=== PATIENT | male | born 1970 | race Caucasian/White ===

== ENCOUNTER 2017-08-05 11:01 | Observation (INO) ==
--- NOTE | 2017-08-05 11:07 | Emergency Department Note ---
Disposition Clinical Impression: Atrial fibrillation with RVR Disposition: Admitted As Inpatient Condition: Fair General Adult HPI - General Chief complaint: ED Arrhythmia/Palpitations Stated complaint: A fib, SOB Time Seen by Provider: 08/05/17 11:05 - Related Data Home Medications Medication Instructions Recorded Confirmed ALPRAZolam [Xanax 0.5 MG Tablet] 0.5 mg PO TID PRN 05/02/15 08/05/17 Calcium Acetate [Phos-LO] 1,334 mg PO TIDWM 05/02/15 08/05/17 Cinacalcet HCl [Sensipar] 90 mg PO QPM 05/02/15 08/05/17 Lisinopril [Zestril] 40 mg PO BID 05/02/15 08/05/17 Omeprazole 20 mg PO DAILY 05/02/15 08/05/17 Oxycodone HCl 15 mg PO Q6H PRN 05/02/15 08/05/17 Sevelamer [Renvela] 800 mg PO TIDWM 05/02/15 08/05/17 Folic Acid/Vit Bcomp,C [Dialyvite 0.8 mg PO DAILY 12/28/15 08/05/17 Tablet] Pramipexole Di-HCl [Pramipexole 0.5 mg PO HS 12/28/15 08/05/17 Dihydrochloride] traZODone [TraZODone] 50 mg PO HS 12/28/15 08/05/17 Ondansetron [Zofran] 8 mg PO DAILY PRN 04/26/16 08/05/17 dilTIAZem HCl [Diltiazem 24Hr ER] 240 mg PO DAILY 04/26/16 08/05/17 Ipratropium/Albuterol Sulfate 4 gm IH PRN PRN 04/22/17 08/05/17 [Combivent Respimat Inhal [place]] Lactobacillus Acidophilus 1 each PO BID 04/22/17 08/05/17 [Acidophilus Lactobacilli] Simethicone [Bicarsim] 80 mg PO Q8H PRN 04/22/17 08/05/17 Allergies Allergy/AdvReac Type Severity Reaction Status Date / Time No Known Allergies Allergy Verified 05/02/15 13:25 Course Vital Signs Temperature 98.2 F 08/05/17 11:04 Pulse Rate 142 08/05/17 11:04 Respiratory Rate 20 08/05/17 11:04 Blood Pressure 173/127 08/05/17 11:04 O2 Sat by Pulse Oximetry 93 08/05/17 11:04 Temperature 98.0 F 08/05/17 20:14 Pulse Rate 69 08/05/17 20:14 Respiratory Rate 18 08/05/17 20:14 Blood Pressure 129/81 08/05/17 20:14 O2 Sat by Pulse Oximetry 94 08/05/17 20:14 Oxygen Delivery Oxygen Delivery Nasal Cannula Medical Decision Making - Lab Data Result diagrams: 08/05/17 11:31 08/05/17 11:31 Lab Results 08/05/17 08/05/17 08/05/17 Range/Units 11:31 11:31 11:31 WBC 6.0 (4.3-11.1) K/mcL RBC 3.13 L (4.19-5.50) M/mcL Hgb 9.7 L (12.9-16.9) g/dL Hct 29.9 L (37.5-50.1) % MCV 95.5 (83.0-100.0) fL MCH 31.0 (28.0-33.3) pg MCHC 32.4 (31.6-35.5) g/dL RDW 14.7 H (11.5-14.5) % Plt Count 120 L (140-400) K/mcL MPV 10.4 (9.4-12.4) fL Immature Gran % 0.3 (0-4) % Seg Neutrophils % 76.2 % Lymphocytes % 12.6 % Monocytes % 7.3 % Eosinophils % 3.3 % Basophils % 0.3 % Neutrophils # 4.6 (1.6-8.9) K/mcL Lymphocytes # 0.8 (0.6-4.6) K/mcL Monocytes # 0.4 (0.0-1.3) K/mcL Eosinophils # 0.2 (0.0-0.6) K/mcL Basophils # 0.0 (0.0-0.2) K/mcL Immature Plt Fraction 3.7 (1.1-6.1) % PT 12.2 H (9.4-12.1) Seconds INR 1.1 APTT 30.7 (26.0-36.0) Seconds Sodium 141 (136-145) mEq/L Potassium 4.0 (3.5-4.5) mEq/L Chloride 98 (98-109) mEq/L Carbon Dioxide 29 (19-29) mEq/L BUN 29 H (8-26) mg/dL Creatinine 6.03 H (0.72-1.25) mg/dL Est GFR ( Amer) 12 L (> 60) Est GFR (Non-Af Amer) 10 L (> 60) BUN/Creatinine Ratio 5 L (6-26) Glucose 87 (70-99) mg/dL Calculated Osmolality 297 (280-300) Calcium 9.6 (8.6-10.8) mg/dL Troponin I (0-0.03) ng/mL TSH 0.719 (0.350-4.840) mcIU/mL 08/05/17 Range/Units 11:31 WBC (4.3-11.1) K/mcL RBC (4.19-5.50) M/mcL Hgb (12.9-16.9) g/dL Hct (37.5-50.1) % MCV (83.0-100.0) fL MCH (28.0-33.3) pg MCHC (31.6-35.5) g/dL RDW (11.5-14.5) % Plt Count (140-400) K/mcL MPV (9.4-12.4) fL Immature Gran % (0-4) % Seg Neutrophils % % Lymphocytes % % Monocytes % % Eosinophils % % Basophils % % Neutrophils # (1.6-8.9) K/mcL Lymphocytes # (0.6-4.6) K/mcL Monocytes # (0.0-1.3) K/mcL Eosinophils # (0.0-0.6) K/mcL Basophils # (0.0-0.2) K/mcL Immature Plt Fraction (1.1-6.1) % PT (9.4-12.1) Seconds INR APTT (26.0-36.0) Seconds Sodium (136-145) mEq/L Potassium (3.5-4.5) mEq/L Chloride (98-109) mEq/L Carbon Dioxide (19-29) mEq/L BUN (8-26) mg/dL Creatinine (0.72-1.25) mg/dL Est GFR ( Amer) (> 60) Est GFR (Non-Af Amer) (> 60) BUN/Creatinine Ratio (6-26) Glucose (70-99) mg/dL Calculated Osmolality (280-300) Calcium (8.6-10.8) mg/dL Troponin I 0.05 H* (0-0.03) ng/mL TSH (0.350-4.840) mcIU/mL Critical Care Time Critical Care Time: Yes Total Critical Care Time: 30 Attestation: Patient presented in atrial fibrillation with RVR requiring an IV Cardizem drip for rate control and admission Attestation Statement - Attestation Attestation: I examined this patient and my medical decision-making was reviewed with the Resident Physician. I agree with the documented findings, disposition and treatment plan as described except to the extent set forth below. [id number] time provided Arrives by EMS after completing his dialysis session. He complains of palpitations. He has a known history of atrial fibrillation. He appears in no acute distress on exam. His home medication list was reviewed by me
--- NOTE | 2017-08-05 11:12 | Emergency Department Note ---
Disposition Clinical Impression: Atrial fibrillation with RVR Disposition: Admitted As Inpatient Condition: Fair Referrals: Roldan Rose Jr [Primary Care Provider] - Forms: ED Satisfaction Letter Time of Disposition: 12:44 Arrhythmia/Palpitations HPI - General Chief Complaint: ED Arrhythmia/Palpitations Stated Complaint: A fib, SOB Time Seen by Provider: 08/05/17 11:05 Nursing Notes Reviewed: Yes Vital Signs Reviewed: Yes - History of Present Illness HPI Narrative: Mr. Anderson, 38-year-old male, presents from dialysis to this department for evaluation of tachycardia. Patient has a history of atrial fibrillation on metoprolol and diltiazem. He did take his metoprolol but did not take his diltiazem. No anticoagulant and no antiplatelet. He is here for rapid heart rate. He is a history of A. fib with RVR and this feels exactly the same to him. He denies any dizziness or no weakness. He does feel palpitations. No headache. No chest pain, no back pain0. 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 History of atrial fibrillation. Spontaneous pericardial effusion with cardiac window. No history of ACS. - Related Data Home Medications Medication Instructions Recorded Confirmed ALPRAZolam [Xanax 0.5 MG Tablet] 0.5 mg PO TID PRN 05/02/15 04/22/17 Calcium Acetate [Phos-LO] 1,334 mg PO TIDWM 05/02/15 04/22/17 Cinacalcet HCl [Sensipar] 90 mg PO QPM 05/02/15 04/22/17 Furosemide [Lasix] 20 mg PO DAILY PRN 05/02/15 04/22/17 Gabapentin [Neurontin] 800 mg PO BID 05/02/15 04/22/17 Lisinopril [Zestril] 40 mg PO BID 05/02/15 04/22/17 Omeprazole 20 mg PO DAILY 05/02/15 04/22/17 Oxycodone HCl 15 mg PO Q6H PRN 05/02/15 04/22/17 Sevelamer [Renvela] 800 mg PO TIDWM 05/02/15 04/22/17 Folic Acid/Vit Bcomp,C [Dialyvite 0.8 mg PO DAILY 12/28/15 04/22/17 Tablet] Pramipexole Di-HCl [Pramipexole 0.5 mg PO HS 12/28/15 04/22/17 Dihydrochloride] traZODone [TraZODone] 50 mg PO HS 12/28/15 04/22/17 Ondansetron [Zofran] 8 mg PO DAILY PRN 04/26/16 04/22/17 dilTIAZem HCl [Diltiazem 24Hr ER] 240 mg PO DAILY 04/26/16 04/22/17 Ipratropium/Albuterol Sulfate 4 gm IH PRN PRN 04/22/17 04/22/17 [Combivent Respimat Inhal [place]] Lactobacillus Acidophilus 1 each PO BID 04/22/17 04/22/17 [Acidophilus Lactobacilli] Simethicone [Bicarsim] 80 mg PO Q8H PRN 04/22/17 04/22/17 Varenicline Tartrate [Chantix] 1 mg PO BID 04/22/17 04/22/17 Previous Rx's Medication Instructions Recorded Metoprolol XL (24 HR) Succ [Toprol 25 mg PO DAILY #30 tab.er.24h 04/23/17 XL] Allergies Allergy/AdvReac Type Severity Reaction Status Date / Time No Known Allergies Allergy Verified 05/02/15 13:25 All systems ED: reviewed and negative except as stated. Review of Systems: As Per HPI Physical Exam Vital Signs Reviewed General: Patient is alert, oriented, and in no acute distress. HEENT: No facial asymmetry. Head is normocephalic and atraumatic. Mucosa moist. Trachea midline. Cardiovascular: Heart tachycardic rate with irregular rhythm without clicks, rubs, gallops, or murmurs. No JVD. PMI nondisplaced. Bilateral radial pulses irregular, 2/4 and equal. Respiratory: Symmetric chest rise with good respiratory effort. Bilateral breath sounds are clear without wheezing, crackles, or rhonchi. Abdomen: Bowel sounds present normoactive x-4 quadrants. Abdomen is soft, nondistended, and nontender. Neuro: GCS 15. Psych: Patient's affect is appropriate for situation. Course Course Narrative: Patient presents from dialysis for symptomatic atrial fibrillation with rapid ventricular response. He did complete dialysis today. Blood pressure in the 170s on intake. Heart rate in the 130s. EKG shows A. fib RVR. We will provide Cardizem bolus with Cardizem drip. Remainder of lab work and chest x- ray pending. Patient has elevated troponin of 0.05. His expected given his history of CK D stage V on dialysis. Patient is anemic with hemoglobin of 9. No previous for comparison. This is also expected given his dialysis dependence. Patient's HR in the 110's after 20mg bolus of cardizem and drip now at 10mg/hr. BP 150's systolic. Discussed the patient with the admitting hospitalist, Dr. Ayala, who agrees to accept the patient. Vital Signs Temperature 98.2 F 08/05/17 11:04 Pulse Rate 142 08/05/17 11:04 Respiratory Rate 20 08/05/17 11:04 Blood Pressure 173/127 08/05/17 11:04 O2 Sat by Pulse Oximetry 93 08/05/17 11:04 Temperature 98.2 F 08/05/17 11:04 Pulse Rate 118 08/05/17 12:41 Respiratory Rate 18 08/05/17 12:41 Blood Pressure 153/116 08/05/17 12:41 O2 Sat by Pulse Oximetry 98 08/05/17 12:41 Oxygen Delivery Oxygen Delivery Nasal Cannula Arrhythmia/Palpitations - Lab Data Result diagrams: 08/05/17 11:31 08/05/17 11:31 Lab Results 08/05/17 08/05/17 08/05/17 Range/Units 11:31 11:31 11:31 WBC 6.0 (4.3-11.1) K/mcL RBC 3.13 L (4.19-5.50) M/mcL Hgb 9.7 L (12.9-16.9) g/dL Hct 29.9 L (37.5-50.1) % MCV 95.5 (83.0-100.0) fL MCH 31.0 (28.0-33.3) pg MCHC 32.4 (31.6-35.5) g/dL RDW 14.7 H (11.5-14.5) % Plt Count 120 L (140-400) K/mcL MPV 10.4 (9.4-12.4) fL Immature Gran % 0.3 (0-4) % Seg Neutrophils % 76.2 % Lymphocytes % 12.6 % Monocytes % 7.3 % Eosinophils % 3.3 % Basophils % 0.3 % Neutrophils # 4.6 (1.6-8.9) K/mcL Lymphocytes # 0.8 (0.6-4.6) K/mcL Monocytes # 0.4 (0.0-1.3) K/mcL Eosinophils # 0.2 (0.0-0.6) K/mcL Basophils # 0.0 (0.0-0.2) K/mcL Immature Plt Fraction 3.7 (1.1-6.1) % PT 12.2 H (9.4-12.1) Seconds INR 1.1 APTT 30.7 (26.0-36.0) Seconds Sodium 141 (136-145) mEq/L Potassium 4.0 (3.5-4.5) mEq/L Chloride 98 (98-109) mEq/L Carbon Dioxide 29 (19-29) mEq/L BUN 29 H (8-26) mg/dL Creatinine 6.03 H (0.72-1.25) mg/dL Est GFR ( Amer) 12 L (> 60) Est GFR (Non-Af Amer) 10 L (> 60) BUN/Creatinine Ratio 5 L (6-26) Glucose 87 (70-99) mg/dL Calculated Osmolality 297 (280-300) Calcium 9.6 (8.6-10.8) mg/dL Troponin I (0-0.03) ng/mL 08/05/17 Range/Units 11:31 WBC (4.3-11.1) K/mcL RBC (4.19-5.50) M/mcL Hgb (12.9-16.9) g/dL Hct (37.5-50.1) % MCV (83.0-100.0) fL MCH (28.0-33.3) pg MCHC (31.6-35.5) g/dL RDW (11.5-14.5) % Plt Count (140-400) K/mcL MPV (9.4-12.4) fL Immature Gran % (0-4) % Seg Neutrophils % % Lymphocytes % % Monocytes % % Eosinophils % % Basophils % % Neutrophils # (1.6-8.9) K/mcL Lymphocytes # (0.6-4.6) K/mcL Monocytes # (0.0-1.3) K/mcL Eosinophils # (0.0-0.6) K/mcL Basophils # (0.0-0.2) K/mcL Immature Plt Fraction (1.1-6.1) % PT (9.4-12.1) Seconds INR APTT (26.0-36.0) Seconds Sodium (136-145) mEq/L Potassium (3.5-4.5) mEq/L Chloride (98-109) mEq/L Carbon Dioxide (19-29) mEq/L BUN (8-26) mg/dL Creatinine (0.72-1.25) mg/dL Est GFR ( Amer) (> 60) Est GFR (Non-Af Amer) (> 60) BUN/Creatinine Ratio (6-26) Glucose (70-99) mg/dL Calculated Osmolality (280-300) Calcium (8.6-10.8) mg/dL Troponin I 0.05 H* (0-0.03) ng/mL - EKG Data EKG attestation: Yes I reviewed and interpreted this EKG. EKG results narrative: EKG dated 08/05/17 at 11:15 interpreted as atrial fibrillation with a rate of 133. Normal axis. Nonspecific ST T changes. No previous EKG for comparison.
[2017-08-05] MEDS ORDERED: dilTIAZem HCl 100 MG in D5% in Water 50 ML IVC SCH ×2 (11:30→16:05)
[2017-08-05 11:37] LABS: Basophils % 0.3 %; Eosinophils # 0.2 K/mcL (0.0-0.6); Eosinophils % 3.3 %; Hematocrit 29.9 % (37.5-50.1); Hemoglobin 9.7 g/dL (12.9-16.9); Immature Granulocytes % 0.3 % (0-4); Immature Platelets 3.7 % (1.1-6.1); Lymphocytes # 0.8 K/mcL (0.6-4.6); Lymphocytes % 12.6 %; Mean Corpuscular HGB Conc 32.4 g/dL (31.6-35.5); Mean Corpuscular Volume 95.5 fL (83.0-100.0); Mean Platelet Volume 10.4 fL (9.4-12.4); Monocytes # 0.4 K/mcL (0.0-1.3); Monocytes % 7.3 %; Neutrophils # 4.6 K/mcL (1.6-8.9); Platelet Count 120 K/mcL (140-400); Red Blood Count 3.13 M/mcL (4.19-5.50); Red Cell Distribution Width 14.7 % (11.5-14.5); Segmented Neutrophils % 76.2 %
[2017-08-05 11:43] LABS: INR 1.1; Prothrombin Time 12.2 Seconds (9.4-12.1)
[2017-08-05 11:46] LABS: Activated Partial Thrombo Time 30.7 Seconds (26.0-36.0)
[2017-08-05 11:48] LABS: Calcium 9.6 mg/dL (8.6-10.8)
[2017-08-05] MEDS ORDERED: *HR* Morphine 2 MG/ML SYRINGE IVP ONE (12:27)
[2017-08-05] MEDS ORDERED: Simethicone 80 MG TAB.CHEW PO PRN (13:51)
[2017-08-05] MEDS ORDERED: Naloxone 0.4 MG/ML INJ IVP PRN (13:56)
--- NOTE | 2017-08-05 14:09 | Internal Med History&Physical ---
Date of Encounter: 08/05/17 Time of Encounter: 14:00 Assessment and Plan (1) Atrial fibrillation with rapid ventricular response Current visit: Yes Status: Acute Exacerbation of atrial fibrillation with rapid ventricular response. The patient is not on any anticoagulation or antiplatelets due to history of bleeding with unknown source. He reports he has been noncompliant with his calcium channel alka for the last couple of days due to feeling weak and fatigued. Admits to orthopnea and shortness of breath. Some history of pericardial effusion requiring pericardial window. He is in no distress and resting on 2 L nasal cannula Continuous telemetry, continuous SPO2 monitoring Resume home antihypertensives Echocardiogram to rule out pericardial effusion Resume diltiazem oral dose first dose now, Goal is to slowly titrate Cardizem drip off (2) Anemia Current visit: Yes Status: Chronic Anemia with H&H of 9.7/29.9. No prior labs for comparison. 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 Reports having past history of anemia requiring for blood transfusions. No active bleeding at this time. CBC in the morning Qualifiers: Anemia type: unspecified type Qualified Code(s): D64.9 - Anemia, unspecified (3) HTN (hypertension) Current visit: Yes Status: Acute History of hypertension, is only blood pressures in the 150s as of this admission. Continue BB, CCB, MAICOL, continuous telemetry Qualifiers: Hypertension type: essential hypertension Qualified Code(s): I10 - Essential (primary) hypertension (4) ESRD (end stage renal disease) on dialysis Current visit: No Status: Chronic Internal Medicine - H&P: HPI Chief complaint: A. fib RVR Admitted From: Home Plans for Post Hospital Care: Home History of present illness: Mr. Anderson is a 46 year old male with a PMH of CKD V, born with one kidney, HTN, A. fib RVR, pericardial effusion who presents to [facility] today with palpitations and shortness of breath. Patient has a known history of atrial fibrillation. He reports he is not on anticoagulation or antiplatelet. Patient reports that he was at hemodialysis this morning and with about 10 minutes of his treatment left he began experiencing palpitations or shortness of breath. Upon arrival to Emergency department he was found to be in A. fib with RVR. He reports that he has been noncompliant with medications for the last couple of days because he has not felt well. Reporting he felt fatigued and weak and has missed a few doses of his CCB. Denies any fever, chills, dizziness, palpitations, chest pain or headache. Recent history of pericardial effusion requiring pericardial window. Workup today reveals unremarkable chest x-ray and chronically elevated troponin 0.05. Additionally, he is anemic with H&H of 9.7/29.9 no prior H&H for comparison. Past Med Surg Social Fam HX - Past Medical History Medical history: atrial fibrillation, hypertension Psychiatric history: anxiety - Past Surgical History Surgical History: other - Social History Smoking Status: Current every day smoker Smokeless Tobacco Status: No Alcohol use: none Drug use: none - Family History Father Hx Family Endocrine Disorder: Yes Internal Medicine - H&P: Meds ALPRAZolam [Xanax 0.5 MG Tablet] 0.5 mg PO TID PRN 05/02/15 [History] Calcium Acetate [Phos-LO] 1,334 mg PO TIDWM 05/02/15 [History] Cinacalcet HCl [Sensipar] 90 mg PO QPM 05/02/15 [History] Lisinopril [Zestril] 40 mg PO BID 05/02/15 [History] Omeprazole 20 mg PO DAILY 05/02/15 [History] Oxycodone HCl 15 mg PO Q6H PRN 05/02/15 [History] Sevelamer [Renvela] 800 mg PO TIDWM 05/02/15 [History] Folic Acid/Vit Bcomp,C [Dialyvite Tablet] 0.8 mg PO DAILY 12/28/15 [History] Pramipexole Di-HCl [Pramipexole Dihydrochloride] 0.5 mg PO HS 12/28/15 [History] traZODone [TraZODone] 50 mg PO HS 12/28/15 [History] Ondansetron [Zofran] 8 mg PO DAILY PRN 04/26/16 [History] dilTIAZem HCl [Diltiazem 24Hr ER] 240 mg PO DAILY 04/26/16 [History] Ipratropium/Albuterol Sulfate [Combivent Respimat Inhal [place]] 4 gm IH PRN PRN 04/22/17 [History] Lactobacillus Acidophilus [Acidophilus Lactobacilli] 1 each PO BID 04/22/17 [ History] Simethicone [Bicarsim] 80 mg PO Q8H PRN 04/22/17 [History] 3 Allergy/AdvReac Type Severity Reaction Status Date / Time No Known Allergies Allergy Verified 05/02/15 13:25 All Systems PM: A 10-system review of systems was performed and is negative for pertinent findings except as documented above in the HPI. - Constitutional Constitutional: fatigue, weakness, no chills, no fever(s), no lethargy, no malaise, no night sweats, no weight gain, no weight loss - EENT Eyes: no change in vision, no discharge, no pain, no photophobia Ears: no ear discharge, no ear pain, no tinnitus Nose, mouth and throat: no dysphagia, no nasal discharge, no neck pain, no sore throat - Cardiovascular Cardiovascular ROS IM: as per HPI, dyspnea, irregular heart rhythm, orthopnea, no chest pain, no diaphoresis, no dyspnea on exertion, no edema, no lightheadedness, no palpitations, no syncope - Respiratory Respiratory: dyspnea, no cough, no wheezing, no pain on inspiration, no chest congestion, no excessive phlegm production, no pain with cough - Gastrointestinal Gastrointestinal: no abdominal pain, no diarrhea, no hematemesis, no hematochezia, no melena, no nausea, no vomiting - Musculoskeletal Musculoskeletal ROS IM: no numbness, no tingling - Integumentary Integumentary IM: no rash, no unusual bruising - Neurological Neurological ROS: no confusion, no convulsions, no focal weakness, no numbness, no tingling, no tremor(s) - Hematologic/Lymphatic Hematologic/Lymphatic: no easy bruising - Constitutional Vitals: Temp Pulse Resp BP Pulse Ox 98.2 F 100 18 155/106 98 08/05/17 11:04 08/05/17 13:12 08/05/17 13:12 08/05/17 13:12 08/05/17 13:12 General appearance: Present: cooperative, mild distress, A&O X 3, answers questions appropriately - Head Head exam: Present: atraumatic, normocephalic - Respiratory Respiratory exam: Present: CTAB. Absent: accessory muscle use, chest wall tenderness, decreased breath sounds, prolonged expiratory phase, rales, respiratory distress, rhonchi, wheezes, tachypnea - Cardiovascular Cardiovascular exam: Present: irregular rhythm, tachycardia - GI/Abdominal GI/Abdominal exam: Present: normal bowel sounds, soft, no peritoneal signs. Absent: distended, tenderness - Extremities Exam Extremities exam: Present: normal capillary refill, warm, radial pulses palpable and symmetrical. Absent: calf tenderness, cyanotic, mottling, pedal edema, tenderness Internal Med - H&P Results - Labs CBC & Chem 7: 08/05/17 11:31 08/05/17 11:31 - EKG Data -: EKG Interpreted by Myself - EKG Data Prior EKG available for review: no EKG comments: 08/05/17 14:24 A. fib RVR - Diagnostic Studies Chest x-ray Status: image reviewed by me Additional comments: Ill definition within the left lower lobe/retrocardiac region with suggestion of underlying hiatal hernia and/or airspace disease with possible small effusion. - VTE Reasons for not Prescribing Prophylaxis: Medical contraindication
[2017-08-05] MEDS ORDERED: 0.9 % Sodium Chloride 1,000 ML ONE (14:45)
[2017-08-05 14:56] LABS: Thyroid Stimulating Hormone 0.719 mcIU/mL (0.350-4.840)
--- NOTE | 2017-08-05 15:05 | Event Note ---
Date of Encounter: 08/05/17 Time of Encounter: 15:01 Patient seen and examined. AFib with RVR, now on cardizem drip. He has been SOB and orthopnic. Has history of it but usually in NSR. Not on anticoagulant due to prior GI bleed. Will continue cardizem drip, trend troponin. Check echocardiogram: he had a prior pericardial window probably related to his ESRD. He is lower than his dry weight (now 95.5 kg and dry weight 97). Took 3.5 L today. Will consult nephrology in case dialysis is needed o Saturday.
[2017-08-05] MEDS: Diltiazem CD (24hr) 240 MG CAPSULE PO SCH (15:26)
[2017-08-05] MEDS ORDERED: Ipratropium/Albuterol Neb 3 ML IH PRN (16:00)
[2017-08-05] MEDS: Calcium Acetate 667 MG CAPSULE PO SCH (16:37)
--- NOTE | 2017-08-05 16:39 | Electrocardiograph Report ---
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
[2017-08-05] MEDS: *HR* OxyCODONE Immed Rel 15 MG TABLET PO PRN ×2 (16:40→23:52)
[2017-08-05] MEDS: Ondansetron ODT 4 MG TAB.RAPDIS PO PRN (17:07)
[2017-08-05] MEDS: *HR* Morphine 2 MG/ML SYRINGE IVP PRN (20:55)
[2017-08-05] MEDS: traZODone 50 MG TABLET PO SCH (20:55)
[2017-08-05] MEDS: Lactobacillus 1 EACH CAP.SPRINK PO SCH (20:55)
[2017-08-05] MEDS ORDERED: Lisinopril 20 MG TABLET PO SCH (21:00)
[2017-08-06] MEDS: Nicotine 21 MG PATCH.TD24 TD SCH ×2 (00:07→08:30)
[2017-08-06] MEDS: ALPRAZolam 0.5 MG TABLET PO PRN ×2 (00:08→20:59)
[2017-08-06] MEDS: *HR* Morphine 2 MG/ML SYRINGE IVP PRN ×3 (02:55→18:18)
[2017-08-06] MEDS: *HR* OxyCODONE Immed Rel 15 MG TABLET PO PRN ×3 (06:24→20:59)
[2017-08-06 06:56] LABS: Basophils % 0.4 %; Eosinophils # 0.2 K/mcL (0.0-0.6); Eosinophils % 2.8 %; Hematocrit 26.5 % (37.5-50.1); Hemoglobin 8.3 g/dL (12.9-16.9); Immature Granulocytes % 0.4 % (0-4); Lymphocytes # 1.3 K/mcL (0.6-4.6); Lymphocytes % 19.4 %; Mean Corpuscular HGB Conc 31.3 g/dL (31.6-35.5); Mean Corpuscular Volume 98.9 fL (83.0-100.0); Monocytes # 0.5 K/mcL (0.0-1.3); Monocytes % 6.6 %; Neutrophils # 4.8 K/mcL (1.6-8.9); Platelet Count 104 K/mcL (140-400); Red Blood Count 2.68 M/mcL (4.19-5.50); Red Cell Distribution Width 14.5 % (11.5-14.5); Segmented Neutrophils % 70.4 %
[2017-08-06 07:02] LABS: Albumin 2.9 g/dL (3.5-5.0); Albumin/Globulin Ratio 0.9 (1.1-2.2); Calcium 8.8 mg/dL (8.6-10.8); Globulin 3.4 g/dL (2.4-3.5); Magnesium 2.2 mg/dL (1.6-2.6); Potassium 4.7 mEq/L (3.5-4.5); Total Protein 6.3 g/dL (6.0-8.3)
[2017-08-06] MEDS: Lactobacillus 1 EACH CAP.SPRINK PO SCH ×2 (08:30→20:59)
[2017-08-06] MEDS: Diltiazem CD (24hr) 240 MG CAPSULE PO SCH (08:30)
[2017-08-06] MEDS: Calcium Acetate 667 MG CAPSULE PO SCH ×3 (08:30→16:44)
[2017-08-06] MEDS: Lisinopril 20 MG TABLET PO SCH (08:30)
[2017-08-06] MEDS ORDERED: Multivit/Ca/Min/Fe/FA 1 TAB TABLET PO SCH (09:00)
[2017-08-06] MEDS: Renal Vitamin 1 MG CAPSULE PO SCH (10:05)
--- NOTE | 2017-08-06 11:54 | Nephrology Consult Note ---
Date of Encounter: 08/06/17 Time of Encounter: 11:45 History of Present Illness - Reason for Consult Consult date: 08/06/17 end stage renal disease Past Med Surg Social Fam HX - Past Medical History Medical history: atrial fibrillation, hypertension Psychiatric history: anxiety - Past Surgical History Surgical History: other - Social History Smoking Status: Current every day smoker Smokeless Tobacco Status: No Alcohol use: none Drug use: none - Family History Father Hx Family Endocrine Disorder: Yes Medications and Allergies ALPRAZolam [Xanax 0.5 MG Tablet] 0.5 mg PO TID PRN 05/02/15 [History] Calcium Acetate [Phos-LO] 1,334 mg PO TIDWM 05/02/15 [History] Cinacalcet HCl [Sensipar] 90 mg PO QPM 05/02/15 [History] Lisinopril [Zestril] 40 mg PO BID 05/02/15 [History] Omeprazole 20 mg PO DAILY 05/02/15 [History] Oxycodone HCl 15 mg PO Q6H PRN 05/02/15 [History] Sevelamer [Renvela] 800 mg PO TIDWM 05/02/15 [History] Folic Acid/Vit Bcomp,C [Dialyvite Tablet] 0.8 mg PO DAILY 12/28/15 [History] Pramipexole Di-HCl [Pramipexole Dihydrochloride] 0.5 mg PO HS 12/28/15 [History] traZODone [TraZODone] 50 mg PO HS 12/28/15 [History] Ondansetron [Zofran] 8 mg PO DAILY PRN 04/26/16 [History] dilTIAZem HCl [Diltiazem 24Hr ER] 240 mg PO DAILY 04/26/16 [History] Ipratropium/Albuterol Sulfate [Combivent Respimat Inhal [place]] 4 gm IH PRN PRN 04/22/17 [History] Lactobacillus Acidophilus [Acidophilus Lactobacilli] 1 each PO BID 04/22/17 [ History] Simethicone [Bicarsim] 80 mg PO Q8H PRN 04/22/17 [History] 3 Allergy/AdvReac Type Severity Reaction Status Date / Time No Known Allergies Allergy Verified 05/02/15 13:25 Exam - Vital Signs Vital signs: Initial Vital Signs Temp Pulse Resp BP Pulse Ox 98.2 F 142 20 173/127 93 08/05/17 11:04 08/05/17 11:04 08/05/17 11:04 08/05/17 11:04 08/05/17 11:04 Vital Signs - Last 8 Hours Temp Pulse Resp BP Pulse Ox 08/06/17 08:25 98.2 F 72 18 119/79 95 08/06/17 03:56 98.0 F 71 18 110/67 94 Intake and Output 08/05/17 08/06/17 08/06/17 23:59 07:59 15:59 Intake Total 0 / 0 240 / 240 Output Total 0 / 0 Balance 0 / 0 240 / 240 Intake: Oral 0 / 0 240 / 240 Output: Urine 0 / 0 Other: Meal Breakfast Percent of Meal Consumed 100% # Bowel Movement Diapers 0 Weight 100.3 kg Patient Weight 08/06/17 23:59 Weight 100.3 kg Results - Lab Results 08/06/17 06:15 08/06/17 06:15 Most recent lab results Calcium 8.8 mg/dL (8.6-10.8) 08/06/17 06:15 Magnesium 2.2 mg/dL (1.6-2.6) 08/06/17 06:15 Consult Discharge Plan - Plan Referrals: Roldan Rose Jr [Primary Care Provider] -
--- NOTE | 2017-08-06 16:17 | Internal Med Progress Note ---
Date of Encounter: 08/06/17 Time of Encounter: 15:30 - Assessment and plan (1) Atrial fibrillation with RVR Current Visit: Yes Status: Acute Assessment and plan: Chronic Atrial fibrillation with RVR - now with controlled IV Cardizem has been stopped, continue PO Cardizem No anticoagulation due to history of GI bleed Chest x-ray - patchy airspace disease, possibly edema Troponin - 0.06, occluded demand ischemia, no further workup EKG - atrial fibrillation with ST-T changes Echocardiogram - LVEF 60%, mild LV diastolic dysfunction, severely dilated LA Cardiac telemetry, pulse ox, labs in a.m., monitor closely, anticipate discharge tomorrow (2) HTN (hypertension) Current Visit: Yes Status: Chronic Assessment and plan: Essential hypertension, controlled, monitor Continue home dose of Cardizem, Zestril Qualifiers: Hypertension type: essential hypertension Qualified Code(s): I10 - Essential (primary) hypertension (3) ESRD (end stage renal disease) on dialysis Current Visit: No Status: Chronic Assessment and plan: End-stage renal disease on hemodialysis - Saturday Nephrology consult (4) COPD (chronic obstructive pulmonary disease) Current Visit: Yes Status: Chronic Assessment and plan: Probable COPD, stable - not in exacerbation Continue Duoneb breathing treatment as needed, O2 via nasal cannula Qualifiers: COPD type: unspecified COPD Qualified Code(s): J44.9 - Chronic obstructive pulmonary disease, unspecified (5) Tobacco abuse Current Visit: Yes Status: Chronic Assessment and plan: Counseled about cessation, nicotine patch (6) DVT prophylaxis Current Visit: Yes Status: Acute Assessment and plan: Continue SCDs, ambulate - Time Spent With Patient 25 - 35 minutes - Subjective Interval history: Examined this afternoon. Patient is awake and alert. Not in any distress. Denies chest pain or shortness of breath. States he feels better. Tolerating oral diet. Hemodynamically stable. No fever. Admitted for A. fib with RVR. Rate is now controlled. He is currently on Cardizem by mouth. He is not on anticoagulation due to history of GI bleed. No other acute events or complaints. Anticipate discharge tomorrow. - Constitutional Vitals: Temp Pulse Resp BP Pulse Ox 98.5 F 73 18 126/78 98 08/06/17 15:33 08/06/17 15:33 08/06/17 15:33 08/06/17 15:33 08/06/17 15:33 General appearance: Present: cooperative, A&O X 3, pleasant, no acute distress, answers questions appropriately - Head Head exam: Present: atraumatic - Eye Eye exam: Present: EOMI - ENT ENT exam: Present: mucous membranes moist - Respiratory Respiratory exam: Present: wheezes (Mild bilateral, otherwise clear to auscultation). Absent: accessory muscle use, chest wall tenderness, rales, rhonchi, tachypnea - Cardiovascular Cardiovascular exam: Present: RRR, +S1, +S2 - GI/Abdominal GI/Abdominal exam: Present: soft. Absent: distended, firm, guarding, no peritoneal signs - Extremities Exam Extremities exam: Present: radial pulses palpable and symmetrical. Absent: calf tenderness, cyanotic, pedal edema - Neurological Exam Neurological exam: Present: alert, oriented X3, no focal deficits. Absent: facial droop, speech deficit Internal Medicine: Result - Labs CBC & Chem 7: 08/06/17 06:15 08/06/17 06:15 Labs: Short CBC 08/06/17 Range/Units 06:15 WBC 6.8 (4.3-11.1) K/mcL Hgb 8.3 L (12.9-16.9) g/dL Hct 26.5 L (37.5-50.1) % Plt Count 104 L (140-400) K/mcL Neutrophils # 4.8 (1.6-8.9) K/mcL BMP 08/06/17 06:15 Sodium 141 Potassium 4.7 H Chloride 96 L Carbon Dioxide 33 H BUN 45 H D Creatinine 8.62 H Glucose 79 Calcium 8.8 Cardiac Enzymes 08/05/17 08/05/17 Range/Units 16:25 23:26 Troponin I 0.05 H* 0.06 H* (0-0.03) ng/mL Liver Function 08/06/17 Range/Units 06:15 Total Bilirubin 1.0 (0.2-1.2) mg/dL AST 10 (5-34) Units/L ALT 10 (0-55) Units/L Alkaline Phosphatase 53 (38-126) Units/L Albumin 2.9 L (3.5-5.0) g/dL - ABG Interpretation ABG results: PT/INR, D-dimer PT 12.2 Seconds (9.4-12.1) H 08/05/17 11:31 - Impressions Impressions Echocardiogram 08/05/17 13:53 Impressions: LVEF 60%. Mildly dilated left ventricle. Mild concentric left ventricular hypertrophy. Mild left ventricular diastolic dysfunction. Normal right ventricular structure and function. Severely dilated left atrium. Mildly calcified aortic valve leaflets. Mild aortic stenosis. Mean gradient 18 mmHg. Moderate posterior mitral annular calcification. Mildly thickened mitral valve leaflets. Mild mitral regurgitation. Moderate-severe mitral stenosis. Mean gradient 9 mmHg (HR 78 bpm). Mild tricuspid regurgitation. Moderate pulmonary hypertension. Estimated RVSP is 51 mmHg. No pericardial effusion. Left Ventricular Wall Motion: Rest Echo Findings All wall segments showed normal motion. Findings: Study Quality * Technically adequate exam. ECG Findings * Normal sinus rhythm. Left Ventricle * LVEF 60%. * Mildly dilated left ventricle. * Mild concentric left ventricular hypertrophy. * Mild left ventricular diastolic dysfunction. Right Ventricle * Normal right ventricular structure and function. Left Atrium * Severely dilated left atrium. Right Atrium * Mildly dilated right atrium. Interatrial Septum * Interatrial septum not well evaluated. Aortic Valve * Trileaflet aortic valve. * Mildly calcified aortic valve leaflets. * Trace aortic regurgitation. * Mild aortic stenosis. Mean gradient 18 mmHg. Mitral Valve * Moderate posterior mitral annular calcification. * Mildly thickened mitral valve leaflets. * Mild mitral regurgitation. * Moderate-severe mitral stenosis. Mean gradient 9 mmHg (HR 78 bpm). Tricuspid Valve * Normal tricuspid valve structure. * Mild tricuspid regurgitation. * Moderate pulmonary hypertension. * Estimated RVSP is 51 mmHg. * Estimated RA pressure is 5 mmHg. Pulmonic Valve * Normal pulmonic valve structure. * Mild pulmonic regurgitation. Aorta * Normally sized aortic root. Pericardium * The pericardium appears normal. IVC * Normal IVC dimensions and inspiratory collapse. Pulmonary Artery * Normal visualized portions of the main pulmonary artery. Chest X-Ray 08/06/17 04:00 IMPRESSION: Slight haziness suggesting edema with patchy airspace disease in the lower lobes which may represent atelectasis versus pneumonia. D/ / Reddy Hartley MD / Reddy Hartley MD Interpreting Provider: Reddy Hartley MD - VTE Reasons for not Prescribing Prophylaxis: Medical contraindication Consult Discharge Plan - Plan Referrals: Roldan Rose Jr [Primary Care Provider] -
[2017-08-06] MEDS: traZODone 50 MG TABLET PO SCH (20:59)
[2017-08-07] MEDS: *HR* Morphine 2 MG/ML SYRINGE IVP PRN ×4 (00:59→16:43)
[2017-08-07] MEDS: *HR* OxyCODONE Immed Rel 15 MG TABLET PO PRN ×2 (03:51→10:56)
[2017-08-07] MEDS: Ondansetron ODT 4 MG TAB.RAPDIS PO PRN ×2 (03:53→16:16)
[2017-08-07 03:54] LABS: Basophils % 0.4 %; Eosinophils # 0.2 K/mcL (0.0-0.6); Eosinophils % 3.1 %; Hematocrit 26.4 % (37.5-50.1); Hemoglobin 8.1 g/dL (12.9-16.9); Immature Granulocytes % 0.2 % (0-4); Lymphocytes # 1.1 K/mcL (0.6-4.6); Mean Corpuscular HGB Conc 30.7 g/dL (31.6-35.5); Mean Corpuscular Hemoglobin 30.5 pg (28.0-33.3); Mean Corpuscular Volume 99.2 fL (83.0-100.0); Mean Platelet Volume 10.5 fL (9.4-12.4); Monocytes # 0.4 K/mcL (0.0-1.3); Monocytes % 7.5 %; Neutrophils # 3.2 K/mcL (1.6-8.9); Platelet Count 102 K/mcL (140-400); Red Blood Count 2.66 M/mcL (4.19-5.50); Red Cell Distribution Width 14.3 % (11.5-14.5); Segmented Neutrophils % 66.8 %
[2017-08-07 04:08] LABS: Calcium 8.8 mg/dL (8.6-10.8); Potassium 5.2 mEq/L (3.5-4.5)
[2017-08-07] MEDS: Lactobacillus 1 EACH CAP.SPRINK PO SCH (08:05)
[2017-08-07] MEDS: Diltiazem CD (24hr) 240 MG CAPSULE PO SCH (08:05)
[2017-08-07] MEDS: Renal Vitamin 1 MG CAPSULE PO SCH (08:05)
[2017-08-07] MEDS: Calcium Acetate 667 MG CAPSULE PO SCH ×3 (08:05→18:03)
[2017-08-07] MEDS: Nicotine 21 MG PATCH.TD24 TD SCH (08:05)
[2017-08-07] MEDS: ALPRAZolam 0.5 MG TABLET PO PRN ×2 (08:36→16:43)
--- NOTE | 2017-08-07 10:31 | Discharge Summary ---
Date of Encounter: 08/07/17 Time of Encounter: 10:20 - Discharge Diagnosis (1) Atrial fibrillation with RVR Priority: Primary Status: Acute Comments: Chronic Atrial fibrillation with RVR - now with controlled IV Cardizem has been stopped, continue home dose of PO Cardizem No anticoagulation due to history of GI bleed Chest x-ray - patchy airspace disease, possibly edema Troponin - 0.06, occluded demand ischemia, no further workup EKG - atrial fibrillation with ST-T changes Echocardiogram - LVEF 60%, mild LV diastolic dysfunction, severely dilated LA Return if symptoms worsen, follow-up with primary care physician Continue regular hemodialysis sessions (2) HTN (hypertension) Priority: Secondary Status: Chronic Comments: Essential hypertension, controlled, monitor Continue home dose of Cardizem, Zestril Qualifiers: Hypertension type: essential hypertension Qualified Code(s): I10 - Essential (primary) hypertension (3) ESRD (end stage renal disease) on dialysis Priority: Primary Status: Chronic Comments: End-stage renal disease on hemodialysis - Saturday Nephrology consult - continue regular hemodialysis sessions (4) COPD (chronic obstructive pulmonary disease) Priority: Secondary Status: Chronic Comments: Probable COPD, stable - not in exacerbation Continue Duoneb breathing treatment as needed, O2 via nasal cannula at home Qualifiers: COPD type: unspecified COPD Qualified Code(s): J44.9 - Chronic obstructive pulmonary disease, unspecified (5) Tobacco abuse Priority: Secondary Status: Chronic Comments: Counseled about cessation, nicotine patch - Discharge Medications Prescriptions: Nicotine Patch [Nicoderm] 21 mg TD DAILY #30 patch.[email or web address] Home Medications: ALPRAZolam [Xanax 0.5 MG Tablet] 0.5 mg PO TID PRN 05/02/15 [History] Calcium Acetate [Phos-LO] 1,334 mg PO TIDWM 05/02/15 [History] Cinacalcet HCl [Sensipar] 90 mg PO QPM 05/02/15 [History] Lisinopril [Zestril] 40 mg PO BID 05/02/15 [History] Omeprazole 20 mg PO DAILY 05/02/15 [History] Oxycodone HCl 15 mg PO Q6H PRN 05/02/15 [History] Sevelamer [Renvela] 800 mg PO TIDWM 05/02/15 [History] Folic Acid/Vit Bcomp,C [Dialyvite Tablet] 0.8 mg PO DAILY 12/28/15 [History] Pramipexole Di-HCl [Pramipexole Dihydrochloride] 0.5 mg PO HS 12/28/15 [History] traZODone [TraZODone] 50 mg PO HS 12/28/15 [History] Ondansetron [Zofran] 8 mg PO DAILY PRN 04/26/16 [History] dilTIAZem HCl [Diltiazem 24Hr ER] 240 mg PO DAILY 04/26/16 [History] Ipratropium/Albuterol Sulfate [Combivent Respimat Inhal [place]] 4 gm IH PRN PRN 04/22/17 [History] Lactobacillus Acidophilus [Acidophilus Lactobacilli] 1 each PO BID 04/22/17 [ History] Simethicone [Bicarsim] 80 mg PO Q8H PRN 04/22/17 [History] Nicotine Patch [Nicoderm] 21 mg TD DAILY #30 patch.[email or web address] 08/07/17 [Rx] Allergies/Adverse Reactions: 3 Allergy/AdvReac Type Severity Reaction Status Date / Time No Known Allergies Allergy Verified 05/02/15 13:25 Procedures/tests Complete & Pending: Procedures Performed prior 72 hours Category Date Time Status EKG [ECG 12 lead ECG] [ECG] AM 0600 Y 08/07/17 06:00 Ordered EV echocardiogram Stat Y 08/05/17 13:53 Completed Date of admission: 08/05/17 13:31 Primary care physician: Roldan Rose Jr Consults: 08/05/17 15:01 Consult to Nephrology [CONS] Routine Consulting Provider: Kidney Lizzy/ARLETTE/DUNCAN/KAYLIN Reason for Consult: MAY NEED HEMODIALYSIS IF HE REMAINS INPATIENT; HE IS A M/ W/F PATIENT. Call Completed: No Anticipated date of discharge: 08/07/17 - Patient Status Disposition: Home, Self-Care Condition: Good Functional capacity at discharge: independent ambulation Overall status at discharge: patient is back to baseline - Discharge Instructions Instructions: Atrial Fibrillation (DC), Hypokalemia (DC), Chronic Hypertension (DC) Follow Up With: Roldan Rose Jr [Primary Care Provider] - 08/12/17 10:50 am - Diet and Activity Activity: increase activity as tolerated, resume usual activities as tolerated, wear oxygen at all times Diet: advance to your usual diet (Renal diet) Hospital course: Mr. Anderson is a 46 year old male with past medical history of atrial fibrillation , hypertension, end-stage renal disease on hemodialysis, anxiety and chronic smoker. He presented to the ED with complaints of atrial fibrillation with RVR. Patient is not on anticoagulation or antiplatelet due to history of GI bleed. Patient developed A. fib with RVR while he was on dialysis at the time of admission. Patient apparently had been noncompliant with his medication because he was not feeling well. He complained of fatigue and generalized weakness. He may have missed a few doses of his calcium channel alka. Chest x-ray shows slight haziness suggesting edema. Troponin was slightly elevated, likely due to demand ischemia and end-stage renal disease. Patient denied chest pain or shortness of breath. Patient was initially started on IV Cardizem, and this was discontinued after heart rate was controlled. Patient is currently on his regular home dose of Cardizem. Echo was done shows LVEF 60 % with severely dilated left atrium and mild LV diastolic dysfunction. Patient was continued on all his home medications. Nephrology has evaluated the patient. He tolerated hemodialysis well. His heart rate is currently well controlled. Patient has been explained about his condition and plan of care in detail. He understood and agreed. No unanswered questions. He is tolerating oral diet well and ambulating. No other acute events or complications during his stay. Patient has been counseled about smoking cessation. Patient is being discharged in stable condition. Time spent discussing smoking cessation with patient: 3 to 10 minutes - Time Spent with Patient Total time spent providing and/or coordinating discharge services: Less than 30 minutes - Constitutional Vitals: Temp Pulse Resp BP Pulse Ox 98.3 F 66 18 121/74 90 08/07/17 07:44 08/07/17 07:44 08/07/17 07:44 08/07/17 07:44 08/07/17 07:44 General appearance: Present: cooperative, A&O X 3, pleasant, no acute distress, answers questions appropriately - Head Head exam: Present: atraumatic - Eye Eye exam: Present: EOMI - ENT ENT exam: Present: mucous membranes moist - Respiratory Respiratory exam: Present: CTAB. Absent: accessory muscle use, chest wall tenderness, rales, rhonchi, wheezes, tachypnea - Cardiovascular Cardiovascular exam: Present: RRR, +S1, +S2 - GI/Abdominal GI/Abdominal exam: Present: soft. Absent: distended, firm, guarding, tenderness - Extremities Exam Extremities exam: Present: radial pulses palpable and symmetrical. Absent: calf tenderness, cyanotic, pedal edema - Neurological Exam Neurological exam: Present: alert, oriented X3, no focal deficits. Absent: facial droop, speech deficit - VTE Reasons for not Prescribing Prophylaxis: Medical contraindication Documentation of Mechanical Device: Intermittent pneumatic compression device
[2017-08-07] MEDS ORDERED: 0.9 % Sodium Chloride 250 ML IVC PRN (10:33)
[2017-08-07] MEDS: Lisinopril 20 MG TABLET PO SCH (10:56)
--- NOTE | 2017-08-07 11:36 | Nephrology Progress Note ---
Date of Encounter: 08/07/17 Time of Encounter: 11:33 - Assessment and Plan (1) ESRD (end stage renal disease) on dialysis Current Visit: No Status: Chronic HD today To be discharged after dialysis today Avoid nephrotoxins if possible (2) Atrial fibrillation with RVR Current Visit: Yes Status: Acute Controlled now per primary team (3) HTN (hypertension) Current Visit: Yes Status: Chronic per primary team Recommend follow up with cardiology-Echo changes with moderate-severe mitral stenosis; not reported on echo done March 2015 Qualifiers: Hypertension type: essential hypertension Qualified Code(s): I10 - Essential (primary) hypertension Subjective Principal diagnosis: A-fib, ESRD on dialysis Interval history: Patient seen and examined. States he is tired but has been sleeping well. Objective - Vital Signs Vital signs: Vital Signs Temp Pulse Resp BP Pulse Ox 08/07/17 11:28 98.2 F 75 20 120/78 91 08/07/17 07:44 98.3 F 66 18 121/74 90 08/07/17 03:42 98.1 F 73 20 130/84 95 08/06/17 22:30 98.3 F 66 20 114/67 94 08/06/17 20:26 98.2 F 70 20 126/75 97 08/06/17 17:17 16 97 08/06/17 15:33 98.5 F 73 18 126/78 98 08/06/17 11:49 98.2 F 74 17 128/75 91 Intake and Output 08/06/17 08/07/17 08/07/17 23:59 07:59 15:59 Intake Total 440 / 440 240 / 240 Output Total 0 / 0 Balance 440 / 440 240 / 240 Intake: Oral 440 / 440 240 / 240 Output: Urine 0 / 0 Other: Meal Dinner Breakfast Percent of Meal Consumed 100% 100% Weight 97.2 kg Patient Weight 08/07/17 23:59 Weight 97.2 kg - General Appearance General appearance: Present: well-developed, well-nourished EENT: Present: ATNC, mucous membranes moist, hearing intact, vision intact Neck: Present: supple Respiratory: Present: clear Cardiology: Present: no edema, normal S1, normal S2 Dialysis Vascular Access: Arteriovenous Fistula Gastrointestinal: Present: no tenderness, no guarding Integumentary: Present: warm and dry Neurologic: Present: alert and oriented x3 Psychiatric: Present: mood/affect appropriate, cooperative - Lab 08/07/17 03:30 08/07/17 03:30 Most recent lab results Calcium 8.8 mg/dL (8.6-10.8) 08/07/17 03:30 Magnesium 2.2 mg/dL (1.6-2.6) 08/06/17 06:15 - VTE Reasons for not Prescribing Prophylaxis: Medical contraindication Documentation of Mechanical Device: Intermittent pneumatic compression device Consult Discharge Plan - Plan Instructions: Atrial Fibrillation (DC), Hypokalemia (DC), Chronic Hypertension (DC) Referrals: Roldan Rose Jr [Primary Care Provider] - 08/12/17 10:50 am Prescriptions: Nicotine Patch [Nicoderm] 21 mg TD DAILY #30 patch.[email or web address]
[2017-08-07 17:38] VITALS: BP 121/78
[2017-08-07 18:26] LABS: Hepatitis B Surface Antigen Nonreactive (Nonreactive)
[2017-08-07 18:30] LABS: Hepatitis B Surface Antibody 77.46 mIU/mL
== END 2017-08-07 19:40 | disposition home or self-care (01) ==
LOC: 2NENU 11:01 → MERGE 11:01 → EMEROO 11:01 → 2ANU 14:09
PROVIDERS: ADMIT Internal Medicine; ATTEND Internal Medicine

== ENCOUNTER 2017-12-23 08:53 | Inpatient (IN) ==
[2017-12-23] MEDS ORDERED: Diltiazem CD (24hr) 240 MG CAPSULE PO SCH (11:15)
[2017-12-23] MEDS ORDERED: Naloxone 0.4 MG/ML INJ IVP PRN (11:24)
--- NOTE | 2017-12-23 11:28 | Internal Med History&Physical ---
Date of Encounter: 12/23/17 Time of Encounter: 11:15 Assessment and Plan (1) Atrial fibrillation with RVR Current visit: Yes Status: Acute Patient presenting with A. fib with RVR. Was started on IV Cardizem drip in the ER at [place]. Heart rate now between 90 and 110. We will resume oral Cardizem and titrate down intravenous Cardizem. Monitor vital signs. High risk for complications. (2) Gastroenteritis Current visit: Yes Status: Acute Patient had been having symptoms of nausea and vomiting. Improving now. Will place patient on antiemetics as needed. If it returns and persists, will get KUB x-ray and CT scan of the abdomen and pelvis. He did have fever earlier but has been afebrile since then. No signs of sepsis. No acute source of infection. Will monitor for now. No indication for antibiotics at this time. (3) Anemia Current visit: Yes Status: Chronic Hemoglobin 9.6. At baseline. Monitor blood counts. Epogen per nephrology recommendations. Qualifiers: Anemia type: due to chronic kidney disease Chronic kidney disease stage: on chronic dialysis Qualified Code(s): N18.6 - End stage renal disease; D63.1 - Anemia in chronic kidney disease; D63.1 - Anemia in chronic kidney disease; Z99.2 - Dependence on renal dialysis; Z99.2 - Dependence on renal dialysis; Z99.2 - Dependence on renal dialysis; Z99.2 - Dependence on renal dialysis (4) COPD (chronic obstructive pulmonary disease) Current visit: Yes Status: Chronic Not in acute exacerbation. Will place patient on bronchodilators as needed. Qualifiers: COPD type: unspecified COPD Qualified Code(s): J44.9 - Chronic obstructive pulmonary disease, unspecified (5) ESRD (end stage renal disease) on dialysis Current visit: Yes Status: Chronic Consult nephrology for dialysis management. (6) HTN (hypertension) Current visit: Yes Status: Chronic Resume home medications. Monitor vital signs closely. Qualifiers: Hypertension type: essential hypertension Qualified Code(s): I10 - Essential (primary) hypertension (7) DVT prophylaxis Current visit: Yes Status: Acute With subcutaneous heparin and SCDs Internal Medicine - H&P: HPI Chief complaint: Palpitations, fever Admitted From: Emergency Dept Plans for Post Hospital Care: Home History of present illness: Mr. Anderson is a 47 year old male patient with a history of end-stage renal disease on hemodialysis, hypertension, atrial fibrillation who was at dialysis this morning when he was found to have a fast heart rate. He was immediately sent to the ER. He reports that his been having nausea and vomiting with a past couple of days and has not been able to keep his pills down. He has been on Cardizem but he reports having an episode of emesis after he took Cardizem yesterday. He denies any abdominal pain. In the ER he was noted to have a fever of 101. He denies any shortness of breath. No cough. No hematemesis or melena. No diarrhea. No recent antibiotic use. Past Med Surg Social Fam HX - Past Medical History Attestation: Yes The following information was validated with the patient. Source: patient Medical history: GERD, atrial fibrillation, hyperlipidemia, hypertension, SVT, other, thyroid disease, dialysis Psychiatric history: anxiety - Past Surgical History Surgical History: other - Social History Smoking Status: Former smoker Smokeless Tobacco Status: No Alcohol use: none Drug use: none - Family History Father Hx Family Endocrine Disorder: Yes Internal Medicine - H&P: Meds ALPRAZolam [Xanax 0.5 MG Tablet] 0.5 mg PO TID PRN 05/02/15 [History] Calcium Acetate [Phos-LO] 1,334 mg PO TIDWM 05/02/15 [History] Lisinopril [Zestril] 40 mg PO BID 05/02/15 [History] Omeprazole 20 mg PO DAILY 05/02/15 [History] Oxycodone HCl 15 mg PO Q6H PRN 05/02/15 [History] Sevelamer [Renvela] 800 mg PO TIDWM 05/02/15 [History] Folic Acid/Vit Bcomp,C [Dialyvite Tablet] 0.8 mg PO DAILY 12/28/15 [History] Pramipexole Di-HCl [Pramipexole Dihydrochloride] 0.5 mg PO HS 12/28/15 [History] traZODone [TraZODone] 50 mg PO HS 12/28/15 [History] dilTIAZem HCl [Diltiazem 24Hr ER] 240 mg PO DAILY 04/26/16 [History] Ipratropium/Albuterol Sulfate [Combivent Respimat Inhal [place]] 4 gm IH PRN PRN 04/22/17 [History] Lactobacillus Acidophilus [Acidophilus Lactobacilli] 1 each PO BID 04/22/17 [ History] Simethicone [Bicarsim] 80 mg PO Q8H PRN 04/22/17 [History] 3 Allergy/AdvReac Type Severity Reaction Status Date / Time No Known Allergies Allergy Verified 05/02/15 13:25 All Systems PM: A 10-system review of systems was performed and is negative for pertinent findings except as documented above in the HPI. - Constitutional Constitutional: no chills, no fever(s), no night sweats - EENT Eyes: no change in vision, no discharge, no pain, no photophobia Ears: no ear discharge, no ear pain, no tinnitus Nose, mouth and throat: no dysphagia, no nasal discharge, no neck pain, no sore throat - Cardiovascular Cardiovascular ROS IM: no chest pain, no diaphoresis, no dyspnea, no lightheadedness, no palpitations, no syncope - Respiratory Respiratory: no cough, no dyspnea, no wheezing, no excessive phlegm production - Gastrointestinal Gastrointestinal: nausea, vomiting, no abdominal pain, no diarrhea, no hematemesis, no hematochezia, no melena - Musculoskeletal Musculoskeletal ROS IM: no numbness, no tingling - Integumentary Integumentary IM: no rash, no unusual bruising - Neurological Neurological ROS: no confusion, no convulsions, no focal weakness, no numbness, no tingling, no tremor(s) - Hematologic/Lymphatic Hematologic/Lymphatic: no easy bruising - Constitutional Vitals: Temp Pulse Resp BP Pulse Ox 98.8 F 117 17 137/88 92 12/23/17 10:39 12/23/17 10:39 12/23/17 10:39 12/23/17 10:39 12/23/17 10:39 General appearance: Present: cooperative, mild distress, A&O X 3, answers questions appropriately - Neck Neck exam general surgery: Present: supple, trachea midline. Absent: lymphadenopathy - Respiratory Respiratory exam: Present: CTAB. Absent: accessory muscle use, rales, rhonchi, wheezes - Cardiovascular Cardiovascular exam: Present: irregular rhythm, +S1, +S2, tachycardia. Absent: diastolic murmur, gallop, rubs, systolic murmur - GI/Abdominal GI/Abdominal exam: Present: normal bowel sounds, soft, no peritoneal signs. Absent: distended, tenderness - Extremities Exam Extremities exam: Present: warm, radial pulses palpable and symmetrical. Absent : calf tenderness, cyanotic, pedal edema - Neurological Exam Neurological exam: Present: CN II-XII intact, oriented X3, no focal deficits. Absent: facial droop, speech deficit - Skin Skin exam: Present: dry, intact Internal Med - H&P Results - Labs Labs: WBC 8.4, hemoglobin 9.6, platelets 103, potassium 5.6, chloride 95, BUN 83, creatinine 10.7 - EKG Data -: EKG Interpreted by Myself - EKG Data EKG comments: 12/23/17 11:29 Atrial fibrillation with RVR - Impressions Chest x-ray shows cardiomegaly with pulmonary edema
[2017-12-23] MEDS: *HR* OxyCODONE Immed Rel 15 MG TABLET PO PRN ×2 (12:16→17:46)
[2017-12-23] MEDS ORDERED: 0.9 % Sodium Chloride 250 ML IVC PRN (12:29)
[2017-12-23] MEDS ORDERED: 0.9 % Sodium Chloride 1,000 ML PRIME SCH (12:30)
--- NOTE | 2017-12-23 12:59 | Nephrology Consult Note ---
Date of Encounter: 12/23/17 Time of Encounter: 12:57 Assessment and Plan (1) ESRD (end stage renal disease) on dialysis Current Visit: Yes Status: Chronic HD MWF. Renal vitamins. Renal dose medications. Renal diet. Additional dialysis and ultrafiltration as needed. Patient will get dialysis today. Patient was seen on dialysis. (2) Atrial fibrillation with RVR Current Visit: Yes Status: Acute Patient with atrial fibrillation with RVR. Primary team is adjusting his rate control medicines. (3) Anemia Current Visit: Yes Status: Chronic Patient with anemia related to his renal disease. Monitor for bleeding. Qualifiers: Anemia type: due to chronic kidney disease Chronic kidney disease stage: on chronic dialysis Qualified Code(s): N18.6 - End stage renal disease; D63.1 - Anemia in chronic kidney disease; D63.1 - Anemia in chronic kidney disease; Z99.2 - Dependence on renal dialysis; Z99.2 - Dependence on renal dialysis; Z99.2 - Dependence on renal dialysis; Z99.2 - Dependence on renal dialysis (4) HTN (hypertension) Current Visit: Yes Status: Chronic Titrate antihypertensive medication as needed. Qualifiers: Hypertension type: essential hypertension Qualified Code(s): I10 - Essential (primary) hypertension History of Present Illness - Reason for Consult Consult date: 12/23/17 end stage renal disease - Chief Complaint ESRD - History of Present Illness Mr. Anderson is a 47-year-old gentleman with a history of end-stage renal disease who receives dialysis Saturday via a right upper arm fistula. He presents after he was found to have tachycardia this morning. He presented to the emergency room and was found to have atrial fibrillation with rapid ventricular rate. He was transferred to [facility] and a consult was placed to nephrology for ongoing dialysis needs. At the time my evaluation he was feeling better he denies chest pain, shortness of breath, nausea or other problems. He does admit to having lower extremity edema. Past Med Surg Social Fam HX - Past Medical History Medical history: GERD, atrial fibrillation, hyperlipidemia, hypertension, SVT, other, thyroid disease, dialysis Psychiatric history: anxiety - Past Surgical History Surgical History: other - Social History Smoking Status: Former smoker Smokeless Tobacco Status: No Alcohol use: none Drug use: none - Family History Father Hx Family Endocrine Disorder: Yes Medications and Allergies ALPRAZolam [Xanax 0.5 MG Tablet] 0.5 mg PO TID PRN 05/02/15 [History] Calcium Acetate [Phos-LO] 1,334 mg PO TIDWM 05/02/15 [History] Lisinopril [Zestril] 40 mg PO BID 05/02/15 [History] Omeprazole 20 mg PO DAILY 05/02/15 [History] Oxycodone HCl 15 mg PO Q6H PRN 05/02/15 [History] Sevelamer [Renvela] 1,600 mg PO TIDWM 05/02/15 [History] Folic Acid/Vit Bcomp,C [Dialyvite Tablet] 0.8 mg PO DAILY 12/28/15 [History] Pramipexole Di-HCl [Pramipexole Dihydrochloride] 0.5 mg PO HS 12/28/15 [History] dilTIAZem HCl [Diltiazem 24Hr ER] 240 mg PO DAILY 04/26/16 [History] Ipratropium/Albuterol Sulfate [Combivent Respimat Inhal [place]] 4 gm IH PRN PRN 04/22/17 [History] Lactobacillus Acidophilus [Acidophilus Lactobacilli] 1 each PO BID 04/22/17 [ History] Simethicone [Bicarsim] 80 mg PO Q8H PRN 04/22/17 [History] 3 Allergy/AdvReac Type Severity Reaction Status Date / Time No Known Allergies Allergy Verified 05/02/15 13:25 Review of Systems All Systems: reviewed and no additional remarkable complaints except as stated ( As per history of present illness) Exam - Vital Signs Vital signs: Initial Vital Signs Temp Pulse Resp BP Pulse Ox 98.8 F 117 17 137/88 92 12/23/17 10:39 12/23/17 10:39 12/23/17 10:39 12/23/17 10:39 12/23/17 10:39 Vital Signs - Last 8 Hours Temp Pulse Resp BP Pulse Ox 12/23/17 10:39 98.8 F 117 17 137/88 92 Intake and Output 12/22/17 12/23/17 12/23/17 23:59 07:59 15:59 Intake Total 0 / 0 Output Total 0 / 0 Balance 0 / 0 Intake: Oral 0 / 0 Output: Urine 0 / 0 Other: Weight 98.146 kg Patient Weight 12/23/17 23:59 Weight 98.146 kg - General Appearance General appearance: well-developed, well-nourished EENT: ATNC Neck: supple Respiratory: clear Cardiology: edema (1-2+ edema bilateral lower extremities.), irregular rhythm Additional Comments: Tachycardic - Dialysis Access Dialysis Vascular Access: Arteriovenous Fistula thrill: Yes bruit: Yes Gastrointestinal: normoactive bowel sounds, no tenderness Integumentary: warm and dry Neurologic: alert and oriented x3 Musculoskeletal: no cyanosis Psychiatric: mood/affect appropriate Consult Discharge Plan - Plan Referrals: Roldan Rose Jr [Primary Care Provider] -
[2017-12-23 18:42] LABS: Hepatitis B Surface Antigen Nonreactive (Nonreactive)
[2017-12-23] MEDS: Acetaminophen 325 MG TABLET PO PRN (18:44)
[2017-12-23] MEDS: *HR* Metoprolol 5 MG/5 ML VIAL IVP PRN (18:52)
[2017-12-23 22:33] LABS: Calcium 9.1 mg/dL (8.6-10.3); Potassium 4.8 mEq/L (3.5-5.1)
[2017-12-23] MEDS: ALPRAZolam 0.5 MG TABLET PO PRN (22:39)
[2017-12-24] MEDS: Acetaminophen 325 MG TABLET PO PRN (05:21)
[2017-12-24 05:45] LABS: Basophils % 0.4 %; Eosinophils # 0.3 K/mcL (0.0-0.6); Eosinophils % 3.5 %; Hemoglobin 9.3 g/dL (12.9-16.9); Immature Granulocytes % 0.3 % (0-4); Lymphocytes % 13.1 %; Mean Corpuscular Hemoglobin 30.9 pg (28.0-33.3); Mean Corpuscular Volume 99.7 fL (83.0-100.0); Mean Platelet Volume 9.8 fL (9.4-12.4); Monocytes # 0.7 K/mcL (0.0-1.3); Monocytes % 9.9 %; Neutrophils # 5.3 K/mcL (1.6-8.9); Platelet Count 105 K/mcL (140-400); Red Blood Count 3.01 M/mcL (4.19-5.50); Red Cell Distribution Width 15.1 % (11.5-14.5); Segmented Neutrophils % 72.8 %
[2017-12-24 06:09] LABS: Calcium 8.9 mg/dL (8.6-10.3); Potassium 5.3 mEq/L (3.5-5.1)
[2017-12-24] MEDS ORDERED: 0.9 % Sodium Chloride 2,000 ML ONE (07:09)
[2017-12-24] MEDS ORDERED: 0.9 % Sodium Chloride 250 ML IVC PRN (07:35)
[2017-12-24] MEDS ORDERED: Diltiazem CD (24hr) 240 MG CAPSULE PO SCH (09:00)
[2017-12-24] MEDS: *HR* OxyCODONE Immed Rel 15 MG TABLET PO PRN ×2 (09:06→16:17)
--- NOTE | 2017-12-24 10:01 | Nephrology Progress Note ---
Date of Encounter: 12/24/17 Time of Encounter: 09:57 - Assessment and Plan (1) ESRD (end stage renal disease) on dialysis Current Visit: Yes Status: Chronic HD today for cleaning only, no fluid removal since patient cramped all night last night Continue renal diet Avoid nephrotoxins if possible (2) Atrial fibrillation with rapid ventricular response Current Visit: No Status: Acute per primary team Subjective Principal diagnosis: ESRD on dialysis, atrial fibrillation with RVR Interval history: Patient seen and examined while on dialysis. States he is feeling a little rough, cramped all night Objective - Vital Signs Vital signs: Vital Signs Temp Pulse Resp BP Pulse Ox 12/24/17 07:47 99.1 F 98 18 112/73 93 12/24/17 05:03 98.8 F 114 18 138/86 90 12/24/17 00:44 98 F 101 16 130/65 92 12/23/17 22:04 98.2 F 110 17 125/71 90 12/23/17 17:15 97.5 F L 20 137/78 12/23/17 17:00 128/61 12/23/17 16:45 125/75 12/23/17 16:30 121/72 12/23/17 16:15 124/73 12/23/17 16:00 120/68 12/23/17 15:45 117/64 12/23/17 15:30 118/66 12/23/17 15:15 119/66 12/23/17 15:00 121/68 12/23/17 14:45 119/64 12/23/17 14:30 123/71 12/23/17 14:15 125/75 12/23/17 14:00 127/78 12/23/17 13:45 134/70 12/23/17 13:30 97.9 F 18 133/75 12/23/17 10:39 98.8 F 117 17 137/88 92 Intake and Output 12/23/17 12/24/17 12/24/17 23:59 07:59 15:59 Intake Total 0 / 0 0 / 0 150 / 150 Output Total 2600 / 2600 0 / 0 Balance -2600 / -2600 0 / 0 150 / 150 Intake: Oral 0 / 0 0 / 0 150 / 150 Output: Urine 0 / 0 Total Dialysis (HD) Output 2600 / 2600 Other: Meal Breakfast Percent of Meal Consumed 100% Weight 95.424 kg Hemodialysis Net Fluid Removed 2000 (mL) Patient Weight 12/24/17 23:59 Weight 95.424 kg - General Appearance General appearance: Present: well-developed, well-nourished EENT: Present: ATNC, mucous membranes moist, hearing intact, vision intact Neck: Present: supple Respiratory: Present: clear Cardiology: Present: regular rate, regular rhythm, normal S1, normal S2 Dialysis Vascular Access: Arteriovenous Fistula Gastrointestinal: Present: no tenderness, no guarding Integumentary: Present: warm and dry Neurologic: Present: alert and oriented x3 Psychiatric: Present: mood/affect appropriate, cooperative - Lab 12/24/17 05:29 12/24/17 05:29 Most recent lab results Calcium 8.9 mg/dL (8.6-10.3) 12/24/17 05:29 Consult Discharge Plan - Plan Referrals: Roldan Rose Jr [Primary Care Provider] -
[2017-12-24] MEDS: Diltiazem CD (24hr) 240 MG CAPSULE PO SCH (11:38)
[2017-12-24] MEDS: *HR* Metoprolol 5 MG/5 ML VIAL IVP PRN (12:01)
[2017-12-24] MEDS ORDERED: Ipratropium/Albuterol Neb 3 ML IH PRN (13:16)
[2017-12-24] MEDS: ALPRAZolam 0.5 MG TABLET PO PRN ×2 (14:26→20:10)
[2017-12-24] MEDS: Calcium Acetate 667 MG CAPSULE PO SCH (16:15)
[2017-12-24] MEDS ORDERED: traZODone 50 MG TABLET PO ONE (21:00)
--- NOTE | 2017-12-24 21:02 | Internal Med Progress Note ---
Date of Encounter: 12/24/17 Time of Encounter: 21:00 - Assessment and plan (1) Atrial fibrillation with RVR Current Visit: Yes Status: Chronic Assessment and plan: Improving. Still with some episodes of tachycardia. Asymptomatic. Continue home PO cardizem. Continue metoprolol PRN tachycardia. Continue telemetry. Will monitor closely. (2) Gastroenteritis Current Visit: Yes Status: Resolved Assessment and plan: Resolved. (3) Hypertension Current Visit: Yes Status: Chronic Assessment and plan: Continue home medications. Qualifiers: Hypertension type: essential hypertension Qualified Code(s): I10 - Essential (primary) hypertension (4) Anemia Current Visit: Yes Status: Chronic Assessment and plan: Hemoglobin at baseline and stable. Epogen per nephrology recommendations. Recheck CBC in AM. Qualifiers: Anemia type: due to chronic kidney disease Chronic kidney disease stage: on chronic dialysis Qualified Code(s): N18.6 - End stage renal disease; D63.1 - Anemia in chronic kidney disease; D63.1 - Anemia in chronic kidney disease; Z99.2 - Dependence on renal dialysis; Z99.2 - Dependence on renal dialysis; Z99.2 - Dependence on renal dialysis; Z99.2 - Dependence on renal dialysis (5) COPD (chronic obstructive pulmonary disease) Current Visit: Yes Status: Chronic Assessment and plan: No acute exacerbation. Continue bronchodilators PRN. Qualifiers: COPD type: unspecified COPD Qualified Code(s): J44.9 - Chronic obstructive pulmonary disease, unspecified (6) ESRD (end stage renal disease) on dialysis Current Visit: Yes Status: Chronic Assessment and plan: Nephrology consulted; appreciate input. Continue dialysis per their recommendations. (7) Hyperkalemia Current Visit: Yes Status: Acute Assessment and plan: Mild hypokalemia. Dialysed today. Recheck BMP in AM. (8) DVT prophylaxis Current Visit: Yes Status: Acute - Time Spent With Patient less than 15 minutes - Subjective Interval history: Patient had no acute events overnight. He states that he is feeling much better today. He denies any nausea and vomiting. He denies chest pain, palpitations, or SOB. Per nursing staff, HR starting to improve, still tachycardic at times during day. He has no new complaints. - Constitutional Vitals: Temp Pulse Resp BP Pulse Ox 98.4 F 90 17 128/83 95 12/24/17 20:58 12/24/17 20:58 12/24/17 20:58 12/24/17 20:58 12/24/17 20:58 General appearance: Present: cooperative, A&O X 3, pleasant, no acute distress, answers questions appropriately - Respiratory Respiratory exam: Present: CTAB. Absent: accessory muscle use, rales, rhonchi, wheezes Additional comments: Normal WOB - Cardiovascular Cardiovascular exam: Present: RRR, +S1, +S2. Absent: diastolic murmur, gallop, rubs, systolic murmur Additional comments: No BLE edema - GI/Abdominal GI/Abdominal exam: Present: normal bowel sounds, soft. Absent: distended, hepatomegaly, mass, splenomegaly, tenderness - Psychiatric Psychiatric exam: Present: normal affect, normal mood. Absent: anxious, depressed - Skin Skin exam: Present: dry, intact, warm. Absent: cyanosis, rash Internal Medicine: Result - Labs CBC & Chem 7: 12/24/17 05:29 12/24/17 05:29 Labs: Short CBC 12/24/17 Range/Units 05:29 WBC 7.2 (4.3-11.1) K/mcL Hgb 9.3 L (12.9-16.9) g/dL Hct 30.0 L (37.5-50.1) % Plt Count 105 L (140-400) K/mcL Neutrophils # 5.3 (1.6-8.9) K/mcL BMP 12/23/17 12/24/17 21:58 05:29 Sodium 137 137 Potassium 4.8 5.3 H Chloride 96 L 97 L Carbon Dioxide 30 H 28 BUN 48 H 56 H Creatinine 6.78 H 7.50 H Glucose 124 H 90 Calcium 9.1 8.9 Consult Discharge Plan - Plan Referrals: Roldan Rose Jr [Primary Care Provider] -
[2017-12-25] MEDS: Acetaminophen 325 MG TABLET PO PRN (03:31)
[2017-12-25] MEDS: ALPRAZolam 0.5 MG TABLET PO PRN (03:31)
[2017-12-25 06:40] LABS: Hemoglobin 8.1 g/dL (12.9-16.9); Mean Corpuscular HGB Conc 31.2 g/dL (31.6-35.5); Mean Corpuscular Volume 99.6 fL (83.0-100.0); Mean Platelet Volume 10.5 fL (9.4-12.4); Platelet Count 101 K/mcL (140-400); Red Blood Count 2.61 M/mcL (4.19-5.50); Red Cell Distribution Width 15.1 % (11.5-14.5)
[2017-12-25 06:51] LABS: Calcium 8.8 mg/dL (8.6-10.3); Potassium 4.5 mEq/L (3.5-5.1)
[2017-12-25] MEDS ORDERED: 0.9 % Sodium Chloride 2,000 ML ONE (07:13)
[2017-12-25] MEDS ORDERED: 0.9 % Sodium Chloride 250 ML IVC PRN (07:33)
[2017-12-25] MEDS ORDERED: 0.9 % Sodium Chloride 1,000 ML PRIME SCH (07:45)
[2017-12-25] MEDS: Diltiazem CD (24hr) 240 MG CAPSULE PO SCH (07:57)
[2017-12-25] MEDS: Calcium Acetate 667 MG CAPSULE PO SCH ×2 (07:57→12:57)
--- NOTE | 2017-12-25 10:44 | Nephrology Progress Note ---
Date of Encounter: 12/25/17 Time of Encounter: 10:43 - Assessment and Plan (1) ESRD (end stage renal disease) on dialysis Current Visit: Yes Status: Chronic HD MWF. Renal vitamins. Renal dose medications. Renal diet. Additional dialysis and ultrafiltration as needed. Patient was seen on dialysis. (2) Atrial fibrillation with RVR Current Visit: Yes Status: Chronic Rate is controlled. (3) Anemia Current Visit: Yes Status: Chronic Qualifiers: Anemia type: due to chronic kidney disease Chronic kidney disease stage: on chronic dialysis Qualified Code(s): N18.6 - End stage renal disease; D63.1 - Anemia in chronic kidney disease; D63.1 - Anemia in chronic kidney disease; Z99.2 - Dependence on renal dialysis; Z99.2 - Dependence on renal dialysis; Z99.2 - Dependence on renal dialysis; Z99.2 - Dependence on renal dialysis Subjective Principal diagnosis: ESRD on dialysis, atrial fibrillation with RVR Interval history: Patient seen while on dialysis. He has no new complaint. Objective - Vital Signs Vital signs: Vital Signs Temp Pulse Resp BP Pulse Ox 12/25/17 09:15 144/98 12/25/17 09:00 156/86 12/25/17 08:45 160/99 12/25/17 08:30 98.1 F 18 136/96 12/25/17 07:02 97.9 F 102 17 135/88 90 12/25/17 04:35 98.1 F 94 17 111/69 90 12/25/17 00:27 98 F 112 17 151/94 91 12/24/17 20:58 98.4 F 90 17 128/83 95 12/24/17 15:23 98.3 F 99 18 123/81 94 12/24/17 11:50 97.6 F 15 138/83 12/24/17 11:35 132/82 12/24/17 11:20 125/69 12/24/17 11:05 128/78 12/24/17 10:50 131/76 Intake and Output 12/24/17 12/25/17 12/25/17 23:59 07:59 15:59 Intake Total 240 / 240 120 / 120 600 / 600 Balance 240 / 240 120 / 120 600 / 600 Intake: Oral 240 / 240 120 / 120 0 / 0 Intake, Rinseback and Flushes 600 / 600 Other: Meal Dinner Percent of Meal Consumed 50% # Voids 1 Weight 95.481 kg Hemodialysis Net Fluid Removed 901 (mL) Patient Weight 12/25/17 23:59 Weight 95.481 kg - General Appearance General appearance: Present: well-developed, well-nourished EENT: Present: ATNC Cardiology: Present: regular rate Integumentary: Present: warm and dry Neurologic: Present: alert and oriented x3 Psychiatric: Present: mood/affect appropriate - Lab 12/25/17 06:14 12/25/17 06:14 Most recent lab results Calcium 8.8 mg/dL (8.6-10.3) 12/25/17 06:14 Consult Discharge Plan - Plan Instructions: Atrial Fibrillation (DC) Additional Instructions: Follow up with PCP in 2-3 days after discharge. Follow up with nephrology as directed. Referrals: Roldan Rose Jr [Primary Care Provider] - 01/02/18 11:10 am
[2017-12-25 12:09] VITALS: BP 105/67
[2017-12-25] MEDS: *HR* OxyCODONE Immed Rel 15 MG TABLET PO PRN (12:57)
--- NOTE | 2017-12-25 14:30 | Discharge Summary ---
- NOTES TO OUTPATIENT PROVIDER Notes to Outpatient Provider: Follow up with PCP in 2-3 days after discharge. Follow up with nephrology as directed. Orders not resulted at time of discharge: Pending orders 12/26/17 04:00 Basic Metabolic Panel AM 0400 Complete Blood Count w/o Diff [HEME] AM 0400 12/27/17 04:00 Basic Metabolic Panel AM 0400 Complete Blood Count w/o Diff [HEME] AM 0400 12/28/17 04:00 Basic Metabolic Panel AM 0400 Complete Blood Count w/o Diff [HEME] AM 0400 12/29/17 04:00 Basic Metabolic Panel AM 0400 Complete Blood Count w/o Diff [HEME] AM 0400 12/30/17 04:00 Basic Metabolic Panel AM 0400 Complete Blood Count w/o Diff [HEME] AM 0400 12/31/17 04:00 Basic Metabolic Panel AM 0400 Complete Blood Count w/o Diff [HEME] AM 0400 01/01/18 04:00 Basic Metabolic Panel AM 0400 Date of Encounter: 12/25/17 Time of Encounter: 14:27 - Discharge Diagnosis (1) Atrial fibrillation with RVR Priority: Primary Status: Chronic (2) Gastroenteritis Priority: Secondary Status: Resolved (3) Hypertension Priority: Secondary Status: Chronic Qualifiers: Hypertension type: essential hypertension Qualified Code(s): I10 - Essential (primary) hypertension (4) Anemia Priority: Secondary Status: Chronic Qualifiers: Anemia type: due to chronic kidney disease Chronic kidney disease stage: on chronic dialysis Qualified Code(s): N18.6 - End stage renal disease; D63.1 - Anemia in chronic kidney disease; D63.1 - Anemia in chronic kidney disease; Z99.2 - Dependence on renal dialysis; Z99.2 - Dependence on renal dialysis; Z99.2 - Dependence on renal dialysis; Z99.2 - Dependence on renal dialysis (5) COPD (chronic obstructive pulmonary disease) Priority: Secondary Status: Chronic Qualifiers: COPD type: unspecified COPD Qualified Code(s): J44.9 - Chronic obstructive pulmonary disease, unspecified (6) ESRD (end stage renal disease) on dialysis Priority: Secondary Status: Chronic (7) Hyperkalemia Priority: Secondary Status: Resolved (8) DVT prophylaxis Priority: Secondary Status: Acute Hospital course: Mr. Anderson is a 47 year old male admitted for Afib with RVR and gastroenteritis. Patient was admitted to general medical floor with telemetry. Nephrology was consulted, and he was continued on his regular dialysis schedule for ESRD. He was admitted on IV cardizem drip. HR rate was controlled with this, so he was transitioned back to his home PO cardizem. Nausea and vomiting resolved they day after admission. He had some hyperkalemia that resolved the following day after dialysis. He states that he is doing well today. He was qualified for supplemental O2 via [place] for his COPD on day of discharge. He will follow up with PCP in 2-3 days after discharge. He will follow up with nephrology as directed. He will continue outpatient dialysis schedule. Patient has met maximum benefit of this hospitalization and will be discharged home in stable condition. Discharge discussed with: patient, nurse, other (Pharmacist) - Time Spent with Patient Total time spent providing and/or coordinating discharge services: Greater than 30 minutes - Discharge Medications Home Medications: ALPRAZolam [Xanax 0.5 MG Tablet] 0.5 mg PO TID PRN 05/02/15 [History] Calcium Acetate [Phos-LO] 1,334 mg PO TIDWM 05/02/15 [History] Lisinopril [Zestril] 40 mg PO BID 05/02/15 [History] Omeprazole 20 mg PO DAILY 05/02/15 [History] Oxycodone HCl 15 mg PO Q6H PRN 05/02/15 [History] Sevelamer [Renvela] 1,600 mg PO TIDWM 05/02/15 [History] Folic Acid/Vit Bcomp,C [Dialyvite Tablet] 0.8 mg PO DAILY 12/28/15 [History] Pramipexole Di-HCl [Pramipexole Dihydrochloride] 0.5 mg PO HS 12/28/15 [History] dilTIAZem HCl [Diltiazem 24Hr ER] 240 mg PO DAILY 04/26/16 [History] Ipratropium/Albuterol Sulfate [Combivent Respimat Inhal [place]] 4 gm IH PRN PRN 04/22/17 [History] Lactobacillus Acidophilus [Acidophilus Lactobacilli] 1 each PO BID 04/22/17 [ History] Simethicone [Bicarsim] 80 mg PO Q8H PRN 04/22/17 [History] Allergies/Adverse Reactions: 3 Allergy/AdvReac Type Severity Reaction Status Date / Time No Known Allergies Allergy Verified 05/02/15 13:25 Date of admission: 12/24/17 21:05 Primary care physician: Roldan Rose Jr Consults: 12/23/17 11:25 Consult to Nephrology [CONS] Routine Consulting Provider: Kidney Lizzy/ARLETTE/DUNCAN/KAYLIN Reason for Consult: ESRD Time Notified: 11:25 Call Completed: Yes 12/23/17 11:33 Consult to Nephrology [CONS] Routine Consulting Provider: Kidney Lizzy/ARLETTE/DUNCAN/KAYLIN Reason for Consult: current dialysis patient Call Completed: Yes 12/23/17 12:30 Consult to Dialysis [CONS] ONCE 12/24/17 07:45 Consult to Dialysis [CONS] ONCE 12/24/17 17:34 Consult to Top Precipitator Operator [CONS] Routine Reason for SW Consult: Patient wants Rx for BP machine 12/25/17 07:45 Consult to Dialysis [CONS] ONCE Discharging clinician: Donald Caballero Anticipated date of discharge: 12/25/17 - Constitutional Vitals: Temp Pulse Resp BP Pulse Ox 97.8 F 102 18 105/67 80 12/25/17 11:45 12/25/17 07:02 12/25/17 11:45 12/25/17 11:45 12/25/17 14:07 General appearance: Present: cooperative, A&O X 3, pleasant, no acute distress, answers questions appropriately - Respiratory Respiratory exam: Present: CTAB. Absent: accessory muscle use, rales, rhonchi, wheezes Additional comments: Normal WOB - Cardiovascular Cardiovascular exam: Present: RRR, +S1, +S2. Absent: diastolic murmur, gallop, rubs, systolic murmur Additional comments: No BLE edema - GI/Abdominal GI/Abdominal exam: Present: normal bowel sounds, soft. Absent: distended, hepatomegaly, mass, splenomegaly, tenderness - Psychiatric Psychiatric exam: Present: normal affect, normal mood. Absent: anxious, depressed - Skin Skin exam: Present: dry, intact, warm. Absent: cyanosis, rash - Patient Status Disposition: Home, Self-Care Condition: Good Functional capacity at discharge: independent ambulation Overall status at discharge: patient is progressing back to baseline - Discharge Instructions Follow Up With: Roldan Rose Jr [Primary Care Provider] - Additional Instructions: Follow up with PCP in 2-3 days after discharge. Follow up with nephrology as directed. - Diet and Activity Activity: resume usual activities as tolerated Diet: other (Renal) - VTE Documentation of Mechanical Device: Intermittent pneumatic compression device
== END 2017-12-25 16:12 | disposition home or self-care (01) | DRG 308 ==
LOC: 2ANU
PROVIDERS: ADMIT Internal Medicine; ATTEND Internal Medicine

== ENCOUNTER 2018-08-13 02:56 | Inpatient (IN) ==
[2018-08-13] MEDS ORDERED: Ipratropium/Albuterol Neb 3 ML IH ONE (03:00)
[2018-08-13] MEDS ORDERED: dilTIAZem HCl 60 MG TABLET PO ONE (03:02)
[2018-08-13 03:23] LABS: VBG HCO3 34 mEq/L (21-27); VBG PCO2 53 mmHg (41-51); VBG PH 7.41 pH Units (7.32-7.42); VBG PO2 45 mmHg (25-50)
[2018-08-13 03:33] LABS: Basophils % 0.5 %; Eosinophils # 0.2 K/mcL (0.0-0.6); Hematocrit 32.3 % (37.5-50.1); Hemoglobin 10.4 g/dL (12.9-16.9); Immature Granulocytes % 0.4 % (0-4); Immature Platelets 2.4 % (1.1-6.1); Lymphocytes # 1.1 K/mcL (0.6-4.6); Lymphocytes % 15.3 %; Mean Corpuscular HGB Conc 32.2 g/dL (31.6-35.5); Mean Corpuscular Hemoglobin 31.2 pg (28.0-33.3); Mean Platelet Volume 10.7 fL (9.4-12.4); Monocytes # 0.4 K/mcL (0.0-1.3); Monocytes % 5.2 %; Red Blood Count 3.33 M/mcL (4.19-5.50); Red Cell Distribution Width 15.1 % (11.5-14.5); Segmented Neutrophils % 76.6 %
[2018-08-13 03:48] LABS: Neutrophils # 5.7 K/mcL (1.6-8.9); Platelet Count 91 K/mcL (140-400)
[2018-08-13 03:49] LABS: Platelet Estimate Slight Decrease (Normal); Troponin I 0.03 ng/mL (< 0.04)
[2018-08-13 03:52] LABS: Albumin 4.3 g/dL (3.5-5.7); Albumin/Globulin Ratio 1.4 (1.1-2.2); Bilirubin,Direct 0.3 mg/dL (0.0-0.2); Bilirubin,Indirect 0.8 mg/dL (0.0-1.2); Bilirubin,Total 1.1 mg/dL (0.3-1.0); Calcium 10.3 mg/dL (8.6-10.3); Globulin 3.1 g/dL (2.4-3.5); Potassium 5.3 mEq/L (3.5-5.1); Total Protein 7.4 g/dL (6.4-8.9)
--- NOTE | 2018-08-13 04:38 | Emergency Department Note ---
Disposition Clinical Impression: Atrial fibrillation with rapid ventricular response, Congestive heart failure Disposition: Admitted As Inpatient Condition: Fair SOB HPI - General Chief Complaint: ED Shortness of Breath/Dyspnea Stated Complaint: SOB Time Seen by Provider: 08/13/18 02:59 Source: patient Limitations: no limitations - History of Present Illness 47 YO M with a PMH significant for CHF on home O2, CKD on M/W/F HD, paroxysmal atrial fibrillation, HTN, DL and thyroid disease presents with a chief complaint of shortness of breath. History comes from patient and significant other. Riley has not been feeling well for the last several days, with increased fatigability and shortness of breath with activity. He is scheduled for a heart catheterization in [place] next week, and was hoping to discuss these symptoms at that appointment. However this evening his dyspnea became so severe that he felt as though he was choking. He presented to [place] ED for further evaluation and treatment, where he was found to be in atrial fibrillation and hypoxic in the 60's. Pt Subjective Complaint: shortness of breath Onset (ago): day(s) Severity: severe Consistency/Duration: constant, gradually worsening Improves with: nothing Worsens with: lying flat Known history of: congestive heart failure (sd) Associated symptoms: Reports: cough, orthopnea. Denies: fever Treatment prior to arrival: oxygen - Related Data Home oxygen amount: 4 liters Home Medications Medication Instructions Recorded Confirmed ALPRAZolam [Xanax 0.5 MG Tablet] 0.5 mg PO TID PRN 05/02/15 12/23/17 Calcium Acetate [Phos-LO] 1,334 mg PO TIDWM 05/02/15 12/23/17 Lisinopril [Zestril] 40 mg PO BID 05/02/15 12/23/17 Omeprazole 20 mg PO DAILY 05/02/15 12/23/17 Oxycodone HCl 15 mg PO Q6H PRN 05/02/15 12/23/17 Sevelamer [Renvela] 1,600 mg PO TIDWM 05/02/15 12/23/17 Folic Acid/Vit B Complex and C 0.8 mg PO DAILY 12/28/15 12/23/17 [Dialyvite Tablet] Pramipexole Di-HCl [Pramipexole 0.5 mg PO HS 12/28/15 12/23/17 Dihydrochloride] dilTIAZem HCl [Diltiazem 24Hr ER] 240 mg PO DAILY 04/26/16 12/23/17 Ipratropium/Albuterol Sulfate 4 gm IH PRN PRN 04/22/17 12/23/17 [Combivent Respimat Inhal [place]] Lactobacillus Acidophilus 1 each PO BID 04/22/17 12/23/17 [Acidophilus Lactobacilli] Simethicone [Bicarsim] 80 mg PO Q8H PRN 04/22/17 12/23/17 Previous Rx's Medication Instructions Recorded predniSONE [PredniSONE] 20 mg PO DAILY #13 tablet 12/28/17 Allergies Allergy/AdvReac Type Severity Reaction Status Date / Time No Known Allergies Allergy Verified 05/02/15 13:25 Constitutional: Reports: as per HPI, weakness. Denies: fever, chills Cardiovascular: Reports: dyspnea on exertion, orthopnea. Denies: chest pain, palpitations Respiratory: Reports: as per HPI, cough Gastrointestinal: Reports: as per HPI. Denies: nausea, vomiting Past Medical History - Past Medical History Medical history: Reports: atrial fibrillation, CHF, dialysis, GERD, hyperlipidemia, renal disease, other Surgical history: Reports: other Psychiatric history: Reports: anxiety - Social History Smoking Status: Former smoker Smokeless Tobacco Status: No Alcohol use: Reports: none Drug use: Reports: none Physical Exam - General Limitations: no limitations General appearance: alert, anxious - Head Head exam: atraumatic, normocephalic - Chest Chest inspection: Present: symmetric chest wall rise - Respiratory Respiratory exam: Present: normal lung sounds bilaterally, respiratory distress, accessory muscle use, prolonged expiratory phase - Cardiovascular Cardiovascular exam: Present: tachycardia, irregular rhythm, normal heart sounds. Absent: systolic murmur - Abdominal Exam Abdominal exam: Present: soft, distention, normal bowel sounds - Extremities Exam Extremities exam: Absent: pedal edema - Expanded Lower Extremity Exam Lower leg exam: Absent: swelling Ankle exam: Absent: swelling - Neurological Exam Neurological exam: Present: alert, oriented X3, CN II-XII intact - Psychiatric Psychiatric exam: Present: normal affect - Skin Skin exam: Present: warm, dry, intact Course Course Narrative: Patient appears to be in CHF 2/2 A-fib with RVR. Will treat with cardizem and BiPAP and re-eval. Vital Signs Temperature 97.8 F 08/13/18 02:59 Pulse Rate 138 08/13/18 02:59 Respiratory Rate 24 08/13/18 02:59 Blood Pressure 144/106 08/13/18 02:59 O2 Sat by Pulse Oximetry 99 08/13/18 02:59 Temperature 97.8 F 08/13/18 02:59 Pulse Rate 103 08/13/18 04:15 Respiratory Rate 31 08/13/18 04:15 Blood Pressure 131/95 08/13/18 04:15 O2 Sat by Pulse Oximetry 100 08/13/18 04:15 Oxygen Delivery Oxygen Delivery Nasal Cannula Shortness of Breath/Dyspnea - Lab Data Result diagrams: 08/13/18 03:00 08/13/18 03:00 Lab Results 08/13/18 08/13/18 08/13/18 Range/Units 03:00 03:00 03:00 WBC 7.4 (4.3-11.1) K/mcL RBC 3.33 L (4.19-5.50) M/mcL Hgb 10.4 L (12.9-16.9) g/dL Hct 32.3 L (37.5-50.1) % MCV 97.0 (83.0-100.0) fL MCH 31.2 (28.0-33.3) pg MCHC 32.2 (31.6-35.5) g/dL RDW 15.1 H (11.5-14.5) % Plt Count 91 L (140-400) K/mcL MPV 10.7 (9.4-12.4) fL Immature Gran % 0.4 (0-4) % Seg Neutrophils % 76.6 % Lymphocytes % 15.3 % Monocytes % 5.2 % Eosinophils % 2.0 % Basophils % 0.5 % Neutrophils # 5.7 (1.6-8.9) K/mcL Lymphocytes # 1.1 (0.6-4.6) K/mcL Monocytes # 0.4 (0.0-1.3) K/mcL Eosinophils # 0.2 (0.0-0.6) K/mcL Basophils # 0.0 (0.0-0.2) K/mcL Platelet Estimate Slight Decrease L (Normal) Immature Plt Fraction 2.4 (1.1-6.1) % VBG pH (7.32-7.42) pH Units VBG pCO2 (41-51) mmHg VBG pO2 (25-50) mmHg VBG HCO3 (21-27) mEq/L Sodium 142 (136-145) mEq/L Potassium 5.3 H (3.5-5.1) mEq/L Chloride 93 L (98-107) mEq/L Carbon Dioxide 32 H (23-29) mEq/L BUN 66 H (6-20) mg/dL Creatinine 8.62 H (0.70-1.30) mg/dL Est GFR ( Amer) 8 L (> 60) Est GFR (Non-Af Amer) 7 L (> 60) BUN/Creatinine Ratio 8 (6-26) Glucose 107 H (70-105) mg/dL Calculated Osmolality 314 H (280-300) Lactic Acid (0.5-2.2) mmol/L Calcium 10.3 (8.6-10.3) mg/dL Total Bilirubin 1.1 H (0.3-1.0) mg/dL Direct Bilirubin 0.3 H (0.0-0.2) mg/dL Indirect Bilirubin 0.8 (0.0-1.2) mg/dL AST 11 L (13-39) Units/L ALT 13 (7-52) Units/L Alkaline Phosphatase 65 (34-104) Units/L Troponin I 0.03 (< 0.04) ng/mL B-Natriuretic Peptide 1915 H (Less than 100) pg/mL Serum Total Protein 7.4 (6.4-8.9) g/dL Albumin 4.3 (3.5-5.7) g/dL Globulin 3.1 (2.4-3.5) g/dL Albumin/Globulin Ratio 1.4 (1.1-2.2) 08/13/18 08/13/18 Range/Units 03:05 03:20 WBC (4.3-11.1) K/mcL RBC (4.19-5.50) M/mcL Hgb (12.9-16.9) g/dL Hct (37.5-50.1) % MCV (83.0-100.0) fL MCH (28.0-33.3) pg MCHC (31.6-35.5) g/dL RDW (11.5-14.5) % Plt Count (140-400) K/mcL MPV (9.4-12.4) fL Immature Gran % (0-4) % Seg Neutrophils % % Lymphocytes % % Monocytes % % Eosinophils % % Basophils % % Neutrophils # (1.6-8.9) K/mcL Lymphocytes # (0.6-4.6) K/mcL Monocytes # (0.0-1.3) K/mcL Eosinophils # (0.0-0.6) K/mcL Basophils # (0.0-0.2) K/mcL Platelet Estimate (Normal) Immature Plt Fraction (1.1-6.1) % VBG pH 7.41 (7.32-7.42) pH Units VBG pCO2 53 H (41-51) mmHg VBG pO2 45 (25-50) mmHg VBG HCO3 34 H (21-27) mEq/L Sodium (136-145) mEq/L Potassium (3.5-5.1) mEq/L Chloride (98-107) mEq/L Carbon Dioxide (23-29) mEq/L BUN (6-20) mg/dL Creatinine (0.70-1.30) mg/dL Est GFR ( Amer) (> 60) Est GFR (Non-Af Amer) (> 60) BUN/Creatinine Ratio (6-26) Glucose (70-105) mg/dL Calculated Osmolality (280-300) Lactic Acid 0.9 (0.5-2.2) mmol/L Calcium (8.6-10.3) mg/dL Total Bilirubin (0.3-1.0) mg/dL Direct Bilirubin (0.0-0.2) mg/dL Indirect Bilirubin (0.0-1.2) mg/dL AST (13-39) Units/L ALT (7-52) Units/L Alkaline Phosphatase (34-104) Units/L Troponin I (< 0.04) ng/mL B-Natriuretic Peptide (Less than 100) pg/mL Serum Total Protein (6.4-8.9) g/dL Albumin (3.5-5.7) g/dL Globulin (2.4-3.5) g/dL Albumin/Globulin Ratio (1.1-2.2) Attestation Statement - Attestation Attestation: I examined this patient and my medical decision-making was reviewed with the Resident Physician. I agree with the documented findings, disposition and treatment plan as described except to the extent set forth below. Findings consistent with A. fib with rapid ventricular response which was responsive to Cardizem bolus and subsequent by mouth Cardizem administration. He does have potential underlying ascites with compressive diaphragmatic force causing in creasing dyspnea. He was substantially dyspneic on arrival requiring intervention with supplemental oxygen and ultimately BiPAP for underlying heart failure which is likely related to elevated heart rate. Plan to admit for dialysis, possible paracentesis. 35 minutes of critical care time for hypoxic respiratory failure
[2018-08-13] MEDS ORDERED: traMADol 50 MG TABLET PO ONE (05:09)
--- NOTE | 2018-08-13 05:26 | Internal Med History&Physical ---
Date of Encounter: 08/13/18 Time of Encounter: 05:22 Internal Medicine - H&P: HPI Chief complaint: dyspnea Admitted From: Emergency Dept Plans for Post Hospital Care: Home History of present illness: Mr. Anderson is a 47 year old male with a history of end-stage renal disease on hemodialysis, hypertension, atrial fibrillation , anxiety, GERD presented with shortness of breath that has been going on for a few days. He has been having dyspnea on exertion mainly. He has been feeling palpitations on and off and feels as if his abdomen is more swelled up. The patient upon presentation to the ED was noted to be in atrial fibrillation with rapid ventricular response with good supports in the 130s and 40s. He was given IV Cardizem push 20 mg as well as oral Cardizem 60 mg and weight was significantly better controlled into the 90s that was evaluating the patient. He was apparently also hypoxic in the 60s. He uses about 2 L of O2 at night only at baseline. Did require BiPAP at some point while in the ED. Laboratory workup showed kidney numbers consistent with end-stage renal disease. Showed mild hyperkalemia of 5.3. BNP was significantly elevated at 1915. No leukocytosis. CXR showed findings of CHF. The patient tells me that he was planned to have a right heart catheterization today at [facility] in orthopedic clinic for renal transplant. The patient denies any headache, fever, chills, nausea, vomiting, chest pain, abdominal pain, diarrhea, constipation, urinary symptoms, or neurological symptoms. He makes no urine. Past Med Surg Social Fam HX - Past Medical History Medical history: atrial fibrillation, CHF, dialysis, GERD, hyperlipidemia, renal disease, other Additional medical history: Chronic pain Psychiatric history: anxiety - Past Surgical History Surgical History: other Additional surgical history: Pericardial window. dialysis shunt to right upper arm. Kidney surgery - Social History Smoking Status: Former smoker Smokeless Tobacco Status: No Alcohol use: none Drug use: none - Family History Father Hx Family Endocrine Disorder: Yes Internal Medicine - H&P: Meds ALPRAZolam [Xanax 0.5 MG Tablet] 0.5 mg PO TID PRN 05/02/15 [History] Lisinopril [Zestril] 40 mg PO BID 05/02/15 [History] Omeprazole 20 mg PO DAILY 05/02/15 [History] Oxycodone HCl 15 mg PO Q6H PRN 05/02/15 [History] Folic Acid/Vit B Complex and C [Dialyvite Tablet] 0.8 mg PO DAILY 12/28/15 [History] Pramipexole Di-HCl [Pramipexole Dihydrochloride] 0.5 mg PO HS 12/28/15 [History] dilTIAZem HCl [Diltiazem 24Hr ER] 240 mg PO DAILY 04/26/16 [History] Ipratropium/Albuterol Sulfate [Combivent Respimat Inhal [place]] 4 gm IH PRN PRN 04/22/17 [History] Allergy/AdvReac Type Severity Reaction Status Date / Time No Known Allergies Allergy Verified 05/02/15 13:25 All Systems PM: A 10-system review of systems was performed and is negative for pertinent findings except as documented above in the HPI. Review of systems: All systems reviewed are negative except for as mentioned above - Constitutional Vitals: Temp Pulse Resp BP Pulse Ox 97.8 F 98 22 155/91 99 08/13/18 02:59 08/13/18 04:45 08/13/18 04:45 08/13/18 04:45 08/13/18 04:45 Exam: GEN: NAD HEENT: AT, NC, No cyanosis, oral mucosa is moist, No JVD Lymphatics: No lymphadenoapthy Eyes: Extrocular muscles intact, anicteric CVS: Tachycardic. Irregular.. S1, S2, No m/r/g RESP: Bibasilar crackles. ABD: Soft, NT, ND, +BS EXT: 1+ edema, No rashes, 2+ DP NEURO: Nonfocal, CN II-XII intact, No focal motor or sensory deficits Psych: Cooperative, Not anxious or depressed Internal Med - H&P Results - Labs CBC & Chem 7: 08/13/18 03:00 08/13/18 03:00 Labs: Short CBC 08/13/18 Range/Units 03:00 WBC 7.4 (4.3-11.1) K/mcL Hgb 10.4 L (12.9-16.9) g/dL Hct 32.3 L (37.5-50.1) % Plt Count 91 L (140-400) K/mcL Neutrophils # 5.7 (1.6-8.9) K/mcL BMP 08/13/18 03:00 Sodium 142 Potassium 5.3 H Chloride 93 L Carbon Dioxide 32 H BUN 66 H Creatinine 8.62 H Glucose 107 H Calcium 10.3 Cardiac Enzymes 08/13/18 Range/Units 03:00 Troponin I 0.03 (< 0.04) ng/mL Liver Function 08/13/18 Range/Units 03:00 Total Bilirubin 1.1 H (0.3-1.0) mg/dL Direct Bilirubin 0.3 H (0.0-0.2) mg/dL AST 11 L (13-39) Units/L ALT 13 (7-52) Units/L Alkaline Phosphatase 65 (34-104) Units/L Albumin 4.3 (3.5-5.7) g/dL - ABG Interpretation ABG results: 08/13/18 03:20 VBG pH 7.41 VBG pCO2 53 H VBG pO2 45 VBG HCO3 34 H - Impressions ITS Impressions Chest X-Ray 08/13/18 03:00 IMPRESSION: Findings probably represent congestive heart failure. There is also atelectasis or pneumonia in the right base. D/ / Conor Thakkar MD / Conor Thakkar MD Interpreting Provider: Conor Thakkar MD - Assessment and plan (1) Acute on chronic respiratory failure with hypoxemia Current Visit: Yes Status: Acute Assessment and plan: Likely volume overload from accommodation of end-stage renal disease and heart failure possibly from elevated heart rate. We will treat as below. Continue O2 support. (2) Atrial fibrillation with RVR Current Visit: Yes Status: Chronic Assessment and plan: Patient is better controlled now. We will continue home medications. He says that he used to be on Coumadin about 3 years ago and was stopped as they suspected that he has GI bleed. We will defer to his automotive painter helper at [place] (3) Congestive heart failure Current Visit: Yes Status: Acute Assessment and plan: Patient has signs of CHF on chest x-ray. He has elevated BNP. The patient had an echocardiogram done last week which showed an EF of 60% with mild LVH and mild aortic stenosis and mild mitral stenosis as well as moderate mitral regurgitation. There was severe pulmonary hypertension and mild to moderate tricuspid regurgitation.he was planned to have right heart catheterization done today at [facility]. The patient follows with a automotive painter helper in [place] and he can follow-up with them. We cannot give any Lasix as he does not urinate. Hopefully with some dialysis today he can have some improvement in his symptoms. He can follow up with his automotive painter helper after that and reschedule his right heart catheterization. Qualifiers: Heart failure type: right-sided Heart failure chronicity: acute on chronic Qualified Code(s): I50.813 - Acute on chronic right heart failure (4) Pulmonary hypertension Current Visit: Yes Status: Acute Assessment and plan: Plan is as above (5) ESRD (end stage renal disease) on dialysis Current Visit: No Status: Chronic Assessment and plan: Consult nephrology for dialysis per schedule. (6) Hyperkalemia Current Visit: No Status: Resolved Assessment and plan: This is mild at 5.3. This can be corrected with dialysis today. Labs in the morning. (7) Hypertension Current Visit: No Status: Chronic Assessment and plan: Resume home meds Qualifiers: Hypertension type: essential hypertension Qualified Code(s): I10 - Essential (primary) hypertension (8) DVT prophylaxis Current Visit: No Status: Acute Assessment and plan: Heparin subcutaneous - Time Spent With Patient Total time spent is greater than 50% in coordination of care (as documented) at patient's floor/unit and/or counseling patient:
[2018-08-13] MEDS ORDERED: Ipratropium/Albuterol Neb 3 ML IH PRN ×2 (05:30→07:27)
[2018-08-13] MEDS ORDERED: Naloxone 0.4 MG/ML INJ IVP PRN (05:31)
[2018-08-13] MEDS ORDERED: Acetaminophen 325 MG TABLET PO PRN (05:31)
[2018-08-13 06:03] LABS: INR 1.2; Prothrombin Time 13.7 Seconds (9.4-12.1)
[2018-08-13] MEDS ORDERED: 0.9 % Sodium Chloride 250 ML IVC PRN (06:55)
[2018-08-13] MEDS ORDERED: NON-FORMULARY MEDICATION 1 EACH EACH (Ipratropium/Albuterol Sulfate [Combivent Respimat In IH PRN (07:18)
[2018-08-13] MEDS ORDERED: ALPRAZolam 0.5 MG TABLET PO ONE (07:18)
[2018-08-13] MEDS: *HR* Heparin 5,000 UNIT/ML VIAL SQ SCH ×3 (07:48→22:54)
[2018-08-13] MEDS: Lisinopril 20 MG TABLET PO SCH ×2 (07:48→19:31)
[2018-08-13] MEDS: Diltiazem CD (24hr) 240 MG CAPSULE PO SCH (07:59)
[2018-08-13] MEDS: *HR* OxyCODONE Immed Rel 15 MG TABLET PO PRN ×3 (08:00→23:03)
[2018-08-13] MEDS: Renal Vitamin 1 CAP CAPSULE PO SCH (08:01)
--- NOTE | 2018-08-13 11:14 | Nephrology Consult Note ---
Addendum entered and electronically signed by Julio Zhang DO 08/13/18 16:49: I have personally performed a face to face evaluation on this patient. I have reviewed and agree with the care plan. History and Exam by me shows: 47 y/o WM with a pmh of ESRD on HD MWF at [facility] in [place], [place] and typically follows with Dr. Tomas. I reviewed outside med records from [facility] and assessed his DW with concern for worsening abd edema. I also called his outside dialysis unit and they have been concerned about both ascites and pulmonary hypertension. He even has a right heart cath arranged soon as part of his renal transplant evaluation. Dialysis note: he did not tolerate much UF today, and will reassess for an extra treatment tomorrow to challenge his dry weight. Consider screening for ascites and paracentesis if indicated. Will follow with you. Thank you for consulting the [facility] group. Original Note: Date of Encounter: 08/13/18 Time of Encounter: 11:03 Assessment and Plan (1) ESRD (end stage renal disease) on dialysis Current Visit: No Status: Chronic Current regimen is Saturday at [facility]. Last treatment was Saturday without complication. We will plan for HD today, will plan for UF tomorrow if patient tolerates. Strict I&O Renal diet Avoid nephrotoxins and renal dose all medications. (2) Acute on chronic respiratory failure with hypoxemia Current Visit: Yes Status: Acute Is currently on 4 L with off the mask. Per primary (3) Congestive heart failure Current Visit: Yes Status: Acute 1.5 L fluid resection. Per primary. Qualifiers: Heart failure type: right-sided Heart failure chronicity: acute on chronic Qualified Code(s): I50.813 - Acute on chronic right heart failure (4) Atrial fibrillation with RVR Current Visit: Yes Status: Chronic Heart rate is in the 90s, stable Per primary. (5) Anemia Current Visit: No Status: Chronic Goal hemoglobin is 10-11. Hemoglobin is 10.4 today, stable. Qualifiers: Anemia type: due to chronic kidney disease Chronic kidney disease stage: on chronic dialysis Qualified Code(s): N18.6 - End stage renal disease; D63.1 - Anemia in chronic kidney disease; Z99.2 - Dependence on renal dialysis History of Present Illness - Reason for Consult Consult date: 08/13/18 end stage renal disease Requesting physician: Devin Jewell - Chief Complaint shortness of breath - History of Present Illness Mr. Anderson is a 47 year old male who presented to ED with shortness of breath. PMH: hypertension, atrial fibrillation , anxiety, GERD. Pt is also ESRD, current regimen is MWF at [facility]. Last tx was Saturday without complication. Shortness of breath started on Saturday afternoon/evening sometime and has progressively gotten worse. Is coughing up clear phlegm occasionally. Denies fever or chills. Denies nausea, vomiting, or diarrhea. Denies any sick contacts. Is currently on 3 L of oxygen per nasal cannula at night and during dialysis. Chest x-ray in the ER was reflective for right pleural effusion and CHF. HD is planned for today. Will also plan for UF tomorrow. He is a former smoker, denies EtOH or illicit drug use. Past Med Surg Social Fam HX - Past Medical History Medical history: atrial fibrillation, CHF, dialysis, GERD, hyperlipidemia, renal disease, other Additional medical history: Chronic pain Psychiatric history: anxiety - Past Surgical History Surgical History: other Additional surgical history: Pericardial window. dialysis shunt to right upper arm. Kidney surgery - Social History Smoking Status: Former smoker Smokeless Tobacco Status: No Alcohol use: none Drug use: none - Family History Father Hx Family Endocrine Disorder: Yes Medications and Allergies ALPRAZolam [Xanax 0.5 MG Tablet] 0.5 mg PO TID PRN 05/02/15 [History] Oxycodone HCl 15 mg PO Q6H PRN 05/02/15 [History] Folic Acid/Vit B Complex and C [Dialyvite Tablet] 0.8 mg PO DAILY 12/28/15 [History] Pramipexole Di-HCl [Pramipexole Dihydrochloride] 0.5 mg PO HS 12/28/15 [History] Ipratropium/Albuterol Sulfate [Combivent Respimat Inhal [place]] 1 puff IH QID 04/22/17 [History] Lisinopril [Zestril] 40 mg PO BID 08/13/18 [History] Omeprazole [PriLOSEC] 20 mg PO BID 08/13/18 [History] Renal Vitamin [Renal Caps Softgel] 1 cap PO DAILY 08/13/18 [History] Sucroferric Oxyhydroxide [Velphoro] 500 mg PO TIDWM 08/13/18 [History] dilTIAZem HCl [Diltiazem ER] 240 mg PO DAILY 08/13/18 [History] traZODone [TraZODone] 75 mg PO HS 08/13/18 [History] Allergy/AdvReac Type Severity Reaction Status Date / Time No Known Allergies Allergy Verified 05/02/15 13:25 Review of Systems All Systems review (narrative): The remainder of the systems are negative. Constitutional: no chills, no fatigue, no fever(s) Cardiovascular: dyspnea, no chest pain, no edema, no orthopnea, no palpitations Respiratory: cough, dyspnea, no hemoptysis, no wheezing Gastrointestinal: no abdominal pain, no change in bowel habits Exam - Vital Signs Vital signs: Initial Vital Signs Temp Pulse Resp BP Pulse Ox 97.8 F 138 24 144/106 99 08/13/18 02:59 08/13/18 02:59 08/13/18 02:59 08/13/18 02:59 08/13/18 02:59 Vital Signs - Last 8 Hours Temp Pulse Resp BP Pulse Ox 08/13/18 06:48 97.4 F L 98 16 119/83 93 08/13/18 05:40 23 135/94 08/13/18 04:45 98 22 155/91 99 08/13/18 04:25 17 147/88 98 08/13/18 04:15 103 31 131/95 100 08/13/18 04:00 130/87 08/13/18 03:45 112 30 142/103 99 08/13/18 03:30 116/89 08/13/18 03:17 18 95 08/13/18 03:15 95 Intake and Output 08/12/18 08/13/18 08/13/18 23:59 07:59 15:59 Other: Weight 101.775 kg Patient Weight 08/13/18 23:59 Weight 101.775 kg - General Appearance General appearance: well-developed, well-nourished EENT: ATNC, hearing intact, vision intact Neck: supple Respiratory: clear Cardiology: no edema, normal S1, normal S2 Gastrointestinal: normoactive bowel sounds, no tenderness, no guarding, distended Integumentary: no rash, warm and dry Neurologic: alert and oriented x3 Psychiatric: mood/affect appropriate, cooperative Results - Lab Results 08/13/18 03:00 08/13/18 03:00 Most recent lab results Calcium 10.3 mg/dL (8.6-10.3) 08/13/18 03:00 Consult Discharge Plan - Plan Referrals: Roldan Rose Jr [Primary Care Provider] -
--- NOTE | 2018-08-13 17:14 | Event Note ---
Date of Encounter: 08/13/18 Time of Encounter: 17:12 Pt seen after midnight. He is s/p HD today Gets HD MWF. Nephrology on board and following. He reports increased abdominal girth which has improved since admission. He also reports LE edema has improved. He denies chest pain but still requiring 4L NC. vitals stable BP 112/83, temp 98.8 Will check abdominal US in am to assess for ascites.
[2018-08-13] MEDS: *HR* HYDROcodone/Acet 5/325 mg TABLET PO PRN (19:30)
[2018-08-14 05:07] LABS: Immature Granulocytes % 0.4 % (0-4)
[2018-08-14 05:08] LABS: Basophils % 0.6 %; Eosinophils # 0.2 K/mcL (0.0-0.6); Eosinophils % 3.6 %; Hematocrit 30.2 % (37.5-50.1); Hemoglobin 9.5 g/dL (12.9-16.9); Immature Platelets 3.2 % (1.1-6.1); Lymphocytes # 0.9 K/mcL (0.6-4.6); Lymphocytes % 18.3 %; Mean Corpuscular HGB Conc 31.5 g/dL (31.6-35.5); Mean Corpuscular Hemoglobin 30.8 pg (28.0-33.3); Mean Corpuscular Volume 98.1 fL (83.0-100.0); Mean Platelet Volume 10.7 fL (9.4-12.4); Monocytes # 0.3 K/mcL (0.0-1.3); Monocytes % 5.7 %; Neutrophils # 3.6 K/mcL (1.6-8.9); Red Blood Count 3.08 M/mcL (4.19-5.50); Red Cell Distribution Width 15.1 % (11.5-14.5); Segmented Neutrophils % 71.4 %
[2018-08-14 05:09] LABS: Platelet Count 88 K/mcL (140-400)
[2018-08-14] MEDS: *HR* Heparin 5,000 UNIT/ML VIAL SQ SCH ×3 (05:09→20:44)
[2018-08-14] MEDS: *HR* OxyCODONE Immed Rel 15 MG TABLET PO PRN ×2 (05:20→16:53)
[2018-08-14 05:30] LABS: Albumin 4.2 g/dL (3.5-5.7); Albumin/Globulin Ratio 1.6 (1.1-2.2); Bilirubin,Total 1.1 mg/dL (0.3-1.0); Calcium 9.8 mg/dL (8.6-10.3); Globulin 2.7 g/dL (2.4-3.5); Potassium 5.5 mEq/L (3.5-5.1); Total Protein 6.9 g/dL (6.4-8.9)
[2018-08-14] MEDS ORDERED: 0.9 % Sodium Chloride 250 ML IVC PRN (07:01)
[2018-08-14] MEDS: Diltiazem CD (24hr) 240 MG CAPSULE PO SCH (08:26)
[2018-08-14] MEDS: Renal Vitamin 1 CAP CAPSULE PO SCH (08:26)
[2018-08-14] MEDS: Lisinopril 20 MG TABLET PO SCH ×2 (08:26→20:43)
[2018-08-14] MEDS: *HR* HYDROcodone/Acet 5/325 mg TABLET PO PRN ×3 (08:31→20:43)
--- NOTE | 2018-08-14 09:05 | Nephrology Progress Note ---
Addendum entered and electronically signed by Julio Zhang DO 08/14/18 17:03: I have personally performed a face to face evaluation on this patient. I have reviewed and agree with the care plan. History and Exam by me shows: Challenging his dry weight with back to back dialysis. No significant ascites noted, but he does have a unilateral pleural effusion noted. Would recommend consideration to explore with a thora. Next HD planned for tomorrow (Saturday) to maintain his schedule. Original Note: Date of Encounter: 08/14/18 Time of Encounter: 09:03 - Assessment and Plan (1) ESRD (end stage renal disease) on dialysis Current Visit: No Status: Chronic Current regimen is Saturday at [facility]. HD completed yesterday, HD ordered again today to correct K. Strict I&O Renal diet Avoid nephrotoxins and renal dose all medications. (2) Acute on chronic respiratory failure with hypoxemia Current Visit: Yes Status: Acute Is currently on 4 L with off the mask. Per primary (3) Congestive heart failure Current Visit: Yes Status: Acute 1.5 L fluid resection. Per primary. Qualifiers: Heart failure type: right-sided Heart failure chronicity: acute on chronic Qualified Code(s): I50.813 - Acute on chronic right heart failure (4) Atrial fibrillation with RVR Current Visit: Yes Status: Chronic Heart rate fluctuates approximately 90-111. Per primary. (5) Anemia Current Visit: No Status: Chronic Goal hemoglobin is 10-11. Hemoglobin is 9.5 today, stable. Qualifiers: Anemia type: due to chronic kidney disease Chronic kidney disease stage: on chronic dialysis Qualified Code(s): N18.6 - End stage renal disease; D63.1 - Anemia in chronic kidney disease; Z99.2 - Dependence on renal dialysis (6) Hyperkalemia Current Visit: Yes Status: Acute K is 5.5 today, will correct with HD. Continue renal diet. (7) Pleural effusion, right Current Visit: Yes Status: Acute Right pleural effusion noted on previous chest x-ray and abdominal ultrasound. Would recommend thoracentesis to drain and possibly culture. Subjective Principal diagnosis: shortness of breath Interval history: Pt seen and examined in HD, tolerating well. Denies admits to nausea, denies emesis or diarrhea. Reports abdominal girth is still "big" for him. Denies chest pain admits to shortness of breath. Objective - Vital Signs Vital signs: Vital Signs Temp Pulse Resp BP Pulse Ox 08/14/18 07:30 97.6 F 111 16 116/77 90 08/14/18 03:59 98.1 F 89 18 118/83 90 08/14/18 00:09 98.1 F 89 18 121/85 90 08/13/18 20:24 98.1 F 116 18 131/92 92 08/13/18 19:41 91 08/13/18 16:31 98.1 F 100 18 126/83 91 08/13/18 15:00 98.8 F 22 112/83 08/13/18 14:45 118/75 08/13/18 14:30 105/74 08/13/18 14:15 113/82 08/13/18 14:00 118/77 08/13/18 13:45 116/81 08/13/18 13:30 115/87 08/13/18 13:15 116/87 08/13/18 13:00 102/77 08/13/18 12:45 103/75 08/13/18 12:30 111/80 08/13/18 12:15 110/84 08/13/18 12:00 116/77 08/13/18 11:45 109/84 08/13/18 11:30 118/80 08/13/18 11:15 96.9 F L 22 122/93 Intake and Output 08/13/18 08/14/18 08/14/18 23:59 07:59 15:59 Intake Total 200 / 200 60 / 60 Balance 200 / 200 60 / 60 Intake: Oral 200 / 200 60 / 60 Other: Meal Breakfast Percent of Meal Consumed 95% Weight 102.1 kg Patient Weight 08/14/18 23:59 Weight 102.1 kg - General Appearance General appearance: Present: well-developed, well-nourished EENT: Present: hearing intact, vision intact Neck: Present: supple Respiratory: Present: clear Cardiology: Present: no edema, normal S1, normal S2 Dialysis Vascular Access: Arteriovenous Fistula thrill: Yes bruit: Yes Gastrointestinal: Present: normoactive bowel sounds, no tenderness, no guarding, obese Integumentary: Present: no rash, warm and dry Neurologic: Present: alert and oriented x3 Musculoskeletal: Present: no deformities Psychiatric: Present: mood/affect appropriate, cooperative - Lab 08/14/18 04:23 08/14/18 04:23 Most recent lab results Calcium 9.8 mg/dL (8.6-10.3) 08/14/18 04:23 Consult Discharge Plan - Plan Referrals: Roldan Rose Jr [Primary Care Provider] -
[2018-08-14] MEDS ORDERED: 0.9 % Sodium Chloride 2,000 ML ONE (09:14)
[2018-08-14] MEDS: Ondansetron 4 MG/2 ML VIAL IVP PRN (11:56)
--- NOTE | 2018-08-14 11:57 | Internal Med Progress Note ---
Hospitalist Progress Note - Encounter Date of Encounter: 08/14/18 Time of Encounter: 11:57 - Subjective Interval History: Pt's oxygen saturation at rest dropped to 59% on room air therefore unable to proceed with 6 minute with walk test thus qualifies for oxygen 24/7. Pt had been prescribed 2L NC of oxygen prior to this admission but he insists it was only prescribed to him QHS and prn during the day. He appears unhappy about having to use oxygen 24/7. He denies CP. He denies fever, chills, N/V or diarrhea. - Exam Vitals: Temp Pulse Resp BP Pulse Ox 97.0 F L 111 16 117/79 90 08/14/18 09:00 08/14/18 07:30 08/14/18 09:00 08/14/18 11:30 08/14/18 07:30 Exam: EXAM: GEN: NAD HEENT: AT, NC, No cyanosis, oral mucosa is moist, No JVD Lymphatics: No lymphadenoapthy Eyes: Extrocular muscles intact, anicteric CVS: Tachycardic. Irregular.. S1, S2, No m/r/g RESP: Bibasilar crackles. ABD: Soft, NT, ND, +BS, abdominal distention much improved EXT: 1+ edema improving, No rashes, 2+ DP NEURO: Nonfocal, CN II-XII intact, No focal motor or sensory deficits Psych: Cooperative, Not anxious or depressed - Assessment and Plan (1) Acute on chronic respiratory failure with hypoxemia Current Visit: Yes Status: Acute Assessment and Plan: Likely volume overload from accommodation of end-stage renal disease and heart failure possibly from elevated heart rate. Improved following HD. Continue O2 support 24/7 at 2L NC. (2) ESRD (end stage renal disease) on dialysis Current Visit: No Status: Chronic Assessment and Plan: Nephrology on board and following. S/p HD as scheduled MWF. Awaiting final recommendation from nephrology for possible DC (3) Atrial fibrillation with RVR Current Visit: Yes Status: Chronic Assessment and Plan: Patient is better controlled and currently in SR. We will continue home medications. He says that he used to be on Coumadin about 3 years ago and was stopped as they suspected that he has GI bleed. We will defer to his oxyacetylene torch operator at [place] (4) Hypertension Current Visit: No Status: Chronic Assessment and Plan: Lisinopril, Diltiazem (5) Congestive heart failure Current Visit: Yes Status: Acute Assessment and Plan: Patient has signs of CHF on chest x-ray. He has elevated BNP. Echocardiogram done last week which showed an EF of 60% with mild LVH and mild aortic stenosis and mild mitral stenosis as well as moderate mitral regurgitation. There was also severe pulmonary hypertension and mild to moderate tricuspid regurgitation. He was planned to have right heart catheterization done 08/14/2018 at [facility] which he had called to reschedule. The patient follows with a oxyacetylene torch operator in [place] and he can follow-up with them. Pt not given Lasix as he does not urinate. Pt has shown significant improvement in his symptoms following HD. He can follow up with his oxyacetylene torch operator after that and reschedule his right heart catheterization. (6) Pulmonary hypertension Current Visit: Yes Status: Acute Assessment and Plan: Pt is planned to have RHC in [place] after discharge. It was originally scheduled for 08/14/2018 however, Pt had to call to have it rescheduled due to pt being admitted for volume overload and requiring dialysis. 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 Anderson is a 47 year old male with a history of end-stage renal disease on hemodialysis, hypertension, atrial fibrillation , anxiety, GERD presented with shortness of breath that has been going on for a few days. He has been having dyspnea on exertion mainly. He has been feeling palpitations on and off and feels as if his abdomen is more swelled up. The patient upon presentation to the ED was noted to be in atrial fibrillation with rapid ventricular response with good supports in the 130s and 40s. He was given IV Cardizem push 20 mg as well as oral Cardizem 60 mg and weight was significantly better controlled into the 90s that was evaluating the patient. He was apparently also hypoxic in the 60s. He uses about 2 L of O2 at night only at baseline. Did require BiPAP at some point while in the ED. Laboratory workup showed kidney numbers consistent with end-stage renal disease. Showed mild hyperkalemia of 5.3. BNP was significantly elevated at 1915. No leukocytosis. CXR showed findings of CHF. The patient tells me that he was planned to have a right heart catheterization today at [facility] in orthopedic clinic for renal transplant. The patient denies any headache, fever, chills, nausea, vomiting, chest pain, abdominal pain, diarrhea, constipation, urinary symptoms, or neurological symptoms. He makes no urine. - Time Spent with Patient Total time spent is greater than 50% in coordination of care (as documented) at patient's floor/unit and/or counseling patient: less than 15 minutes Plan of Care Discussed with: patient Internal Medicine: Result - Labs CBC & Chem 7: 08/14/18 04:23 08/14/18 04:23 Labs: Short CBC 08/14/18 Range/Units 04:23 WBC 5.1 (4.3-11.1) K/mcL Hgb 9.5 L (12.9-16.9) g/dL Hct 30.2 L (37.5-50.1) % Plt Count 88 L (140-400) K/mcL Neutrophils # 3.6 (1.6-8.9) K/mcL BMP 08/14/18 04:23 Sodium 138 Potassium 5.5 H Chloride 98 Carbon Dioxide 29 BUN 42 H Creatinine 6.30 H Glucose 96 Calcium 9.8 Liver Function 08/14/18 Range/Units 04:23 Total Bilirubin 1.1 H (0.3-1.0) mg/dL AST 12 L (13-39) Units/L ALT 12 (7-52) Units/L Alkaline Phosphatase 61 (34-104) Units/L Albumin 4.2 (3.5-5.7) g/dL - ABG Interpretation ABG results: PT/INR, D-dimer PT 13.7 Seconds (9.4-12.1) H 08/13/18 03:05 - Impressions Impressions Abdomen Ultrasound 08/13/18 17:10 IMPRESSION: No abdominal ascites. Right pleural effusion. D/ / Juan Antonio Joya / Juan Antonio Joya Interpreting Provider: Juan Antonio Joya Consult Discharge Plan - Plan Referrals: Diltz,Roldan F Jr [Primary Care Provider] - (4) Hypertension Qualifiers: Hypertension type: essential hypertension Qualified Code(s): I10 - Essential (primary) hypertension (5) Congestive heart failure Qualifiers: Heart failure type: right-sided Heart failure chronicity: acute on chronic Qualified Code(s): I50.813 - Acute on chronic right heart failure
[2018-08-14] MEDS: ALPRAZolam 0.5 MG TABLET PO PRN (13:37)
[2018-08-14] MEDS: Ipratropium/Albuterol Neb 3 ML IH SCH ×2 (20:07→23:32)
[2018-08-15] MEDS: Ipratropium/Albuterol Neb 3 ML IH SCH ×4 (04:09→15:57)
[2018-08-15] MEDS: *HR* HYDROcodone/Acet 5/325 mg TABLET PO PRN ×3 (04:32→15:04)
[2018-08-15] MEDS ORDERED: MethylPREDNISolone 40 MG/ML VIAL IVP SCH (06:00)
[2018-08-15 06:37] LABS: Calcium 9.5 mg/dL (8.6-10.3); Potassium 4.9 mEq/L (3.5-5.1)
[2018-08-15] MEDS: *HR* Heparin 5,000 UNIT/ML VIAL SQ SCH ×3 (06:54→21:09)
--- NOTE | 2018-08-15 07:26 | Nephrology Progress Note ---
Date of Encounter: 08/15/18 Time of Encounter: 09:00 - Assessment and Plan (1) ESRD (end stage renal disease) on dialysis Current Visit: No Status: Chronic HD today for resumption of his routine schedule but also to continue the process of correcting his hypervolemic volume status by challenging his dry weight for a third necessary treatment back to back. Current regimen is Saturday at [facility]. Strict I&O Renal diet Avoid nephrotoxins and renal dose all medications. (2) Hyperkalemia Current Visit: Yes Status: Acute (3) Pleural effusion, right Current Visit: Yes Status: Acute (4) Anemia Current Visit: No Status: Chronic Qualifiers: Anemia type: due to chronic kidney disease Chronic kidney disease stage: on chronic dialysis Qualified Code(s): N18.6 - End stage renal disease; D63.1 - Anemia in chronic kidney disease; Z99.2 - Dependence on renal dialysis (5) Congestive heart failure Current Visit: Yes Status: Acute Qualifiers: Heart failure type: right-sided Heart failure chronicity: acute on chronic Qualified Code(s): I50.813 - Acute on chronic right heart failure Subjective Principal diagnosis: shortness of breath Interval history: Pt was s/e and he did not affirm N/V/D or other uremic complaints. We discussed his labs, vitals, and I reviewed progress notes and imaging. Objective - Vital Signs Vital signs: Vital Signs Temp Pulse Resp BP Pulse Ox 08/15/18 04:10 18 91 08/15/18 03:42 97.7 F 108 16 126/90 93 08/14/18 23:38 98.2 F 108 16 127/85 95 08/14/18 23:32 18 95 08/14/18 20:09 18 91 08/14/18 19:18 98.6 F 103 16 116/70 95 08/14/18 16:52 98.3 F 120 18 126/82 85 08/14/18 12:55 97.9 F 18 126/81 08/14/18 12:30 117/81 18 12:15 117/81 08/14/18 12:00 117/79 08/14/18 11:45 120/78 08/14/18 11:30 117/79 08/14/18 11:15 111/70 08/14/18 11:00 119/82 11/15/18 10:45 117/81 08/14/18 10:30 119/81 08/14/18 10:15 112/74 08/14/18 10:00 113/80 08/14/18 09:45 119/81 08/14/18 09:30 112/81 08/14/18 09:15 118/81 08/14/18 09:00 97.0 F L 16 115/83 08/14/18 07:30 97.6 F 111 16 116/77 90 Intake and Output 08/14/18 08/14/18 08/15/18 15:59 23:59 07:59 Intake Total 860 / 860 Output Total 2205 / 2205 Balance -1345 / -1345 Intake: Oral 260 / 260 Intake, Rinseback and Flushes 600 / 600 Output: Emesis 200 / 200 Total Dialysis (HD) Output 2004 Other: Meal Lunch Percent of Meal Consumed 45% Weight 101.6 kg Hemodialysis Net Fluid Removed 1405 (mL) - General Appearance General appearance: Present: well-developed, well-nourished, appears started age EENT: Present: ATNC, PERRL, mucous membranes moist Neck: Present: supple Respiratory: Present: clear (but diminished breath sounds in the RLL with dullne ss to percusion. ) Cardiology: Present: edema (trace ankle edema b/l ), regular rate, regular rhythm, normal S1, normal S2 Gastrointestinal: Present: normoactive bowel sounds, no tenderness, no guarding Integumentary: Present: no rash, warm and dry Neurologic: Present: no focal deficit, no asterixis, alert and oriented x3 Musculoskeletal: Present: no deformities, no erythema, no clubbing Psychiatric: Present: mood/affect appropriate, cooperative - Lab 08/16/18 06:55 08/16/18 06:55 Most recent lab results Calcium 9.5 mg/dL (8.6-10.3) 08/15/18 05:35 Consult Discharge Plan - Plan Instructions: Diltiazem (By mouth), Ipratropium/Albuterol (By breathing), Heart Failure (DC), Atrial Fibrillation (DC), Acute Respiratory Distress Syndrome (DC), Chronic Obstructive Pulmonary Disease (DC) Additional Instructions: Follow up with [facility] for RHC Referrals: Roldan Rose Jr [Primary Care Provider] - 08/27/18 3:00 pm (Follow up made with PCP) Prescriptions: Ipratropium/Albuterol Neb [Duoneb] 3 ml IH [id number] PRN #60 inhsol PRN Reason: Wheezing Diltiazem CD (24hr) [Cardizem CD] 300 mg PO DAILY #30 cap.er.24h predniSONE [PredniSONE] 40 mg PO DAILY 4 Days #8 tablet
[2018-08-15] MEDS: Renal Vitamin 1 CAP CAPSULE PO SCH (07:56)
[2018-08-15] MEDS ORDERED: Albuterol 2.5 MG/3 ML NEBULIZER IH PRN (08:40)
[2018-08-15] MEDS: *HR* OxyCODONE Immed Rel 15 MG TABLET PO PRN ×2 (10:41→21:10)
[2018-08-15] MEDS: Diltiazem CD (24hr) 240 MG CAPSULE PO SCH (12:26)
--- NOTE | 2018-08-15 12:49 | Discharge Summary ---
- NOTES TO OUTPATIENT PROVIDER Notes to Outpatient Provider: Patient with history of ESRD, AKatty fontenot, was admitted for acute on chronic hypoxic respiratory failure due to volume overload and afib with RVR. Underwent series of dialysis, cardizem uptitrated to 300mg QD. and was also treated for possible COPD exacerbation with a course of steroids. Recent echo on 08/05 showed severe pulmonary HTN which is to be worked up with RHC at [facility] (where he is being evaluated for renal transplant) as outpatient early next week. Orders not resulted at time of discharge: Pending orders 08/16/18 04:00 BMP [Basic Metabolic Panel] AM 0400 08/17/18 04:00 BMP [Basic Metabolic Panel] AM 0400 Date of Encounter: 08/15/18 Time of Encounter: 09:00 - Discharge Diagnosis (1) ESRD (end stage renal disease) on dialysis Priority: Secondary Status: Chronic (2) Atrial fibrillation with RVR Priority: Secondary Status: Chronic (3) Hypertension Priority: Secondary Status: Chronic Qualifiers: Hypertension type: essential hypertension Qualified Code(s): I10 - Essential (primary) hypertension (4) Congestive heart failure Priority: Secondary Status: Acute Qualifiers: Heart failure type: right-sided Heart failure chronicity: acute on chronic Qualified Code(s): I50.813 - Acute on chronic right heart failure (5) Acute on chronic respiratory failure with hypoxemia Priority: Primary Status: Acute (6) Pulmonary hypertension Priority: Secondary Status: Acute Hospital course: Mr. Anderson is a 47 year old male with history of ESRD, A. fib, ?COPD, was admitted for acute on chronic hypoxic respiratory failure due to volume overload and afib with RVR. Underwent series of dialysis, cardizem uptitrated to 300mg QD. and was also treated for possible COPD exacerbation with a course of steroids. 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 Discharge discussed with: patient, nurse, social work, case management - Time Spent with Patient Total time spent providing and/or coordinating discharge services: 37 mins - Discharge Medications Prescriptions: Ipratropium/Albuterol Neb [Duoneb] 3 ml IH [id number] PRN #60 inhsol PRN Reason: Wheezing Diltiazem CD (24hr) [Cardizem CD] 300 mg PO DAILY #30 cap.er.24h predniSONE [PredniSONE] 40 mg PO DAILY 4 Days #8 tablet Home Medications: ALPRAZolam [Xanax 0.5 MG Tablet] 0.5 mg PO TID PRN 05/02/15 [History] Oxycodone HCl 15 mg PO Q6H PRN 05/02/15 [History] Folic Acid/Vit B Complex and C [Dialyvite Tablet] 0.8 mg PO DAILY 12/28/15 [History] Pramipexole Di-HCl [Pramipexole Dihydrochloride] 0.5 mg PO HS 12/28/15 [History] Lisinopril [Zestril] 40 mg PO BID 08/13/18 [History] Omeprazole [PriLOSEC] 20 mg PO BID 08/13/18 [History] Renal Vitamin [Renal Caps Softgel] 1 cap PO DAILY 08/13/18 [History] Sucroferric Oxyhydroxide [Velphoro] 500 mg PO TIDWM 08/13/18 [History] traZODone [TraZODone] 75 mg PO HS 08/13/18 [History] Diltiazem CD (24hr) [Cardizem CD] 300 mg PO DAILY #30 cap.er.24h 08/15/18 [Rx] Ipratropium/Albuterol Neb [Duoneb] 3 ml IH [id number] PRN #60 inhsol 08/15/18 [Rx] predniSONE [PredniSONE] 40 mg PO DAILY 4 Days #8 tablet 08/15/18 [Rx] Allergies/Adverse Reactions: Allergy/AdvReac Type Severity Reaction Status Date / Time No Known Allergies Allergy Verified 05/02/15 13:25 Date of admission: 08/13/18 06:15 Primary care physician: Roldan Rose Jr Consults: 08/13/18 05:30 Consult to Nephrology [CONS] Routine Consulting Provider: Kidney Lizzy/ARLETTE/DUNCAN/KAYLIN Reason for Consult: ESRD on HD Call Completed: No 08/13/18 07:00 Consult to Dialysis [CONS] ONCE 08/14/18 07:15 Consult to Dialysis [CONS] ONCE 08/15/18 06:45 Consult to Dialysis [CONS] ONCE - Constitutional Vitals: Temp Pulse Resp BP Pulse Ox 98.1 F 118 18 141/78 94 08/15/18 11:41 08/15/18 11:41 08/15/18 11:41 08/15/18 11:41 08/15/18 11:41 Exam: GEN: NAD HEENT: No JVD, moist oral mucosa CVS: borderline tachycardiac. Irregular rhythm. S1, S2 RESP: clear to auscultation ABD: Soft, NT, ND, +BS - Patient Status Disposition: Home, Self-Care Condition: Fair Functional capacity at discharge: independent ambulation Overall status at discharge: patient is progressing back to baseline - Discharge Instructions Instructions: Acute Respiratory Distress Syndrome (DC), Heart Failure (DC), Atrial Fibrillation (DC), Chronic Obstructive Pulmonary Disease (DC) Follow Up With: Roldan Rose Jr [Primary Care Provider] - 08/27/18 3:00 pm (Follow up made with PCP) Additional Instructions: Follow up with [facility] for RHC - Diet and Activity Activity: resume usual activities as tolerated Diet: low salt diet
[2018-08-15] MEDS ORDERED: dilTIAZem HCl 60 MG TABLET PO ONE (13:00)
[2018-08-15] MEDS ORDERED: 0.9 % Sodium Chloride 1,000 ML ONE (15:11)
[2018-08-15] MEDS: ALPRAZolam 0.5 MG TABLET PO PRN (16:26)
[2018-08-15] MEDS ORDERED: *HR* Metoprolol 5 MG/5 ML VIAL IVP PRN (17:03)
[2018-08-15] MEDS: Lisinopril 20 MG TABLET PO SCH ×2 (17:56→21:10)
[2018-08-15] MEDS ORDERED: Ipratropium/Albuterol Neb 3 ML IH PRN (18:00)
[2018-08-15] MEDS: Ondansetron 4 MG/2 ML VIAL IVP PRN (21:09)
[2018-08-15] MEDS: Sennosides/Docusate Sodium TABLET PO SCH (21:10)
[2018-08-16] MEDS: *HR* HYDROcodone/Acet 5/325 mg TABLET PO PRN ×3 (04:26→13:48)
[2018-08-16] MEDS: predniSONE 20 MG TABLET PO SCH ×2 (06:07→09:28)
[2018-08-16] MEDS: *HR* Heparin 5,000 UNIT/ML VIAL SQ SCH ×2 (06:41→13:34)
[2018-08-16 07:32] LABS: Mean Platelet Volume 10.8 fL (9.4-12.4); Red Cell Distribution Width 14.8 % (11.5-14.5)
[2018-08-16 07:34] LABS: Basophils % 0.4 %; Eosinophils # 0.1 K/mcL (0.0-0.6); Eosinophils % 1.5 %; Hematocrit 28.8 % (37.5-50.1); Hemoglobin 8.9 g/dL (12.9-16.9); Immature Granulocytes % 0.4 % (0-4); Immature Platelets 3.5 % (1.1-6.1); Lymphocytes # 0.9 K/mcL (0.6-4.6); Lymphocytes % 17.6 %; Mean Corpuscular HGB Conc 30.9 g/dL (31.6-35.5); Mean Corpuscular Hemoglobin 30.6 pg (28.0-33.3); Monocytes # 0.4 K/mcL (0.0-1.3); Monocytes % 7.5 %; Neutrophils # 3.9 K/mcL (1.6-8.9); Red Blood Count 2.91 M/mcL (4.19-5.50); Segmented Neutrophils % 72.6 %
[2018-08-16 07:42] LABS: Platelet Count 87 K/mcL (140-400)
[2018-08-16 07:56] LABS: Calcium 9.9 mg/dL (8.6-10.3); Potassium 4.7 mEq/L (3.5-5.1)
[2018-08-16] MEDS ORDERED: Diltiazem CD (24hr) 180 MG CAPSULE PO SCH (09:00)
[2018-08-16] MEDS ORDERED: Diltiazem CD (24hr) 300 MG CAPSULE PO SCH (09:00)
[2018-08-16] MEDS: Lisinopril 20 MG TABLET PO SCH (09:28)
[2018-08-16] MEDS: Renal Vitamin 1 CAP CAPSULE PO SCH (09:28)
[2018-08-16] MEDS: Sennosides/Docusate Sodium TABLET PO SCH (09:28)
--- NOTE | 2018-08-16 10:23 | Event Note ---
Date of Encounter: 08/16/18 Time of Encounter: 10:21 Nephrology Chart Review Last HD was on Saturday and he completed back to back HDs, so I have no new recommendations today (Saturday). I will be available this weekend if needed. Please feel free to call or page me. Thank you.
[2018-08-16 12:15] VITALS: BP 129/71
--- NOTE | 2018-08-16 13:38 | Discharge Summary ---
- NOTES TO OUTPATIENT PROVIDER Notes to Outpatient Provider: Patient with history of ESRD, AKatty fontenot, was admitted for acute on chronic hypoxic respiratory failure due to volume overload and afib with RVR. Underwent series of dialysis, cardizem uptitrated to 360mg QD, and lisinopril was decreased from BID to daily dosing as cardizem had gone up. He was also treated for possible COPD exacerbation with a course of steroids. Recent echo on 08/05 showed severe pulmonary HTN which is to be worked up with [facility] at [place] (where he is being evaluated for renal transplant) as outpatient early next week. Orders not resulted at time of discharge: Pending orders 08/17/18 04:00 BMP [Basic Metabolic Panel] AM 0400 Date of Encounter: 08/16/18 Time of Encounter: 10:30 - Discharge Diagnosis (1) ESRD (end stage renal disease) on dialysis Priority: Secondary Status: Chronic (2) Atrial fibrillation with RVR Priority: Secondary Status: Chronic (3) Hypertension Priority: Secondary Status: Chronic Qualifiers: Hypertension type: essential hypertension Qualified Code(s): I10 - Essential (primary) hypertension (4) Congestive heart failure Priority: Secondary Status: Acute Qualifiers: Heart failure type: right-sided Heart failure chronicity: acute on chronic Qualified Code(s): I50.813 - Acute on chronic right heart failure (5) Acute on chronic respiratory failure with hypoxemia Priority: Primary Status: Acute (6) Pulmonary hypertension Priority: Secondary Status: Acute Hospital course: Mr. Anderson is a 47 year old male with history of ESRD, A. fib, ?COPD, was admitted for acute on chronic hypoxic respiratory failure due to volume overload and afib with RVR. Underwent series of dialysis, cardizem uptitrated to 360mg QD, and lisinopril was decreased from BID to daily dosing as cardizem had gone up. He was also treated for possible COPD exacerbation with a course of steroids. 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 Discharge discussed with: patient, nurse - Time Spent with Patient Total time spent providing and/or coordinating discharge services: 35 mins - Discharge Medications Prescriptions: Ipratropium/Albuterol Neb [Duoneb] 3 ml IH [id number] PRN #60 inhsol PRN Reason: Wheezing Diltiazem CD (24hr) [Cardizem CD] 360 mg PO DAILY #60 cap.er.24h Lisinopril [Zestril] 40 mg PO DAILY #30 tablet predniSONE [PredniSONE] 40 mg PO DAILY 4 Days #8 tablet Sennosides/Docusate Sodium [Senna Plus] 1 each PO DAILY #30 tablet Home Medications: ALPRAZolam [Xanax 0.5 MG Tablet] 0.5 mg PO TID PRN 05/02/15 [History] Oxycodone HCl 15 mg PO Q6H PRN 05/02/15 [History] Folic Acid/Vit B Complex and C [Dialyvite Tablet] 0.8 mg PO DAILY 12/28/15 [History] Pramipexole Di-HCl [Pramipexole Dihydrochloride] 0.5 mg PO HS 12/28/15 [History] Omeprazole [PriLOSEC] 20 mg PO BID 08/13/18 [History] Renal Vitamin [Renal Caps Softgel] 1 cap PO DAILY 08/13/18 [History] Sucroferric Oxyhydroxide [Velphoro] 500 mg PO TIDWM 08/13/18 [History] traZODone [TraZODone] 75 mg PO HS 08/13/18 [History] Ipratropium/Albuterol Neb [Duoneb] 3 ml IH [id number] PRN #60 inhsol 08/15/18 [Rx] predniSONE [PredniSONE] 40 mg PO DAILY 4 Days #8 tablet 08/15/18 [Rx] Diltiazem CD (24hr) [Cardizem CD] 360 mg PO DAILY #60 cap.er.24h 08/16/18 [Rx] Lisinopril [Zestril] 40 mg PO DAILY #30 tablet 08/16/18 [Rx] Sennosides/Docusate Sodium [Senna Plus] 1 each PO DAILY #30 tablet 08/16/18 [Rx] Allergies/Adverse Reactions: Allergy/AdvReac Type Severity Reaction Status Date / Time No Known Allergies Allergy Verified 05/02/15 13:25 Date of admission: 08/13/18 06:15 Primary care physician: Roldan Rose Jr Consults: 08/13/18 05:30 Consult to Nephrology [CONS] Routine Consulting Provider: Kidney Lizzy/ARLETTE/DUNCAN/KAYLIN Reason for Consult: ESRD on HD Call Completed: No 08/13/18 07:00 Consult to Dialysis [CONS] ONCE 08/14/18 07:15 Consult to Dialysis [CONS] ONCE 08/15/18 06:45 Consult to Dialysis [CONS] ONCE - Constitutional Vitals: Temp Pulse Resp BP Pulse Ox 98.7 F 95 20 129/71 95 08/16/18 12:08 08/16/18 12:08 08/16/18 12:08 08/16/18 12:08 08/16/18 12:08 Exam: GEN: NAD HEENT: No JVD, moist oral mucosa CVS: normal rate. Irregular rhythm. S1, S2 RESP: clear to auscultation ABD: Soft, NT, ND, +BS - Patient Status Disposition: Home, Self-Care Condition: Fair Overall status at discharge: patient is progressing back to baseline - Discharge Instructions Instructions: Diltiazem (By mouth), Ipratropium/Albuterol (By breathing), Heart Failure (DC), Atrial Fibrillation (DC), Acute Respiratory Distress Syndrome (DC), Chronic Obstructive Pulmonary Disease (DC) Follow Up With: Roldan Rose Jr [Primary Care Provider] - 08/27/18 3:00 pm (Follow up made with PCP) Additional Instructions: Follow up with [facility] for [facility] - Diet and Activity Activity: resume usual activities as tolerated Diet: low salt diet
--- NOTE | 2018-08-16 22:46 | Electrocardiograph Report ---
[address] [place], [place] [address] Test Date: 2018-08-13 Pat Name: Riley Anderson Department: [id number] Room: 2A23 Gender: M Gristmiller: : 1970 Requested By: James Awan Order Number: [id number] Reading MD: Kassy Mckeon Measurements Intervals [place] Rate: 129 P: MO: QRS: 37 QRSD: 113 T: 64 QT: 297 QTc: 436 Interpretive Statements Atrial fibrillation with rapid ventricular response Borderline intraventricular conduction delay Nonspecific T abnormalities Electronically Signed On 08-16-2018 22:44:31 EST by Kassy Mckeon
== END 2018-08-16 14:27 | disposition home or self-care (01) | DRG 291 ==
LOC: 2ANU 02:56 → EMEROOARM 02:56 → 2ANU 05:46 → SUATTDRO 06:15
PROVIDERS: ADMIT Pediatrics; ATTEND Internal Medicine

== ENCOUNTER 2019-01-20 08:26 | Inpatient (IN) ==
[2019-01-20] MEDS ORDERED: Ipratropium/Albuterol Neb 3 ML IH ONE (08:38)
[2019-01-20 09:00] LABS: Basophils # 0.1 K/mcL (0.0-0.2); Basophils % 0.6 %; Eosinophils # 0.1 K/mcL (0.0-0.6); Eosinophils % 0.6 %; Hematocrit 31.4 % (37.5-50.1); Hemoglobin 9.6 g/dL (12.9-16.9); Immature Granulocytes % 0.7 % (0-4); Lymphocytes # 0.6 K/mcL (0.6-4.6); Lymphocytes % 6.8 %; Mean Corpuscular HGB Conc 30.6 g/dL (31.6-35.5); Mean Corpuscular Hemoglobin 30.8 pg (28.0-33.3); Mean Corpuscular Volume 100.6 fL (83.0-100.0); Mean Platelet Volume 11.1 fL (9.4-12.4); Monocytes # 0.5 K/mcL (0.0-1.3); Monocytes % 5.7 %; Neutrophils # 7.7 K/mcL (1.6-8.9); Platelet Count 146 K/mcL (140-400); Red Blood Count 3.12 M/mcL (4.19-5.50); Red Cell Distribution Width 17.1 % (11.5-14.5); Segmented Neutrophils % 85.6 %
[2019-01-20 09:09] LABS: INR 1.2; Prothrombin Time 13.9 Seconds (9.4-12.1)
[2019-01-20 09:12] LABS: Activated Partial Thrombo Time 31.7 Seconds (26.0-36.0)
[2019-01-20 09:26] LABS: Albumin 4.6 g/dL (3.5-5.7); Albumin/Globulin Ratio 1.3 (1.1-2.2); Bilirubin,Direct 0.4 mg/dL (0.0-0.2); Bilirubin,Indirect 0.7 mg/dL (0.0-1.2); Bilirubin,Total 1.1 mg/dL (0.3-1.0); Calcium 9.9 mg/dL (8.6-10.3); Globulin 3.6 g/dL (2.4-3.5); Potassium 5.6 mEq/L (3.5-5.1); Total Protein 8.2 g/dL (6.4-8.9); Troponin I 0.04 ng/mL (< 0.04)
[2019-01-20] MEDS ORDERED: Aspirin 81 MG TAB.CHEW PO STA (10:33)
--- NOTE | 2019-01-20 10:37 | Emergency Department Note ---
Disposition Clinical Impression: Atrial fibrillation with rapid ventricular response, ESRD (end stage renal disease) on dialysis Pulmonary edema Qualifiers: Chronicity: acute Qualified Code(s): J81.0 - Acute pulmonary edema Congestive heart failure Qualifiers: Heart failure type: unspecified Heart failure chronicity: unspecified Qualified Code(s): I50.9 - Heart failure, unspecified Disposition: Admitted As Inpatient Condition: Fair Time of Disposition: 11:02 SOB HPI - General Chief Complaint: ED Shortness of Breath/Dyspnea Stated Complaint: JESS Time Seen by Provider: 01/20/19 08:35 Source: patient, EMS Mode of arrival: EMS Limitations: no limitations Nursing Notes Reviewed: Yes Vital Signs Reviewed: Yes - History of Present Illness Patient presents by EMS with a CPAP machine in place. Patient was at dialysis t his morning receiving his standard Saturday dialysis regimen. He acutely became short of breath and was hypoxic. Patient called the squad for transport at that time. Pt Subjective Complaint: shortness of breath Onset (ago): Just [employer] Severity: moderate Consistency/Duration: constant Improves with: oxygen, upright position, other Worsens with: lying flat Known history of: congestive heart failure Associated symptoms: Reports: denies other symptoms Treatment prior to arrival: oxygen, NIPPV Cough present: Yes Cough Description: Voluntary Cough Frequency: Intermittent Sputum production: No - Related Data Home oxygen amount: 2 liters Home Medications Medication Instructions Recorded Confirmed ALPRAZolam [Xanax 0.5 MG Tablet] 0.5 mg PO HS PRN 05/02/15 12/16/18 Oxycodone HCl 15 mg PO Q6H PRN 05/02/15 12/16/18 Omeprazole [PriLOSEC] 20 mg PO BID 08/13/18 12/16/18 Renal Vitamin [Renal Caps Softgel] 1 cap PO DAILY 08/13/18 12/16/18 Sucroferric Oxyhydroxide [Velphoro] 250 mg PO DAILY 08/13/18 12/16/18 traZODone [TraZODone] 75 mg PO HS 08/13/18 12/16/18 Ipratropium/Albuterol Sulfate 1 puff IH Q6H PRN 12/16/18 12/16/18 [Combivent Respimat 20-100 Mcg] Sevelamer [Renvela] 1,600 mg PO 1200,1700 12/16/18 12/16/18 Sevelamer [Renvela] 800 mg PO 0600 12/16/18 12/16/18 rOPINIRole [Requip] 1 mg PO HS 12/16/18 12/16/18 Previous Rx's Medication Instructions Recorded Ipratropium/Albuterol Neb [Duoneb] 3 ml IH [id number] PRN #60 inhsol 08/15/18 Diltiazem CD (24hr) [Cardizem CD] 360 mg PO DAILY #60 cap.er.24h 08/16/18 Lisinopril [Zestril] 40 mg PO DAILY #30 tablet 08/16/18 Pramipexole [Mirapex] 0.5 mg PO HS tablet 12/17/18 Allergies Allergy/AdvReac Type Severity Reaction Status Date / Time No Known Allergies Allergy Verified 12/16/18 21:11 All systems ED: reviewed and negative except as stated. Review of Systems: As Per HPI Constitutional: Denies: fever, chills, weakness ENT ED: Denies: ear pain, throat pain, congestion Cardiovascular: Reports: dyspnea on exertion, edema. Denies: chest pain, palpitations Respiratory: Reports: dyspnea. Denies: cough, wheezes Gastrointestinal: Denies: abdominal pain, nausea, vomiting, diarrhea Genitourinary: Denies: urgency, dysuria, frequency Musculoskeletal: Denies: back pain, neck pain Integumentary: Denies: rash Neurological: Denies: headache Psychiatric: Denies: anxiety, depression Past Medical History - Past Medical History Attestation: Yes The following information was validated with the patient. Source: patient Medical history: Reports: atrial fibrillation, CHF, dialysis, GERD, hyperlipidemia, renal disease, other Surgical history: Reports: other Psychiatric history: Reports: anxiety - Social History Smoking Status: Former smoker Smokeless Tobacco Status: No Alcohol use: Reports: none Drug use: Reports: none Physical Exam - General Limitations: no limitations General appearance: alert, in distress - Eye Eye exam: Present: PERRL, EOMI - ENT ENT exam: normal exam, normal oropharynx, mucous membranes moist - Neck Neck exam: Present: normal inspection, trachea midline - Chest Chest inspection: Present: normal inspection, symmetric chest wall rise. Absent: tenderness - Respiratory Respiratory exam: Present: respiratory distress, accessory muscle use. Absent: wheezes, stridor - Cardiovascular Cardiovascular exam: Present: tachycardia, irregular rhythm - Abdominal Exam Abdominal exam: Present: soft, Non-Tender. Absent: tenderness, distention, guarding, rebound, rigidity, Mills's sign, Rovsing's sign, tenderness at McBurney's Point - Extremities Exam Extremities exam: Present: normal inspection, normal capillary refill, pedal edema. Absent: tenderness - Back Exam Back exam: Present: normal inspection - Neurological Exam Neurological exam: Present: alert, oriented X3, CN II-XII intact, normal gait - Skin Skin exam: Present: warm, dry, intact, normal color Course Course Narrative: Patient seen and examined the time of arrival by EMS. See history of present illness. 48-year-old male presents from the dialysis clinic today for evaluation of acute onset of shortness of breath and hypoxia. Patient has a history of atrial fibrillation, end-stage renal disease, congestive heart fail ure. He denies any recent fevers or chills. Denies any nausea vomiting or diarrhea. No headache no vision change. No chest pain noted. Patient denies any falls trauma or injury. He has been compliant with this treatment course at this time. Vital signs on presentation show significant tachycardia hypoxia. Patient was on a CPAP machine and transport. He was transitioned to BiPAP machine on our arrival. He is conversant and answering questions appropriately. He has intermittent crackles at the bases of the lungs bilaterally. Heart is irregular and tachycardic. Abdomen is soft no pulsatile masses or lesions. Extremities are normal outside of pitting edema in the bilateral lower ex tremities. No signs of skin deterioration breakdown or infection. Fistula in the right upper extremity appears to be stable with no bleeding. Patient is neurologically intact answering questions appropriately at this time. Concern is noted for acute fluid shift secondary to the dialysis causing pulmonary edema. Patient is tolerating the BiPAP machine at this time with clearing of lungs. Pulse ox is 98 200% on 40 of FiO2 at this time. Patient will be treated as if he is a CHF exacerbation. He does not make any urine at this time. Labs will be collected symptomatic control to be completed and then consultation with nephrology will be established. Patient's family is at the bedside in the discussion was had with them about the presentation they are comfortable the plan. Patient will be monitored closely until the disposition course is established. - Reevaluation(s) Reevaluation #1: Patient has a potassium of 5.6. BUNs 57. The remainder of his labs appear to be around his baseline at this point. He has a slightly elevated troponin today as well as an elevated BNP. This is all consistent with his signs of pulmonary congestion and congestive heart failure. Chest x-ray confirms both of these findings as well. Patient has tolerated the BiPAP without any difficulty. Pulse ox is remain stable. He has had a transient drop in his blood pressure secondary to the BiPAP being applied but he is maintaining and appropriately his mean arterial pressure throughout all this intervention. The on-call deputy chief counsel Dr. Sanchez was contacted and he agreed the patient needed to be admitted and dialysis will be established as afternoon secondary to lab abnormalities and fluid overload. Patient is symptomatically treated at this point in more comfortable. He does definitively need dialysis secondary to the congestion on the chest x-ray and 18 uric presentation. Patient was discussed with the hospitalist Dr. villagomez. Detailed review the presentation as well as the consultations were discussed at length. No other recommendations or concerns at this point. Patient is been appropriately treated this time and is established for dialysis this afternoon. Patient will be admitted for symptomatic control management. 45 minutes of critical care applied the patient's treatment course secondary to multidisciplinary intervention Time: 10:59 Vital Signs Temperature 98.3 F 01/20/19 08:31 Pulse Rate 150 01/20/19 08:31 Respiratory Rate 22 01/20/19 08:31 Blood Pressure 101/85 01/20/19 08:31 O2 Sat by Pulse Oximetry 100 01/20/19 08:31 Temperature 98.3 F 01/20/19 08:31 Pulse Rate 105 01/20/19 10:32 Respiratory Rate 26 01/20/19 10:32 Blood Pressure 99/70 01/20/19 10:32 O2 Sat by Pulse Oximetry 99 01/20/19 10:32 Oxygen Delivery Oxygen Delivery Bipap Shortness of Breath/Dyspnea - MDM Narrative Medical decision making narrative: Hypoxia, shortness of breath, congestive heart failure - Medical Records Medical records reviewed: Yes I reviewed the patient's medical records. - Lab Data Lab results reviewed: Yes I reviewed the patient's lab results. Result diagrams: 01/20/19 08:36 01/20/19 08:36 Lab Results 01/20/19 01/20/1919 Range/Units 08:36 08:36 08:36 WBC 8.9 (4.3-11.1) K/mcL RBC 3.12 L (4.19-5.50) M/mcL Hgb 9.6 L (12.9-16.9) g/dL Hct 31.4 L (37.5-50.1) % MCV 100.6 H (83.0-100.0) fL MCH 30.8 (28.0-33.3) pg MCHC 30.6 L (31.6-35.5) g/dL RDW 17.1 H (11.5-14.5) % Plt Count 146 (140-400) K/mcL MPV 11.1 (9.4-12.4) fL Immature Gran % 0.7 (0-4) % Seg Neutrophils % 85.6 % Lymphocytes % 6.8 % Monocytes % 5.7 % Eosinophils % 0.6 % Basophils % 0.6 % Neutrophils # 7.7 (1.6-8.9) K/mcL Lymphocytes # 0.6 (0.6-4.6) K/mcL Monocytes # 0.5 (0.0-1.3) K/mcL Eosinophils # 0.1 (0.0-0.6) K/mcL Basophils # 0.1 (0.0-0.2) K/mcL PT 13.9 H (9.4-12.1) Seconds INR 1.2 APTT 31.7 (26.0-36.0) Seconds Sodium 139 (136-145) mEq/L Potassium 5.6 H (3.5-5.1) mEq/L Chloride 99 (98-107) mEq/L Carbon Dioxide 22 L (23-29) mEq/L BUN 57 H (6-20) mg/dL Creatinine 8.95 H (0.70-1.30) mg/dL Est GFR ( Amer) 8 L (> 60) Est GFR (Non-Af Amer) 6 L (> 60) BUN/Creatinine Ratio 6 (6-26) Glucose 117 H (70-105) mg/dL Calculated Osmolality 305 H (280-300) Lactic Acid (0.5-2.2) mmol/L Calcium 9.9 (8.6-10.3) mg/dL Total Bilirubin 1.1 H (0.3-1.0) mg/dL Direct Bilirubin 0.4 H (0.0-0.2) mg/dL Indirect Bilirubin 0.7 (0.0-1.2) mg/dL AST 15 (13-39) Units/L ALT 15 (7-52) Units/L Alkaline Phosphatase 90 (34-104) Units/L Troponin I 0.04 H* (< 0.04) ng/mL B-Natriuretic Peptide (Less than 100) pg/mL Serum Total Protein 8.2 (6.4-8.9) g/dL Albumin 4.6 (3.5-5.7) g/dL Globulin 3.6 H (2.4-3.5) g/dL Albumin/Globulin Ratio 1.3 (1.1-2.2) 01/20/19 01/20/19 Range/Units 08:36 08:36 WBC (4.3-11.1) K/mcL RBC (4.19-5.50) M/mcL Hgb (12.9-16.9) g/dL Hct (37.5-50.1) % MCV (83.0-100.0) fL MCH (28.0-33.3) pg MCHC (31.6-35.5) g/dL RDW (11.5-14.5) % Plt Count (140-400) K/mcL MPV (9.4-12.4) fL Immature Gran % (0-4) % Seg Neutrophils % % Lymphocytes % % Monocytes % % Eosinophils % % Basophils % % Neutrophils # (1.6-8.9) K/mcL Lymphocytes # (0.6-4.6) K/mcL Monocytes # (0.0-1.3) K/mcL Eosinophils # (0.0-0.6) K/mcL Basophils # (0.0-0.2) K/mcL PT (9.4-12.1) Seconds INR APTT (26.0-36.0) Seconds Sodium (136-145) mEq/L Potassium (3.5-5.1) mEq/L Chloride (98-107) mEq/L Carbon Dioxide (23-29) mEq/L BUN (6-20) mg/dL Creatinine (0.70-1.30) mg/dL Est GFR ( Amer) (> 60) Est GFR (Non-Af Amer) (> 60) BUN/Creatinine Ratio (6-26) Glucose (70-105) mg/dL Calculated Osmolality (280-300) Lactic Acid 2.3 H (0.5-2.2) mmol/L Calcium (8.6-10.3) mg/dL Total Bilirubin (0.3-1.0) mg/dL Direct Bilirubin (0.0-0.2) mg/dL Indirect Bilirubin (0.0-1.2) mg/dL AST (13-39) Units/L ALT (7-52) Units/L Alkaline Phosphatase (34-104) Units/L Troponin I (< 0.04) ng/mL B-Natriuretic Peptide 1040 H (Less than 100) pg/mL Serum Total Protein (6.4-8.9) g/dL Albumin (3.5-5.7) g/dL Globulin (2.4-3.5) g/dL Albumin/Globulin Ratio (1.1-2.2) - Radiology Data Radiology results reviewed: Yes I reviewed the patient's radiology results. Chest x-ray is consistent with bilateral pulmonary edema - EKG Data EKG attestation: Yes I reviewed and interpreted this EKG. EKG results narrative: EKG shows atrial fibrillation with a heart rate of 138. QRS duration 103. QTC of 468. [place] appears to be normal. No underlying signs of ST segment elevation or abnormality noted. Previous EKG on 12/16/18 confirms similar A. fib present ation Critical Care Time Critical Care Time: Yes Total Critical Care Time: 45 Attestation: Critical care performed: Time is exclusive of separately billable procedures. Time includes: direct patient care, patient reassessment, coordination of patient care, interpretation of data (laboratory data, radiology data, and respiratory data), review of patient's medical records, medical consultation and documentation of patient care. Procedures included in critical care time: Procedures excluded from critical care time:
[2019-01-20] MEDS ORDERED: Naloxone 0.4 MG/ML INJ IVP PRN (10:51)
[2019-01-20] MEDS ORDERED: *HR* FentaNYL (PF) 100 MCG/2 ML VIAL IVP ONE (10:58)
[2019-01-20] MEDS ORDERED: 0.9 % Sodium Chloride 250 ML IVC PRN (11:09)
[2019-01-20] MEDS ORDERED: 0.9 % Sodium Chloride 1,000 ML PRIME SCH (11:15)
[2019-01-20 11:23] LABS: Hepatitis B Surface Antibody 47.85 mIU/mL
[2019-01-20 11:34] LABS: Hepatitis B Surface Antigen Nonreactive (Nonreactive)
--- NOTE | 2019-01-20 12:30 | Internal Med History&Physical ---
Date of Encounter: 01/20/19 Time of Encounter: 12:26 Internal Medicine - H&P: HPI Chief complaint: shortness of breath Admitted From: Home Plans for Post Hospital Care: Home History of present illness: Mr. Anderson is a 48 year old male past medical history of end-stage renal disease, hypertension, A. fib, hyperlipidemia, and CHF. The patient was sent to the ED from HD due to shortness of breath. He reports that today while he was 1 1/2 hours through he started having palpitation and felt that his heart was racing. Reports that shortly after he started feeling short of breath and diaphoretic. The HD session was stopped and he was sent to the ED for evaluation. Patient denies missing HD for the past couple of days and reports being compliant with his diet. denies increase fluids intake, denies chest pain, but reports abdominal discomfort, feeling like he has some gas. In the ED the patient was found to be in hypoxemic respiratory failure requiring bipap and on A.fib with RvR. Hospital team called for management. Past Med Surg Social Fam HX - Past Medical History Medical history: atrial fibrillation, CHF, dialysis, GERD, hyperlipidemia, renal disease, other Additional medical history: Chronic pain Psychiatric history: anxiety - Past Surgical History Surgical History: other Additional surgical history: Pericardial window. dialysis shunt to right upper arm. Kidney surgery - Social History Smoking Status: Former smoker Smokeless Tobacco Status: No Alcohol use: none Drug use: none - Family History Father Hx Family Endocrine Disorder: Yes Internal Medicine - H&P: Meds ALPRAZolam [Xanax 0.5 MG Tablet] 0.5 mg PO HS PRN 05/02/15 [History] Oxycodone HCl 15 mg PO Q6H PRN 05/02/15 [History] Omeprazole [PriLOSEC] 20 mg PO BID 08/13/18 [History] Renal Vitamin [Renal Caps Softgel] 1 cap PO DAILY 08/13/18 [History] Sucroferric Oxyhydroxide [Velphoro] 250 mg PO DAILY 08/13/18 [History] traZODone [TraZODone] 75 mg PO HS 08/13/18 [History] Ipratropium/Albuterol Neb [Duoneb] 3 ml IH [id number] PRN #60 inhsol 08/15/18 [Rx] Diltiazem CD (24hr) [Cardizem CD] 360 mg PO DAILY #60 cap.er.24h 08/16/18 [Rx] Lisinopril [Zestril] 40 mg PO DAILY #30 tablet 08/16/18 [Rx] Ipratropium/Albuterol Sulfate [Combivent Respimat 20-100 Mcg] 1 puff IH Q6H PRN 12/16/18 [History] Sevelamer [Renvela] 1,600 mg PO 1200,1700 12/16/18 [History] Sevelamer [Renvela] 800 mg PO 0600 12/16/18 [History] rOPINIRole [Requip] 1 mg PO HS 12/16/18 [History] Pramipexole [Mirapex] 0.5 mg PO HS tablet 12/17/18 [Rx] Allergy/AdvReac Type Severity Reaction Status Date / Time No Known Allergies Allergy Verified 12/16/18 21:11 All Systems PM: A 10-system review of systems was performed and is negative for pertinent findings except as documented above in the HPI. - Constitutional Constitutional: no chills, no fever(s), no weakness - EENT Eyes: no blurry vision, no change in vision Nose, mouth and throat: no dental pain, no dry mouth, no dysphagia - Cardiovascular Cardiovascular ROS IM: diaphoresis, dyspnea, irregular heart rhythm, palpitations, no chest pain, no dyspnea on exertion, no lightheadedness, no orthopnea, no paroxysmal nocturnal dyspnea, no syncope - Respiratory Respiratory: no cough, no wheezing, no excessive phlegm production - Gastrointestinal Gastrointestinal: no abdominal pain, no nausea, no vomiting - Genitourinary Genitourinary ROS male: no flank pain, no genital pain - Musculoskeletal Musculoskeletal ROS IM: no back pain, no myalgias - Integumentary Integumentary IM: no new lesions, no rash - Neurological Neurological ROS: no headache(s), no lack of coordination - Psychiatric Psychiatric: no anxiety, no hopelessness, no irritability - Endocrine Endocrine IM: no cold intolerance, no excessive sweating - Hematologic/Lymphatic Hematologic/Lymphatic: no lymphadenopathy - Allergic/Immunologic Allergic/Immunologic: no wheezing - Constitutional Vitals: Temp Pulse Resp BP Pulse Ox 98.3 F 116 20 100/81 97 01/20/19 08:31 01/20/19 10:59 01/20/19 10:59 01/20/19 10:59 01/20/19 10:59 Exam: Vitals: Reviewed General: Alert and oriented x4. In mild distress due to shortness of breath. Skin: Normal color, no rash, no lesions. HEENT: EOM, pupils equal, round and reactive. Cardiovascular: Irregularly irregular, normal S1 & S2, no rubs, murmurs or gallops. Lungs: CTA b/l, no wheezes, minimal crackles at the bases b/l. Abdomen: Obese, soft, non-tender, no rigidity. Extremities: No deformity, 2+ edema in the lower extr b/l. Neurological: Normal cognition and motor skills. Rest of the physical exam is non contributory Internal Med - H&P Results - Labs CBC & Chem 7: 01/20/19 08:36 01/20/19 08:36 Labs: Short CBC 01/20/19 Range/Units 08:36 WBC 8.9 (4.3-11.1) K/mcL Hgb 9.6 L (12.9-16.9) g/dL Hct 31.4 L (37.5-50.1) % Plt Count 146 (140-400) K/mcL Neutrophils # 7.7 (1.6-8.9) K/mcL BMP 01/20/19 08:36 Sodium 139 Potassium 5.6 H Chloride 99 Carbon Dioxide 22 L BUN 57 H Creatinine 8.95 H Glucose 117 H Calcium 9.9 Cardiac Enzymes 01/20/19 01/20/19 Range/Units 08:36 11:09 Troponin I 0.04 H* 0.05 H* (< 0.04) ng/mL Liver Function 01/20/19 Range/Units 08:36 Total Bilirubin 1.1 H (0.3-1.0) mg/dL Direct Bilirubin 0.4 H (0.0-0.2) mg/dL AST 15 (13-39) Units/L ALT 15 (7-52) Units/L Alkaline Phosphatase 90 (34-104) Units/L Albumin 4.6 (3.5-5.7) g/dL - Impressions ITS Impressions Chest X-Ray 01/20/19 08:38 IMPRESSION: 1. Cardiomegaly with vascular congestion and interstitial infiltrates likely representing edema and congestive failure. D/ / Henrik Taylor MD / Henrik Taylor MD Interpreting Provider: Henrik Taylor MD - Diagnostic Studies Chest x-ray Status: image reviewed by me (interstitial edema. ) - Assessment and Plan (1) Atrial fibrillation with RVR Current Visit: Yes Status: Chronic Assessment and plan: patient reported palpitations while in HD today. found to be on A.fib with RvR on presentation. likely due to volume overload. continue cardizem drip will resume cardizem 360mg/PO daily patient not on anticoagulation due to a Hx of GI bleed. will add aspirin 81mg/PO daily for secondary stroke prevention serial trops (2) Volume overload Current Visit: Yes Status: Acute Assessment and plan: patient reported being compliant with his diet. scheduled to complete HD today. Qualifiers: Hypervolemia type: unspecified Qualified Code(s): E87.70 - Fluid overload, unspecified (3) DVT prophylaxis Current Visit: Yes Status: Acute Assessment and plan: Heparin subQ (4) Congestive heart failure Current Visit: Yes Status: Chronic Assessment and plan: patient on HD. chest ray with findings of volume overload. scheduled for HD today. Qualifiers: Heart failure type: unspecified Heart failure chronicity: unspecified Qualified Code(s): I50.9 - Heart failure, unspecified (5) ESRD (end stage renal disease) on dialysis Current Visit: Yes Status: Chronic Assessment and plan: patient on HD (T,T,S) did not completed HD today. nephrology consulted for gloria nuation of care. Avoid nephrotoxic medications. fluids restriction to 1.5 litters day. (6) Acute on chronic respiratory failure with hypoxemia Current Visit: No Status: Acute Assessment and plan: possible due to A. Fib with RvR. started on levalbuterol Q4RT PRN O2 buy nasal cannula, titrate for O2Sat >92% stand by Bipap. (7) Hypertension Current Visit: No Status: Chronic Assessment and plan: will resume cardizem 360mg/PO daily. Qualifiers: Hypertension type: essential hypertension Qualified Code(s): I10 - Essential (primary) hypertension (8) Hyperkalemia Current Visit: No Status: Acute Assessment and plan: no ekg changes. scheduled for HD today - Time Spent With Patient Total time spent is greater than 50% in coordination of care (as documented) at patient's floor/unit and/or counseling patient: Greater than 35 minutes (45)
--- NOTE | 2019-01-20 15:37 | Nephrology Consult Note ---
Date of Encounter: 01/20/19 Time of Encounter: 15:37 Assessment and Plan (1) ESRD (end stage renal disease) on dialysis Current Visit: Yes Status: Chronic HD TRS Renal vitamins. Renal dose medications. Renal diet. Additional dialysis and ultrafiltration as needed. Patient seen on dialysis. He was tolerating dialysis well. We will check for the need for dialysis or ultrafiltration tomorrow. The patient's hyperkalemia will be addressed with dialysis. At this time patient's clinical situation is likely that he became dyspneic which triggered his atrial fibrillation with rapid ventricular rates causing diastolic heart failure worsening his respiratory status and making his heart rate higher which in turn made his respiratory status worse. The patient improved with BiPAP and subsequently improved with removal of fluid. (2) Pulmonary edema Current Visit: Yes Status: Acute See above Qualifiers: Chronicity: acute Qualified Code(s): J81.0 - Acute pulmonary edema (3) Atrial fibrillation with RVR Current Visit: Yes Status: Chronic Patient was on a Cardizem drip (4) Congestive heart failure Current Visit: Yes Status: Chronic Qualifiers: Heart failure type: unspecified Heart failure chronicity: unspecified Qualified Code(s): I50.9 - Heart failure, unspecified (5) Anemia Current Visit: No Status: Chronic Qualifiers: Anemia type: due to chronic kidney disease Chronic kidney disease stage: on chronic dialysis Qualified Code(s): N18.6 - End stage renal disease; D63.1 - Anemia in chronic kidney disease; Z99.2 - Dependence on renal dialysis (6) Hypertension Current Visit: No Status: Chronic Qualifiers: Hypertension type: essential hypertension Qualified Code(s): I10 - Essentia l (primary) hypertension History of Present Illness - Reason for Consult Consult date: 01/20/19 end stage renal disease - Chief Complaint ESRD - History of Present Illness Mr. Anderson is a 48-year-old gentleman with a history of end-stage renal disease who presents after developing tachycardia and his dialysis unit. The patient was seen on dialysis. This morning I received a call that the patient was on dialysis and that his blood pressure was low and his heart rate was high and that the patient was not feeling well. He was sent to the emergency room and subsequently admitted after being placed on BiPAP. Patient was seen on dialysis and states that he feels better after his supper and oxygen was started. He denies chest pain he denies nausea he denies diarrhea. The remainder of his review of systems appears to be stable. Past Med Surg Social Fam HX - Past Medical History Medical history: atrial fibrillation, CHF, dialysis, GERD, hyperlipidemia, renal disease, other Additional medical history: Chronic pain Psychiatric history: anxiety - Past Surgical History Surgical History: other Additional surgical history: Pericardial window. dialysis shunt to right upper arm. Kidney surgery - Social History Smoking Status: Former smoker Smokeless Tobacco Status: No Alcohol use: none Drug use: none - Family History Father Hx Family Endocrine Disorder: Yes Mother Living Status: Still Living Hx Family Cardiac Disorders: Yes (hld) Hx Family Psychosocial Disorders: Yes (anxiety) Medications and Allergies ALPRAZolam [Xanax 0.5 MG Tablet] 0.5 mg PO TID PRN 05/02/15 [History] Oxycodone HCl 15 mg PO Q6H PRN 05/02/15 [History] Omeprazole [PriLOSEC] 20 mg PO BID 08/13/18 [History] Renal Vitamin [Renal Caps Softgel] 1 cap PO DAILY 08/13/18 [History] traZODone [TraZODone] 75 mg PO HS 08/13/18 [History] Ipratropium/Albuterol Neb [Duoneb] 3 ml IH [id number] PRN #60 inhsol 08/15/18 [Rx] Lisinopril [Zestril] 40 mg PO DAILY #30 tablet 08/16/18 [Rx] Ipratropium/Albuterol Sulfate [Combivent Respimat 20-100 Mcg] 1 puff IH Q6H PRN 12/16/18 [History] Sevelamer [Renvela] 1,600 mg PO TIDWM 12/16/18 [History] rOPINIRole [Requip] 1 mg PO HS 12/16/18 [History] Folic Acid/Vit B Complex and C [Dialyvite Tablet] 1 tab PO DAILY 01/20/19 [History] Metoprolol [Lopressor] 25 mg PO DAILY 01/20/19 [History] dilTIAZem HCl [Diltiazem ER] 240 mg PO DAILY 01/20/19 [History] Allergy/AdvReac Type Severity Reaction Status Date / Time No Known Allergies Allergy Verified 01/20/19 20:23 Review of Systems All Systems: reviewed and no additional remarkable complaints except as stated (As documented in the history of present illness) Exam - Vital Signs Vital signs: Initial Vital Signs Temp Pulse Resp BP Pulse Ox 98.3 F 150 22 101/85 100 01/20/19 08:31 01/20/19 08:31 01/20/19 08:31 01/20/19 08:31 01/20/19 08:31 Vital Signs - Last 8 Hours Temp Pulse Resp BP Pulse Ox 01/20/19 15:12 98.7 F 125 22 125/87 96 01/20/19 11:50 98.7 F 24 99/74 01/20/19 10:59 116 20 100/81 97 01/20/19 10:45 111 26 97/65 95 01/20/19 10:32 105 26 99/70 99 01/20/19 09:58 121 18 93/74 98 01/20/19 09:52 133 20 90/65 86 01/20/19 09:44 133 21 85/67 96 01/20/19 08:50 149 30 112/91 98 01/20/19 08:43 22 98 01/20/19 08:41 100 01/20/19 08:31 98.3 F 150 22 101/85 100 Intake and Output 01/19/19 01/20/19 01/20/19 23:59 07:59 15:59 Intake Total 602.5 / 602.5 Balance 602.5 / 602.5 Intake: IV Fluids 2.5 / 2.5 Cardizem 50 MG In 0.9 % Sodium 2.5 / 2.5 Chloride 40 ML @ 5 MG/HR 5 mls/ hr IVC CONT JENNY Rx#:[id number] Oral 0 / 0 Intake, Rinseback and Flushes 600 / 600 Other: Weight 104.19 kg Hemodialysis Net Fluid Removed 0 (mL) Patient Weight 01/20/19 23:59 Weight 104.19 kg - General Appearance General appearance: well-developed, well-nourished EENT: ATNC Neck: supple Respiratory: rales Cardiology: edema Additional Comments: Tachycardic and irregular Gastrointestinal: no tenderness Integumentary: warm and dry Neurologic: alert and oriented x3 Psychiatric: mood/affect appropriate Results - Lab Results 01/20/19 08:36 01/20/19 08:36 Most recent lab results Calcium 9.9 mg/dL (8.6-10.3) 01/20/19 08:36 Consult Discharge Plan - Plan Referrals: Roldan Rose Jr [Primary Care Provider] -
[2019-01-20] MEDS: Levalbuterol Neb 0.63 MG/3 ML IH SCH ×2 (16:01→21:58)
--- NOTE | 2019-01-20 16:30 | Electrocardiograph Report ---
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
[2019-01-20] MEDS: *HR* Heparin 5,000 UNIT/ML VIAL SQ SCH (17:23)
[2019-01-20] MEDS: Ondansetron 4 MG/2 ML VIAL IVP PRN (17:23)
[2019-01-20] MEDS: Diltiazem CD (24hr) 180 MG CAPSULE PO SCH (19:44)
[2019-01-20] MEDS: *HR* OxyCODONE Immed Rel 15 MG TABLET PO PRN (19:51)
[2019-01-20] MEDS: *HR* Promethazine 25 MG/ML VIAL IVP PRN (22:07)
[2019-01-20] MEDS: traZODone 50 MG TABLET PO SCH (23:09)
[2019-01-20 23:23] LABS: Magnesium 2.1 mg/dL (1.6-2.6)
[2019-01-20 23:36] LABS: Troponin I 0.08 ng/mL (< 0.04)
[2019-01-21] MEDS: ALPRAZolam 0.5 MG TABLET PO SCH ×2 (00:05→20:50)
[2019-01-21 01:11] LABS: Basophils % 0.3 %; Eosinophils # 0.1 K/mcL (0.0-0.6); Eosinophils % 1.3 %; Hematocrit 27.8 % (37.5-50.1); Hemoglobin 8.8 g/dL (12.9-16.9); Immature Granulocytes % 0.5 % (0-4); Lymphocytes # 0.8 K/mcL (0.6-4.6); Lymphocytes % 8.2 %; Mean Corpuscular HGB Conc 31.7 g/dL (31.6-35.5); Mean Corpuscular Hemoglobin 31.1 pg (28.0-33.3); Mean Corpuscular Volume 98.2 fL (83.0-100.0); Monocytes # 0.6 K/mcL (0.0-1.3); Monocytes % 6.2 %; Neutrophils # 7.7 K/mcL (1.6-8.9); Platelet Count 137 K/mcL (140-400); Red Blood Count 2.83 M/mcL (4.19-5.50); Red Cell Distribution Width 16.5 % (11.5-14.5); Segmented Neutrophils % 83.5 %
[2019-01-21] MEDS: *HR* OxyCODONE Immed Rel 15 MG TABLET PO PRN ×4 (01:23→23:05)
[2019-01-21 01:30] LABS: Calcium 9.3 mg/dL (8.6-10.3); Phosphorous 7.1 mg/dL (2.7-4.5); Potassium 4.2 mEq/L (3.5-5.1)
[2019-01-21] MEDS: Levalbuterol Neb 0.63 MG/3 ML IH SCH ×4 (03:36→22:07)
[2019-01-21] MEDS: *HR* Heparin 5,000 UNIT/ML VIAL SQ SCH ×2 (06:24→17:22)
[2019-01-21] MEDS: *HR* Promethazine 25 MG/ML VIAL IVP PRN ×3 (06:32→23:06)
[2019-01-21] MEDS: Diltiazem CD (24hr) 180 MG CAPSULE PO SCH (08:55)
[2019-01-21] MEDS: Aspirin Enteric Coated 81 MG Tablet PO SCH (08:55)
--- NOTE | 2019-01-21 16:10 | Nephrology Progress Note ---
Date of Encounter: 01/21/19 Time of Encounter: 16:10 - Assessment and Plan (1) ESRD (end stage renal disease) on dialysis Current Visit: Yes Status: Chronic HD TRS Renal vitamins. Renal dose medications. Renal diet. Additional dialysis and ultrafiltration as needed. No need for dialysis today. . (2) Pulmonary edema Current Visit: Yes Status: Acute Improved. Qualifiers: Chronicity: acute Qualified Code(s): J81.0 - Acute pulmonary edema (3) Atrial fibrillation with RVR Current Visit: Yes Status: Chronic Rate is controlled. (4) Congestive heart failure Current Visit: Yes Status: Chronic Qualifiers: Heart failure type: unspecified Heart failure chronicity: unspecified Qualified Code(s): I50.9 - Heart failure, unspecified (5) Anemia Current Visit: No Status: Chronic Qualifiers: Anemia type: due to chronic kidney disease Chronic kidney disease stage: on chronic dialysis Qualified Code(s): N18.6 - End stage renal disease; D63.1 - Anemia in chronic kidney disease; Z99.2 - Dependence on renal dialysis (6) Hypertension Current Visit: No Status: Chronic Qualifiers: Hypertension type: essential hypertension Qualified Code(s): I10 - Essential (primary) hypertension Subjective Principal diagnosis: esrd Interval history: Patient seen. No new complaint. Objective - Vital Signs Vital signs: Vital Signs Temp Pulse Resp BP Pulse Ox 01/21/19 15:39 18 92 01/21/19 11:03 87 16 88/54 94 01/21/19 10:05 18 94 01/21/19 07:48 98.5 F 100 18 101/67 92 01/21/19 04:31 97.8 F 98 20 111/77 92 01/20/19 23:29 98.1 F 115 20 107/76 90 01/20/19 18:44 97.7 F 111 20 118/83 92 Intake and Output 01/21/19 01/21/19 01/21/19 07:59 15:59 23:59 Intake Total 240 / 240 Balance 240 / 240 Intake: Oral 240 / 240 Other: # Voids 0 Weight 100.4 kg Patient Weight 01/21/19 23:59 Weight 100.4 kg - General Appearance General appearance: Present: well-developed, well-nourished EENT: Present: ATNC Neck: Present: supple Cardiology: Present: regular rate Neurologic: Present: alert and oriented x3 Psychiatric: Present: mood/affect appropriate - Lab 01/21/19 00:36 01/21/19 00:36 Most recent lab results Calcium 9.3 mg/dL (8.6-10.3) 01/21/19 00:36 Phosphorus 7.1 mg/dL (2.7-4.5) H 01/21/19 00:36 Magnesium 2.1 mg/dL (1.6-2.6) 01/20/19 22:51 Consult Discharge Plan - Plan Referrals: Roldan Rose Jr [Primary Care Provider] -
--- NOTE | 2019-01-21 17:36 | Internal Med Progress Note ---
Hospitalist Progress Note - Encounter Date of Encounter: 01/21/19 Time of Encounter: 11:00 - Subjective Interval History: Patient is a 48-year-old male with past medical history significant for end- stage renal disease, atrial fibrillation, CHF, hypertension and hyperlipidemia who presents due to shortness of breath secondary to volume overload. Nephrology following for hemodialysis Patient almost at O2 supplementation baseline requiring 5 L of nasal cannula this morning and usually uses 4 L at home. - Exam Vitals: Temp Pulse Resp BP Pulse Ox 98.9 F 84 18 108/70 92 01/21/19 16:11 01/21/19 16:11 01/21/19 16:11 01/21/19 16:11 01/21/19 16:11 Exam: Gen.: Nonacute distress, alert and oriented 3 ENT: Mucosal membranes moist Respiratory: Lungs are clear to auscultation bilaterally without any wheezing rhonchi or rales Cardiovascular: Normal S1 and S2 regular rate rhythm no murmurs rubs or gallops Abdomen: Soft, nontender and nondistended with positive bowel sounds Extremities: No lower extremity edema Skin: Normal color - Assessment and Plan (1) Acute on chronic respiratory failure with hypoxemia Current Visit: No Status: Acute Assessment and Plan: Patient almost at O2 supplementation baseline requiring 5 L of nasal cannula this morning and usually uses 4 L at home. (2) Congestive heart failure Current Visit: Yes Status: Chronic Assessment and Plan: Chest ray with findings of volume overload. Continue scheduled hemodialysis (3) Volume overload Current Visit: Yes Status: Acute Assessment and Plan: Continue scheduled hemodialysis per nephrology recommendations (4) Atrial fibrillation with RVR Current Visit: Yes Status: Chronic Assessment and Plan: Patient reported palpitations while in HD and was found to be on A.fib with RvR on presentation. Suspect secondary to volume overload. Patient was on Cardizem drip that was discontinued and patient placed back on increase dose of oral Cardizem at 360 mg daily Patient not on anticoagulation due to a Hx of GI bleed. Will continue aspirin 81mg/PO daily for secondary stroke prevention (5) ESRD (end stage renal disease) on dialysis Current Visit: Yes Status: Chronic Assessment and Plan: patient on HD (T,T,S) did not completed HD today. nephrology consulted for continuation of care. Avoid nephrotoxic medications. fluids restriction to 1.5 litters day. (6) Hypertension Current Visit: No Status: Chronic Assessment and Plan: Will continue cardizem 360mg/PO daily. (7) Hyperkalemia Current Visit: No Status: Acute Assessment and Plan: Resolved; continue to monitor DVT Prophylaxis: Heparin subQ - Time Spent with Patient Total time spent is greater than 50% in coordination of care (as documented) at patient's floor/unit and/or counseling patient: Internal Medicine: Result - Labs CBC & Chem 7: 01/21/19 00:36 01/21/19 00:36 Labs: Short CBC 01/21/19 Range/Units 00:36 WBC 9.2 (4.3-11.1) K/mcL Hgb 8.8 L (12.9-16.9) g/dL Hct 27.8 L (37.5-50.1) % Plt Count 137 L (140-400) K/mcL Neutrophils # 7.7 (1.6-8.9) K/mcL BMP 01/21/19 00:36 Sodium 141 Potassium 4.2 Chloride 96 L Carbon Dioxide 31 H BUN 49 H Creatinine 7.50 H Glucose 103 Calcium 9.3 Cardiac Enzymes 01/20/19 01/20/19 Range/Units 17:11 22:51 Troponin I 0.08 H* 0.08 H* (< 0.04) ng/mL - ABG Interpretation ABG results: PT/INR, D-dimer PT 13.9 Seconds (9.4-12.1) H 01/20/19 08:36 Consult Discharge Plan - Plan Referrals: Roldan Rose Jr [Primary Care Provider] - (2) Congestive heart failure Qualifiers: Heart failure type: unspecified Heart failure chronicity: unspecified Qualified Code(s): I50.9 - Heart failure, unspecified (3) Volume overload Qualifiers: Hypervolemia type: unspecified Qualified Code(s): E87.70 - Fluid overload, unspecified (6) Hypertension Qualifiers: Hypertension type: essential hypertension Qualified Code(s): I10 - Essential (primary) hypertension
[2019-01-21] MEDS ORDERED: Acetaminophen 325 MG TABLET PO ONE (20:34)
[2019-01-21] MEDS: traZODone 50 MG TABLET PO SCH (20:50)
[2019-01-22 01:08] LABS: Hematocrit 25.8 % (37.5-50.1); Hemoglobin 8.2 g/dL (12.9-16.9); Mean Corpuscular HGB Conc 31.8 g/dL (31.6-35.5); Mean Corpuscular Hemoglobin 31.7 pg (28.0-33.3); Mean Corpuscular Volume 99.6 fL (83.0-100.0); Mean Platelet Volume 10.7 fL (9.4-12.4); Platelet Count 145 K/mcL (140-400); Red Blood Count 2.59 M/mcL (4.19-5.50); Red Cell Distribution Width 17.1 % (11.5-14.5)
[2019-01-22 01:28] LABS: Calcium 8.8 mg/dL (8.6-10.3); Potassium 5.2 mEq/L (3.5-5.1)
[2019-01-22] MEDS: Levalbuterol Neb 0.63 MG/3 ML IH SCH ×4 (03:30→22:11)
[2019-01-22] MEDS: *HR* Heparin 5,000 UNIT/ML VIAL SQ SCH ×2 (05:38→17:02)
[2019-01-22] MEDS ORDERED: 0.9 % Sodium Chloride 250 ML IVC PRN (07:24)
[2019-01-22] MEDS ORDERED: 0.9 % Sodium Chloride 1,000 ML PRIME SCH (07:30)
[2019-01-22] MEDS: *HR* OxyCODONE Immed Rel 15 MG TABLET PO PRN ×2 (08:20→21:51)
[2019-01-22] MEDS: Aspirin Enteric Coated 81 MG Tablet PO SCH (08:20)
[2019-01-22] MEDS ORDERED: Albumin 25% 12.5gm/50mL 25.0 GM/100 ML IV.SOLN ONE (09:27)
[2019-01-22] MEDS ORDERED: Albumin 25% 25gram/100mL 25 GM/100 ML IV.SOLN IVPB ONE (09:28)
--- NOTE | 2019-01-22 10:47 | Internal Med Progress Note ---
Hospitalist Progress Note - Encounter Date of Encounter: 01/22/19 Time of Encounter: 11:00 - Subjective Interval History: Patient is a 48-year-old male with past medical history significant for end- stage renal disease, atrial fibrillation, CHF, hypertension and hyperlipidemia who presents due to shortness of breath secondary to volume overload. Nephrology following for hemodialysis to reduce volume overload As result patient's respiratory status continues to improve close to baseline - Exam Vitals: Temp Pulse Resp BP Pulse Ox 98.9 F 86 14 96/53 94 01/22/19 08:45 01/22/19 07:21 01/22/19 08:45 01/22/19 09:15 01/22/19 07:21 Exam: Gen.: Nonacute distress, alert and oriented 3 ENT: Mucosal membranes moist Respiratory: Lungs are clear to auscultation bilaterally without any wheezing rhonchi or rales Cardiovascular: Normal S1 and S2 regular rate rhythm no murmurs rubs or gallops Abdomen: Soft, nontender and nondistended with positive bowel sounds Extremities: No lower extremity edema Skin: Normal color - Assessment and Plan (1) Acute on chronic respiratory failure with hypoxemia Current Visit: No Status: Acute Assessment and Plan: Suspect secondary to volume overload and receiving hemodialysis to remove volume per nephrology recommendations Patient's respiratory status improving and now currently on baseline O2 requirements at 4 L (2) Congestive heart failure Current Visit: Yes Status: Chronic Assessment and Plan: Chest ray with findings of volume overload. Limited Echocardiogram ordered Continue scheduled hemodialysis (3) Volume overload Current Visit: Yes Status: Acute Assessment and Plan: Continue scheduled hemodialysis per nephrology recommendations (4) Atrial fibrillation with RVR Current Visit: Yes Status: Chronic Assessment and Plan: Patient reported palpitations while in HD and was found to be on A.fib with RvR on presentation. Suspect secondary to volume overload. Patient was on Cardizem drip that was discontinued and patient placed back on increase dose of oral Cardizem at 360 mg daily Patient not on anticoagulation due to a Hx of GI bleed. Will continue aspirin 81mg/PO daily for secondary stroke prevention (5) ESRD (end stage renal disease) on dialysis Current Visit: Yes Status: Chronic Assessment and Plan: Patient on HD (T,T,S) did not completed HD today. Nephrology following for continuation of care. Avoid nephrotoxic medications. Fluid restriction to 1.5 litters day. (6) Hypertension Current Visit: No Status: Chronic Assessment and Plan: Will continue cardizem 360mg/PO daily. (7) Hyperkalemia Current Visit: No Status: Acute Assessment and Plan: Resolved; continue to monitor DVT Prophylaxis: Heparin subQ - Time Spent with Patient Total time spent is greater than 50% in coordination of care (as documented) at patient's floor/unit and/or counseling patient: Internal Medicine: Result - Labs CBC & Chem 7: 01/22/19 00:54 01/22/19 00:54 Labs: Short CBC 01/22/19 Range/Units 00:54 WBC 10.0 (4.3-11.1) K/mcL Hgb 8.2 L (12.9-16.9) g/dL Hct 25.8 L (37.5-50.1) % Plt Count 145 (140-400) K/mcL BMP 01/22/19 00:54 Sodium 137 Potassium 5.2 H Chloride 96 L Carbon Dioxide 28 BUN 67 H Creatinine 9.69 H Glucose 123 H Calcium 8.8 - ABG Interpretation ABG results: PT/INR, D-dimer PT 13.9 Seconds (9.4-12.1) H 01/20/19 08:36 Consult Discharge Plan - Plan Referrals: Roldan Rose Jr [Primary Care Provider] - (2) Congestive heart failure Qualifiers: Heart failure type: unspecified Heart failure chronicity: unspecified Qualified Code(s): I50.9 - Heart failure, unspecified (3) Volume overload Qualifiers: Hypervolemia type: unspecified Qualified Code(s): E87.70 - Fluid overload, u nspecified (6) Hypertension Qualifiers: Hypertension type: essential hypertension Qualified Code(s): I10 - Essential (primary) hypertension
[2019-01-22] MEDS: Diltiazem CD (24hr) 180 MG CAPSULE PO SCH (12:54)
--- NOTE | 2019-01-22 15:10 | Nephrology Progress Note ---
Date of Encounter: 01/22/19 Time of Encounter: 15:09 - Assessment and Plan (1) ESRD (end stage renal disease) on dialysis Current Visit: Yes Status: Chronic HD TRS Renal vitamins. Renal dose medications. Renal diet. Additional dialysis and ultrafiltration as needed. Patient seen on dialysis. He may need UF Saturday. . (2) Pulmonary edema Current Visit: Yes Status: Acute Likely related to afib with RVR. HD and UF as needed. Qualifiers: Chronicity: acute Qualified Code(s): J81.0 - Acute pulmonary edema (3) Atrial fibrillation with RVR Current Visit: Yes Status: Chronic (4) Congestive heart failure Current Visit: Yes Status: Chronic Qualifiers: Heart failure type: unspecified Heart failure chronicity: unspecified Qualified Code(s): I50.9 - Heart failure, unspecified (5) Anemia Current Visit: No Status: Chronic Qualifiers: Anemia type: due to chronic kidney disease Chronic kidney disease stage: on chronic dialysis Qualified Code(s): N18.6 - End stage renal disease; D63.1 - Anemia in chronic kidney disease; Z99.2 - Dependence on renal dialysis (6) Hypertension Current Visit: No Status: Chronic Qualifiers: Hypertension type: essential hypertension Qualified Code(s): I10 - Essential (primary) hypertension Subjective Principal diagnosis: esrd Interval history: Patient seen and evaluated. He was seen on dialysis. He was on bipap. Objective - Vital Signs Vital signs: Vital Signs Temp Pulse Resp BP Pulse Ox 01/22/19 14:36 100.0 F H 102 24 97/65 94 01/22/19 12:40 98.4 F 16 98/51 01/22/19 12:15 103/53 01/22/19 12:00 102/46 01/22/19 11:45 121/87 01/22/19 11:30 106/70 01/22/19 11:15 114/47 01/22/19 11:00 96/56 01/22/19 10:45 108/64 01/22/19 10:30 107/76 01/22/19 10:15 97/64 01/22/19 10:00 99/65 01/22/19 09:45 111/72 01/22/19 09:30 109/71 01/22/19 09:15 96/53 01/22/19 09:00 99/64 01/22/19 08:45 98.9 F 14 91/65 01/22/19 07:21 98.9 F 86 15 94/59 94 01/22/19 03:55 98.2 F 75 18 106/68 99 01/22/19 03:32 14 96 01/21/19 23:48 17 92 01/21/19 23:43 99.4 F 97 18 98/61 93 01/21/19 19:41 100.1 F H 80 17 107/68 90 01/21/19 16:11 98.9 F 84 18 108/70 92 01/21/19 15:39 18 92 Intake and Output 01/21/19 01/22/19 01/22/19 23:59 07:59 15:59 Intake Total 740 / 740 Output Total 1999 Balance -1260 / -1260 Intake: Oral 240 / 240 Intake, Rinseback and Flushes 500 / 500 Output: Urine 0 / 0 Total Dialysis (HD) Output 1999 Other: Meal Breakfast Percent of Meal Consumed 100% # Voids 1 Weight 101.5 kg Hemodialysis Net Fluid Removed 1500 (mL) Patient Weight 01/22/19 23:59 Weight 101.5 kg - General Appearance General appearance: Present: well-developed, well-nourished EENT: Present: ATNC Respiratory: Present: course breath sounds, rhonchi Cardiology: Present: no edema Additional Comments: tachycardic Integumentary: Present: warm and dry Neurologic: Present: alert and oriented x3 Musculoskeletal: Present: no cyanosis Psychiatric: Present: mood/affect appropriate - Lab 01/22/19 00:54 01/22/19 00:54 Most recent lab results Calcium 8.8 mg/dL (8.6-10.3) 01/22/19 00:54 Phosphorus 7.1 mg/dL (2.7-4.5) H 01/21/19 00:36 Magnesium 2.1 mg/dL (1.6-2.6) 01/20/19 22:51 Consult Discharge Plan - Plan Referrals: Roldan Rose Jr [Primary Care Provider] -
[2019-01-22] MEDS: ALPRAZolam 0.5 MG TABLET PO SCH (21:51)
[2019-01-22] MEDS: traZODone 50 MG TABLET PO SCH (21:52)
[2019-01-22] MEDS: Ondansetron 4 MG/2 ML VIAL IVP PRN (21:59)
[2019-01-23] MEDS: Levalbuterol Neb 0.63 MG/3 ML IH SCH ×4 (03:44→21:30)
[2019-01-23] MEDS: *HR* Heparin 5,000 UNIT/ML VIAL SQ SCH ×2 (04:48→16:35)
[2019-01-23 05:28] LABS: Hematocrit 25.5 % (37.5-50.1); Hemoglobin 7.8 g/dL (12.9-16.9); Mean Corpuscular HGB Conc 30.6 g/dL (31.6-35.5); Mean Corpuscular Hemoglobin 31.2 pg (28.0-33.3); Mean Platelet Volume 10.8 fL (9.4-12.4); Platelet Count 130 K/mcL (140-400); Red Cell Distribution Width 17.2 % (11.5-14.5)
[2019-01-23] MEDS: Ondansetron 4 MG/2 ML VIAL IVP PRN (05:28)
[2019-01-23 05:50] LABS: Calcium 8.6 mg/dL (8.6-10.3); Potassium 5.1 mEq/L (3.5-5.1)
[2019-01-23 06:45] LABS: ABG Base Excess 9 mEq/L (-2 to 3); ABG HCO3 36 mEq/L (21-27); ABG Oxygen Saturation 71 % (95-98); ABG PCO2 71 mmHg (35-45); ABG PH 7.32 pH Units (7.32-7.45); ABG PO2 42 mmHg (85-104); ABG TCO2 39 mEq/L (20-26); Blood Gas Modality NIV; Blood Gas PEEP 8 cm H2O
[2019-01-23 06:57] LABS: ABG Base Excess 9 mEq/L (-2 to 3); ABG HCO3 36 mEq/L (21-27); ABG Oxygen Saturation 97 % (95-98); ABG PCO2 68 mmHg (35-45); ABG PH 7.33 pH Units (7.32-7.45); ABG PO2 99 mmHg (85-104); ABG TCO2 38 mEq/L (20-26); Blood Gas Modality NIV; Blood Gas PEEP 8 cm H2O; Blood Gas Respiration Rate 4
[2019-01-23] MEDS: Aspirin Enteric Coated 81 MG Tablet PO SCH (08:23)
[2019-01-23] MEDS: Diltiazem CD (24hr) 180 MG CAPSULE PO SCH (08:24)
--- NOTE | 2019-01-23 11:46 | Internal Med Progress Note ---
Hospitalist Progress Note - Encounter Date of Encounter: 01/23/19 Time of Encounter: 11:00 - Subjective Interval History: Patient is a 48-year-old male with past medical history significant for end- stage renal disease, atrial fibrillation, CHF, hypertension and hyperlipidemia who presents due to shortness of breath secondary to volume overload. Nephrology following for hemodialysis to reduce volume overload Patient also found to have acute on chronic systolic heart failure with decrease in EF on repeat echocardiogram - Exam Vitals: Temp Pulse Resp BP Pulse Ox 98.1 F 101 17 101/57 99 01/23/19 07:17 01/23/19 11:08 01/23/19 11:08 01/23/19 11:08 01/23/19 11:08 Exam: Gen.: Nonacute distress, alert and oriented 3 ENT: Mucosal membranes moist Respiratory: Lungs are clear to auscultation bilaterally without any wheezing rhonchi or rales Cardiovascular: Normal S1 and S2 regular rate rhythm no murmurs rubs or gallops Abdomen: Soft, nontender and nondistended with positive bowel sounds Extremities: No lower extremity edema Skin: Normal color - Assessment and Plan (1) Acute on chronic respiratory failure with hypoxemia Current Visit: No Status: Acute Assessment and Plan: Suspect secondary to volume overload and receiving hemodialysis to remove volume per nephrology recommendations Patient also found to have acute on chronic systolic heart failure with decrease in LVEF on repeat echocardiogram; cardiology consulted Patient's respiratory status improving and now currently on baseline O2 requirements at 4 L (2) Congestive heart failure Current Visit: Yes Status: Chronic Assessment and Plan: Patient found to have acute on chronic systolic heart failure Chest ray with findings of volume overload. On admission patient presented with elevated troponin and a BNP of 1040 Limited Echocardiogram showed LVEF of 45-50% with mild global left ventricular systolic dysfunction; echocardiogram on 07/2018 showed LVEF of 60% with normal LV chamber size and systolic function Cardiology consulted and appreciate recommendations. (3) Volume overload Current Visit: Yes Status: Acute Assessment and Plan: Continue scheduled hemodialysis per nephrology recommendations (4) Atrial fibrillation with RVR Current Visit: Yes Status: Chronic Assessment and Plan: Patient reported palpitations while in HD and was found to be on A.fib with RvR on presentation. Suspect secondary to volume overload. Patient was on Cardizem drip that was discontinued and patient placed back on increase dose of oral Cardizem at 360 mg daily Patient not on anticoagulation due to a Hx of GI bleed. Will continue aspirin 81mg/PO daily for secondary stroke prevention (5) ESRD (end stage renal disease) on dialysis Current Visit: Yes Status: Chronic Assessment and Plan: Patient on HD (T,T,S) did not completed HD today. Nephrology following for continuation of care. Avoid nephrotoxic medications. Fluid restriction to 1.5 litters day. (6) Hypertension Current Visit: No Status: Chronic Assessment and Plan: Will continue cardizem 360mg/PO daily. (7) Hyperkalemia Current Visit: No Status: Acute Assessment and Plan: Resolved; continue to monitor DVT Prophylaxis: Heparin subQ - Time Spent with Patient Total time spent is greater than 50% in coordination of care (as documented) at patient's floor/unit and/or counseling patient: Internal Medicine: Result - Labs CBC & Chem 7: 01/23/19 04:48 01/23/19 04:48 Labs: Short CBC 01/23/19 Range/Units 04:48 WBC 7.1 (4.3-11.1) K/mcL Hgb 7.8 L (12.9-16.9) g/dL Hct 25.5 L (37.5-50.1) % Plt Count 130 L (140-400) K/mcL BMP 01/23/19 04:48 Sodium 138 Potassium 5.1 Chloride 96 L Carbon Dioxide 30 H BUN 44 H Creatinine 7.09 H Glucose 90 Calcium 8.6 - ABG Interpretation ABG results: ABG ABG pH 7.33 pH Units (7.32-7.45) 01/23/19 06:53 ABG pCO2 68 mmHg (35-45) H 01/23/19 06:53 ABG pO2 99 mmHg (85-104) D 01/23/19 06:53 ABG O2 Saturation 97 % (95-98) 01/23/19 06:53 PT/INR, D-dimer PT 13.9 Seconds (9.4-12.1) H 01/20/19 08:36 - Impressions Impressions Echocardiogram Limited Views 01/22/19 10:49 Impressions: LVEF 45-50%. Mild global left ventricular systolic dysfunction. Mild RV dysfunction. Severely dilated left atrium. Mildly dilated right atrium. Recommend repeat limited TTE with definity after rate control. Left Ventricular Wall Motion: Rest Echo Findings All wall segments showed normal motion. Findings: Study Quality * Technically sub-optimal due to clinical status. ECG Findings * Atrial fibrillation RVR. Left Ventricle * LVEF 45-50%. * Mild global left ventricular systolic dysfunction. Right Ventricle * Normal right ventricular structure and mild dysfunction. Left Atrium * Severely dilated left atrium. Right Atrium * Mildly dilated right atrium. Aortic Valve * Moderately calcified aortic valve leaflets. Mitral Valve * Mild mitral annular calcification Consult Discharge Plan - Plan Referrals: Roldan Rose Jr [Primary Care Provider] - 02/04/19 11:30 am (Please follow up as schedule....) (2) Congestive heart failure Qualifiers: Heart failure type: unspecified Heart failure chronicity: unspecified Qualified Code(s): I50.9 - Heart failure, unspecified (3) Volume overload Qualifiers: Hypervolemia type: unspecified Qualified Code(s): E87.70 - Fluid overload, unspecified (6) Hypertension Qualifiers: Hypertension type: essential hypertension Qualified Code(s): I10 - Essential (primary) hypertension
[2019-01-23] MEDS: *HR* OxyCODONE Immed Rel 15 MG TABLET PO PRN ×2 (12:32→20:14)
--- NOTE | 2019-01-23 13:04 | Nephrology Progress Note ---
Date of Encounter: 01/23/19 Time of Encounter: 08:40 - Assessment and Plan (1) ESRD (end stage renal disease) on dialysis Current Visit: Yes Status: Chronic HD TRS Renal vitamins. Renal dose medications. Renal diet. Additional dialysis and ultrafiltration as needed, but today he is too hypotensive and tachycardic to tolerate UF. Will plan for further [employer] tomorrow. Thank you. . (2) Atrial fibrillation with RVR Current Visit: Yes Status: Chronic (3) Congestive heart failure Current Visit: Yes Status: Chronic Qualifiers: Heart failure type: unspecified Heart failure chronicity: unspecified Qualified Code(s): I50.9 - Heart failure, unspecified (4) Pulmonary edema Current Visit: Yes Status: Acute Qualifiers: Chronicity: acute Qualified Code(s): J81.0 - Acute pulmonary edema Subjective Principal diagnosis: esrd Interval history: The patient was seen and examined earlier today in his room on the 2A unit. He affirmed having ongoing shortness of breath, and reported that he had cramping with dialysis yesterday. The motor vehicle examiner also informed me that due to his low blood pressures, they were not able to remove much fluid yesterday. Objective - Vital Signs Vital signs: Vital Signs Temp Pulse Resp BP Pulse Ox 01/23/19 12:39 95 01/23/19 11:08 101 17 101/57 99 01/23/19 10:44 32 100 01/23/19 08:45 97 01/23/19 07:17 98.1 F 120 20 103/65 99 01/23/19 05:12 99.9 F H 114 19 92/66 95 01/23/19 03:44 19 97 01/22/19 23:34 92/59 01/22/19 23:18 108/67 01/22/19 23:08 103/71 01/22/19 23:03 99.5 F 108 22 103/71 96 01/22/19 22:48 104/71 01/22/19 22:33 105/73 01/22/19 22:18 97/63 01/22/19 22:11 24 93 01/22/19 19:18 99.7 F H 121 19 120/72 91 01/22/19 16:22 21 96 01/22/19 14:36 100.0 F H 102 24 97/65 94 Intake and Output 01/22/19 01/23/19 01/23/19 23:59 07:59 15:59 Intake Total 60 / 60 410 / 410 60 / 60 Balance 60 / 60 410 / 410 60 / 60 Intake: IV Fluids 350 / 350 0.9 % Sodium Chloride 250 ML @ 250 / 250 937.5 mls/hr IVC .Q16M PRN Rx#: [id number] Oral 60 / 60 60 / 60 60 / 60 Other: Meal Dinner Breakfast Percent of Meal Consumed 100% 0% - General Appearance General appearance: Present: well-developed, well-nourished EENT: Present: ATNC, PERRL, mucous membranes moist Additional Comments: Wearing BiPAP Respiratory: Present: course breath sounds, rhonchi Cardiology: Present: edema, rapid rhythm, irregular rhythm, normal S1, normal S2 Dialysis Vascular Access: Arteriovenous Fistula (Right UE AVF) thrill: Yes bruit: Yes Gastrointestinal: Present: normoactive bowel sounds, no guarding Integumentary: Present: warm and dry Neurologic: Present: no focal deficit, no asterixis, alert and oriented x3 Musculoskeletal: Present: no erythema, no clubbing Psychiatric: Present: mood/affect appropriate, cooperative - Lab 01/23/19 04:48 01/23/19 04:48 Most recent lab results ABG pH 7.33 pH Units (7.32-7.45) 01/23/19 06:53 ABG pCO2 68 mmHg (35-45) H 01/23/19 06:53 ABG pO2 99 mmHg (85-104) D 01/23/19 06:53 ABG HCO3 36 mEq/L (21-27) H 01/23/19 06:53 ABG O2 Saturation 97 % (95-98) 01/23/19 06:53 Calcium 8.6 mg/dL (8.6-10.3) 01/23/19 04:48 Phosphorus 7.1 mg/dL (2.7-4.5) H 01/21/19 00:36 Magnesium 2.1 mg/dL (1.6-2.6) 01/20/19 22:51 Consult Discharge Plan - Plan Referrals: Roldan Rose Jr [Primary Care Provider] - 02/04/19 11:30 am (Please follow up as schedule....)
[2019-01-23 16:31] LABS: VBG HCO3 31 mEq/L (21-27); VBG PCO2 51 mmHg (41-51); VBG PO2 204 mmHg (25-50)
[2019-01-23] MEDS ORDERED: hydrOXYzine pamoate 25 MG CAPSULE PO STA (16:44)
[2019-01-23] MEDS: traZODone 50 MG TABLET PO SCH (20:14)
[2019-01-23] MEDS: ALPRAZolam 0.5 MG TABLET PO SCH (20:14)
[2019-01-23] MEDS: *HR* Promethazine 25 MG/ML VIAL IVP PRN (20:15)
[2019-01-24] MEDS: Levalbuterol Neb 0.63 MG/3 ML IH SCH ×4 (03:36→21:22)
[2019-01-24] MEDS: *HR* Heparin 5,000 UNIT/ML VIAL SQ SCH ×2 (07:07→17:00)
[2019-01-24 07:19] LABS: Hemoglobin 7.7 g/dL (12.9-16.9); Mean Corpuscular HGB Conc 30.8 g/dL (31.6-35.5); Mean Corpuscular Hemoglobin 31.2 pg (28.0-33.3); Mean Corpuscular Volume 101.2 fL (83.0-100.0); Mean Platelet Volume 10.8 fL (9.4-12.4); Platelet Count 121 K/mcL (140-400); Red Blood Count 2.47 M/mcL (4.19-5.50)
[2019-01-24] MEDS ORDERED: 0.9 % Sodium Chloride 250 ML IVC PRN (07:29)
[2019-01-24 07:58] LABS: Calcium 9.3 mg/dL (8.6-10.3); Potassium 5.5 mEq/L (3.5-5.1)
--- NOTE | 2019-01-24 08:07 | Nephrology Progress Note ---
Date of Encounter: 01/24/19 Time of Encounter: 11:30 - Assessment and Plan (1) ESRD (end stage renal disease) on dialysis Current Visit: Yes Status: Chronic ESRD on HD TTS: dialysis ordered for today. Next HD is planned for Saturday, and in the interim, I will be available if needed. Please feel free to call or page me. Thank you. (2) Atrial fibrillation with RVR Current Visit: Yes Status: Chronic (3) Pulmonary edema Current Visit: Yes Status: Acute Qualifiers: Chronicity: acute Qualified Code(s): J81.0 - Acute pulmonary edema (4) Anemia Current Visit: No Status: Chronic Goal Hgb is 10-11. I recommend resuming an SATHISH (epo stimulating agent). Transfusion parameters as per primary. Qualifiers: Anemia type: due to chronic kidney disease Chronic kidney disease stage: on chronic dialysis Qualified Code(s): N18.6 - End stage renal disease; D63.1 - Anemia in chronic kidney disease; Z99.2 - Dependence on renal dialysis Subjective Principal diagnosis: esrd Interval history: The patient was seen and examined in the dialysis unit. He did not affirm N/V but did report feeling drowsy and tired (he quickly fell asleep again), and so this portion of the note is limited. Objective - Vital Signs Vital signs: Vital Signs Temp Pulse Resp BP Pulse Ox 01/24/19 07:25 97.5 F L 98 16 113/73 94 01/24/19 03:36 18 97 01/23/19 23:06 99.1 F 89 16 99/66 97 01/23/19 21:30 13 93 01/23/19 19:35 100.2 F H 98 20 94/58 96 01/23/19 17:21 92 01/23/19 15:36 17 95 01/23/19 15:33 99.1 F 94 20 111/76 100 01/23/19 12:39 95 01/23/19 11:08 101 17 101/57 99 01/23/19 10:44 32 100 01/23/19 08:45 97 - General Appearance General appearance: Present: well-developed, fatigue, frail EENT: Present: ATNC Neck: Present: supple Respiratory: Present: course breath sounds Cardiology: Present: edema (only trace pedeal edema b/l), irregular rhythm, no rmal S1, normal S2 Dialysis Vascular Access: Arteriovenous Fistula (right arm) thrill: Yes bruit: Yes Gastrointestinal: Present: normoactive bowel sounds, no tenderness Neurologic: Present: confused, disoriented - Lab 01/24/19 06:11 01/24/19 06:11 Most recent lab results ABG pH 7.33 pH Units (7.32-7.45) 01/23/19 06:53 ABG pCO2 68 mmHg (35-45) H 01/23/19 06:53 ABG pO2 99 mmHg (85-104) D 01/23/19 06:53 ABG HCO3 36 mEq/L (21-27) H 01/23/19 06:53 ABG O2 Saturation 97 % (95-98) 01/23/19 06:53 Calcium 9.3 mg/dL (8.6-10.3) 01/24/19 06:11 Phosphorus 7.1 mg/dL (2.7-4.5) H 01/21/19 00:36 Magnesium 2.1 mg/dL (1.6-2.6) 01/20/19 22:51 Consult Discharge Plan - Plan Referrals: Roldan Rose Jr [Primary Care Provider] - 02/04/19 11:30 am (Please follow up as schedule....)
[2019-01-24] MEDS: Diltiazem CD (24hr) 180 MG CAPSULE PO SCH (08:14)
[2019-01-24] MEDS: Aspirin Enteric Coated 81 MG Tablet PO SCH (08:14)
[2019-01-24] MEDS ORDERED: 0.9 % Sodium Chloride 1,000 ML ONE (08:21)
--- NOTE | 2019-01-24 08:43 | Internal Med Progress Note ---
Hospitalist Progress Note - Encounter Date of Encounter: 01/24/19 Time of Encounter: 11:00 - Subjective Interval History: Patient is a 48-year-old male with past medical history significant for end- stage renal disease, atrial fibrillation, CHF, hypertension and hyperlipidemia who presents due to shortness of breath and found to have acute hypoxic respir atory failure. Patient with no improvement and hypoxic respiratory failure requiring high amounts of O2 supplementation this morning. Nephrology following for hemodialysis to reduce volume overload Patient also found to have acute on chronic systolic heart failure with decrease in EF on repeat echocardiogram in the setting of severe pulmonary hypertension noted on prior echocardiogram; awaiting cardiology recommendations - Exam Vitals: Temp Pulse Resp BP Pulse Ox 97.5 F L 98 16 113/73 94 01/24/19 07:25 01/24/19 07:25 01/24/19 07:25 01/24/19 07:25 01/24/19 07:25 Exam: Gen.: Nonacute distress, alert and oriented 3 ENT: Mucosal membranes moist Respiratory: Lungs are clear to auscultation bilaterally without any wheezing rhonchi or rales Cardiovascular: Normal S1 and S2 regular rate rhythm no murmurs rubs or gallops Abdomen: Soft, nontender and nondistended with positive bowel sounds Extremities: No lower extremity edema Skin: Normal color - Assessment and Plan (1) Acute on chronic respiratory failure with hypoxemia Current Visit: No Status: Acute Assessment and Plan: Patient still requiring high amounts of O2 supplementation this morning on 9 L of nasal cannula; baseline 4 L Chest x-ray on admission showed cardiomegaly with vascular congestion and interstitial infiltrates suspected to represent edema and congestive heart failure. Will order CT of the chest for further evaluation to no improvement in respiratory status Will also order respiratory panel for further evaluation Suspect secondary to volume overload in the setting of end-stage renal disease in addition to acute on chronic systolic heart failure. Nephrology following for hemodialysis to reduce any volume overload that might be present Patient also found to have acute on chronic systolic heart failure with decrease in LVEF on repeat echocardiogram; awaiting cardiology recommendations (2) Congestive heart failure Current Visit: Yes Status: Chronic Assessment and Plan: Patient found to have acute on chronic systolic heart failure Chest ray with findings of volume overload. On admission patient presented with elevated troponin and a BNP of 1040 Limited Echocardiogram showed LVEF of 45-50% with mild global left ventricular systolic dysfunction; echocardiogram on 07/2018 showed LVEF of 60% with normal LV chamber size and systolic function with severe pulmonary hypertension Cardiology consulted and awaiting recommendations. (3) Atrial fibrillation with RVR Current Visit: Yes Status: Chronic Assessment and Plan: Patient reported palpitations while in HD and was found to be on A.fib with RvR on presentation. Suspect secondary to volume overload. Patient was on Cardizem drip that was discontinued and patient placed back on increase dose of oral Cardizem at 360 mg daily Patient not on anticoagulation due to a Hx of GI bleed. Will continue aspirin 81mg/PO daily for secondary stroke prevention (4) ESRD (end stage renal disease) on dialysis Current Visit: Yes Status: Chronic Assessment and Plan: Patient on HD (T,T,S) Nephrology following for continuation of care. Avoid nephrotoxic medications. Fluid restriction to 1.5 litters day. (5) Hyperkalemia Current Visit: No Status: Acute Assessment and Plan: Potassium 5.5 this morning On hemodialysis as above Continue to monitor (6) Hypertension Current Visit: No Status: Chronic Assessment and Plan: Will continue cardizem 360mg/PO daily. DVT Prophylaxis: SCDs - Time Spent with Patient Total time spent is greater than 50% in coordination of care (as documented) at patient's floor/unit and/or counseling patient: Internal Medicine: Result - Labs CBC & Chem 7: 01/24/19 06:11 01/24/19 06:11 Labs: Short CBC 01/24/19 Range/Units 06:11 WBC 6.1 (4.3-11.1) K/mcL Hgb 7.7 L (12.9-16.9) g/dL Hct 25.0 L (37.5-50.1) % Plt Count 121 L (140-400) K/mcL BMP 01/24/19 06:11 Sodium 140 Potassium 5.5 H Chloride 95 L Carbon Dioxide 28 BUN 65 H Creatinine 9.91 H Glucose 96 Calcium 9.3 - ABG Interpretation ABG results: ABG ABG pH 7.33 pH Units (7.32-7.45) 01/23/19 06:53 ABG pCO2 68 mmHg (35-45) H 01/23/19 06:53 ABG pO2 99 mmHg (85-104) D 01/23/19 06:53 ABG O2 Saturation 97 % (95-98) 01/23/19 06:53 PT/INR, D-dimer PT 13.9 Seconds (9.4-12.1) H 01/20/19 08:36 Consult Discharge Plan - Plan Referrals: Roldan Rose Jr [Primary Care Provider] - 02/04/19 11:30 am (Please follow up as schedule....) (2) Congestive heart failure Qualifiers: Heart failure type: diastolic Heart failure chronicity: unspecified Qualified Code(s): I50.30 - Unspecified diastolic (congestive) heart failure (6) Hypertension Qualifiers: Hypertension type: essential hypertension Qualified Code(s): I10 - Essential (primary) hypertension
[2019-01-24] MEDS: Acetaminophen 325 MG TABLET PO PRN (09:58)
--- NOTE | 2019-01-24 10:08 | Cardiology Consult Note ---
Date of Encounter: 01/24/19 Time of Encounter: 10:03 Assessment and Plan (1) Atrial fibrillation with rapid ventricular response Current Visit: No Status: Acute Much improved currently possibly related to electrolyte abnormalities on presentation versus demand ischemia from severe anemia. Likely predisposed patient into congestive heart failure and hypervolemia resolved currently after multiple sessions of hemodialysis. Follow-up with [facility] aeronautical test engineer as an outpatient (2) Congestive heart failure Current Visit: Yes Status: Chronic Likely CHF with a preserved ejection fraction due to concentric LVH on previous echoes, severe pulmonary hypertension noted on recent echo and a drop his ejection fraction which may be secondary to A. fib RVR and hypervolemia. Patient states had recent RHC [place] and was unremarkable. These documents are not available for review. Patient will follow-up with aeronautical test engineer and echocardiogram likely would be needed as a follow-up since he is euvolemic at this point Qualifiers: Heart failure type: diastolic Heart failure chronicity: unspecified Qualified Code(s): I50.30 - Unspecified diastolic (congestive) heart failure (3) Volume overload Current Visit: Yes Status: Acute Results post-hemodialysis, follow-up with aeronautical test engineer at [facility] Qualifiers: Hypervolemia type: unspecified Qualified Code(s): E87.70 - Fluid overload, unspecified Discussion w patient/family: The assessment and plan as outlined above was discussed with the patient and/or family members who expressed understanding and agreement. All questions were answered. Thank you for involving us in the care of your patient. Please call with any questions. History of Present Illness Consult date: 01/24/19 Consult reason: CHF Chief complaint: SOB History of present illness: Mr. Anderson is a 48 year old male with history of multiple cardiac risk factors including hypertension, hyperlipidemia, CK D on dialysis, congestive heart failure with preserved ejection fraction last preserved ejection fraction noted July 2018 at 60% with mild concentric LVH likely diastolic dysfunction. Patient presented initially with volume overload shortness of breath however due to his history of end-stage renal disease on HD currently euvolemic status post multiple sessions of hemodialysis. Currently euvolemic on exam denies any shortness of breath, orthopnea, PND or chest pain. Patient has an extensive history of CHF, atrial for ablation currently not anticoagulated due to recent bleeds in the past follows with a aeronautical test engineer out of [place]. Currently on rate control only likely better after diuresis and euvolemic. Most recent echocardiogram shows a drop his ejection fraction of 45% possibly secondary to A. fib RVR in the setting of hypervolemia and volume overload. Patient states recent RHC at [facility] was unremarkable as per patient. Echocardiogram at [facility] states severe pulmonary hypertension which may or may not be related to his volume overload also. Possible culprit was A. fib RVR predispose patient to CHF with a preserved ejection fraction as noted above. Patient currently being worked up for possible kidney transplant likely has had an ischemic eval through his aeronautical test engineer at [facility]. No further cardiac recommendations, workup, or procedures recommended at this time. Patient will follow-up with his aeronautical test engineer and possibly have a repeat echocardiogram to reevaluate for regional wall motion modalities and his ejection fraction. Noted on his labs patient does have severe anemia with a hemoglobin of 7.7. Patient also has had an extensive discussion regards to his risk of stroke with his aeronautical test engineer and accepts this being on aspirin only. Past Med Surg Social Fam HX - Past Medical History Medical history: atrial fibrillation, CHF, dialysis, GERD, hyperlipidemia, renal disease, other Additional medical history: Chronic pain Psychiatric history: anxiety - Past Surgical History Surgical History: other Additional surgical history: Pericardial window. dialysis shunt to right upper arm. Kidney surgery - Social History Smoking Status: Former smoker Smokeless Tobacco Status: No Alcohol use: none Drug use: none - Family History Father Living Status: Still Living Hx Family Endocrine Disorder: Yes Mother Living Status: Still Living Hx Family Cardiac Disorders: Yes (hld) Hx Family Psychosocial Disorders: Yes (anxiety) Medications and Allergies ALPRAZolam [Xanax 0.5 MG Tablet] 0.5 mg PO TID PRN 05/02/15 [History] Oxycodone HCl 15 mg PO Q6H PRN 05/02/15 [History] Omeprazole [PriLOSEC] 20 mg PO BID 08/13/18 [History] Renal Vitamin [Renal Caps Softgel] 1 cap PO DAILY 08/13/18 [History] traZODone [TraZODone] 75 mg PO HS 08/13/18 [History] Ipratropium/Albuterol Neb [Duoneb] 3 ml IH [id number] PRN #60 inhsol 08/15/18 [Rx] Lisinopril [Zestril] 40 mg PO DAILY #30 tablet 08/16/18 [Rx] Ipratropium/Albuterol Sulfate [Combivent Respimat 20-100 Mcg] 1 puff IH Q6H PRN 12/16/18 [History] Sevelamer [Renvela] 1,600 mg PO TIDWM 12/16/18 [History] rOPINIRole [Requip] 1 mg PO HS 12/16/18 [History] Folic Acid/Vit B Complex and C [Dialyvite Tablet] 1 tab PO DAILY 01/20/19 [History] Metoprolol [Lopressor] 25 mg PO DAILY 01/20/19 [History] dilTIAZem HCl [Diltiazem ER] 240 mg PO DAILY 01/20/19 [History] Allergy/AdvReac Type Severity Reaction Status Date / Time No Known Allergies Allergy Verified 01/20/19 20:23 All Systems Review: The remainder of the systems were reviewed and are negative Physical Examination Vital Signs, Last 4 Hours Temp Pulse Resp BP Pulse Ox 01/24/19 09:55 97 01/24/19 07:25 97.5 F L 98 16 113/73 94 General: Conversant, No Apparent Distress HEENT: Atraumatic, Normocephaly, Mucus Membranes Moist Neck: No JVD, Normal carotid pulses Cardiac: Reg Rate and Rhythm, Normal S1 and S2, No Murmur Lungs: Normal Breath Sounds, No Wheeze, Rales, Rhonchi Neuro: Alert and responsive, No focal deficits noted Abdomen: Soft, Non-Tender Skin: No rashes noted on visualized skin Musculoskeletal: No Chest Wall Tenderness Extremities: No Clubbing, No Cyanosis, No Edema, Normal Pulses Results 01/24/19 06:11 01/24/19 06:11 Lab Results 01/24/19 01/24/19 06:11 06:11 WBC 6.1 Hgb 7.7 L Hct 25.0 L Plt Count 121 L Sodium 140 Potassium 5.5 H Chloride 95 L Carbon Dioxide 28 BUN 65 H Creatinine 9.91 H Glucose 96 Calcium 9.3 Consult Discharge Plan - Plan Referrals: Roldan Rose Jr [Primary Care Provider] - 02/04/19 11:30 am (Please follow up as schedule....)
[2019-01-24] MEDS: *HR* OxyCODONE Immed Rel 15 MG TABLET PO PRN (16:10)
--- NOTE | 2019-01-24 17:53 | Electrocardiograph Report ---
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
[2019-01-24] MEDS: Ondansetron 4 MG/2 ML VIAL IVP PRN (18:31)
[2019-01-24 18:32] LABS: Adenovirus Not Detected (Not Detect); Bordetella Pertussis Not Detected (Not Detect); Chlamydophila pneumoniae Not Detected (Not Detect); Coronavirus 229E Not Detected (Not Detect); Coronavirus HKU1 Not Detected (Not Detect); Coronavirus NL63 Not Detected (Not Detect); Coronavirus OC43 Not Detected (Not Detect); Human Metapneumovirus Not Detected (Not Detect); Human Rhinovirus/Enterovirus Not Detected (Not Detect); Influenza A Subtype 2009 H1 Not Detected (Not Detect); Influenza A Untypeable Not Detected (Not Detect); Influenza B Not Detected (Not Detect); Mycoplasma pneumoniae Not Detected (Not Detect); Parainfluenza Virus 1 Not Detected (Not Detect); Parainfluenza Virus 2 Not Detected (Not Detect); Parainfluenza Virus 3 Not Detected (Not Detect); Parainfluenza Virus 4 Not Detected (Not Detect); Respiratory Syncytial Virus Not Detected (Not Detect)
[2019-01-24] MEDS: traZODone 50 MG TABLET PO SCH (20:36)
[2019-01-24] MEDS: ALPRAZolam 0.5 MG TABLET PO SCH (20:36)
[2019-01-24] MEDS: *HR* Promethazine 25 MG/ML VIAL IVP PRN (20:37)
[2019-01-25] MEDS: Levalbuterol Neb 0.63 MG/3 ML IH SCH ×4 (03:52→22:10)
[2019-01-25] MEDS: *HR* Heparin 5,000 UNIT/ML VIAL SQ SCH ×2 (05:40→17:17)
[2019-01-25] MEDS: *HR* OxyCODONE Immed Rel 15 MG TABLET PO PRN ×2 (05:47→17:20)
[2019-01-25 07:34] LABS: Hematocrit 26.6 % (37.5-50.1); Hemoglobin 8.1 g/dL (12.9-16.9); Mean Corpuscular HGB Conc 30.5 g/dL (31.6-35.5); Mean Corpuscular Hemoglobin 30.9 pg (28.0-33.3); Mean Corpuscular Volume 101.5 fL (83.0-100.0); Mean Platelet Volume 10.4 fL (9.4-12.4); Platelet Count 122 K/mcL (140-400); Red Blood Count 2.62 M/mcL (4.19-5.50); Red Cell Distribution Width 17.2 % (11.5-14.5)
[2019-01-25 07:54] LABS: Calcium 9.6 mg/dL (8.6-10.3)
[2019-01-25] MEDS: Diltiazem CD (24hr) 180 MG CAPSULE PO SCH (09:14)
[2019-01-25] MEDS: Aspirin Enteric Coated 81 MG Tablet PO SCH (09:14)
--- NOTE | 2019-01-25 09:19 | Internal Med Progress Note ---
Hospitalist Progress Note - Encounter Date of Encounter: 01/25/19 Time of Encounter: 11:00 - Subjective Interval History: Patient is a 48-year-old male with past medical history significant for end- stage renal disease, atrial fibrillation, CHF, hypertension and hyperlipidemia who presents due to shortness of breath and found to have acute hypoxic respir atory failure. Patient this morning with some improvement in hypoxic respiratory failure requiring lesser amounts of high flow O2 supplementation although still not close to baseline Nephrology following for hemodialysis to reduce volume overload Patient also found to have acute on chronic systolic heart failure with decrease in EF on repeat echocardiogram in the setting of severe pulmonary hypertension noted on prior echocardiogram - Exam Vitals: Temp Pulse Resp BP Pulse Ox 98.2 F 112 19 111/62 90 01/25/19 06:55 01/25/19 06:55 01/25/19 06:55 01/25/19 09:10 01/25/19 06:55 Exam: Gen.: Nonacute distress, alert and oriented 3 ENT: Mucosal membranes moist Respiratory: Lungs are clear to auscultation bilaterally without any wheezing rhonchi or rales Cardiovascular: Normal S1 and S2 regular rate rhythm no murmurs rubs or gallops Abdomen: Soft, nontender and nondistended with positive bowel sounds Extremities: No lower extremity edema Skin: Normal color - Assessment and Plan (1) Acute on chronic respiratory failure with hypoxemia Current Visit: No Status: Acute Assessment and Plan: Patient this morning with some improvement in hypoxic respiratory failure requiring lesser amounts of high flow O2 supplementation although still not close to baseline Patient this morning on 7 L of nasal cannula; baseline 4 L Suspect secondary to volume overload in the setting of end-stage renal disease in addition to acute on chronic systolic heart failure. Nephrology following for hemodialysis to reduce any volume overload that might be present (2) Congestive heart failure Current Visit: Yes Status: Chronic Assessment and Plan: Patient found to have acute on chronic systolic heart failure Chest ray with findings of volume overload. On admission patient presented with elevated troponin and a BNP of 1040 Limited Echocardiogram showed LVEF of 45-50% with mild global left ventricular systolic dysfunction; echocardiogram on 07/2018 showed LVEF of 60% with normal LV chamber size and systolic function with severe pulmonary hypertension Cardiology consulted with recommendations to follow up with established web operations administrator in [place] (3) Atrial fibrillation with RVR Current Visit: Yes Status: Chronic Assessment and Plan: Patient reported palpitations while in HD and was found to be on A.fib with RvR on presentation. Suspect secondary to volume overload. Patient was on Cardizem drip that was discontinued and patient placed back on increase dose of oral Cardizem at 360 mg daily Patient not on anticoagulation due to a Hx of GI bleed. Will continue aspirin 81mg/PO daily for secondary stroke prevention Recommendations per cardiology to follow up with established web operations administrator in [facility] on discharge (4) ESRD (end stage renal disease) on dialysis Current Visit: Yes Status: Chronic Assessment and Plan: Patient on HD (T,T,S) Nephrology following for continuation of care. Avoid nephrotoxic medications. Fluid restriction to 1.5 litters day. (5) Hyperkalemia Current Visit: No Status: Acute Assessment and Plan: Potassium 5.0 this morning On hemodialysis as above Continue to monitor (6) Hypertension Current Visit: No Status: Chronic Assessment and Plan: Will continue cardizem 360mg/PO daily. DVT Prophylaxis: SCDs - Time Spent with Patient Total time spent is greater than 50% in coordination of care (as documented) at patient's floor/unit and/or counseling patient: Internal Medicine: Result - Labs CBC & Chem 7: 01/25/19 07:17 01/25/19 07:17 Labs: Short CBC 01/25/19 Range/Units 07:17 WBC 5.5 (4.3-11.1) K/mcL Hgb 8.1 L (12.9-16.9) g/dL Hct 26.6 L (37.5-50.1) % Plt Count 122 L (140-400) K/mcL BMP 01/25/19 07:17 Sodium 140 Potassium 5.0 Chloride 98 Carbon Dioxide 31 H BUN 41 H Creatinine 6.50 H Glucose 92 Calcium 9.6 - ABG Interpretation ABG results: ABG ABG pH 7.33 pH Units (7.32-7.45) 01/23/19 06:53 ABG pCO2 68 mmHg (35-45) H 01/23/19 06:53 ABG pO2 99 mmHg (85-104) D 01/23/19 06:53 ABG O2 Saturation 97 % (95-98) 01/23/19 06:53 PT/INR, D-dimer PT 13.9 Seconds (9.4-12.1) H 01/20/19 08:36 - Impressions Impressions Chest CT 01/24/19 10:30 IMPRESSION: Moderate right pleural effusion. Bilateral dependent and discoid atelectasis. Septal thickening and patchy ground-glass attenuation in the bilateral lungs, likely related to pulmonary edema versus pneumonitis. 1.7 cm area of hyperattenuation within the left lower lobe consolidation, likely related to calcification secondary to old injury or granulomatous disease within area of round atelectasis. Heavy atherosclerotic calcification of the coronary arteries and mitral valve. Borderline sized mediastinal and hilar lymph nodes, likely reactive. D/ / 01/24/2019 17:02:00 Lionel Forrester MD / [email or web address] Interpreting Provider: Lionel Forrester MD Consult Discharge Plan - Plan Referrals: Roldan Rose Jr [Primary Care Provider] - 02/04/19 11:30 am (Please follow up as schedule....) (2) Congestive heart failure Qualifiers: Heart failure type: diastolic Heart failure chronicity: unspecified Qualified Code(s): I50.30 - Unspecified diastolic (congestive) heart failure (6) Hypertension Qualifiers: Hypertension type: essential hypertension Qualified Code(s): I10 - Essential (primary) hypertension
[2019-01-25] MEDS: *HR* Promethazine 25 MG/ML VIAL IVP PRN (16:30)
[2019-01-25] MEDS: ALPRAZolam 0.5 MG TABLET PO SCH (20:45)
[2019-01-25] MEDS: traZODone 50 MG TABLET PO SCH (20:46)
[2019-01-26] MEDS: *HR* OxyCODONE Immed Rel 15 MG TABLET PO PRN ×2 (01:26→09:00)
[2019-01-26] MEDS: Levalbuterol Neb 0.63 MG/3 ML IH SCH ×4 (04:18→22:00)
[2019-01-26] MEDS: *HR* Heparin 5,000 UNIT/ML VIAL SQ SCH ×2 (05:45→17:46)
[2019-01-26 06:28] LABS: Hematocrit 25.6 % (37.5-50.1); Hemoglobin 7.8 g/dL (12.9-16.9); Mean Corpuscular HGB Conc 30.5 g/dL (31.6-35.5); Mean Corpuscular Hemoglobin 30.7 pg (28.0-33.3); Mean Corpuscular Volume 100.8 fL (83.0-100.0); Mean Platelet Volume 10.6 fL (9.4-12.4); Platelet Count 120 K/mcL (140-400); Red Blood Count 2.54 M/mcL (4.19-5.50); Red Cell Distribution Width 16.8 % (11.5-14.5)
[2019-01-26] MEDS: *HR* Promethazine 25 MG/ML VIAL IVP PRN ×3 (06:39→20:45)
[2019-01-26 06:49] LABS: Calcium 9.7 mg/dL (8.6-10.3); Potassium 5.1 mEq/L (3.5-5.1)
[2019-01-26] MEDS ORDERED: 0.9 % Sodium Chloride 250 ML IVC PRN (07:25)
[2019-01-26] MEDS ORDERED: 0.9 % Sodium Chloride 1,000 ML PRIME SCH (07:30)
[2019-01-26] MEDS: Aspirin Enteric Coated 81 MG Tablet PO SCH (08:04)
[2019-01-26] MEDS: Diltiazem CD (24hr) 180 MG CAPSULE PO SCH (08:05)
[2019-01-26] MEDS: Acetaminophen 325 MG TABLET PO PRN ×2 (08:22→20:45)
--- NOTE | 2019-01-26 08:51 | Internal Med Progress Note ---
Hospitalist Progress Note - Encounter Date of Encounter: 01/26/19 Time of Encounter: 11:00 - Subjective Interval History: Patient is a 48-year-old male with past medical history significant for end- stage renal disease, atrial fibrillation, CHF, hypertension and hyperlipidemia who presents due to shortness of breath and found to have acute hypoxic respir atory failure. Patient still requiring high amounts of O2 supplementation at liters 7 L of nasal cannula(baseline 4 L) secondary to volume overload Nephrology following for hemodialysis to reduce volume overload - Exam Vitals: Temp Pulse Resp BP Pulse Ox 97.7 F 97 19 93/57 91 01/26/19 07:12 01/26/19 07:12 01/26/19 07:12 01/26/19 07:12 01/26/19 07:12 Exam: Gen.: Nonacute distress, alert and oriented 3 ENT: Mucosal membranes moist Respiratory: Lungs are clear to auscultation bilaterally without any wheezing rhonchi or rales Cardiovascular: Normal S1 and S2 regular rate rhythm no murmurs rubs or gallops Abdomen: Soft, nontender and nondistended with positive bowel sounds Extremities: No lower extremity edema Skin: Normal color - Assessment and Plan (1) Acute on chronic respiratory failure with hypoxemia Current Visit: No Status: Acute Assessment and Plan: Patient still requiring high amounts of O2 supplementation at liters 7 L of nasal cannula(baseline 4 L) secondary to volume overload Nephrology following for hemodialysis to reduce volume overload which will hopefully help with respiratory status Will wean O2 as tolerates (2) Congestive heart failure Current Visit: Yes Status: Chronic Assessment and Plan: Patient found to have acute on chronic systolic heart failure Chest ray with findings of volume overload. On admission patient presented with elevated troponin and a BNP of 1040 Limited Echocardiogram showed LVEF of 45-50% with mild global left ventricular systolic dysfunction; echocardiogram on 07/2018 showed LVEF of 60% with normal LV chamber size and systolic function with severe pulmonary hypertension Cardiology consulted with recommendations to follow up with established tooling engineer in [place] (3) Atrial fibrillation with RVR Current Visit: Yes Status: Chronic Assessment and Plan: Patient reported palpitations while in HD and was found to be on A.fib with RvR on presentation. Suspect secondary to volume overload. Patient was on Cardizem drip that was discontinued and patient placed back on increase dose of oral Cardizem at 360 mg daily Patient not on anticoagulation due to a Hx of GI bleed. Will continue aspirin 81mg/PO daily for secondary stroke prevention Recommendations per cardiology to follow up with established tooling engineer in [place] on discharge (4) ESRD (end stage renal disease) on dialysis Current Visit: Yes Status: Chronic Assessment and Plan: Patient on HD (T,T,S) Nephrology following for continuation of care. Avoid nephrotoxic medications. Fluid restriction to 1.5 litters day. (5) Hyperkalemia Current Visit: No Status: Acute Assessment and Plan: Potassium 5.1 this morning On hemodialysis as above Continue to monitor (6) Hypertension Current Visit: No Status: Chronic Assessment and Plan: Will continue cardizem 360mg/PO daily. DVT Prophylaxis: SCDs - Time Spent with Patient Total time spent is greater than 50% in coordination of care (as documented) at patient's floor/unit and/or counseling patient: Internal Medicine: Result - Labs CBC & Chem 7: 01/26/19 05:38 01/26/19 05:38 Labs: Short CBC 01/26/19 Range/Units 05:38 WBC 5.3 (4.3-11.1) K/mcL Hgb 7.8 L (12.9-16.9) g/dL Hct 25.6 L (37.5-50.1) % Plt Count 120 L (140-400) K/mcL BMP 01/26/19 05:38 Sodium 142 Potassium 5.1 Chloride 98 Carbon Dioxide 29 BUN 61 H Creatinine 9.23 H Glucose 102 Calcium 9.7 - ABG Interpretation ABG results: ABG ABG pH 7.33 pH Units (7.32-7.45) 01/23/19 06:53 ABG pCO2 68 mmHg (35-45) H 01/23/19 06:53 ABG pO2 99 mmHg (85-104) D 01/23/19 06:53 ABG O2 Saturation 97 % (95-98) 01/23/19 06:53 PT/INR, D-dimer PT 13.9 Seconds (9.4-12.1) H 01/20/19 08:36 Consult Discharge Plan - Plan Referrals: Roldan Rose Jr [Primary Care Provider] - 02/04/19 11:30 am (Please follow up as schedule....) (2) Congestive heart failure Qualifiers: Heart failure type: diastolic Heart failure chronicity: unspecified Qualified Code(s): I50.30 - Unspecified diastolic (congestive) heart failure (6) Hypertension Qualifiers: Hypertension type: essential hypertension Qualified Code(s): I10 - Essential (primary) hypertension
--- NOTE | 2019-01-26 11:55 | Nephrology Progress Note ---
Date of Encounter: 01/26/19 Time of Encounter: 08:28 - Assessment and Plan (1) ESRD (end stage renal disease) on dialysis Current Visit: Yes Status: Chronic ESRD on HD TTS. To assist with volume status, will arrange for HD today. May need midodrine to help support his BPs and therefore support dialysis effectiveness. Thank you. (2) Atrial fibrillation with RVR Current Visit: Yes Status: Chronic (3) Pulmonary edema Current Visit: Yes Status: Acute Qualifiers: Chronicity: acute Qualified Code(s): J81.0 - Acute pulmonary edema (4) Anemia Current Visit: No Status: Chronic Qualifiers: Anemia type: due to chronic kidney disease Chronic kidney disease stage: on chronic dialysis Qualified Code(s): N18.6 - End stage renal disease; D63.1 - Anemia in chronic kidney disease; Z99.2 - Dependence on renal dialysis Subjective Principal diagnosis: esrd Interval history: The patient was seen and examined in his 2A room. He did not affirm N/V but he said that he has still required high flow O2 Objective - Vital Signs Vital signs: Vital Signs Temp Pulse Resp BP Pulse Ox 01/26/19 07:12 97.7 F 97 19 93/57 91 01/26/19 04:18 20 91 01/26/19 03:57 98.6 F 100 18 91/53 92 01/26/19 00:16 97.9 F 102 18 91/60 90 01/25/19 22:13 18 94 01/25/19 19:49 101 18 108/76 94 01/25/19 14:44 98.5 F 129 20 94/69 93 Intake and Output 01/25/19 01/26/19 01/26/19 23:59 07:59 15:59 Intake Total 0 / 720 240 / 720 480 / 720 Balance 0 / 720 240 / 720 480 / 720 Intake: Oral 0 / 720 240 / 720 480 / 720 Other: Meal Dinner Breakfast Percent of Meal Consumed 45% 100% Weight 98.6 kg Patient Weight 01/26/19 23:59 Weight 98.6 kg - General Appearance General appearance: Present: well-developed, well-nourished, obese EENT: Present: ATNC, PERRL, mucous membranes moist Neck: Present: supple Respiratory: Present: course breath sounds, rhonchi Cardiology: Present: holosystolic murmur, no edema, irregular rhythm, normal S1, normal S2 Dialysis Vascular Access: Arteriovenous Fistula (right) thrill: Yes bruit: Yes Gastrointestinal: Present: normoactive bowel sounds, no guarding, obese Integumentary: Present: warm and dry Musculoskeletal: Present: no cyanosis, no clubbing Psychiatric: Present: mood/affect appropriate, cooperative - Lab 01/26/19 05:38 01/26/19 05:38 Most recent lab results 01/26/19 05:38 Calcium 9.7 Consult Discharge Plan - Plan Referrals: Roldan Rose Jr [Primary Care Provider] - 02/04/19 11:30 am (Please follow up as schedule....)
[2019-01-26] MEDS: Ondansetron 4 MG/2 ML VIAL IVP PRN (15:36)
[2019-01-26] MEDS: ALPRAZolam 0.5 MG TABLET PO SCH (20:45)
[2019-01-26] MEDS: traZODone 50 MG TABLET PO SCH (20:45)
[2019-01-27 01:16] LABS: Hematocrit 26.8 % (37.5-50.1); Hemoglobin 8.1 g/dL (12.9-16.9); Mean Corpuscular HGB Conc 30.2 g/dL (31.6-35.5); Mean Corpuscular Hemoglobin 30.6 pg (28.0-33.3); Mean Corpuscular Volume 101.1 fL (83.0-100.0); Mean Platelet Volume 10.9 fL (9.4-12.4); Platelet Count 127 K/mcL (140-400); Red Blood Count 2.65 M/mcL (4.19-5.50); Red Cell Distribution Width 16.7 % (11.5-14.5)
[2019-01-27 01:34] LABS: Calcium 9.8 mg/dL (8.6-10.3); Potassium 4.9 mEq/L (3.5-5.1)
[2019-01-27] MEDS: Levalbuterol Neb 0.63 MG/3 ML IH SCH ×4 (03:51→21:42)
[2019-01-27] MEDS: *HR* Heparin 5,000 UNIT/ML VIAL SQ SCH ×2 (05:56→17:57)
[2019-01-27] MEDS: *HR* OxyCODONE Immed Rel 15 MG TABLET PO PRN ×2 (05:56→12:31)
[2019-01-27] MEDS: Ondansetron 4 MG/2 ML VIAL IVP PRN (05:57)
[2019-01-27] MEDS ORDERED: 0.9 % Sodium Chloride 1,000 ML ONE (07:09)
[2019-01-27] MEDS: Diltiazem CD (24hr) 180 MG CAPSULE PO SCH (07:41)
[2019-01-27] MEDS: Aspirin Enteric Coated 81 MG Tablet PO SCH (07:42)
--- NOTE | 2019-01-27 07:45 | Nephrology Progress Note ---
Date of Encounter: 01/27/19 Time of Encounter: 10:15 - Assessment and Plan (1) ESRD (end stage renal disease) on dialysis Current Visit: Yes Status: Chronic ESRD on HD TTS HD today (Saturday) Yesterday, I added low dose midodrine to help support his BPs and therefore support dialysis effectiveness. I reviewed the indications and SE profile with him on midodrine. Anemia in an HD pt: EPO thrice weekly to be continued while inpt Thank you. (2) Atrial fibrillation with RVR Current Visit: Yes Status: Chronic (3) Pulmonary edema Current Visit: Yes Status: Acute Qualifiers: Chronicity: acute Qualified Code(s): J81.0 - Acute pulmonary edema (4) Anemia Current Visit: No Status: Chronic Qualifiers: Anemia type: due to chronic kidney disease Chronic kidney disease stage: on chronic dialysis Qualified Code(s): N18.6 - End stage renal disease; D63.1 - Anemia in chronic kidney disease; Z99.2 - Dependence on renal dialysis Subjective Principal diagnosis: esrd Interval history: The patient was seen and examined while on hemodialysis. He reported still having some fatigue, but over stated that his shortnss of breath is slowy improving. Objective - Vital Signs Vital signs: Vital Signs Temp Pulse Resp BP Pulse Ox 01/27/19 07:20 97.7 F 98 18 93/57 92 01/27/19 04:04 98 F 97 18 92/58 94 01/27/19 03:51 20 95 01/26/19 23:46 98.8 F 87 18 101/51 93 01/26/19 22:00 20 92 01/26/19 19:11 98.6 F 76 18 97/68 97 01/26/19 16:03 97.4 F L 94 18 102/70 98 01/26/19 12:25 98.1 F 20 119/66 01/26/19 12:15 93/60 01/26/19 12:00 108/58 01/26/19 11:45 99/66 01/26/19 11:30 96/58 01/26/19 11:15 96/66 01/26/19 11:00 99/44 01/26/19 10:45 97/69 01/26/19 10:30 101/64 01/26/19 10:15 100/67 01/26/19 10:00 102/65 01/26/19 09:45 108/65 01/26/19 09:30 106/61 01/26/19 09:15 98.4 F 18 100/68 Intake and Output 01/26/19 01/26/19 01/27/19 15:59 23:59 07:59 Intake Total 1440 / 1680 0 / 1680 Output Total 2600 / 2600 Balance -1160 / -920 0 / -920 Intake: Oral 840 / 1080 0 / 1080 Intake, Rinseback and Flushes 600 / 600 Output: Urine 0 / 0 Total Dialysis (HD) Output 2600 / 2600 Other: Meal Lunch Percent of Meal Consumed 80% Stool Size Large Stool Consistency soft Stool Color Brown # Bowel Movements 1 Weight 98.8 kg 98.8 kg Hemodialysis Net Fluid Removed 2000 (mL) - General Appearance General appearance: Present: well-developed, fatigue, frail EENT: Present: ATNC, PERRL, mucous membranes moist Additional Comments: using O2 per NC Neck: Present: supple Respiratory: Present: course breath sounds Cardiology: Present: no edema, irregular rhythm, normal S1, normal S2 Dialysis Vascular Access: Arteriovenous Fistula (Right UE) thrill: Yes bruit: Yes Gastrointestinal: Present: normoactive bowel sounds, no guarding, obese Integumentary: Present: warm and dry Neurologic: Present: no focal deficit Musculoskeletal: Present: no cyanosis Psychiatric: Present: cooperative - Lab 01/27/19 00:36 01/27/19 00:36 Most recent lab results 01/27/19 00:36 Calcium 9.8 Consult Discharge Plan - Plan Referrals: Roldan Rose Jr [Primary Care Provider] - 02/04/19 11:30 am (Please follow up as schedule....)
--- NOTE | 2019-01-27 10:20 | Internal Med Progress Note ---
Hospitalist Progress Note - Encounter Date of Encounter: 01/27/19 Time of Encounter: 10:00 - Subjective Interval History: Patient is a 48-year-old male with past medical history significant for end- stage renal disease, atrial fibrillation, CHF, hypertension and hyperlipidemia who presents due to shortness of breath and found to have acute hypoxic respir atory failure. Patient respiratory status slightly improving as requiring slightly lower oxygen requirements and prior days and currently on 5.5 L of nasal cannula (baseline 4 L nasal cannula) Nephrology following for hemodialysis to reduce volume overload Cardiology re-consulted to reevaluate right sided heart failure as a potential contributing factor Will also consult pulmonology due to moderate right neural effusion noted on CT of the chest - Exam Vitals: Temp Pulse Resp BP Pulse Ox 97.6 F 98 18 113/72 92 01/27/19 08:45 01/27/19 07:20 01/27/19 08:45 01/27/19 09:45 01/27/19 07:20 Exam: Gen.: Nonacute distress, alert and oriented 3 ENT: Mucosal membranes moist Respiratory: Lungs are clear to auscultation bilaterally without any wheezing rhonchi or rales Cardiovascular: Normal S1 and S2 regular rate rhythm no murmurs rubs or gallops Abdomen: Soft, nontender and nondistended with positive bowel sounds Extremities: No lower extremity edema Skin: Normal color - Assessment and Plan (1) Acute on chronic respiratory failure with hypoxemia Current Visit: No Status: Acute Assessment and Plan: Patient respiratory status slightly improving as requiring slightly lower oxygen requirements and prior days and currently on 5.5 L of nasal cannula (baseline 4 L nasal cannula) Nephrology following for hemodialysis to reduce volume overload Cardiology re-consulted to reevaluate right sided heart failure as a potential contributing factor (2) Congestive heart failure Current Visit: Yes Status: Chronic Assessment and Plan: Patient found to have acute on chronic systolic heart failure Chest ray with findings of volume overload. On admission patient presented with elevated troponin and a BNP of 1040 Limited Echocardiogram showed LVEF of 45-50% with mild global left ventricular systolic dysfunction; echocardiogram on 07/2018 showed LVEF of 60% with normal LV chamber size and systolic function with severe pulmonary hypertension Cardiology re-consulted to reevaluate right sided heart failure as a potential contributing factor (3) Pleural effusion, right Current Visit: Yes Status: Acute Assessment and Plan: Patient with moderate right pleural effusion noted on CT of the chest Suspect could be secondary to right sided heart failure above Will consult pulmonology and appreciate recommendations (4) ESRD (end stage renal disease) on dialysis Current Visit: Yes Status: Chronic Assessment and Plan: Patient on hemodialysis for volume overload Patient's respiratory status has improved but still not at baseline Right-sided heart failure also being evaluated as above Nephrology following and appreciate recommendations (5) Atrial fibrillation with RVR Current Visit: Yes Status: Chronic Assessment and Plan: Patient reported palpitations while in HD and was found to be on A.fib with RvR on presentation. Suspect secondary to volume overload. Patient was on Cardizem drip that was discontinued and patient placed back on increase dose of oral Cardizem at 360 mg daily Patient not on anticoagulation due to a Hx of GI bleed. Will continue aspirin 81mg/PO daily for secondary stroke prevention Recommendations per cardiology to follow up with established insole rounder in [place] on discharge (6) Hyperkalemia Current Visit: No Status: Acute Assessment and Plan: Resolved; continue to monitor (7) Hypertension Current Visit: No Status: Chronic Assessment and Plan: Will continue cardizem 360mg/PO daily. DVT Prophylaxis: SCDs - Time Spent with Patient Total time spent is greater than 50% in coordination of care (as documented) at patient's floor/unit and/or counseling patient: Internal Medicine: Result - Labs CBC & Chem 7: 01/27/19 00:36 01/27/19 00:36 Labs: Short CBC 01/27/19 Range/Units 00:36 WBC 5.6 (4.3-11.1) K/mcL Hgb 8.1 L (12.9-16.9) g/dL Hct 26.8 L (37.5-50.1) % Plt Count 127 L (140-400) K/mcL BMP 01/27/19 00:36 Sodium 140 Potassium 4.9 Chloride 99 Carbon Dioxide 28 BUN 49 H Creatinine 7.04 H Glucose 99 Calcium 9.8 - ABG Interpretation ABG results: ABG ABG pH 7.33 pH Units (7.32-7.45) 01/23/19 06:53 ABG pCO2 68 mmHg (35-45) H 01/23/19 06:53 ABG pO2 99 mmHg (85-104) D 01/23/19 06:53 ABG O2 Saturation 97 % (95-98) 01/23/19 06:53 PT/INR, D-dimer PT 13.9 Seconds (9.4-12.1) H 01/20/19 08:36 Consult Discharge Plan - Plan Referrals: Roldan Rose Jr [Primary Care Provider] - 02/04/19 11:30 am (Please follow up as schedule....) (2) Congestive heart failure Qualifiers: Heart failure type: diastolic Heart failure chronicity: unspecified Qualified Code(s): I50.30 - Unspecified diastolic (congestive) heart failure (7) Hypertension Qualifiers: Hypertension type: essential hypertension Qualified Code(s): I10 - Essential (primary) hypertension
--- NOTE | 2019-01-27 14:07 | Cardiology Progress Note ---
<Leonarda Coppola - Last Filed: 01/27/19 14:04> Date of Encounter: 01/27/19 Time of Encounter: 12:30 Assessment and Plan (1) Congestive heart failure Current Visit: Yes Status: Chronic Per cardiology: -Admitted with CHF. Patient is ESRD on HD. -Patient does not make urine and volume status has been managed by nephrology. Currently net negative 5.4L. -Pateint currently appears euvolemic on exam, however still requiring 5.5LPM of O2, normally on 4LPM at home. -Limited TTE this admission with LVEF 45-50%, global, however patient was ta chycardic during TTE. -TTE 2017 with LVEF 60%, mild concentric LVH, mild , mild MS, moderate MR, mild-moderate TR, severe PH. -Reports recent RHC at . -Chest CT 01/24 with moderate right pleural effusion. -With need for higher O2 requirements, will repeat full TTE to assess LVEF and valvular function. -Recommend IR/pulmonary consult to evaluate if thoracentesis would be warranted for pleural effusion. -Will review records from , request has been sent. Qualifiers: Heart failure type: diastolic Heart failure chronicity: unspecified Qualified Code(s): I50.30 - Unspecified diastolic (congestive) heart failure (2) Pulmonary hypertension Current Visit: No Status: Acute Per cardiology: -Known severe PH. -Reports recent RHC at , records pending. -Not on BB due to hypotension with HD. -Volume status being managed by Nephrology as patient does not make urine. -Will review records from . (3) A-fib Current Visit: No Status: Acute Per cardiology: -Known chronic a.fib, HR controlled. -ON cardizem. -Not on anticoagulation due to significant bleeding noted after HD. -Continue cardizem. Qualifiers: Atrial fibrillation type: chronic Qualified Code(s): I48.2 - Chronic atrial fibrillation Discussion w patient/family: The assessment and plan as outlined above was discussed with the patient who expressed understanding and agreement. All questions were answered. Thank you for involving us in the care of your patient. Please call with any questions. Discussed and reviewed with Subjective Principal diagnosis: esrd, chf Interval history: Patient reports his breathing is much improved since admission. Reports now able to tolerate HD sessions. Objective Vital Signs, Last 4 Hours Temp Resp BP 01/27/19 12:32 97.5 F L 18 95/59 01/27/19 12:15 94/63 01/27/19 12:00 100/56 01/27/19 11:45 106/81 01/27/19 11:30 111/79 01/27/19 11:15 120/82 01/27/19 11:00 115/73 01/27/19 10:45 100/83 01/27/19 10:30 109/76 01/27/19 10:15 115/75 General: Conversant, No Apparent Distress HEENT: Atraumatic, Normocephaly, Mucus Membranes Moist Neck: No JVD, Normal carotid pulses Cardiac: Normal S1 and S2, Other (Irregulalry irregular. Murmur noted) Lungs: Other (Left lung inspiratory wheezes noted. ) Neuro: Alert and responsive, No focal deficits noted Abdomen: Soft, Non-Tender Skin: No rashes noted on visualized skin Musculoskeletal: No Chest Wall Tenderness Extremities: No Clubbing, No Cyanosis, No Edema, Normal Pulses Results 01/27/19 00:36 01/27/19 00:36 Lab Results Active Medications Acetaminophen (Tylenol) 650 mg PO Q6HR PRN PRN Reason: Breakthrough or mild pain 1-3 Stop: 07/26/19 09:47 Last Admin: 01/26/19 20:45 Dose: 650 mg Documented by: Alprazolam (Xanax) 0.5 mg PO HS [facility]; Protocol Stop: 07/22/19 21:01 Last Admin: 01/26/19 20:45 Dose: 0.5 mg Documented by: Aspirin (Aspirin Ec) 81 mg PO DAILY [facility] Stop: 07/23/19 09:01 Last Admin: 01/27/19 07:42 Dose: 81 mg Documented by: Diltiazem HCl (Cardizem Cd) 360 mg PO DAILY [facility] Stop: 07/22/19 17:01 Last Admin: 01/27/19 07:41 Dose: 360 mg Documented by: Epoetin Dario (Procrit) 5,000 unit 50 unit/kg (5000 unit) SQ 3XW [facility] Stop: 07/28/19 09:01 Last Admin: 01/26/19 08:05 Dose: 5,000 unit Documented by: Heparin Sodium (Porcine) (Heparin) 5,000 unit SQ Q12HCO [facility] Stop: 07/22/19 18:01 Last Admin: 01/27/19 05:56 Dose: 5,000 unit Documented by: Sodium Chloride (0.9 % Sodium Chloride) 250 mls @ 937.5 mls/hr IVC .Q16M PRN PRN Reason: Hypotension Stop: 07/28/19 07:26 Sodium Chloride (0.9 % Sodium Chloride) 1,000 mls @ 0 mls/hr PRIME .Q0M JENNY Stop: 07/28/19 07:31 Levalbuterol HCl (Xopenex) 0.63 mg IH [id number] [facility] Stop: 07/22/19 16:01 Last Admin: 01/27/19 10:39 Dose: Not Given Documented by: Midodrine (Proamatine) 2.5 mg PO 0800,1200,1700 [facility] Stop: 07/28/19 12:01 Last Admin: 01/27/19 12:28 Dose: 2.5 mg Documented by: Naloxone HCl (Narcan) 0.4 mg IVP Q2M PRN PRN Reason: SEE COMMENTS Stop: 07/22/19 10:52 Omeprazole (Prilosec) 20 mg PO DAILY@0630 [facility]; Protocol Stop: 07/23/19 06:31 Last Admin: 01/27/19 05:56 Dose: 20 mg Documented by: Ondansetron HCl (Zofran) 4 mg IVP Q6HR PRN; Protocol PRN Reason: nausea/vomiting Stop: 07/22/19 15:17 Last Admin: 01/27/19 05:57 Dose: 4 mg Documented by: Oxycodone HCl (Roxicodone) 15 mg PO Q6H PRN; Protocol PRN Reason: Severe Pain Stop: 07/22/19 16:12 Last Admin: 01/27/19 12:31 Dose: 15 mg Documented by: Promethazine HCl (Phenergan) 12.5 mg IVP Q4HR PRN PRN Reason: Nausea And Vomiting Stop: 07/22/19 21:16 Last Admin: 01/26/19 20:45 Dose: 12.5 mg Documented by: Sevelamer HCl (Renvela) 800 mg PO TIDWM [facility] Stop: 07/22/19 12:01 Last Admin: 01/27/19 12:28 Dose: 800 mg Documented by: Trazodone HCl (Trazodone) 75 mg PO HS JENNY Stop: 07/22/19 21:01 Last Admin: 01/26/19 20:45 Dose: 75 mg Documented by: Laboratory Tests 01/27/19 01/27/19 00:36 00:36 Hgb 8.1 L Creatinine 7.04 H - Imaging and Cardiology Chest Xray: report reviewed Echo: pending, report reviewed - EKG Interpretation EKG results cardiology: other (Telemetry reviewed with average HR previous 12 hours noted to be 100, a.fib. PVCs noted.) Consult Discharge Plan - Plan Referrals: Roldan Rose Jr [Primary Care Provider] - 02/04/19 11:30 am (Please follow up as schedule....) < A - Last Filed: 01/27/19 15:25> Date of Encounter: 01/27/19 Assessment and Plan Discussion w patient/family: The assessment and plan as outlined above was discussed with the patient and/or family members who expressed understanding and agreement. All questions were answered. Thank you for involving us in the care of your patient. Please call with any questions. Objective Vital Signs, Last 4 Hours Temp Resp BP 01/27/19 12:32 97.5 F L 18 95/59 01/27/19 12:15 94/63 01/27/19 12:00 100/56 01/27/19 11:45 106/81 01/27/19 11:30 111/79 Results 01/27/19 00:36 01/27/19 00:36 Lab Results 01/27/19 01/27/19 00:36 00:36 WBC 5.6 Hgb 8.1 L Hct 26.8 L Plt Count 127 L Sodium 140 Potassium 4.9 Chloride 99 Carbon Dioxide 28 BUN 49 H Creatinine 7.04 H Glucose 99 Calcium 9.8 - Attending Attestation I have personally performed a face to face evaluation on this patient. I have reviewed and agree with the documented findings and care plan as documented by the EXTERMINATOR HELPER. History and Exam by me shows: 48-year-old gentleman with known severe pulmonary hypertension and diastolic CHF admitted for shortness of breath and hypoxia. Currently requiring 5.5 L of oxygen via nasal cannula. Consider thoracocentesis for moderate pleural effus ion. Recommend repeat full echocardiogram to document severity of MR and TR. Diuresis. He follows at [facility] for pulmonary hypertension, he was encouraged to keep his upcoming appointment Thanks, Luis Hawk MD [facility]
[2019-01-27] MEDS: *HR* Promethazine 25 MG/ML VIAL IVP PRN ×2 (14:33→21:16)
[2019-01-27] MEDS ORDERED: Perflutren Lipid Microsphere 1.3 ML in 0.9 % Sodium Chloride 8.7 ML IVP ONE (18:01)
[2019-01-27] MEDS: traZODone 50 MG TABLET PO SCH (21:15)
[2019-01-27] MEDS: ALPRAZolam 0.5 MG TABLET PO SCH (21:16)
[2019-01-28 04:17] LABS: Hematocrit 29.6 % (37.5-50.1); Hemoglobin 9.2 g/dL (12.9-16.9); Mean Corpuscular HGB Conc 31.1 g/dL (31.6-35.5); Mean Corpuscular Hemoglobin 30.7 pg (28.0-33.3); Mean Corpuscular Volume 98.7 fL (83.0-100.0); Mean Platelet Volume 10.7 fL (9.4-12.4); Platelet Count 135 K/mcL (140-400); Red Cell Distribution Width 16.6 % (11.5-14.5)
[2019-01-28] MEDS: Levalbuterol Neb 0.63 MG/3 ML IH SCH ×4 (04:24→22:34)
[2019-01-28 04:35] LABS: Calcium 9.9 mg/dL (8.6-10.3); Potassium 4.5 mEq/L (3.5-5.1)
[2019-01-28] MEDS: *HR* Heparin 5,000 UNIT/ML VIAL SQ SCH ×2 (05:40→16:03)
[2019-01-28] MEDS: *HR* OxyCODONE Immed Rel 15 MG TABLET PO PRN ×3 (05:40→21:00)
[2019-01-28] MEDS ORDERED: 0.9 % Sodium Chloride 250 ML IVC PRN (07:41)
--- NOTE | 2019-01-28 07:44 | Nephrology Progress Note ---
Date of Encounter: 01/28/19 Time of Encounter: 10:10 - Assessment and Plan (1) ESRD (end stage renal disease) on dialysis Current Visit: Yes Status: Chronic Recommed UF for today (Saturday), and orders are in place. ESRD on HD TTS, and he has standing orders in place for as well. Continue low dose midodrine to help support his BPs and therefore support dialysis effectiveness. I reviewed the indications and SE profile with him on midodrine. Anemia in an HD pt: EPO thrice weekly to be continued while inpt Thank you. (2) Atrial fibrillation with RVR Current Visit: Yes Status: Resolved As per primary team (3) Pulmonary edema Current Visit: Yes Status: Acute Has required HD/UF/HD to assist with fluid removal as he does not make much if any UOP. Qualifiers: Chronicity: acute Qualified Code(s): J81.0 - Acute pulmonary edema (4) Anemia Current Visit: No Status: Chronic Goal Hgb is 10-11. SATHISH ordered for this admission. After which he may resume his typical dialysis unit dosing. Transfusion parameters as per primary. Qualifiers: Anemia type: due to chronic kidney disease Chronic kidney disease stage: on chronic dialysis Qualified Code(s): N18.6 - End stage renal disease; D63.1 - Anemia in chronic kidney disease; Z99.2 - Dependence on renal dialysis Subjective Principal diagnosis: ESRD, Dyspnea Interval history: The patient was seen and examined again while on treatment. He reported that his breathing has slowly improved as compared to the beginning of this hospitalization. He affirmed having ongoing fatigue. He voiced that his swelling is slowly getting better. He did not report cramping, though o ccasionally he does get this with low blood pressures while on dialysis. He did not affirm chest pain. Objective - Vital Signs Vital signs: Vital Signs Temp Pulse Resp BP Pulse Ox 01/28/19 07:22 98.0 F 93 18 105/72 93 01/28/19 04:24 16 97/52 94 01/28/19 04:16 97.8 F 96 17 97/52 92 01/27/19 23:40 98.3 F 97 18 93/52 93 01/27/19 21:42 16 92 01/27/19 20:19 98.2 F 101 16 101/67 95 01/27/19 15:56 98.6 F 86 18 99/62 92 01/27/19 15:36 18 93 01/27/19 12:32 97.5 F L 18 95/59 01/27/19 12:15 94/63 01/27/19 12:00 100/56 01/27/19 11:45 106/81 01/27/19 11:30 111/79 01/27/19 11:15 120/82 01/27/19 11:00 115/73 01/27/19 10:45 100/83 01/27/19 10:30 109/76 01/27/19 10:15 115/75 01/27/19 10:00 100/73 01/27/19 09:45 113/72 01/27/19 09:30 102/46 01/27/19 09:15 104/76 01/27/19 09:00 107/77 01/27/19 08:45 97.6 F 18 113/73 Intake and Output 01/27/19 01/27/19 01/28/19 15:59 23:59 07:59 Intake Total 1320 / 1560 240 / 1560 Output Total 3600 / 3600 Balance -2280 / -2040 240 / -2040 Intake: Oral 720 / 960 240 / 960 Intake, Rinseback and Flushes 600 / 600 Output: Total Dialysis (HD) Output 3600 / 3600 Other: Meal Lunch Dinner Percent of Meal Consumed 100% 65% Weight 98.6 kg Hemodialysis Net Fluid Removed 3000 (mL) - General Appearance Exam: General appearance: Present: well-developed, fatigue, frail EENT: Present: ATNC, PERRL, mucous membranes moist Additional Comments: using O2 per NC Neck: Present: supple Respiratory: Present: course breath sounds Cardiology: Present: no edema, irregular rhythm, normal S1, normal S2 Dialysis Vascular Access: Arteriovenous Fistula (Right UE) thrill: Yes bruit: Yes Gastrointestinal: Present: normoactive bowel sounds, no guarding, obese Integumentary: Present: warm and dry Neurologic: Present: no focal deficit Musculoskeletal: Present: no cyanosis Psychiatric: Present: cooperative - Lab 01/30/19 01:04 01/30/19 01:04 Most recent lab results 01/28/19 03:58 Calcium 9.9 Consult Discharge Plan - Plan Referrals: Roldan Rose Jr [Primary Care Provider] - 02/04/19 11:30 am (Please follow up as schedule....)
[2019-01-28] MEDS: Diltiazem CD (24hr) 180 MG CAPSULE PO SCH (09:20)
[2019-01-28] MEDS: Aspirin Enteric Coated 81 MG Tablet PO SCH (09:21)
[2019-01-28] MEDS ORDERED: 0.9 % Sodium Chloride 1,000 ML ONE (10:11)
[2019-01-28] MEDS: *HR* Promethazine 25 MG/ML VIAL IVP PRN (12:00)
--- NOTE | 2019-01-28 13:15 | Event Note ---
Date of Encounter: 01/28/19 Time of Encounter: 13:11 - Cardiology Event Note Repeat TTE with LVEF 50-55%, mildly dilated LV, mild RV hypokinesis, moderately calcified AV leaflets, mild , mild-moderate MR, mild TR, moderate PH. ESRD on HD. Volume management per nephrology. Currently net negative 8.5L. Does not make urine. Of note, does have moderate right pleural effusion noted on CT previously. Recommend IR/pulmonary consult for evaluation for possible thoracentesis. Discussed and reviewed with , no further inpatient cardiac testing warranted. Patient follows with cardiology. Recommend outpatient follow up with laundry assistant. Will sign off.
--- NOTE | 2019-01-28 15:03 | Internal Med Progress Note ---
Hospitalist Progress Note - Encounter Date of Encounter: 01/28/19 Time of Encounter: 15:01 - Subjective Interval History: I have seen and evaluated the patient at bedside. He reports that the shortness of breath has improved, but he still requiring 6 L of oxygen by nasal cannula, for an O2 sat duration more than 92%. Denies chest pain, nausea or vomiting. - Exam Vitals: Temp Pulse Resp BP Pulse Ox 97.8 F 103 18 105/72 96 01/28/19 11:01/28/19 11:01/28/19 11:01/28/19 11:01/28/19 11:00 Exam: Vitals: reviewed General: Alert and oriented x4. In mild distress due to shortness of breath Skin: Normal color, no rash, no lesions. HEENT: EOM, pupils equal, round and reactive. Cardiovascular: Irregularly, irregular, normal S1 & S2, no rubs, murmurs or gallops. Lungs: CTA b/l, no wheezes or crackles. Abdomen: Obese, soft, non-tender, no rigidity. Extremities: No deformity, no edema or tenderness, no joint swelling or clubbing. Neurological: Normal cognition and motor skills. Rest of the physical exam is non contributory - Assessment and Plan (1) Atrial fibrillation with RVR Current Visit: Yes Status: Resolved Assessment and Plan: Rate controlled on diltiazem 260 mg by mouth daily. patient not on anticoagulation due to a Hx of GI bleed. On aspirin 81 mg by mouth daily. (2) Hypertension Current Visit: No Status: Chronic Assessment and Plan: Blood pressure has been running in the low side. Patient unable to complete hemodialysis today due to episode of hypotension. On midodrine 2.5 mg by mouth 3 times a day. (3) Congestive heart failure Current Visit: Yes Status: Chronic Assessment and Plan: Patient with a total balance -8.5 L. Continue fluid restriction to 1.5 L a day. On hemodialysis. Daily weight, plus a strict intake and output. (4) Acute on chronic respiratory failure with hypoxemia Current Visit: No Status: Acute Assessment and Plan: Patient continues to require 6 L of oxygen by nasal cannula. Hypoxemia could be secondary to severe pulmonary hypertension. Chest is clear to auscultation. Pulmonology has been consulted, CT chest demonstrated moderate sided pleural effusion. Repeat chest x-ray. Continue bronchodilators every 6 hours as scheduled. (5) Pleural effusion, right Current Visit: Yes Status: Acute Assessment and Plan: Plan of care as an above (6) ESRD (end stage renal disease) on dialysis Current Visit: Yes Status: Chronic Assessment and Plan: Continue to avoid nephrotoxic medication. Renal replacement therapy per nephrology recommendation. DVT Prophylaxis: On heparin SubQ bid - Summary of Assessment and Plan Summary of Assessment and Plan: Patient to remain in the hospital due to hypoxemic respiratory failure, still requiring high O2 replacement. - Time Spent with Patient Total time spent is greater than 50% in coordination of care (as documented) at patient's floor/unit and/or counseling patient: Greater than 35 minutes (40) Plan of Care Discussed with: patient (and the nurse) Internal Medicine: Result - Labs CBC & Chem 7: 01/28/19 03:58 01/28/19 03:58 Labs: Short CBC 01/28/19 Range/Units 03:58 WBC 5.8 (4.3-11.1) K/mcL Hgb 9.2 L (12.9-16.9) g/dL Hct 29.6 L (37.5-50.1) % Plt Count 135 L (140-400) K/mcL BMP 01/28/19 03:58 Sodium 138 Potassium 4.5 Chloride 98 Carbon Dioxide 28 BUN 41 H Creatinine 5.73 H Glucose 86 Calcium 9.9 - ABG Interpretation ABG results: ABG ABG pH 7.33 pH Units (7.32-7.45) 01/23/19 06:53 ABG pCO2 68 mmHg (35-45) H 01/23/19 06:53 ABG pO2 99 mmHg (85-104) D 01/23/19 06:53 ABG O2 Saturation 97 % (95-98) 01/23/19 06:53 PT/INR, D-dimer PT 13.9 Seconds (9.4-12.1) H 01/20/19 08:36 - Impressions Impressions Echocardiogram 01/27/19 14:03 Impressions: LVEF 50-55%. Mildly dilated left ventricle. Indeterminate diastolic function. Mildly dilated right ventricle. Mild right ventricular hypokinesis. Moderately calcified aortic valve leaflets. Mild aortic stenosis. Mean gradient 17 mmHg. Mild-moderate mitral regurgitation. Mild tricuspid regurgitation. Moderate pulmonary hypertension. Estimated RVSP is 49 mmHg. Left Ventricular Wall Motion: Rest Echo Findings All wall segments showed normal motion. Findings: Study Quality * Technically sub-optimal due to body habitus. ECG Findings * Atrial fibrillation. Left Ventricle * LVEF 50-55%. * Mildly dilated left ventricle. * Indeterminate diastolic function. Right Ventricle * Mildly dilated right ventricle. * Mild right ventricular hypokinesis. Left Atrium * Severely dilated left atrium. Right Atrium * Moderately dilated right atrium. Aortic Valve * Moderately calcified aortic valve leaflets. Unable to determine the number of leaflets. * No aortic regurgitation. * Mild aortic stenosis. Mean gradient 17 mmHg. Mitral Valve * Mildly thickened mitral valve leaflets. * Mild mitral annular calcification. * Mild-moderate mitral regurgitation. * No mitral stenosis. Tricuspid Valve * Normal tricuspid valve structure. * Mild tricuspid regurgitation. * Moderate pulmonary hypertension. * Estimated RVSP is 49 mmHg. * Estimated RA pressure is 5 mmHg. Pulmonic Valve * Normal pulmonic valve structure and function. * Trace pulmonic regurgitation. Aorta * Normally sized aortic root. Pericardium * The pericardium appears normal. IVC * Normal IVC dimensions and inspiratory collapse. Pulmonary Artery * Normal visualized portions of the main pulmonary artery. Consult Discharge Plan - Plan Referrals: Roldan Rose Jr [Primary Care Provider] - 02/04/19 11:30 am (Please follow up as schedule....) _ (2) Hypertension Qualifiers: Hypertension type: essential hypertension Qualified Code(s): I10 - Essential (primary) hypertension (3) Congestive heart failure Qualifiers: Heart failure type: diastolic Heart failure chronicity: unspecified Qualified Code(s): I50.30 - Unspecified diastolic (congestive) heart failure
--- NOTE | 2019-01-28 15:39 | Pulmonology Consult Note ---
Date of Encounter: 01/28/19 Time of Encounter: 15:40 Assessment and Plan (1) Pleural effusion, right Current Visit: No Status: Chronic I have reviewed CT chest result with the patient and also discussed with primary team. From the CT chest I did not feel this is a large pocket that thoracentesis would help him to breathe better, however I have done bedside ultrasound and there is a small pocket in the right side which is not enough in my opinion will give a significant relief to patient if it is drained. There is also evidence of pulmonary edema on the ultrasound and if patient will tolerate hemodialysis that point pulmonary very helpful. (2) Pulmonary edema Current Visit: Yes Status: Acute Patient has been seen by opal miner as well as felt carbonizer. Qualifiers: Chronicity: acute Qualified Code(s): J81.0 - Acute pulmonary edema (3) ESRD (end stage renal disease) on dialysis Current Visit: No Status: Chronic (4) Pulmonary hypertension Current Visit: No Status: Chronic I suspect this is from possibly group 2 and since patient has some symptoms suggestive of sleep disorder breathing, he will need sleep study done and I have offered him that can be done here or in a very [facility] where he is being worked up for renal transplant. Thank you for consultation and please call for any questions. History of Present Illness Consult date: 01/28/19 Requesting physician: Madhu Lucas Reason for consult: dyspnea, pleural effusion Chief complaint: Shortness of breath History of present illness: This is a pleasant 48-year-old male with multiple medical problems and he stated he is being in a workup for renal transplant in [facility] and pulmonary was consulted for his abnormal CT chest. Patient stated about 34 years ago he had thoracentesis and that helped him to breathe better. Patient has dyspnea on exertion and with the workup he would need to have a sleep study. He reports snoring and also witness apnea which according to his it is getting better. Patient denies any significant productive cough or wheezing. Unfortunately due to his blood pressure he has not been tolerating hemodialysis for fluid removal. He denies any fever or chills. He never has a sleep study done before. Past Med Surg Social Fam HX - Past Medical History Medical history: atrial fibrillation, CHF, dialysis, GERD, hyperlipidemia, renal disease, other Additional medical history: Chronic pain Psychiatric history: anxiety - Past Surgical History Surgical History: other Additional surgical history: Pericardial window. dialysis shunt to right upper arm. Kidney surgery - Social History Smoking Status: Former smoker Smokeless Tobacco Status: No Alcohol use: none Drug use: none - Family History Father Living Status: Still Living Hx Family Endocrine Disorder: Yes Mother Living Status: Still Living Hx Family Cardiac Disorders: Yes (hld) Hx Family Psychosocial Disorders: Yes (anxiety) Medications and Allergies ALPRAZolam [Xanax 0.5 MG Tablet] 0.5 mg PO TID PRN 05/02/15 [History] Oxycodone HCl 15 mg PO Q6H PRN 05/02/15 [History] Omeprazole [PriLOSEC] 20 mg PO BID 08/13/18 [History] Renal Vitamin [Renal Caps Softgel] 1 cap PO DAILY 08/13/18 [History] traZODone [TraZODone] 75 mg PO HS 08/13/18 [History] Ipratropium/Albuterol Neb [Duoneb] 3 ml IH [id number] PRN #60 inhsol 08/15/18 [Rx] Lisinopril [Zestril] 40 mg PO DAILY #30 tablet 08/16/18 [Rx] Ipratropium/Albuterol Sulfate [Combivent Respimat 20-100 Mcg] 1 puff IH Q6H PRN 12/16/18 [History] Sevelamer [Renvela] 1,600 mg PO TIDWM 12/16/18 [History] rOPINIRole [Requip] 1 mg PO HS 12/16/18 [History] Folic Acid/Vit B Complex and C [Dialyvite Tablet] 1 tab PO DAILY 01/20/19 [History] Metoprolol [Lopressor] 25 mg PO DAILY 01/20/19 [History] dilTIAZem HCl [Diltiazem ER] 240 mg PO DAILY 01/20/19 [History] Allergy/AdvReac Type Severity Reaction Status Date / Time No Known Allergies Allergy Verified 01/20/19 20:23 All Systems: The remainder of the systems were reviewed and are negative Physical Examination Vital Signs: Vital Signs, Last 4 Hours Temp Pulse Resp BP Pulse Ox 01/28/19 15:38 98.2 F 95 19 117/78 100 General appearance: no acute distress Eyes: nonicteric ENT: oropharynx moist Mallampati (class): 3 Neck: supple, no lymphadenopathy Effort: normal Auscultation: bilateral: diminished breath sounds (Mainly in the bases) Percussion: left: not dull, right: dull Cardiovascular: regular rate and rhythm, murmur noted Gastrointestinal: normoactive bowel sounds, non-distended Extremities: no cyanosis, no edema normal mental status, non-focal exam mood appropriate Results - Laboratory Findings CBC and BMP: 01/28/19 03:58 01/28/19 03:58 ABG ABG pH 7.33 pH Units (7.32-7.45) 01/23/19 06:53 ABG pCO2 68 mmHg (35-45) H 01/23/19 06:53 ABG pO2 99 mmHg (85-104) D 01/23/19 06:53 ABG O2 Saturation 97 % (95-98) 01/23/19 06:53 PT/INR, D-dimer PT 13.9 Seconds (9.4-12.1) H 01/20/19 08:36 Abnormal lab findings: Abnormal lab results RBC 3.00 M/mcL (4.19-5.50) L 01/28/19 03:58 Hgb 9.2 g/dL (12.9-16.9) L 01/28/19 03:58 Hct 29.6 % (37.5-50.1) L 01/28/19 03:58 MCV 101.1 fL (83.0-100.0) H 01/27/19 00:36 MCHC 31.1 g/dL (31.6-35.5) L 01/28/19 03:58 RDW 16.6 % (11.5-14.5) H 01/28/19 03:58 Plt Count 135 K/mcL (140-400) L 01/28/19 03:58 PT 13.9 Seconds (9.4-12.1) H 01/20/19 08:36 ABG pCO2 68 mmHg (35-45) H 01/23/19 06:53 ABG pO2 42 mmHg (85-104) L* 01/23/19 06:38 ABG HCO3 36 mEq/L (21-27) H 01/23/19 06:53 ABG Total CO2 38 mEq/L (20-26) H 01/23/19 06:53 ABG O2 Saturation 71 % (95-98) L 01/23/19 06:38 ABG Base Excess 9 mEq/L (-2 to 3) H 01/23/19 06:53 VBG pO2 204 mmHg (25-50) H 01/23/19 16:24 VBG HCO3 31 mEq/L (21-27) H 01/23/19 16:24 Potassium 5.5 mEq/L (3.5-5.1) H 01/24/19 06:11 Chloride 95 mEq/L (98-107) L 01/24/19 06:11 Carbon Dioxide 31 mEq/L (23-29) H 01/25/19 07:17 BUN 41 mg/dL (6-20) H 01/28/19 03:58 5.73 mg/dL (0.70-1.30) H 01/28/19 03:58 Est GFR ( Amer) 13 (> 60) L 01/28/19 03:58 Est GFR (Non-Af Amer) 11 (> 60) L 01/28/19 03:58 Glucose 123 mg/dL (70-105) H 01/22/19 00:54 303 (280-300) H 01/27/19 00:36 Lactic Acid 2.3 mmol/L (0.5-2.2) H 01/20/19 08:36 Phosphorus 7.1 mg/dL (2.7-4.5) H 01/21/19 00:36 1.1 mg/dL (0.3-1.0) H 01/20/19 08:36 0.4 mg/dL (0.0-0.2) H 01/20/19 08:36 0.08 ng/mL (< 0.04) H* 01/20/19 22:51 B-Natriuretic Peptide 1040 pg/mL (Less than 100) H 01/20/19 08:36 3.6 g/dL (2.4-3.5) H 01/20/19 08:36 - Diagnostic Findings CT scan - chest: report reviewed, image reviewed - Clinical Findings Intake & Output: Intake & Output 01/27/19 01/28/19 01/28/19 23:59 07:59 15:59 Intake Total 240 / 1560 480 / 480 Balance 240 / -2040 480 / 480 Weight 98.6 kg Consult Discharge Plan - Plan Referrals: Roldan Rose Jr [Primary Care Provider] - 02/04/19 11:30 am (Please follow up as schedule....)
[2019-01-28] MEDS: ALPRAZolam 0.5 MG TABLET PO SCH (20:49)
[2019-01-28] MEDS: Ondansetron ODT 4 MG TAB.RAPDIS SL PRN (20:50)
[2019-01-28] MEDS: traZODone 50 MG TABLET PO SCH (20:50)
[2019-01-29] MEDS: Levalbuterol Neb 0.63 MG/3 ML IH SCH ×4 (03:25→21:58)
[2019-01-29] MEDS: Ondansetron ODT 4 MG TAB.RAPDIS SL PRN ×2 (04:16→14:02)
[2019-01-29 05:36] LABS: Mean Corpuscular Hemoglobin 30.8 pg (28.0-33.3); Mean Corpuscular Volume 99.3 fL (83.0-100.0); Mean Platelet Volume 10.8 fL (9.4-12.4); Platelet Count 151 K/mcL (140-400); Red Blood Count 2.92 M/mcL (4.19-5.50); Red Cell Distribution Width 16.3 % (11.5-14.5)
[2019-01-29] MEDS: *HR* Heparin 5,000 UNIT/ML VIAL SQ SCH ×2 (05:51→16:48)
[2019-01-29 06:17] LABS: Calcium 9.7 mg/dL (8.6-10.3); Potassium 4.9 mEq/L (3.5-5.1)
[2019-01-29] MEDS: Aspirin Enteric Coated 81 MG Tablet PO SCH (07:48)
[2019-01-29] MEDS ORDERED: 0.9 % Sodium Chloride 1,000 ML ONE (09:39)
[2019-01-29] MEDS ORDERED: Albumin 25% 12.5gm/50mL 25.0 GM/100 ML IV.SOLN ONE (09:39)
[2019-01-29] MEDS: *HR* OxyCODONE Immed Rel 15 MG TABLET PO PRN ×2 (09:55→18:58)
[2019-01-29] MEDS: Diltiazem CD (24hr) 120 MG CAPSULE PO SCH (09:55)
[2019-01-29] MEDS ORDERED: Albumin 25% 25gram/100mL 25 GM/100 ML IV.SOLN IVPB ONE (09:57)
--- NOTE | 2019-01-29 12:05 | Internal Med Progress Note ---
Hospitalist Progress Note - Encounter Date of Encounter: 01/29/19 Time of Encounter: 12:02 - Subjective Interval History: I have seen and evaluated the patient a bedside. Patient reports improvement in his breathing. Feels less short of breath, reports that his oxygen requirements almost back to his baseline. Reports being on 4 L of oxygen by nasal cannula at home. Denies chest pain, nausea or vomiting. Reports abdominal discomfort at the heparin injection site. - Exam Vitals: Temp Pulse Resp BP Pulse Ox 98.1 F 96 17 99/66 96 01/29/19 06:51 01/29/19 06:51 01/29/19 06:51 01/29/19 06:51 01/29/19 07:59 Exam: Vitals: reviewed General: Alert and oriented x4. In no acute distress. Cardiovascular: Irregularly, irregular, normal S1 & S2, no rubs, murmurs or gallops. Lungs: CTA b/l, no wheezes or crackles. Abdomen: Obese, soft, non-tender, no rigidity. NABS all 4 quadrant. Extremities: No edema or deformity. Neurological: Normal cognition Rest of the physical exam is non contributory - Assessment and Plan (1) Atrial fibrillation with RVR Current Visit: Yes Status: Resolved Assessment and Plan: Rate is controlled on Cardizem. Decrease Cardizem 120 mg by mouth daily, BP has been running in the 90s for SBP. Not on anticoagulation due to surgery GI bleed. Continue aspirin 81 mg by mouth daily for secondary stroke prevention. (2) Hypertension Current Visit: No Status: Chronic Assessment and Plan: Blood pressure has been running the 90s for systolic blood pressure. Cardizem decreased to 120 mg by mouth daily. Midodrine increased to 5 mg by mouth 3 times a day, in an attempt to achieve appropriate hemodialysis today. (3) Congestive heart failure Current Visit: Yes Status: Chronic Assessment and Plan: Patient is euvolemic. Fluid balance negative for 8.5 L during these admission. Nephrology consulted for diuresis, as patient is anuric. On hemodialysis. Continue fluid restriction to 1.5 L a day. Daily weight plus a strict intake and output. (4) Acute on chronic respiratory failure with hypoxemia Current Visit: No Status: Acute Assessment and Plan: Respiratory status continued to improve, oximetry requirement has decreased to 5 L, with O2 sat duration more than 97%. Titrate oxygen by nasal cannula to 4 L home oxygen requirement, titrate for O2 sat duration more than 88% Continue bronchodilators every 6 hours scheduled. Incentive spirometry. (5) Pleural effusion, right Current Visit: Yes Status: Acute Assessment and Plan: Small/moderate pleural effusion. There is not enough fluid to warrant thoracentesis. Pulmonology recommendation appreciated. (6) ESRD (end stage renal disease) on dialysis Current Visit: Yes Status: Chronic Assessment and Plan: Avoid nephrotoxic medication, continue renal replacement therapy per nephrology recommendation. On sevelamer 800 mg by mouth 3 times a day with meals. (7) Anemia Current Visit: Yes Status: Chronic Assessment and Plan: Likely anemia of chronic disease. Patient is started on Procrit. Continue to monitor H&H and transfuse per protocol. DVT Prophylaxis: Patient is on heparin subcutaneous. Twice a day. - Summary of Assessment and Plan Summary of Assessment and Plan: Patient to remain in the hospital to monitor for blood pressure and respiratory status. Potential discharge tomorrow morning. - Time Spent with Patient Total time spent is greater than 50% in coordination of care (as documented) at patient's floor/unit and/or counseling patient: Greater than 35 minutes (40) Plan of Care Discussed with: patient (and the nurse) Internal Medicine: Result - Labs CBC & Chem 7: 01/29/19 04:38 01/29/19 04:38 Labs: Short CBC 01/29/19 Range/Units 04:38 WBC 6.3 (4.3-11.1) K/mcL Hgb 9.0 L (12.9-16.9) g/dL Hct 29.0 L (37.5-50.1) % Plt Count 151 (140-400) K/mcL BMP 01/29/19 04:38 Sodium 138 Potassium 4.9 Chloride 97 L Carbon Dioxide 27 BUN 68 H Creatinine 8.17 H Glucose 106 H Calcium 9.7 - ABG Interpretation ABG results: ABG ABG pH 7.33 pH Units (7.32-7.45) 01/23/19 06:53 ABG pCO2 68 mmHg (35-45) H 01/23/19 06:53 ABG pO2 99 mmHg (85-104) D 01/23/19 06:53 ABG O2 Saturation 97 % (95-98) 01/23/19 06:53 PT/INR, D-dimer PT 13.9 Seconds (9.4-12.1) H 01/20/19 08:36 - Impressions Impressions Chest X-Ray 01/28/19 14:58 IMPRESSION: Interval improvement in pulmonary edema. Small bilateral pleural effusions and cardiomegaly persist. D/ / Aleksandra Murillo MD / Aleksandra Murillo MD Interpreting Provider: Aleksandra Murillo MD Consult Discharge Plan - Plan Referrals: Roldan Rose Jr [Primary Care Provider] - 02/04/19 11:30 am (Please follow up as schedule....) (2) Hypertension Qualifiers: Hypertension type: essential hypertension Qualified Code(s): I10 - Essential (primary) hypertension (3) Congestive heart failure Qualifiers: Heart failure type: diastolic Heart failure chronicity: unspecified Qualified Code(s): I50.30 - Unspecified diastolic (congestive) heart failure (7) Anemia Qualifiers: Anemia type: unspecified type Qualified Code(s): D64.9 - Anemia, unspecified
--- NOTE | 2019-01-29 15:25 | Nephrology Progress Note ---
Date of Encounter: 01/29/19 Time of Encounter: 10:20 - Assessment and Plan (1) ESRD (end stage renal disease) on dialysis Current Visit: Yes Status: Chronic ESRD on HD TTS, so I have ordered hemodialysis for him today. His blood pressures were relatively low during dialysis, but he was able to remain on treatment and achieved at least some net negative fluid removal. I will tentatively plan for ultrafiltration tomorrow to continue to challenge his dry weight. Discussed with the hospitalist. Agree with increasing Midodrine and decreasing the calcium channel alka. Continue low dose midodrine to help support his BPs and therefore support dialy sis effectiveness. I reviewed the indications and SE profile with him on midodrine. Anemia in an HD pt: EPO thrice weekly to be continued while inpt. My colleague Dr. Tomas will be on-service starting Saturday. Thank you. (2) Atrial fibrillation with RVR Current Visit: Yes Status: Resolved As per primary team (3) Pulmonary edema Current Visit: Yes Status: Acute Has required HD/UF/HD (today for ) to assist with fluid removal as he does not make much if any UOP. Qualifiers: Chronicity: acute Qualified Code(s): J81.0 - Acute pulmonary edema (4) Anemia Current Visit: No Status: Chronic Goal Hgb is 10-11. SATHISH ordered for this admission. After which he may resume his typical dialysis unit dosing. Transfusion parameters as per primary. Qualifiers: Anemia type: due to chronic kidney disease Chronic kidney disease stage: on chronic dialysis Qualified Code(s): N18.6 - End stage renal disease; D63.1 - Anemia in chronic kidney disease; Z99.2 - Dependence on renal dialysis Subjective Principal diagnosis: esrd, chf Interval history: The patient was seen and examined while receiving his standard hemodialysis for . He was starting to have some cramping, and so the program management analyst asked for new orders, and I lowered his fluid removal goal rate. He did not affirm chest pain, nausea, vomiting, but did report some fatigue. Objective - Vital Signs Vital signs: Vital Signs Temp Pulse Resp BP Pulse Ox 01/29/19 07:59 96 01/29/19 06:51 98.1 F 96 17 99/66 96 01/29/19 04:06 97.5 F L 97 18 99/63 97 01/29/19 03:25 16 92 01/29/19 00:20 98.1 F 92 19 93/60 92 01/28/19 22:34 20 94 01/28/19 21:02 95 01/28/19 19:27 98 F 97 18 100/70 98 01/28/19 15:43 18 93 01/28/19 15:38 98.2 F 95 19 117/78 100 Intake and Output 01/28/19 01/29/19 01/29/19 23:59 07:59 15:59 Intake Total 360 / 1440 220 / 220 Output Total 700 / 1594 Balance -340 / -154 220 / 220 Intake: IV Fluids 100 / 100 Flexbumin 25 gm In 100 ml @ 60 100 / 100 mls/hr IVPB ONCE ONE Rx#: [id number] Oral 360 / 840 120 / 120 Output: Emesis 700 / 700 Other: Meal Dinner Breakfast Percent of Meal Consumed 90% 0% - General Appearance Exam: General appearance: Present: well-developed, fatigue, frail EENT: Present: ATNC, PERRL, mucous membranes moist Additional Comments: using O2 per NC Neck: Present: supple Respiratory: Present: course breath sounds Cardiology: Present: no edema, irregular rhythm, normal S1, normal S2 Dialysis Vascular Access: Arteriovenous Fistula (Right UE) thrill: Yes bruit: Yes Gastrointestinal: Present: normoactive bowel sounds, no guarding, obese Integumentary: Present: warm and dry Neurologic: Present: no focal deficit Musculoskeletal: Present: no cyanosis Psychiatric: Present: cooperative - Lab 01/30/19 01:04 01/30/19 01:04 Most recent lab results 01/29/19 04:38 Calcium 9.7 Consult Discharge Plan - Plan Referrals: Roldan Rose Jr [Primary Care Provider] - 02/04/19 11:30 am (Please follow up as schedule....)
[2019-01-30] MEDS: traZODone 50 MG TABLET PO SCH ×2 (00:46→21:48)
[2019-01-30] MEDS: ALPRAZolam 0.5 MG TABLET PO SCH ×2 (00:46→21:48)
[2019-01-30 01:44] LABS: Calcium 9.7 mg/dL (8.6-10.3); Potassium 4.3 mEq/L (3.5-5.1)
[2019-01-30 01:46] LABS: Hematocrit 28.1 % (37.5-50.1); Hemoglobin 8.7 g/dL (12.9-16.9); Mean Corpuscular Hemoglobin 30.5 pg (28.0-33.3); Mean Corpuscular Volume 98.6 fL (83.0-100.0); Mean Platelet Volume 10.8 fL (9.4-12.4); Platelet Count 163 K/mcL (140-400); Red Blood Count 2.85 M/mcL (4.19-5.50); Red Cell Distribution Width 16.5 % (11.5-14.5)
[2019-01-30] MEDS: Levalbuterol Neb 0.63 MG/3 ML IH SCH ×4 (03:50→22:06)
[2019-01-30] MEDS: *HR* Heparin 5,000 UNIT/ML VIAL SQ SCH ×2 (05:59→16:39)
[2019-01-30] MEDS ORDERED: 0.9 % Sodium Chloride 250 ML IVC PRN (06:13)
[2019-01-30] MEDS ORDERED: 0.9 % Sodium Chloride 1,000 ML ONE (07:45)
[2019-01-30] MEDS: Aspirin Enteric Coated 81 MG Tablet PO SCH (07:48)
[2019-01-30] MEDS: Diltiazem CD (24hr) 120 MG CAPSULE PO SCH (07:48)
[2019-01-30] MEDS: *HR* OxyCODONE Immed Rel 15 MG TABLET PO PRN ×2 (11:45→18:05)
--- NOTE | 2019-01-30 13:17 | Internal Med Progress Note ---
Hospitalist Progress Note - Encounter Date of Encounter: 01/30/19 Time of Encounter: 13:14 - Subjective Interval History: I have seen and evaluate the patient at bedside. patient reports his breathing is back to his baseline. he denies nausea, chest pain, shortness of breath or abdominal pain. - Exam Vitals: Temp Pulse Resp BP Pulse Ox 98.3 F 96 19 92/62 96 01/30/19 07:15 01/30/19 07:15 01/30/19 07:15 01/30/19 07:15 01/30/19 07:15 Exam: Vitals: Reviewed General: Alert and oriented x4. In no distress Cardiovascular: Irregularly irregular, normal S1 & S2, no rubs, murmurs or gallops Lungs: CTA, no wheezes or crackles. Abdomen:Soft, non-tender, no rigidity. Extremities: No deformity, no edema or tenderness, no joint swelling or clubbing. Neurological: Normal cognition and motor skills. Rest of the physical exam is non contributory - Assessment and Plan (1) Atrial fibrillation with RVR Current Visit: Yes Status: Resolved Assessment and Plan: Rate is controlled on Cardizem. Plan Continue Cardizem 120 mg by mouth daily, Not on anticoagulation due to surgery GI bleed. Continue aspirin 81 mg by mouth daily for secondary stroke prevention. (2) Hypertension Current Visit: No Status: Chronic Assessment and Plan: BP running in the high 90s SBP, patient asymptomatic. will continue current management. midrodine 5mg/PO TID and cardizem 120mg/PO daily. (3) Congestive heart failure Current Visit: Yes Status: Chronic Assessment and Plan: Patient is euvolemic. Fluid balance negative for 9.3 L scheduled for ultrafiltration today Continue fluid restriction to 1.5 L a day. Daily weight plus a strict intake and output. discussed with nephrology team recommended to keep patient in the hospital for HD tomorrow (4) ESRD (end stage renal disease) on dialysis Current Visit: Yes Status: Chronic Assessment and Plan: Avoid nephrotoxic medication, continue renal replacement therapy per nephrology recommendation. On sevelamer 800 mg by mouth 3 times a day with meals. (5) Acute on chronic respiratory failure with hypoxemia Current Visit: No Status: Acute Assessment and Plan: chest is clear to auscultation.. Continue oxygen by nasal cannula, titrate for O2 sat duration more than 92%. On bronchodilators when necessary, plus incentive spirometry. (6) Pleural effusion, right Current Visit: Yes Status: Acute Assessment and Plan: Small/moderate pleural effusion. (7) Anemia Current Visit: Yes Status: Chronic Assessment and Plan: H&H is stable. Patient is on Epoetin. will monitor and transfuse per protocol DVT Prophylaxis: On heparin 5000 units subcutaneous twice a day. - Summary of Assessment and Plan Summary of Assessment and Plan: Patient to remain in the hospital for 24 more hours, scheduled for hemodialysis tomorrow morning. - Time Spent with Patient Total time spent is greater than 50% in coordination of care (as documented) at patient's floor/unit and/or counseling patient: Greater than 35 minutes (40) Plan of Care Discussed with: patient (and the nurse) Internal Medicine: Result - Labs CBC & Chem 7: 01/30/19 01:04 01/30/19 01:04 Labs: Short CBC 01/30/19 Range/Units 01:04 WBC 6.2 (4.3-11.1) K/mcL Hgb 8.7 L (12.9-16.9) g/dL Hct 28.1 L (37.5-50.1) % Plt Count 163 (140-400) K/mcL BMP 01/30/19 01:04 Sodium 139 Potassium 4.3 Chloride 97 L Carbon Dioxide 34 H BUN 45 H Creatinine 5.41 H Glucose 90 Calcium 9.7 - ABG Interpretation ABG results: ABG ABG pH 7.33 pH Units (7.32-7.45) 01/23/19 06:53 ABG pCO2 68 mmHg (35-45) H 01/23/19 06:53 ABG pO2 99 mmHg (85-104) D 01/23/19 06:53 ABG O2 Saturation 97 % (95-98) 01/23/19 06:53 PT/INR, D-dimer PT 13.9 Seconds (9.4-12.1) H 01/20/19 08:36 Consult Discharge Plan - Plan Referrals: Roldan Rose Jr [Primary Care Provider] - 02/04/19 11:30 am (Please follow up as schedule....) (2) Hypertension Qualifiers: Hypertension type: essential hypertension Qualified Code(s): I10 - Essential (primary) hypertension (3) Congestive heart failure Qualifiers: Heart failure type: diastolic Heart failure chronicity: unspecified Qualified Code(s): I50.30 - Unspecified diastolic (congestive) heart failure (7) Anemia Qualifiers: Anemia type: unspecified type Qualified Code(s): D64.9 - Anemia, unspecified
[2019-01-30] MEDS: Ondansetron ODT 4 MG TAB.RAPDIS SL PRN (16:33)
--- NOTE | 2019-01-30 20:52 | Nephrology Progress Note ---
Date of Encounter: 01/30/19 Time of Encounter: 12:00 - Assessment and Plan (1) ESRD (end stage renal disease) on dialysis Current Visit: Yes Status: Chronic Continue HD with UF as tolerated Will weigh pt standing after HD today and report new dry weight to outpatient HD unit to help future UFs goal Continue fluid restriction Continue renal diet (2) Pulmonary edema Current Visit: Yes Status: Acute Resolved Qualifiers: Chronicity: acute Qualified Code(s): J81.0 - Acute pulmonary edema (3) Anemia Current Visit: No Status: Chronic Goal Hgb is 10-11. Hgb noted at 8.7, fairly stable. EPO as needed Transfusion parameters as per primary. Qualifiers: Anemia type: due to chronic kidney disease Chronic kidney disease stage: on chronic dialysis Qualified Code(s): N18.6 - End stage renal disease; D63.1 - Anemia in chronic kidney disease; Z99.2 - Dependence on renal dialysis (4) Atrial fibrillation with RVR Current Visit: Yes Status: Resolved Rate is controlled. Per primary team Subjective Principal diagnosis: esrd, chf Interval history: Interim events noted, pt seen and examined on HD feeling much better after several consecutive HD sessions. Objective - Vital Signs Vital signs: Vital Signs Temp Pulse Resp BP Pulse Ox 01/30/19 18:54 98.9 F 96 17 97/62 94 01/30/19 16:12 98.4 F 98 18 92/62 96 01/30/19 16:00 98 01/30/19 14:20 97.6 F 16 119/70 01/30/19 14:00 95/52 01/30/19 13:45 120/43 01/30/19 13:30 105/53 01/30/19 13:15 122/62 01/30/19 13:00 123/69 01/30/19 12:45 125/59 01/30/19 12:30 119/58 01/30/19 12:15 126/64 01/30/19 12:00 125/66 01/30/19 11:45 115/60 01/30/19 11:30 108/56 01/30/19 11:15 111/63 01/30/19 11:00 98.5 F 16 119/56 01/30/19 07:15 98.3 F 96 19 92/62 96 01/30/19 04:32 98.9 F 97 17 92/60 97 01/30/19 03:50 16 100 01/30/19 03:06 96/65 01/30/19 01:09 94/62 01/29/19 21:58 18 95 Intake and Output 01/30/19 01/30/19 01/30/19 07:59 15:59 23:59 Intake Total 0 / 500 500 / 500 Output Total 0 1999 Balance 0 / -1500 -1500 / -1500 Intake: Oral 0 / 0 0 / 0 Intake, Rinseback and Flushes 500 / 500 Output: Urine 0 / 0 0 / 0 Total Dialysis (HD) Output 1999 Other: Weight 90.718 kg Hemodialysis Net Fluid Removed 1500 (mL) Patient Weight 01/30/19 23:59 Weight 90.718 kg - General Appearance General appearance: Present: chronically ill (NAD) EENT: Present: ATNC, mucous membranes moist Neck: Present: no JVD, supple Respiratory: Present: clear (ant bilat) Cardiology: Present: no edema, normal S1, normal S2 Dialysis Vascular Access: Arteriovenous Fistula thrill: Yes bruit: Yes Gastrointestinal: Present: no tenderness, no guarding Integumentary: Present: warm and dry Neurologic: Present: no focal deficit Musculoskeletal: Present: no deformities Psychiatric: Present: mood/affect appropriate, cooperative - Lab 01/30/19 01:04 01/30/19 01:04 Consult Discharge Plan - Plan Referrals: Roldan Rose Jr [Primary Care Provider] - 02/04/19 11:30 am (Please follow up as schedule....)
[2019-01-31] MEDS: Levalbuterol Neb 0.63 MG/3 ML IH SCH ×2 (04:02→10:00)
[2019-01-31] MEDS: *HR* Heparin 5,000 UNIT/ML VIAL SQ SCH (05:57)
[2019-01-31] MEDS: *HR* OxyCODONE Immed Rel 15 MG TABLET PO PRN (06:07)
[2019-01-31 08:10] VITALS: BP 98/69
[2019-01-31] MEDS: Diltiazem CD (24hr) 120 MG CAPSULE PO SCH (08:11)
[2019-01-31] MEDS: Aspirin Enteric Coated 81 MG Tablet PO SCH (08:11)
--- NOTE | 2019-01-31 09:29 | Discharge Summary ---
Orders not resulted at time of discharge: Pending orders 01/31/19 04:00 Basic Metabolic Panel AM 0400 CBC no Diff [Complete Blood Count w/o Diff] [HEME] AM 0400 Date of Encounter: 01/31/19 Time of Encounter: 09:26 - Discharge Diagnosis (1) Atrial fibrillation with RVR Priority: Primary Status: Resolved (2) Hypertension Priority: Secondary Status: Chronic Qualifiers: Hypertension type: essential hypertension Qualified Code(s): I10 - Essential (primary) hypertension (3) Congestive heart failure Priority: Primary Status: Resolved Qualifiers: Heart failure type: diastolic Heart failure chronicity: acute Qualified Code(s): I50.31 - Acute diastolic (congestive) heart failure (4) ESRD (end stage renal disease) on dialysis Priority: Secondary Status: Chronic (5) Acute on chronic respiratory failure with hypoxemia Priority: Secondary Status: Resolved (6) Pleural effusion, right Priority: Secondary Status: Acute (7) Anemia Priority: Secondary Status: Chronic Qualifiers: Anemia type: unspecified type Qualified Code(s): D64.9 - Anemia, unspecified (8) Volume overload Priority: Secondary Status: Resolved Qualifiers: Hypervolemia type: unspecified Qualified Code(s): E87.70 - Fluid overload, unspecified Hospital course: Mr. Anderson is a 48 year old male past medical history of end-stage renal disease, hypertension, A. fib, hyperlipidemia, and CHF. The patient was sent to the ED from HD due to shortness of breath. Patient was admitted to the hospital due to A.fib with RvR, volume overload and acute hypoxemic respiratory failure. Patient was started on cardizem drip, and oral cardizem with rate controlled. Received renal replacement therapy with 10.5 litters of fluids removed. During this admission his BP has been running in the mid 90s and to achieve appropriate diuresis during HD the patient was started on midodrine and his oral dose of Cardizem was decreased to 120mg/PO daily. Patient was recommended to follow up with his PCP within a week of hospital discharge for possible medications adjustment. As his BP has been running in the 100s and 90s SBP his home dose of lisinopril and metoprolol were discontinued. For concern of a pleural effusion being the cause of the patient shortness of breath on presentation, pulmonology was consulted, pleural effusion seen on chest ct, small and not amenable for thoracentesis. Patient is hemodynamically stable, his acute symptoms have resolved. Patient discharged home. - Time Spent with Patient Total time spent providing and/or coordinating discharge services: Time spent: Greater than 30 minutes (35) - Discharge Medications Prescriptions: New Diltiazem CD (24hr) [Cardizem CD] 120 mg PO DAILY 30 Days #30 cap.er.24h Midodrine [ProAmatine] 5 mg PO 0800,1200,1700 30 Days #90 tablet Continued Oxycodone HCl 15 mg PO Q6H PRN PRN Reason: Severe Pain ALPRAZolam [Xanax 0.5 MG Tablet] 0.5 mg PO TID PRN PRN Reason: Anxiety Omeprazole [PriLOSEC] 20 mg PO BID Renal Vitamin [Renal Caps Softgel] 1 cap PO DAILY traZODone [TraZODone] 75 mg PO HS Ipratropium/Albuterol Neb [Duoneb] 3 ml IH [id number] PRN #60 inhsol PRN Reason: Wheezing rOPINIRole [Requip] 1 mg PO HS Sevelamer [Renvela] 1,600 mg PO TIDWM Ipratropium/Albuterol Sulfate [Combivent Respimat 20-100 Mcg] 1 puff IH Q6H PRN PRN Reason: Shortness Of Breath Folic Acid/Vit B Complex and C [Dialyvite Tablet] 1 tab PO DAILY Discontinued Lisinopril [Zestril] 40 mg PO DAILY #30 tablet Metoprolol [Lopressor] 25 mg PO DAILY dilTIAZem HCl [Diltiazem ER] 240 mg PO DAILY Home Medications: ALPRAZolam [Xanax 0.5 MG Tablet] 0.5 mg PO TID PRN 05/02/15 [History] Oxycodone HCl 15 mg PO Q6H PRN 05/02/15 [History] Omeprazole [PriLOSEC] 20 mg PO BID 08/13/18 [History] Renal Vitamin [Renal Caps Softgel] 1 cap PO DAILY 08/13/18 [History] traZODone [TraZODone] 75 mg PO HS 08/13/18 [History] Ipratropium/Albuterol Neb [Duoneb] 3 ml IH [id number] PRN #60 inhsol 08/15/18 [Rx] Ipratropium/Albuterol Sulfate [Combivent Respimat 20-100 Mcg] 1 puff IH Q6H PRN 12/16/18 [History] Sevelamer [Renvela] 1,600 mg PO TIDWM 12/16/18 [History] rOPINIRole [Requip] 1 mg PO HS 12/16/18 [History] Folic Acid/Vit B Complex and C [Dialyvite Tablet] 1 tab PO DAILY 01/20/19 [History] Diltiazem CD (24hr) [Cardizem CD] 120 mg PO DAILY 30 Days #30 cap.er.24h 01/31/19 [Rx] Midodrine [ProAmatine] 5 mg PO 0800,1200,1700 30 Days #90 tablet 01/31/19 [Rx] Allergies/Adverse Reactions: Allergy/AdvReac Type Severity Reaction Status Date / Time No Known Allergies Allergy Verified 01/20/19 20:23 Date of admission: 01/22/19 07:20 Primary care physician: Roldan Rose Jr Consults: 01/20/19 10:18 Consult to Nephrology [CONS] Stat Consulting Provider: Kidney Lizzy/ARLETTE/DUNCAN/KAYLIN Reason for Consult: esrd with dialysis Call Completed: Yes 01/20/19 11:15 Consult to Dialysis [CONS] ONCE 01/21/19 08:38 Consult to Nurse Navigator [CONS] Routine Comment: hd 01/22/19 07:24 Consult to Dialysis [CONS] Stat 01/23/19 11:42 Consult to Cardiology [CONS] Routine Comment: Consulting Provider: Cardiology Lizzy Reason for Consult: Acute on chronic systolic heart failure Call Completed: Yes 01/24/19 07:30 Consult to Dialysis [CONS] QTUTHSA 01/26/19 07:30 Consult to Dialysis [CONS] ONCE 01/27/19 07:30 Consult to Dialysis [CONS] QTUTHSA 01/27/19 18:25 Consult to Pulmonology [CONS] Routine Consulting Provider: Pulm Crit [facility] Sleep Crystal Reason for Consult: Moderate Right-sided pleural effusion Call Completed: No 01/28/19 07:45 Consult to Dialysis [CONS] ONCE 01/28/19 15:02 Consult to Pulmonology [CONS] Routine Consulting Provider: Pulm Crit Care [facility] Sleep Crystal Reason for Consult: hypoxemic respiratory failure Call Completed: Yes 01/29/19 07:30 Consult to Dialysis [CONS] QTUTHSA 01/30/19 06:15 Consult to Dialysis [CONS] ONCE - Constitutional Vitals: Temp Pulse Resp BP Pulse Ox 97.6 F 103 19 98/69 97 01/31/19 08:07 01/31/19 08:07 01/31/19 08:07 01/31/19 08:07 01/31/19 08:07 Exam: Vitals: Reviewed General: Alert and oriented x4. In no distress Cardiovascular: Irregularly irregular, normal S1 & S2, no rubs, murmurs or gallops Lungs: CTA, no wheezes or crackles. Abdomen:Soft, non-tender, no rigidity. Extremities: No edema Neurological: Normal cognition Rest of the physical exam is non contributory - Patient Status Disposition: Home, Self-Care Condition: Good Functional capacity at discharge: independent ambulation Overall status at discharge: patient is back to baseline - Discharge Instructions Follow Up With: Roldan Rose Jr [Primary Care Provider] - 02/04/19 11:30 am (Please follow up as schedule....) - Diet and Activity Activity: resume usual activities as tolerated, wear oxygen at all times (3 litters) Diet: low salt diet
== END 2019-01-31 11:16 | disposition home or self-care (01) | DRG 291 ==
LOC: EMEROOARM 08:26 → 2ANU 08:26 → SUATTDRO 12:21 → 2ANU 12:48 → SUATTDRO 01-22 07:20
PROVIDERS: ADMIT Internal Medicine; ATTEND Internal Medicine

== ENCOUNTER 2019-06-22 00:57 | Inpatient (IN) ==
[2019-06-22] MEDS ORDERED: Ipratropium/Albuterol Neb 3 ML IH ONE (01:06)
[2019-06-22] MEDS ORDERED: methylPREDNISolone 125 MG/2 ML VIAL IVP ONE (01:06)
--- NOTE | 2019-06-22 01:10 | Emergency Department Note ---
Disposition Clinical Impression: Hypoxia Congestive heart failure Qualifiers: Heart failure type: unspecified Heart failure chronicity: unspecified Qualified Code(s): I50.9 - Heart failure, unspecified Pulmonary edema Qualifiers: Chronicity: chronic Qualified Code(s): J81.1 - Chronic pulmonary edema Disposition: Admitted As Inpatient Condition: Fair Time of Disposition: 06:26 SOB HPI - General Chief Complaint: ED Shortness of Breath/Dyspnea Stated Complaint: JESS Time Seen by Provider: 06/22/19 00:59 Source: patient, EMS Mode of arrival: EMS Limitations: no limitations Nursing Notes Reviewed: Yes Vital Signs Reviewed: Yes - History of Present Illness 48-year-old male with past medical history of end-stage renal disease on dialysis, COPD, atrial fibrillation, that reports all over body pain, increasing shortness of breath that developed over the last 6 days. Patient is dialysis dependent that last had dialysis on Saturday, although he reports that he did not have the full course of dialysis as he could not tolerated. Patient has breathing treatments that he gives himself at home he gave himself a breathing treatment at 10 PM. Patient waited because normally he can feel better but states that he just was not feeling any better. When EMS arrived they report that the patient was saturating 87%, patient reports he is normally on 3 L at home, EMS report that he came up to about 90% on 5 L. Patient is still in every day smoker. - Related Data Home Medications Medication Instructions Recorded Confirmed ALPRAZolam [Xanax 0.5 MG Tablet] 0.5 mg PO TID PRN 05/02/15 01/20/19 Oxycodone HCl 15 mg PO Q6H PRN 05/02/15 01/20/19 Omeprazole [PriLOSEC] 20 mg PO BID 08/13/18 01/20/19 Renal Vitamin [Renal Caps Softgel] 1 cap PO DAILY 08/13/18 01/20/19 traZODone [TraZODone] 75 mg PO HS 08/13/18 01/20/19 Ipratropium/Albuterol Sulfate 1 puff IH Q6H PRN 12/16/18 01/20/19 [Combivent Respimat 20-100 Mcg] Sevelamer [Renvela] 1,600 mg PO TIDWM 12/16/18 01/20/19 rOPINIRole [Requip] 1 mg PO HS 12/16/18 01/20/19 Folic Acid/Vit B Complex and C 1 tab PO DAILY 01/20/19 [Dialyvite Tablet] Diltiazem CD (24hr) [Cardizem CD] 240 mg PO DAILY 06/22/19 06/22/19 Previous Rx's Medication Instructions Recorded Ipratropium/Albuterol Neb [Duoneb] 3 ml IH [id number] PRN #60 inhsol 08/15/18 Allergies Allergy/AdvReac Type Severity Reaction Status Date / Time No Known Allergies Allergy Verified 01/20/19 20:23 Review of Systems: In addition to that documented in the HPI above, the additional ROS was obtained: Constitutional: Denies fevers Reports chills Eyes: Denies vision changes ENMT: Denies sore throat CV: Denies chest pain Resp: Reports SOB GI: Reports nausea, vomiting, diarrhea : Denies painful urination MSK: Denies recent trauma Skin: Denies new rashes Neuro: Denies new numbness or tingling Reports all over weakness Past Medical History - Past Medical History Attestation: Yes The following information was validated with the patient. Medical history: Reports: atrial fibrillation, CHF, dialysis, GERD, hyperlipidemia, renal disease, other Surgical history: Reports: other Psychiatric history: Reports: anxiety - Social History Smoking Status: Former smoker Smokeless Tobacco Status: No Alcohol use: Reports: none Drug use: Reports: none Physical Exam General: A&O x 3. No acute distress. Well developed, well nourished. Head: atraumatic, normocephalic. ENT: No conjunctival injection, no scleral icterus. PERRLA. EOMI. Oropharynx non- erythematous. mucous membranes moist. Neuro: No focal deficits, no speech deficit, no facial droop, mentating well. BUE/BLE Str 5/5. Pulm: Diffuse end expiratory wheezes Cardio: Irregularly irregular with systolic murmur. Chest not tender to palpation. Abd: Soft, non-distended. Normoactive bowel sounds. Intermittently tender to palpation in RUQ. No guarding. Non rigid. Extremities: Radial pulses 2+ janelle, dorsalis pedis/posterior tibialis 2+ janelle. No LE edema. No cyanosis, clubbing. Dialysis present on RUE with palpable thrill and audible bruit. Skin: warm, dry, intact. Papular rash present on abdomen, pt reports chronic in nature. Psych: Appropriate mood and affect. Answers questions appropriately. Cooperative with exam. Course Vital Signs Temperature 97.7 F 06/22/19 01:03 Pulse Rate 101 06/22/19 01:03 Respiratory Rate 20 06/22/19 01:03 Blood Pressure 135/99 06/22/19 01:03 O2 Sat by Pulse Oximetry 94 06/22/19 01:03 Temperature 97.7 F 06/22/19 01:03 Pulse Rate 139 06/22/19 04:45 Respiratory Rate 30 06/22/19 04:45 Blood Pressure 116/88 06/22/19 04:45 O2 Sat by Pulse Oximetry 100 06/22/19 04:45 Oxygen Delivery Oxygen Delivery Bipap Shortness of Breath/Dyspnea - [facility] Narrative Medical decision making narrative: 48M that appears older than stated age that reports increasing SOB over the last six days with all-over body aches. Will obtain sepsis workup and CXR, will administer duonebs, steroids. Suspect admission. 0314: Pt was working harder to breath and was saturating in high 80's, switched patient over to NRB at 15L. Additionally, pt was briefly in Afib with RVR, and CXR showed pulmonary edema. Labs were concerning for elevated BUN at 66. Will switch patient to BiPAP. Plan for admission. 0450: Pt was admitted to hospitalist, Dr. Mathews, who agreed to accept the patient to his service. Pt was stable at time of transfer. Results of the workup including any imaging and/or labwork was shared with the patient at bedside. Nikolas farah was given an opportunity to ask questions at bedside and all of their concerns were addressed. Patient verbalized understanding and agreement with plan of care. - Medical Records Medical records reviewed: Yes I reviewed the patient's medical records. - Lab Data Lab results reviewed: Yes I reviewed the patient's lab results. Result diagrams: 06/22/19 02:00 06/22/19 02:00 Lab Results 06/22/19 06/22/19 06/22/19 Range/Units 02:00 02:00 02:00 WBC 8.6 (4.3-11.1) K/mcL RBC 3.32 L (4.19-5.50) M/mcL Hgb 10.6 L (12.9-16.9) g/dL Hct 32.2 L (37.5-50.1) % MCV 97.0 (83.0-100.0) fL MCH 31.9 (28.0-33.3) pg MCHC 32.9 (31.6-35.5) g/dL RDW 14.6 H (11.5-14.5) % Plt Count 113 L (140-400) K/mcL MPV 10.7 (9.4-12.4) fL Immature Gran % 0.5 (0-4) % Seg Neutrophils % 77.1 % Lymphocytes % 13.4 % Monocytes % 6.0 % Eosinophils % 2.7 % Basophils % 0.3 % Neutrophils # 6.7 (1.6-8.9) K/mcL Lymphocytes # 1.2 (0.6-4.6) K/mcL Monocytes # 0.5 (0.0-1.3) K/mcL Eosinophils # 0.2 (0.0-0.6) K/mcL Basophils # 0.0 (0.0-0.2) K/mcL PT 13.0 H (9.4-12.1) Seconds INR 1.1 APTT 33.5 (26.0-36.0) Seconds Sodium 136 (136-145) mEq/L Potassium 4.9 (3.5-5.1) mEq/L Chloride 95 L (98-107) mEq/L Carbon Dioxide 22 L (23-29) mEq/L BUN 66 H (6-20) mg/dL Creatinine 11.85 H (0.70-1.30) mg/dL Est GFR ( Amer) 6 L (> 60) Est GFR (Non-Af Amer) 5 L (> 60) BUN/Creatinine Ratio 6 (6-26) Glucose 94 (70-105) mg/dL Calculated Osmolality 301 H (280-300) Lactic Acid (0.5-2.2) mmol/L Calcium 10.1 (8.6-10.3) mg/dL Total Bilirubin 1.0 (0.3-1.0) mg/dL Direct Bilirubin 0.2 (0.0-0.2) mg/dL Indirect Bilirubin 0.8 (0.0-1.2) mg/dL AST 8 L (13-39) Units/L ALT 10 (7-52) Units/L Alkaline Phosphatase 65 (34-104) Units/L Troponin I 0.03 (< 0.04) ng/mL B-Natriuretic Peptide (Less than 100) pg/mL Serum Total Protein 7.0 (6.4-8.9) g/dL Albumin 4.1 (3.5-5.7) g/dL Globulin 2.9 (2.4-3.5) g/dL Albumin/Globulin Ratio 1.4 (1.1-2.2) 06/22/19 06/22/19 06/22/19 Range/Units 02:00 02:00 04:25 WBC (4.3-11.1) K/mcL RBC (4.19-5.50) M/mcL Hgb (12.9-16.9) g/dL Hct (37.5-50.1) % MCV (83.0-100.0) fL MCH (28.0-33.3) pg MCHC (31.6-35.5) g/dL RDW (11.5-14.5) % Plt Count (140-400) K/mcL MPV (9.4-12.4) fL Immature Gran % (0-4) % Seg Neutrophils % % Lymphocytes % % Monocytes % % Eosinophils % % Basophils % % Neutrophils # (1.6-8.9) K/mcL Lymphocytes # (0.6-4.6) K/mcL Monocytes # (0.0-1.3) K/mcL Eosinophils # (0.0-0.6) K/mcL Basophils # (0.0-0.2) K/mcL PT (9.4-12.1) Seconds INR APTT (26.0-36.0) Seconds Sodium (136-145) mEq/L Potassium (3.5-5.1) mEq/L Chloride (98-107) mEq/L Carbon Dioxide (23-29) mEq/L BUN (6-20) mg/dL Creatinine (0.70-1.30) mg/dL Est GFR ( Amer) (> 60) Est GFR (Non-Af Amer) (> 60) BUN/Creatinine Ratio (6-26) Glucose (70-105) mg/dL Calculated Osmolality (280-300) Lactic Acid 0.7 0.8 (0.5-2.2) mmol/L Calcium (8.6-10.3) mg/dL Total Bilirubin (0.3-1.0) mg/dL Direct Bilirubin (0.0-0.2) mg/dL Indirect Bilirubin (0.0-1.2) mg/dL AST (13-39) Units/L ALT (7-52) Units/L Alkaline Phosphatase (34-104) Units/L Troponin I (< 0.04) ng/mL B-Natriuretic Peptide 1128 H (Less than 100) pg/mL Serum Total Protein (6.4-8.9) g/dL Albumin (3.5-5.7) g/dL Globulin (2.4-3.5) g/dL Albumin/Globulin Ratio (1.1-2.2) - Radiology Data Radiology results reviewed: Yes I reviewed the patient's radiology results. Chest X-Ray 06/22/19 01:31 IMPRESSION: Severe perihilar predominant pulmonary edema. Equivocal for bilateral effusions. D/ / Juan Antonio Joya / Juan Antonio Joya Interpreting Provider: Juan Antonio Joya - EKG Data EKG attestation: Yes I reviewed and interpreted this EKG. EKG results narrative: 0105: Heart rate 99, rhythm atrial fibrillation, axis left. QRS 102 QTC 496 and borderline prolonged. No ST segment elevation or depression. When compared to previous EKG on 01/22/19 the previous EKG shows Afib with RVR which is not present on current EKG. 0304: HR 135, rhythm atrial fibrillation with RVR. QRS 93, QTC [address] segment elevation or depression noted.
[2019-06-22 02:19] LABS: Basophils % 0.3 %; Eosinophils # 0.2 K/mcL (0.0-0.6); Eosinophils % 2.7 %; Hematocrit 32.2 % (37.5-50.1); Hemoglobin 10.6 g/dL (12.9-16.9); Immature Granulocytes % 0.5 % (0-4); Lymphocytes # 1.2 K/mcL (0.6-4.6); Lymphocytes % 13.4 %; Mean Corpuscular HGB Conc 32.9 g/dL (31.6-35.5); Mean Corpuscular Hemoglobin 31.9 pg (28.0-33.3); Mean Platelet Volume 10.7 fL (9.4-12.4); Monocytes # 0.5 K/mcL (0.0-1.3); Neutrophils # 6.7 K/mcL (1.6-8.9); Platelet Count 113 K/mcL (140-400); Red Blood Count 3.32 M/mcL (4.19-5.50); Red Cell Distribution Width 14.6 % (11.5-14.5); Segmented Neutrophils % 77.1 %; White Blood Count 8.6 K/mcL (4.3-11.1)
[2019-06-22 02:26] LABS: INR 1.1
[2019-06-22 02:29] LABS: Activated Partial Thrombo Time 33.5 Seconds (26.0-36.0)
[2019-06-22 02:41] LABS: Albumin 4.1 g/dL (3.5-5.7); Albumin/Globulin Ratio 1.4 (1.1-2.2); Bilirubin,Direct 0.2 mg/dL (0.0-0.2); Bilirubin,Indirect 0.8 mg/dL (0.0-1.2); Calcium 10.1 mg/dL (8.6-10.3); Globulin 2.9 g/dL (2.4-3.5); Potassium 4.9 mEq/L (3.5-5.1)
[2019-06-22 02:42] LABS: Troponin I 0.03 ng/mL (< 0.04)
--- NOTE | 2019-06-22 03:46 | Emergency Department Note ---
Disposition Clinical Impression: Hypoxia Congestive heart failure Qualifiers: Heart failure type: unspecified Heart failure chronicity: unspecified Qualified Code(s): I50.9 - Heart failure, unspecified Pulmonary edema Qualifiers: Chronicity: chronic Qualified Code(s): J81.1 - Chronic pulmonary edema Disposition: Admitted As Inpatient Condition: Fair Referrals: NONE,PCP [Primary Care Provider] - Forms: ED Satisfaction Letter Time of Disposition: 03:47 General Adult HPI - General Chief complaint: ED Shortness of Breath/Dyspnea Stated complaint: JESS Time Seen by Provider: 06/22/19 00:59 Source: patient, EMS Mode of arrival: EMS Limitations: no limitations - History of Present Illness Pain Scale: 0 - Related Data Home Medications Medication Instructions Recorded Confirmed ALPRAZolam [Xanax 0.5 MG Tablet] 0.5 mg PO TID PRN 05/02/15 01/20/19 Oxycodone HCl 15 mg PO Q6H PRN 05/02/15 01/20/19 Omeprazole [PriLOSEC] 20 mg PO BID 08/13/18 01/20/19 Renal Vitamin [Renal Caps Softgel] 1 cap PO DAILY 08/13/18 01/20/19 traZODone [TraZODone] 75 mg PO HS 08/13/18 01/20/19 Ipratropium/Albuterol Sulfate 1 puff IH Q6H PRN 12/16/18 01/20/19 [Combivent Respimat 20-100 Mcg] Sevelamer [Renvela] 1,600 mg PO TIDWM 12/16/18 01/20/19 rOPINIRole [Requip] 1 mg PO HS 12/16/18 01/20/19 Folic Acid/Vit B Complex and C 1 tab PO DAILY 01/20/19 [Dialyvite Tablet] Previous Rx's Medication Instructions Recorded Ipratropium/Albuterol Neb [Duoneb] 3 ml IH [id number] PRN #60 inhsol 08/15/18 Allergies Allergy/AdvReac Type Severity Reaction Status Date / Time No Known Allergies Allergy Verified 01/20/19 20:23 Past Medical History - Past Medical History Medical history: Reports: atrial fibrillation, CHF, dialysis, GERD, hyper lipidemia, renal disease, other Surgical history: Reports: other Psychiatric history: Reports: anxiety - Social History Smoking Status: Former smoker Smokeless Tobacco Status: No Alcohol use: Reports: none Drug use: Reports: none Physical Exam - General Limitations: no limitations General appearance: alert, in no apparent distress Course Vital Signs Temperature 97.7 F 06/22/19 01:03 Pulse Rate 101 06/22/19 01:03 Respiratory Rate 20 06/22/19 01:03 Blood Pressure 135/99 06/22/19 01:03 O2 Sat by Pulse Oximetry 94 06/22/19 01:03 Temperature 97.7 F 06/22/19 01:03 Pulse Rate 117 06/22/19 03:09 Respiratory Rate 26 06/22/19 03:22 Blood Pressure 139/97 06/22/19 03:09 O2 Sat by Pulse Oximetry 99 06/22/19 03:22 Oxygen Delivery Oxygen Delivery Non Rebreather Mask Medical Decision Making - Lab Data Result diagrams: 06/22/19 02:00 06/22/19 02:00 Lab Results 06/22/19 06/22/19 06/22/19 Range/Units 02:00 02:00 02:00 WBC 8.6 (4.3-11.1) K/mcL RBC 3.32 L (4.19-5.50) M/mcL Hgb 10.6 L (12.9-16.9) g/dL Hct 32.2 L (37.5-50.1) % MCV 97.0 (83.0-100.0) fL MCH 31.9 (28.0-33.3) pg MCHC 32.9 (31.6-35.5) g/dL RDW 14.6 H (11.5-14.5) % Plt Count 113 L (140-400) K/mcL MPV 10.7 (9.4-12.4) fL Immature Gran % 0.5 (0-4) % Seg Neutrophils % 77.1 % Lymphocytes % 13.4 % Monocytes % 6.0 % Eosinophils % 2.7 % Basophils % 0.3 % Neutrophils # 6.7 (1.6-8.9) K/mcL Lymphocytes # 1.2 (0.6-4.6) K/mcL Monocytes # 0.5 (0.0-1.3) K/mcL Eosinophils # 0.2 (0.0-0.6) K/mcL Basophils # 0.0 (0.0-0.2) K/mcL PT 13.0 H (9.4-12.1) Seconds INR 1.1 APTT 33.5 (26.0-36.0) Seconds Sodium 136 (136-145) mEq/L Potassium 4.9 (3.5-5.1) mEq/L Chloride 95 L (98-107) mEq/L Carbon Dioxide 22 L (23-29) mEq/L BUN 66 H (6-20) mg/dL Creatinine 11.85 H (0.70-1.30) mg/dL Est GFR ( Amer) 6 L (> 60) Est GFR (Non-Af Amer) 5 L (> 60) BUN/Creatinine Ratio 6 (6-26) Glucose 94 (70-105) mg/dL Calculated Osmolality 301 H (280-300) Lactic Acid (0.5-2.2) mmol/L Calcium 10.1 (8.6-10.3) mg/dL Total Bilirubin 1.0 (0.3-1.0) mg/dL Direct Bilirubin 0.2 (0.0-0.2) mg/dL Indirect Bilirubin 0.8 (0.0-1.2) mg/dL AST 8 L (13-39) Units/L ALT 10 (7-52) Units/L Alkaline Phosphatase 65 (34-104) Units/L Troponin I 0.03 (< 0.04) ng/mL B-Natriuretic Peptide (Less than 100) pg/mL Serum Total Protein 7.0 (6.4-8.9) g/dL Albumin 4.1 (3.5-5.7) g/dL Globulin 2.9 (2.4-3.5) g/dL Albumin/Globulin Ratio 1.4 (1.1-2.2) 06/22/19 06/22/19 Range/Units 02:00 02:00 WBC (4.3-11.1) K/mcL RBC (4.19-5.50) M/mcL Hgb (12.9-16.9) g/dL Hct (37.5-50.1) % MCV (83.0-100.0) fL MCH (28.0-33.3) pg MCHC (31.6-35.5) g/dL RDW (11.5-14.5) % Plt Count (140-400) K/mcL MPV (9.4-12.4) fL Immature Gran % (0-4) % Seg Neutrophils % % Lymphocytes % % Monocytes % % Eosinophils % % Basophils % % Neutrophils # (1.6-8.9) K/mcL Lymphocytes # (0.6-4.6) K/mcL Monocytes # (0.0-1.3) K/mcL Eosinophils # (0.0-0.6) K/mcL Basophils # (0.0-0.2) K/mcL PT (9.4-12.1) Seconds INR APTT (26.0-36.0) Seconds Sodium (136-145) mEq/L Potassium (3.5-5.1) mEq/L Chloride (98-107) mEq/L Carbon Dioxide (23-29) mEq/L BUN (6-20) mg/dL Creatinine (0.70-1.30) mg/dL Est GFR ( Amer) (> 60) Est GFR (Non-Af Amer) (> 60) BUN/Creatinine Ratio (6-26) Glucose (70-105) mg/dL Calculated Osmolality (280-300) Lactic Acid 0.7 (0.5-2.2) mmol/L Calcium (8.6-10.3) mg/dL Total Bilirubin (0.3-1.0) mg/dL Direct Bilirubin (0.0-0.2) mg/dL Indirect Bilirubin (0.0-1.2) mg/dL AST (13-39) Units/L ALT (7-52) Units/L Alkaline Phosphatase (34-104) Units/L Troponin I (< 0.04) ng/mL B-Natriuretic Peptide 1128 H (Less than 100) pg/mL Serum Total Protein (6.4-8.9) g/dL Albumin (3.5-5.7) g/dL Globulin (2.4-3.5) g/dL Albumin/Globulin Ratio (1.1-2.2) Attestation Statement - Attestation Attestation: I reviewed the residents documentation and agree with the residents assessment and plan of care. I have personally had face to face time with the patient. (Brief History, Brief Exam, and MDM) I personally supervised and was present for the porter/critical portions of the following procedures completed by the resident: EKG 48 year old male presents to the ED with complaints of dyspnea and hypoxia and is a dialysis patient on MWF but only recieved a partial dilaysis therapy on Saturday. Danyanet otherwise appear fluid overloaded and arrived hypoxic and was placed on 5LNC and was doing well but then became afibrvr and hypoxic again and is now on bipap and has imprvoed greatly. cXR shows severe pulmonary edema and and we will continue bipap therpay and may consider nitro SL, although he does not otherwise urinate. He will require dilaysis today.
[2019-06-22] MEDS ORDERED: Nitroglycerin 0.4 MG TAB.SUBL SL STA (04:22)
--- NOTE | 2019-06-22 06:20 | Internal Med History&Physical ---
Date of Encounter: 06/22/19 Time of Encounter: 06:03 Internal Medicine - H&P: HPI Chief complaint: shortness of breath and pain Admitted From: Home Plans for Post Hospital Care: Home History of present illness: Mr. Anderson is a 48 year old male with past medical history of end-stage renal disease on dialysis Saturday and Saturday atrial fibrillation on diltiazem, mild to moderate mitral regurg, hyperlipidemia, HFpEF, pulmonary hypertension presented to the ED for increased shortness of breath and insomnia. face to face encounter at 5am. Patient reported has been having nausea for over a week in addition to shortness of breath progressively occurs intermittently improves with no alleviating or exacerbating factor. Patient reported today has gone worse and no association with fever, chills, chest pain, abdominal pain, diarrhea. Patient has not missed dialysis and was able to attend on Saturday but only completed half a session. Patient also had an appointment with his PCP on Saturday but did not attend due to being 60 mile away and no support system this week due to family members being on vacation. Patient has not slept for the past 4 days. Patient reported easily able to fall asleep but cannot last long the most is 20 minutes. Patient reports that he has not had a sleep study done due to losing his insurance. Patient also admitted to starting smoking in the past 2 months after quitting for 8 months. CODE STATUS reviewed and patient is full code. Reviewed patient's past medical, surgical, family and social history. Family history of diabetes. Last surgery pericardial window few years back. Past Med Surg Social Fam HX - Past Medical History Medical history: atrial fibrillation, CHF, dialysis, GERD, hyperlipidemia, renal disease, other Additional medical history: Chronic pain Psychiatric history: anxiety - Past Surgical History Surgical History: other Additional surgical history: Pericardial window. dialysis shunt to right upper arm. Kidney surgery - Social History Smoking Status: Former smoker Smokeless Tobacco Status: No Alcohol use: none Drug use: none - Family History Father Living Status: Still Living Hx Family Endocrine Disorder: Yes Mother Living Status: Still Living Hx Family Cardiac Disorders: Yes (hld) Internal Medicine - H&P: Meds ALPRAZolam [Xanax 0.5 MG Tablet] 0.5 mg PO TID PRN 05/02/15 [History] Oxycodone HCl 15 mg PO Q6H PRN 05/02/15 [History] Omeprazole [PriLOSEC] 20 mg PO BID 08/13/18 [History] Renal Vitamin [Renal Caps Softgel] 1 cap PO DAILY 08/13/18 [History] traZODone [TraZODone] 75 mg PO HS 08/13/18 [History] Ipratropium/Albuterol Neb [Duoneb] 3 ml IH [id number] PRN #60 inhsol 08/15/18 [Rx] Ipratropium/Albuterol Sulfate [Combivent Respimat 20-100 Mcg] 1 puff IH Q6H PRN 12/16/18 [History] Sevelamer [Renvela] 1,600 mg PO TIDWM 12/16/18 [History] rOPINIRole [Requip] 1 mg PO HS 12/16/18 [History] Folic Acid/Vit B Complex and C [Dialyvite Tablet] 1 tab PO DAILY 01/20/19 [History] Diltiazem CD (24hr) [Cardizem CD] 240 mg PO DAILY 06/22/19 [History] Allergy/AdvReac Type Severity Reaction Status Date / Time No Known Allergies Allergy Verified 01/20/19 20:23 All Systems PM: A 10-system review of systems was performed and is negative for pertinent findings except as documented above in the HPI. Review of systems: General: No unintentional weightloss, No fever Head: No headahce, No injury. Ears: No discharge, No earache Eyes: No drainage, No eye pain Mouth and Throat: No new ulcers, No pain Nose and Sinus: No new congestion, No pain, Respiratory: No cough, No sputum production, No dyspnea Cardiovascular: No chest pain, No palpitations. Gastrointestinal: + nausea, No vomiting. No abdominal pain, + dry heaves Genital Tract: No discharge, No pain Urinary Tract: No dysuria, No discharge. MSK: +joint pain, No new/worsening muscle ache. Endocrine: No cold intolerance, No polyuria Psychological: No suicidal, No homocidal ideation. - Constitutional Vitals: Temp Pulse Resp BP Pulse Ox 97.7 F 139 30 116/88 100 06/22/19 01:03 06/22/19 04:45 06/22/19 04:45 06/22/19 04:45 06/22/19 04:45 Exam: General Appearance: Appearing older than age, malnourished in mild acute distress. Head: Atraumatic normocephalic Skin: Normal texture, normal turgor, warm, dry. Eyes: Conjunctivae pale with no erythema, drainage, or ulcers. Anicteric. Neck: No Lymphadenopathy in the anterior/posterior cervical chain. No thyromegaly, masses or ulcers. Trachea midline. JVD preset Heart: Tahycardia, grade 3 systolic murmurs. Capillary refill 3 seconds Lungs: mild accessory muscle usage, lungs Bl basilar crackles. Extremities: 1+ pitting edema, No clubbing, No cyanosis. Abdomen: Non-distended, normoactive bowel sounds. non-tender to palpation, no hepatomegally. No guarding. Neuro: AOx3 with no new sensory loss or focal deficits. MSK: Strength 5/5 Upper extremity equal bilaterally. Strength 5/5 Lower extremity equal bilaterally Internal Med - H&P Results - Labs CBC & Chem 7: 06/22/19 02:00 06/22/19 02:00 Labs: Short CBC 06/22/19 Range/Units 02:00 WBC 8.6 (4.3-11.1) K/mcL Hgb 10.6 L (12.9-16.9) g/dL Hct 32.2 L (37.5-50.1) % Plt Count 113 L (140-400) K/mcL Neutrophils # 6.7 (1.6-8.9) K/mcL BMP 06/22/19 02:00 Sodium 136 Potassium 4.9 Chloride 95 L Carbon Dioxide 22 L BUN 66 H Creatinine 11.85 H Glucose 94 Calcium 10.1 Cardiac Enzymes 06/22/19 Range/Units 02:00 Troponin I 0.03 (< 0.04) ng/mL Liver Function 06/22/19 Range/Units 02:00 Total Bilirubin 1.0 (0.3-1.0) mg/dL Direct Bilirubin 0.2 (0.0-0.2) mg/dL AST 8 L (13-39) Units/L ALT 10 (7-52) Units/L Alkaline Phosphatase 65 (34-104) Units/L Albumin 4.1 (3.5-5.7) g/dL - Impressions ITS Impressions Chest X-Ray 06/22/19 01:31 IMPRESSION: Severe perihilar predominant pulmonary edema. Equivocal for bilateral effusions. D/ / Juan Antonio Joya / Juan Antonio Joya Interpreting Provider: Juan Antonio Joya - Summary of Assessment and Plan Summary of Assessment and Plan: 1.Acute hypoxic on chronic hypoxic respiratory failure: Etiologies include decompensated HFpEF, atrial fibrillation, pulm HTN and s uspected pulmonary embolism Baseline is 4 L daily and currently on 7 liters responding satting in the 90s. EKG reviewed. ABG, CTA ordered. Consulted nephrology for CVVHD. Cardiology consulted for concern of valvular A. fib and the presence of mitral regurg with evaluation if patient would benefit from warfarin therapy. 2.Decompensated HFpEF: complaint with dialysis,(was able to do only half a session on saturday) but likely not diet. Nephrology and cardiology consultation. 3.Uncontrolled atrial fibrillation: Unclear if valvular- MR present. Elevated chadsvasc, ESRD and elevated BMI will need warfarin. Patient denied hx of bleeding as complication from that and have been taking for 8 years but was stopped for no known reason per the patient. Unresponsive to compliance with home oral diltiazem. Metoprolol IV given. Diltiazem drip ordered if fails to respond. 4.Pulmonary hypertension: Likely grade 2. Sleep study was not performed outpatient due to losing insurance for no apparent reason(unknown to patient) last echo on 12/2018. 5.Chronic pain: Palliative care consultation Chronic medical disease: End-stage renal disease: Nephrology consultation for CVVHD Normocytic anemia: Likely secondary to CKD. Iron panel ordered DVT prophylaxis: Heparin Dispo: >2 day stay - Time Spent With Patient Total time spent is greater than 40 minutes 50% in coordination of care (as documented) at patient's floor/unit and/or counseling patient: Greater than 35 minutes
[2019-06-22] MEDS ORDERED: *HR* Metoprolol 5 MG/5 ML VIAL IVP ONE (06:22)
[2019-06-22] MEDS ORDERED: Isovue-370 500 ML BOTTLE IVP ONE (06:32)
[2019-06-22] MEDS ORDERED: Naloxone 0.4 MG/ML INJ IVP PRN (06:44)
[2019-06-22] MEDS ORDERED: Ondansetron ODT 4 MG TAB.RAPDIS SL PRN (06:44)
[2019-06-22] MEDS ORDERED: Ipratropium/Albuterol Neb 3 ML IH PRN (06:56)
--- NOTE | 2019-06-22 07:09 | Electrocardiograph Report ---
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
--- NOTE | 2019-06-22 07:09 | Electrocardiograph Report ---
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
[2019-06-22] MEDS: Diltiazem CD (24hr) 240 MG CAPSULE PO SCH (07:33)
[2019-06-22] MEDS: Nicotine 21 MG PATCH.TD24 TD SCH (07:33)
[2019-06-22] MEDS: Renal Vitamin 1 CAP CAPSULE PO SCH (07:33)
[2019-06-22] MEDS: *HR* OxyCODONE Immed Rel 15 MG TABLET PO PRN ×3 (07:41→21:02)
[2019-06-22] MEDS ORDERED: 0.9 % Sodium Chloride 1,000 ML ONE (08:01)
--- NOTE | 2019-06-22 08:19 | Event Note ---
Date of Encounter: 06/22/19 Time of Encounter: 08:19 ESRD on HD MWF, HFpEF, PH, A-Fib not on AC, COPD on 4L, here w SOB, hypoxia, tachycardia, elevated BNP, CXR w congestion/edema, suggestive of acute on chronic hypoxic respiratory failure and A-Fib RVR 2/2 acute on chronic PH and HFpEF requiring HD for fluid removal. S Patient in no distress at time of my visit. Denies CP or resting SOB. O Exam without significant pedal edema, does have bibasilar crackles, and is currently on 5L oxymask satting 89-94% (no longer on bipap) A/P A-Fib RVR: metoprolol 5 mg ivp x3 doses prn HR>120, and if unable to slow with metoprolol or HD can resume dilt gtt, cardio following Volume overload (acute on chronic PH and HFpEF): Neph consulted, plan for HD Acute on chronic hypoxic respiratory failure: weaned from bipap to oxymask, continue weaning after HD
[2019-06-22] MEDS ORDERED: Diltiazem CD (24hr) 240 MG CAPSULE PO SCH (09:00)
[2019-06-22] MEDS ORDERED: 0.9 % Sodium Chloride 250 ML IVC PRN (09:06)
[2019-06-22] MEDS ORDERED: 0.9 % Sodium Chloride 1,000 ML PRIME SCH (09:15)
[2019-06-22] MEDS ORDERED: *HR* Metoprolol 5 MG/5 ML VIAL IVP PRN (09:23)
--- NOTE | 2019-06-22 10:10 | Nephrology Consult Note ---
Date of Encounter: 06/22/19 Time of Encounter: 10:09 Assessment and Plan (1) ESRD (end stage renal disease) on dialysis Current Visit: No Status: Chronic 48M with a significant past medical of ESRD on dialysis Saturday presents with shortness of breath and is found to have a chest x-ray showing significant pulmonary edema. Last dialysis session Saturday which patient was only able to complete half of due to fatigue The patient states he has been taking all of his medications as prescribed -Hemodialysis performed today with ultrafiltration of 4-5 L -Fluid restriction of 1 L per day -Renal diet -Renal dosing of all medications -Continuation of sevelamer 1600 mg TID (2) Acute on chronic respiratory failure with hypoxemia Current Visit: No Status: Resolved Pt was requiring BiPAP, but is currently on 5L NC with good oxygenation which is close to pts baseline of 4L NC at home -HD today (3) Atrial fibrillation with RVR Current Visit: No Status: Resolved Cardiology following pt (4) DVT prophylaxis Current Visit: No Status: Acute Heparin subQ History of Present Illness - Reason for Consult Consult date: 06/22/19 end stage renal disease - History of Present Illness 48M with significant PMH of ESRD on dialysis Saturday, atrial fibrillation, mitral regurgitation, HFpEF, pulmonary hypertension presented to the ED for increasing shortness of breath and trouble sleeping over the past week. Patient states he has also been having some nausea but no vomiting. Patient's last dialysis session was on Saturday which she was able to attend, but was only able to complete half of the session. Patient an appointment with his primary doctor last week was unable to make it due to lack of ride and was not able to get refills on some of his medications. Patient states that he did not have his medications to help him with his sleep and has not been able to sleep consistently since that time. Vital signs on admission of temperature 97.7, pulse of 101, respiratory rate of 20, blood pressure 135/99, and O2 saturation of 94% on 6 L via nasal cannula (up from pts baseline of 4L NC). Patient's initial labs significant for H&H of 10.6 and 32.2 with a platelet count of 113, which appear close to patient's baseline, BUN and creatinine of 66 and 11.85 with a GFR of 5, and a BNP of 1128. Chest x- ray with severe perihilar predominant pulmonary edema. Past Med Surg Social Fam HX - Past Medical History Medical history: atrial fibrillation, CHF, dialysis, GERD, hyperlipidemia, renal disease, other Additional medical history: Chronic pain Psychiatric history: anxiety - Past Surgical History Surgical History: other Additional surgical history: Pericardial window. dialysis shunt to right upper arm. Kidney surgery - Social History Smoking Status: Current every day smoker Smokeless Tobacco Status: No Alcohol use: none Drug use: none - Family History Father Living Status: Still Living Hx Family Endocrine Disorder: Yes Mother Living Status: Still Living Hx Family Cardiac Disorders: Yes (hld) Medications and Allergies ALPRAZolam [Xanax 0.5 MG Tablet] 0.5 mg PO TID PRN 05/02/15 [History] Oxycodone HCl 15 mg PO Q6H PRN 05/02/15 [History] Omeprazole [PriLOSEC] 20 mg PO BID 08/13/18 [History] Renal Vitamin [Renal Caps Softgel] 1 cap PO DAILY 08/13/18 [History] traZODone [TraZODone] 75 mg PO HS 08/13/18 [History] Ipratropium/Albuterol Neb [Duoneb] 3 ml IH [id number] PRN #60 inhsol 08/15/18 [Rx] Ipratropium/Albuterol Sulfate [Combivent Respimat 20-100 Mcg] 1 puff IH Q6H PRN 12/16/18 [History] Sevelamer [Renvela] 1,600 mg PO TIDWM 12/16/18 [History] rOPINIRole [Requip] 1 mg PO HS 12/16/18 [History] Folic Acid/Vit B Complex and C [Dialyvite Tablet] 1 tab PO DAILY 01/20/19 [History] Diltiazem CD (24hr) [Cardizem CD] 240 mg PO DAILY 06/22/19 [History] Allergy/AdvReac Type Severity Reaction Status Date / Time No Known Allergies Allergy Verified 01/20/19 20:23 Review of Systems Constitutional: fatigue, no chills, no fever(s) Nose, mouth and throat: no dizziness, no headache(s) Cardiovascular: dyspnea, no chest pain, no leg edema Respiratory: dyspnea, no cough Gastrointestinal: no abdominal pain, no diarrhea, no nausea, no vomiting Integumentary: no erythema, no rash Neurological: no dizziness, no headache(s), no loss of vision Endocrine: fatigue Hematologic/Lymphatic: no easy bleeding, no easy bruising Exam - Vital Signs Vital signs: Initial Vital Signs Temp Pulse Resp BP Pulse Ox 97.7 F 101 20 135/99 94 06/22/19 01:03 06/22/19 01:03 06/22/19 01:03 06/22/19 01:03 06/22/19 01:03 Vital Signs - Last 8 Hours Temp Pulse Resp BP Pulse Ox 06/22/19 07:23 94 06/22/19 07:18 98.1 F 129 20 128/93 89 06/22/19 04:45 139 30 116/88 100 06/22/19 04:00 133 24 136/110 97 06/22/19 03:22 26 99 06/22/19 03:09 117 29 139/97 97 06/22/19 02:31 20 92 Intake and Output 06/21/19 06/22/19 06/22/19 23:59 07:59 15:59 Intake Total 120 / 360 240 / 360 Balance 120 / 360 240 / 360 Intake: Oral 120 / 360 240 / 360 Other: Meal Breakfast Percent of Meal Consumed 100% Weight 231 kg Patient Weight 06/22/19 23:59 Weight 231 kg Results - Lab Results 06/22/19 02:00 06/22/19 02:00 Most recent lab results 06/22/19 02:00 Calcium 10.1 Consult Discharge Plan - Plan Referrals: Roldan Rose Jr [Non-Partnered Physician] - 07/03/19 11:20 am
--- NOTE | 2019-06-22 11:14 | Cardiology Consult Note ---
<AbdonLeonarda J - Last Filed: 06/22/19 11:41> Date of Encounter: 06/22/19 Time of Encounter: 09:30 Assessment and Plan (1) Atrial fibrillation with rapid ventricular response Current Visit: No Status: Acute Per cardiology: -A.fib RVR in the setting of ESRD, diastolic CHF, pulmonary edema. -On cardizem CD 240mg. -IV lopressor ordered per primary service. -[id number] score 2 (CHF, HTN). Not on anticoagulation due to previous significa nt bleeding with dialysis. Patient is educated and aware of increased risk of CVA/embolic event. -Severe pulmonary edema noted on chest-ray. Plan for HD today. -Agree with IV lopressor. -Anticipate HR will improve as clinical condition improves. -Will resume home aspirin. (2) Diastolic CHF Current Visit: Yes Status: Chronic Per cardiology: -Known diastolic CHF, reports NYHA class III symptoms. -TTE 12/2018 with LVEF 50-55%, mildly dilated LV, mildly dilated RV, mild RV hypokinesis, moderately calcified AV leaflets, mild , mild-moderate MR, mild TR, moderate PH, no SWMA. -BNP 1128. -Chest x-ray with severe pulmonary edema. -Of note, patient is ESRD on HD and does not make urine. -Volume management per nephrology. Qualifiers: Heart failure chronicity: acute on chronic Qualified Code(s): I50.33 - Acute on chronic diastolic (congestive) heart failure Discussion w patient/family: The assessment and plan as outlined above was discussed with the patient who expressed understanding and agreement. All questions were answered. Thank you for involving us in the care of your patient. Please call with any questions. Discussed and reviewed with . History of Present Illness Consult date: 06/22/19 Requesting physician: Valerie Ornelas Consult reason: a.fib RVR Chief complaint: shortness of breath History of present illness: Mr. Anderson is a 48 year old male with a relevant past medical history of ESRD on HD, A.fib, HTN, HLD, pulmonary hypertension, diastolic CHF, who presented to [facility] with complaints of shortness of breath. Patient reports he has had issues at dialysis the past couple of sessions. States he was not able to complete dialysis on Saturday. Patient presented to [facility] with complaints of worsening shortness of breath. Cardiology has been consulted for a.fib RVR. Patient denies palpitations, fluttering. Patient reports continued shortness of breath, however mildly improved since admission. Past Med Surg Social Fam HX - Past Medical History Attestation: Yes The following information was validated with the patient. Source: patient, old records reviewed Medical history: atrial fibrillation, CHF, dialysis, GERD, hyperlipidemia, renal disease, other Additional medical history: Chronic pain Psychiatric history: anxiety - Past Surgical History Surgical History: other Additional surgical history: Pericardial window. dialysis shunt to right upper arm. Kidney surgery - Social History Smoking Status: Current every day smoker Smokeless Tobacco Status: No Alcohol use: none Drug use: none - Family History Father Living Status: Still Living Hx Family Endocrine Disorder: Yes Mother Living Status: Still Living Hx Family Cardiac Disorders: Yes (hld) Medications and Allergies Oxycodone HCl 15 mg PO Q6H PRN 05/02/15 [History] Omeprazole [PriLOSEC] 20 mg PO BID 08/13/18 [History] Renal Vitamin [Renal Caps Softgel] 1 cap PO DAILY 08/13/18 [History] traZODone [TraZODone] 75 mg PO HS 08/13/18 [History] Ipratropium/Albuterol Neb [Duoneb] 3 ml IH [id number] PRN #60 inhsol 08/15/18 [Rx] Ipratropium/Albuterol Sulfate [Combivent Respimat 20-100 Mcg] 1 puff IH Q6H PRN 12/16/18 [History] Sevelamer [Renvela] 2,400 mg PO TIDWM 12/16/18 [History] rOPINIRole [Requip] 1 mg PO HS 12/16/18 [History] Folic Acid/Vit B Complex and C [Dialyvite Tablet] 1 tab PO DAILY 01/20/19 [History] Cholecalciferol (Vitamin D3) [Vitamin D3] 1,000 units PO DAILY 06/22/19 [History] dilTIAZem HCl [Diltiazem HCl] 120 mg PO DAILY 06/22/19 [History] Allergy/AdvReac Type Severity Reaction Status Date / Time No Known Allergies Allergy Verified 06/22/19 21:04 All Systems Review: The remainder of the systems were reviewed and are negative - Cardiovascular Cardiovascular: as per HPI, dyspnea at rest, dyspnea on exertion Physical Examination Vital Signs, Last 4 Hours Temp Pulse Resp BP Pulse Ox 06/22/19 07:23 94 06/22/19 07:18 98.1 F 129 20 128/93 89 General: Conversant, Other (Mild conversational dyspnea. ) HEENT: Atraumatic, Normocephaly, Mucus Membranes Moist Neck: No JVD, Normal carotid pulses Cardiac: Normal S1 and S2, No Murmur, Other (Irregularly irregular, tachycardic. ) Lungs: Normal Breath Sounds, No Wheeze, Rales, Rhonchi Neuro: Alert and responsive, No focal deficits noted Abdomen: Soft, Non-Tender Skin: No rashes noted on visualized skin, Other (Right arm fistula noted. ) Musculoskeletal: No Chest Wall Tenderness Extremities: No Clubbing, No Cyanosis, No Edema, Normal Pulses Results 06/22/19 02:00 06/22/19 02:00 Lab Results Impressions Chest X-Ray 06/22/19 01:31 IMPRESSION: Severe perihilar predominant pulmonary edema. Equivocal for bilateral effusions. D/ / Juan Antonio Joya / Juan Antonio Joya Interpreting Provider: Juan Antonio Joya Active Medications Albuterol/Ipratropium (Duoneb) 3 ml IH [id number] PRN PRN Reason: Wheezing Stop: 12/22/19 06:57 Diltiazem HCl (Cardizem Cd) 240 mg PO DAILY JENNY Stop: 12/22/19 07:01 Last Admin: 06/22/19 07:33 Dose: 240 mg Documented by: Heparin Sodium (Porcine) (Heparin) 5,000 unit SQ Q8HCO JENNY Stop: 12/22/19 14:01 Sodium Chloride (0.9 % Sodium Chloride) 250 mls @ 937.5 mls/hr IVC .Q16M PRN PRN Reason: Hypotension Stop: 12/22/19 09:07 Sodium Chloride (0.9 % Sodium Chloride) 1,000 mls @ 0 mls/hr PRIME .Q0M JENNY Stop: 12/22/19 09:16 Metoprolol Tartrate (Lopressor) 5 mg IVP Q5M PRN PRN Reason: Hypertension Naloxone HCl (Narcan) 0.4 mg IVP Q2MPRN PRN PRN Reason: SEE COMMENTS Stop: 12/22/19 06:45 Nicotine (Nicoderm) 21 mg TD DAILY [facility] Stop: 12/22/19 09:01 Last Admin: 06/22/19 07:33 Dose: 21 mg Documented by: Omeprazole (Prilosec) 20 mg PO BIDAC [facility]; Protocol Stop: 12/22/19 09:01 Last Admin: 06/22/19 07:41 Dose: 20 mg Documented by: Ondansetron HCl (Zofran Odt) 4 mg SL Q8HR PRN PRN Reason: Nausea And Vomiting Stop: 12/22/19 06:45 Oxycodone HCl (Roxicodone) 15 mg PO Q6HR PRN; Protocol PRN Reason: Severe Pain Stop: 12/22/19 06:57 Last Admin: 06/22/19 07:41 Dose: 15 mg Documented by: Ropinirole HCl (Requip) 1 mg PO HS [facility] Stop: 12/22/19 21:01 Sevelamer HCl (Renvela) 1,600 mg PO TIDWM JENNY Stop: 12/22/19 08:01 Last Admin: 06/22/19 07:41 Dose: 1,600 mg Documented by: Trazodone HCl (Trazodone) 75 mg PO HS [facility] Stop: 12/22/19 21:01 Vitamin B Complex/Vit C/Folic Acid (Renal Caps Softgel) 1 cap PO DAILY JENNY Stop: 12/22/19 09:01 Last Admin: 06/22/19 07:33 Dose: 1 cap Documented by: Laboratory Tests 06/22/19 06/22/19 06/22/19 02:00 02:00 02:00 Hgb 10.6 L Plt Count 113 L Troponin I 0.03 B-Natriuretic Peptide 1128 H 06/22/19 07:12 Hgb Plt Count Troponin I 0.03 B-Natriuretic Peptide - Imaging and Cardiology Chest Xray: report reviewed Echo: report reviewed - EKG Interpretation EKG results cardiology: personally reviewed (ECG with a.fib RVR, HR 135.), other (Telemetry reviewed with average HR previous 12 hours noted to be 139, a.fib RVR.) Consult Discharge Plan - Plan Referrals: Roldan Rose Jr [Non-Partnered Physician] - 07/03/19 11:20 am <Luis Hawk - Last Filed: 06/22/19 21:24> Date of Encounter: 06/22/19 - Attending Attestation I have personally performed a face to face evaluation on this patient. I have reviewed and agree with the documented findings and care plan as documented by the LEAD SOFTWARE TESTER. History and Exam by me shows: Patient with known history of atrial fibrillation, admitted with A. fib with RVR. Also fluid overloaded. Recommend adequate dialysis, and continue Cardizem. Not on chronic anticoagulation due to bleeding complications in the past Thanks for the consult, please call with questions. Luis Hawk MD [facility] Assessment and Plan Discussion w patient/family: The assessment and plan as outlined above was discussed with the patient and/or family members who expressed understanding and agreement. All questions were answered. Thank you for involving us in the care of your patient. Please call with any questions. History of Present Illness History of present illness: Mr. Anderson is a 48 year old male All Systems Review: The remainder of the systems were reviewed and are negative Physical Examination Vital Signs, Last 4 Hours Temp Pulse Resp BP Pulse Ox 06/22/19 20:04 20 96 06/22/19 19:49 93 06/22/19 19:42 98.3 F 114 16 110/99 96 Results 06/22/19 02:00 06/22/19 02:00 Lab Results 06/22/19 06/22/19 06/22/19 02:00 02:00 02:00 WBC 8.6 Hgb 10.6 L Hct 32.2 L Plt Count 113 L INR 1.1 APTT 33.5 Sodium 136 Potassium 4.9 Chloride 95 L Carbon Dioxide 22 L BUN 66 H Creatinine 11.85 H Glucose 94 Calcium 10.1 Total Bilirubin 1.0 AST 8 L ALT 10 Alkaline Phosphatase 65 Troponin I 0.03 B-Natriuretic Peptide 06/22/19 06/22/19 06/22/19 02:00 07:12 12:53 WBC Hgb Hct Plt Count INR APTT Sodium Potassium Chloride Carbon Dioxide BUN Creatinine Glucose Calcium Total Bilirubin AST ALT Alkaline Phosphatase Troponin I 0.03 0.03 B-Natriuretic Peptide 1128 H
[2019-06-22] MEDS: Aspirin Enteric Coated 81 MG Tablet PO SCH (16:05)
[2019-06-22] MEDS: *HR* Heparin 5,000 UNIT/ML VIAL SQ SCH ×2 (16:11→23:27)
[2019-06-22] MEDS ORDERED: Levalbuterol Neb 1.25 MG/3 ML ONE (20:01)
[2019-06-22] MEDS: Levalbuterol Neb 1.25 MG/3 ML IH PRN (20:04)
[2019-06-22] MEDS ORDERED: traZODone 50 MG TABLET PO SCH (21:00)
[2019-06-22] MEDS ORDERED: rOPINIRole 1 MG TABLET PO SCH (21:00)
[2019-06-23 02:09] LABS: Basophils % 0.1 %; Eosinophils % 0.1 %; Immature Granulocytes % 0.5 % (0-4); Immature Reticulocyte % 11.7 % (11.0-38.0); Lymphocytes # 0.6 K/mcL (0.6-4.6); Mean Corpuscular HGB Conc 32.4 g/dL (31.6-35.5); Mean Corpuscular Hemoglobin 31.8 pg (28.0-33.3); Mean Corpuscular Volume 98.3 fL (83.0-100.0); Monocytes # 0.5 K/mcL (0.0-1.3); Monocytes % 6.7 %; Neutrophils # 6.6 K/mcL (1.6-8.9); Platelet Count 131 K/mcL (140-400); Red Blood Count 3.46 M/mcL (4.19-5.50); Red Cell Distribution Width 14.6 % (11.5-14.5); Retculocyte # 0.07 M/mcL (0.05-0.10); Reticulocyte % 1.9 % (1.6-2.8); Segmented Neutrophils % 84.6 %; White Blood Count 7.8 K/mcL (4.3-11.1)
[2019-06-23 02:18] LABS: INR 1.1
[2019-06-23 02:28] LABS: Chol/HDL Ratio 3.6 (0-4.9); Magnesium 2.3 mg/dL (1.6-2.6); Phosphorous 6.3 mg/dL (2.7-4.5)
[2019-06-23 02:40] LABS: Thyroid Stimulating Hormone 0.887 mcIU/mL (0.340-5.600)
[2019-06-23] MEDS: *HR* Heparin 5,000 UNIT/ML VIAL SQ SCH ×2 (05:48→12:32)
[2019-06-23] MEDS: Levalbuterol Neb 1.25 MG/3 ML IH PRN (06:18)
[2019-06-23] MEDS: *HR* OxyCODONE Immed Rel 15 MG TABLET PO PRN ×2 (06:27→12:32)
[2019-06-23] MEDS ORDERED: 0.9 % Sodium Chloride 250 ML IVC PRN (07:37)
[2019-06-23] MEDS: Nicotine 21 MG PATCH.TD24 TD SCH (07:45)
[2019-06-23] MEDS: Diltiazem CD (24hr) 240 MG CAPSULE PO SCH (07:45)
[2019-06-23] MEDS ORDERED: 0.9 % Sodium Chloride 1,000 ML PRIME SCH (07:45)
[2019-06-23] MEDS: Aspirin Enteric Coated 81 MG Tablet PO SCH (07:45)
[2019-06-23] MEDS: Renal Vitamin 1 CAP CAPSULE PO SCH (07:45)
[2019-06-23] MEDS ORDERED: Metoprolol XL (24 HR) Succ 25 MG TAB.ER.24H PO SCH (09:00)
--- NOTE | 2019-06-23 09:05 | Nephrology Progress Note ---
Date of Encounter: 06/23/19 Time of Encounter: 09:03 - Assessment and Plan (1) ESRD (end stage renal disease) on dialysis Current Visit: No Status: Chronic 48M with a significant past medical of ESRD on dialysis Saturday presents with shortness of breath and is found to have a chest x-ray showing significant pulmonary edema. Last dialysis session Saturday which patient was only able to complete half of due to fatigue The patient states he has been taking all of his medications as prescribed HD on 06/22 with 4 L taken off -HD today with goal of ultrafiltration of 4 L -Fluid restriction of 1 L per day -Renal diet -Renal dosing of all medications -Continuation of sevelamer 1600 mg TID (2) Acute on chronic respiratory failure with hypoxemia Current Visit: No Status: Resolved Pt was requiring BiPAP, but is currently on 5L NC with good oxygenation which is close to pts baseline of 4L NC at home CXR from 06/22/19 with severe perihilar predominant pulmonary edema and bilateral effusions. HD 06/22/19 with ultrafiltration of 4 L -HD again today with ultrafiltration goal of 4 L (3) Hyperphosphatemia Current Visit: Yes Status: Acute Lab results from 06/23 significant for phosphorus of 6.3 The patient states she is unsure if he was given phosphorus binders yesterday -HD today -Continue Renvela 1600 mg TID (4) Atrial fibrillation with RVR Current Visit: No Status: Resolved Cardiology following patient (5) DVT prophylaxis Current Visit: No Status: Acute Heparin subcutaneous Subjective Interval history: Patient states he is feeling pretty well today. Patient states he is much improved following dialysis yesterday. Patient is complaining of some cough with sputum and states he has been taking Mucinex which has helped with symptoms. Patient denies abdominal pain, chest pain, nausea, vomiting, diarrhea, fever, chills, or shortness of breath. Objective - Vital Signs Vital signs: Vital Signs Temp Pulse Resp BP Pulse Ox 06/23/19 07:48 106 97 06/23/19 07:07 98.0 F 101 18 114/85 95 06/23/19 06:19 18 95 06/23/19 03:29 98.3 F 91 18 120/82 95 06/22/19 23:25 98.0 F 98 20 123/93 98 06/22/19 20:04 20 96 06/22/19 19:49 93 06/22/19 19:42 98.3 F 114 16 110/99 96 06/22/19 16:07 98.2 F 135 20 134/94 94 06/22/19 16:01 98.2 F 18 129/88 06/22/19 15:10 119/81 06/22/19 14:40 125/90 06/22/19 14:25 125/90 06/22/19 14:10 124/83 06/22/19 13:55 130/91 06/22/19 13:40 136/91 06/22/19 13:25 125/88 06/22/19 13:10 132/87 06/22/19 12:55 111/80 06/22/19 12:40 123/82 06/22/19 12:25 124/85 06/22/19 12:10 132/85 06/22/19 11:55 132/89 06/22/19 11:40 118/83 06/22/19 11:25 125/82 06/22/19 11:10 98.8 F 18 124/94 Intake and Output 06/22/19 06/23/19 06/23/19 23:59 07:59 15:59 Intake Total 240 / 1200 480 / 480 Output Total 4995 / 4995 Balance -4755 / -3795 480 / 480 Intake: Oral 240 / 600 480 / 480 Output: Urine 0 / 0 Total Dialysis (HD) Output 4995 / 4995 Other: Meal Dinner Breakfast Percent of Meal Consumed 100% 100% Hemodialysis Net Fluid Removed 4395 (mL) - General Appearance General appearance: Present: chronically ill EENT: Present: PERRL, mucous membranes moist Neck: Present: no thyromegaly, supple Respiratory: Present: clear Cardiology: Present: no edema, irregular rhythm Gastrointestinal: Present: normoactive bowel sounds, no tenderness, no guarding Integumentary: Present: no rash, warm and dry Neurologic: Present: no focal deficit, alert and oriented x3 Musculoskeletal: Present: no deformities, no erythema Psychiatric: Present: mood/affect appropriate, cooperative - Lab 06/23/19 01:50 06/22/19 02:00 Most recent lab results 06/23/19 01:50 Phosphorus 6.3 H Magnesium 2.3 - VTE Documentation of Mechanical Device: Intermittent pneumatic compression device Consult Discharge Plan - Plan Referrals: Roldan Rose Jr [Non-Partnered Physician] - 07/03/19 11:20 am
--- NOTE | 2019-06-23 11:13 | Event Note ---
Date of Encounter: 06/23/19 Time of Encounter: 11:11 - Cardiology Event Note Patient is s/p dialysis yesterday. HR significantly imrpoved post fluid removal. Average HR 102, a.fib. ON BB, CCB. Can further uptitrate as needed. Volume management per nephrology. Cardiology will sign off, re-consult if needed.
--- NOTE | 2019-06-23 12:34 | Discharge Summary ---
- NOTES TO OUTPATIENT PROVIDER Notes to Outpatient Provider: Follow up tomorrow at HD for additional volume removal Date of Encounter: 06/23/19 Time of Encounter: 12:30 Hospital course: Dear Doctors, I recently had the opportunity to care for this patient during their recent hospital stay at [facility]. Riley Anderson is a 48 M w hx ESRD on HD MWF, HFpEF, PH, A-Fib not on AC, who presented at the time of admission with SOB and wt gain. In the ED, patient found to have tachycardia, hypoxia, CXR w vascular congestion, BNP elevated, and wt gain of 10 kg. Admitted for volume management and rate control. In the hospital, Neph was consulted for HD, during which 5L on Saturday were removed. Taken again on Saturday for UF, during which another 4L removed. Afterward, patient feeling much better. His RVR improved with volume removal and initiation of metoprolol. Patient improved faster than expected, and also etiology now felt solely to be reflective of volume overload, and less likely infection and sepsis. He will follow up with regularly scheduled HD tomorrow. Dx: acute on chronic HFpEF and PH, acute on chronic hypoxic respiratory failure, A-Fib RVR Pertinent tests/consults: Neph for HD and UF Follow up: Neph@HD tomorrow Tests pending: none Med changes: new Toprol 25 bid Mental status: awake, fully oriented Code status: Metal Baler spent on discharge: 25 minutes It has been my pleasure participating in this patient's care. Please contact me with any questions or concerns regarding their hospital stay. Sincerely, Usama Sierra MD - Discharge Medications Prescriptions: New Metoprolol XL (24 HR) Succ [Toprol Xl] 25 mg PO BID #60 tab.er.24h Continued Oxycodone HCl 15 mg PO Q6H PRN PRN Reason: Severe Pain Omeprazole [PriLOSEC] 20 mg PO BID Renal Vitamin [Renal Caps Softgel] 1 cap PO DAILY traZODone [TraZODone] 75 mg PO HS Ipratropium/Albuterol Neb [Duoneb] 3 ml IH [id number] PRN #60 inhsol PRN Reason: Wheezing rOPINIRole [Requip] 1 mg PO HS Sevelamer [Renvela] 2,400 mg PO TIDWM Ipratropium/Albuterol Sulfate [Combivent Respimat 20-100 Mcg] 1 puff IH Q6H PRN PRN Reason: Shortness Of Breath Folic Acid/Vit B Complex and C [Dialyvite Tablet] 1 tab PO DAILY Cholecalciferol (Vitamin D3) [Vitamin D3] 1,000 units PO DAILY dilTIAZem HCl [Diltiazem HCl] 120 mg PO DAILY Home Medications: Oxycodone HCl 15 mg PO Q6H PRN 05/02/15 [History] Omeprazole [PriLOSEC] 20 mg PO BID 08/13/18 [History] Renal Vitamin [Renal Caps Softgel] 1 cap PO DAILY 08/13/18 [History] traZODone [TraZODone] 75 mg PO HS 08/13/18 [History] Ipratropium/Albuterol Neb [Duoneb] 3 ml IH [id number] PRN #60 inhsol 08/15/18 [Rx] Ipratropium/Albuterol Sulfate [Combivent Respimat 20-100 Mcg] 1 puff IH Q6H PRN 12/16/18 [History] Sevelamer [Renvela] 2,400 mg PO TIDWM 12/16/18 [History] rOPINIRole [Requip] 1 mg PO HS 12/16/18 [History] Folic Acid/Vit B Complex and C [Dialyvite Tablet] 1 tab PO DAILY 01/20/19 [History] Cholecalciferol (Vitamin D3) [Vitamin D3] 1,000 units PO DAILY 06/22/19 [History] dilTIAZem HCl [Diltiazem HCl] 120 mg PO DAILY 06/22/19 [History] Metoprolol XL (24 HR) Succ [Toprol Xl] 25 mg PO BID #60 tab.er.24h 06/23/19 [Rx] Allergies/Adverse Reactions: Allergy/AdvReac Type Severity Reaction Status Date / Time No Known Allergies Allergy Verified 06/22/19 21:04 Date of admission: 06/22/19 06:44 Primary care physician: PCP NONE Consults: 06/22/19 06:44 Consult to Cardiology [CONS] Routine Comment: Consulting Provider: Cardiology Lizzy Reason for Consult: Uncontrolled Atrial fibrilliation NOT anticoagulated with warfarin (Elevated BMI, elevate chadsvasc and ESRD), HFpEF decompensated in the setting of Pulmonary HTN Grade 2. Call Completed: No Consult to Nephrology [CONS] Routine Consulting Provider: [facility] [place]/ARLETTE/DUNCAN/KAYLIN Reason for Consult: ESRD-MWF, anemia, HFpEF, Call Completed: No Consult to Nutrition [CONS] Routine Comment: Consulting Provider: NUTRITION Reason for Dietary Consult: Other Other:: Severe malnutrition. Consult to Palliative Care [CONS] Routine Comment: Consulting Provider: Palliative Care Lizzy Reason for Consult: ESRD, HFpEF, Afib, has chronic back pain would benefit from Palliative care. Call Completed: No Consult to Physical Therapy [CONS] Routine Comment: Evaluate, develop and implement POC Reason for Consult: Evaluation and treatment. Does patient have active BEDREST order?: No Is patient medically & hemodynamically stable?: Yes Patient assessed for mobility or mobilized this visit?: No 06/22/19 09:15 Consult to Dialysis [CONS] ONCE 06/23/19 07:45 Consult to Dialysis [CONS] ONCE - Constitutional Vitals: Temp Pulse Resp BP Pulse Ox 97.8 F 106 18 131/99 97 06/23/19 09:05 06/23/19 12:00 06/23/19 09:05 06/23/19 09:50 06/23/19 07:48 Exam: General: NAD, good eye contact, chronically ill appearing, appears older than stated age Thoracic: trace bibasilar crackles Cardio: Normal S1 and S2, irregularly irregular rhythm, borderline tachycardia Abdomen: Soft, nontender, nondistended, obese Extremities: Warm, well perfused. DP pulses 2+ b/l. No edema. RUE AVF noted Skin: Intact. No rashes, bruises, or ulcers Neuro: Awake, fully oriented. Speech fluent - Patient Status Disposition: Home, Self-Care Condition: Fair Functional capacity at discharge: independent ambulation Overall status at discharge: patient is progressing back to baseline - Discharge Instructions Follow Up With: Roldan Rose Jr [Non-Partnered Physician] - 07/03/19 11:20 am - Diet and Activity Activity: resume usual activities as tolerated Diet: advance to your usual diet (renal/cardiac, 2L fluid restriction) - VTE Documentation of Mechanical Device: Intermittent pneumatic compression device
[2019-06-23 13:34] VITALS: BP 107/73
== END 2019-06-23 14:21 | disposition home or self-care (01) | DRG 291 ==
LOC: EMEROOARM 00:57 → 2NNU 00:57 → SUATTDRO 06:44
PROVIDERS: ADMIT Family Medicine; ATTEND Internal Medicine

== ENCOUNTER 2019-09-09 09:54 | Inpatient (IN) ==
[2019-09-09] MEDS ORDERED: Ipratropium/Albuterol Neb 3 ML ONE (10:12)
[2019-09-09] MEDS ORDERED: Ipratropium/Albuterol Neb 3 ML IH ONE (10:18)
[2019-09-09 11:12] LABS: INR 1.3
[2019-09-09 11:14] LABS: Activated Partial Thrombo Time 33.6 Seconds (26.0-36.0)
[2019-09-09 11:24] LABS: Albumin 4.7 g/dL (3.5-5.7); Albumin/Globulin Ratio 1.3 (1.1-2.2); Bilirubin,Direct 0.7 mg/dL (0.0-0.2); Bilirubin,Indirect 0.8 mg/dL (0.0-1.0); Bilirubin,Total 1.5 mg/dL (0.3-1.0); Calcium 10.3 mg/dL (8.6-10.3); Globulin 3.7 g/dL (2.4-3.5); Potassium 4.5 mEq/L (3.5-5.1); Total Protein 8.4 g/dL (6.4-8.9)
[2019-09-09 11:27] LABS: Troponin I 0.05 ng/mL (< 0.04)
[2019-09-09 11:41] LABS: Basophils % 0.5 %; Eosinophils % 0.1 %; Hematocrit 34.9 % (37.5-50.1); Hemoglobin 11.2 g/dL (12.9-16.9); Immature Granulocytes % 0.6 % (0-4); Lymphocytes # 0.4 K/mcL (0.6-4.6); Lymphocytes % 5.2 %; Mean Corpuscular HGB Conc 32.1 g/dL (31.6-35.5); Mean Corpuscular Hemoglobin 31.9 pg (28.0-33.3); Mean Corpuscular Volume 99.4 fL (83.0-100.0); Mean Platelet Volume 10.9 fL (9.4-12.4); Monocytes # 0.5 K/mcL (0.0-1.3); Monocytes % 6.1 %; Neutrophils # 7.2 K/mcL (1.6-8.9); Platelet Count 113 K/mcL (140-400); Red Blood Count 3.51 M/mcL (4.19-5.50); Red Cell Distribution Width 14.2 % (11.5-14.5); Segmented Neutrophils % 87.5 %; White Blood Count 8.2 K/mcL (4.3-11.1)
[2019-09-09 12:20] LABS: ABG Base Excess 1 mEq/L (-2 to 3); ABG HCO3 27 mEq/L (21-27); ABG Oxygen Saturation 89 % (95-98); ABG PCO2 47 mmHg (35-45); ABG PH 7.37 pH Units (7.32-7.45); ABG PO2 58 mmHg (85-104); ABG TCO2 28 mEq/L (20-26)
[2019-09-09] MEDS ORDERED: dilTIAZem HCl 60 MG TABLET PO ONE ×2 (13:10)
[2019-09-09] MEDS ORDERED: Metoprolol XL (24 HR) Succ 25 MG TAB.ER.24H PO SCH (13:15)
[2019-09-09] MEDS ORDERED: Naloxone 0.4 MG/ML INJ IVP PRN (14:18)
[2019-09-09] MEDS ORDERED: Ondansetron ODT 4 MG TAB.RAPDIS SL PRN (14:18)
[2019-09-09] MEDS ORDERED: Metoprolol XL (24 HR) Succ 25 MG TAB.ER.24H PO ONE (14:30)
[2019-09-09] MEDS: Budesonide/Formoterol 160/4.5 1 PUFF INH IH SCH ×2 (16:10→21:50)
[2019-09-09] MEDS: Levalbuterol Neb 1.25 MG/3 ML IH SCH ×2 (16:10→21:50)
[2019-09-09] MEDS: *HR* OxyCODONE Immed Rel 15 MG TABLET PO PRN (17:12)
[2019-09-09] MEDS: MethylPREDNISolone 40 MG/ML VIAL IVP SCH (17:12)
[2019-09-09] MEDS: Ipratropium/Albuterol Neb 3 ML IH PRN (18:31)
[2019-09-09] MEDS ORDERED: Acetaminophen IV 1,000 MG/100 ML INFUS..BTL IVPB ONE (19:37)
[2019-09-09 20:10] LABS: Adenovirus Not Detected (Not Detect); Bordetella Pertussis Not Detected (Not Detect); Chlamydophila pneumoniae Not Detected (Not Detect); Coronavirus 229E Not Detected (Not Detect); Coronavirus HKU1 Not Detected (Not Detect); Coronavirus NL63 Not Detected (Not Detect); Coronavirus OC43 Not Detected (Not Detect); Human Metapneumovirus Not Detected (Not Detect); Human Rhinovirus/Enterovirus Not Detected (Not Detect); Influenza A Subtype 2009 H1 Not Detected (Not Detect); Influenza A Untypeable Not Detected (Not Detect); Influenza B Not Detected (Not Detect); Mycoplasma pneumoniae Not Detected (Not Detect); Parainfluenza Virus 1 Not Detected (Not Detect); Parainfluenza Virus 2 Not Detected (Not Detect); Parainfluenza Virus 3 Not Detected (Not Detect); Parainfluenza Virus 4 Not Detected (Not Detect); Respiratory Syncytial Virus DETECTED (Not Detect)
[2019-09-09] MEDS: rOPINIRole 1 MG TABLET PO SCH (20:19)
[2019-09-09] MEDS: Metoprolol XL (24 HR) Succ 25 MG TAB.ER.24H PO SCH (20:19)
[2019-09-09] MEDS: traZODone 50 MG TABLET PO SCH (20:20)
[2019-09-09] MEDS: Ipratropium/Albuterol Neb 3 ML IH SCH (21:49)
[2019-09-10] MEDS: Ipratropium/Albuterol Neb 3 ML IH SCH (00:10)
[2019-09-10] MEDS: Levalbuterol Neb 1.25 MG/3 ML IH SCH ×4 (03:50→22:42)
[2019-09-10] MEDS: *HR* OxyCODONE Immed Rel 15 MG TABLET PO PRN ×3 (04:01→21:16)
[2019-09-10 05:22] LABS: Basophils % 0.2 %; Hematocrit 31.4 % (37.5-50.1); Hemoglobin 9.9 g/dL (12.9-16.9); Lymphocytes # 0.3 K/mcL (0.6-4.6); Lymphocytes % 4.5 %; Mean Corpuscular HGB Conc 31.5 g/dL (31.6-35.5); Mean Corpuscular Hemoglobin 31.6 pg (28.0-33.3); Mean Corpuscular Volume 100.3 fL (83.0-100.0); Mean Platelet Volume 10.9 fL (9.4-12.4); Monocytes # 0.3 K/mcL (0.0-1.3); Monocytes % 4.2 %; Neutrophils # 5.4 K/mcL (1.6-8.9); Red Blood Count 3.13 M/mcL (4.19-5.50); Red Cell Distribution Width 14.2 % (11.5-14.5); Segmented Neutrophils % 90.1 %
[2019-09-10 05:23] LABS: Platelet Count 98 K/mcL (140-400)
[2019-09-10 06:00] LABS: Calcium 9.2 mg/dL (8.6-10.3); Phosphorous 9.8 mg/dL (2.7-4.5); Potassium 5.2 mEq/L (3.5-5.1)
[2019-09-10] MEDS ORDERED: 0.9 % Sodium Chloride 250 ML IVC PRN (07:18)
[2019-09-10] MEDS ORDERED: 0.9 % Sodium Chloride 1,000 ML PRIME SCH (07:30)
[2019-09-10] MEDS: Ipratropium/Albuterol Neb 3 ML IH PRN (07:36)
[2019-09-10] MEDS ORDERED: *HR* Midazolam HCl 2 MG/2 ML VIAL IV ONE (07:39)
[2019-09-10] MEDS ORDERED: *HR* Midazolam HCl 5 MG/5 ML VIAL IVP ONE (07:39)
[2019-09-10] MEDS ORDERED: *HR* Etomidate 40 MG/20 ML VIAL IVP ONE (07:39)
[2019-09-10] MEDS: Diltiazem CD (24hr) 120 MG CAPSULE PO SCH (08:27)
[2019-09-10] MEDS: MethylPREDNISolone 40 MG/ML VIAL IVP SCH (08:27)
[2019-09-10] MEDS: Metoprolol XL (24 HR) Succ 25 MG TAB.ER.24H PO SCH ×2 (08:27→21:17)
[2019-09-10] MEDS: Renal Vitamin 1 CAP CAPSULE PO SCH (08:27)
[2019-09-10] MEDS ORDERED: dilTIAZem HCl 60 MG TABLET PO SCH (09:00)
[2019-09-10] MEDS ORDERED: Levalbuterol Neb 0.63 MG/3 ML IH PRN (09:26)
[2019-09-10] MEDS: Budesonide/Formoterol 160/4.5 1 PUFF INH IH SCH ×2 (10:09→22:42)
[2019-09-10] MEDS: traZODone 50 MG TABLET PO SCH (21:17)
[2019-09-10] MEDS: rOPINIRole 1 MG TABLET PO SCH (21:17)
[2019-09-11] MEDS: Levalbuterol Neb 1.25 MG/3 ML IH SCH ×4 (03:28→22:36)
[2019-09-11 04:32] LABS: Basophils % 0.2 %; Eosinophils % 0.1 %; Hematocrit 35.4 % (37.5-50.1); Hemoglobin 11.3 g/dL (12.9-16.9); Immature Granulocytes % 0.7 % (0-4); Lymphocytes # 0.6 K/mcL (0.6-4.6); Lymphocytes % 6.6 %; Mean Corpuscular HGB Conc 31.9 g/dL (31.6-35.5); Mean Corpuscular Hemoglobin 31.5 pg (28.0-33.3); Mean Corpuscular Volume 98.6 fL (83.0-100.0); Mean Platelet Volume 11.2 fL (9.4-12.4); Monocytes # 0.6 K/mcL (0.0-1.3); Neutrophils # 7.3 K/mcL (1.6-8.9); Platelet Count 125 K/mcL (140-400); Red Blood Count 3.59 M/mcL (4.19-5.50); Red Cell Distribution Width 14.2 % (11.5-14.5); Segmented Neutrophils % 85.4 %; White Blood Count 8.5 K/mcL (4.3-11.1)
[2019-09-11 04:51] LABS: Calcium 9.3 mg/dL (8.6-10.3); Potassium 5.9 mEq/L (3.5-5.1)
[2019-09-11] MEDS ORDERED: 0.9 % Sodium Chloride 2,000 ML ONE (07:06)
[2019-09-11] MEDS ORDERED: *HR* Heparin 10,000 UNIT/10 ML VIAL IV PRN (07:19)
[2019-09-11] MEDS ORDERED: 0.9 % Sodium Chloride 250 ML IVC PRN (07:19)
[2019-09-11] MEDS ORDERED: 0.9 % Sodium Chloride 1,000 ML PRIME SCH (07:30)
[2019-09-11] MEDS: Renal Vitamin 1 CAP CAPSULE PO SCH (07:59)
[2019-09-11] MEDS: predniSONE 20 MG TABLET PO SCH (07:59)
[2019-09-11] MEDS: *HR* OxyCODONE Immed Rel 15 MG TABLET PO PRN (09:43)
[2019-09-11] MEDS ORDERED: Benzonatate 100 MG CAPSULE PO PRN (10:48)
[2019-09-11] MEDS: Budesonide/Formoterol 160/4.5 1 PUFF INH IH SCH ×2 (11:52→22:36)
[2019-09-11 13:19] LABS: Thyroid Stimulating Hormone 1.026 mcIU/mL (0.340-5.600)
[2019-09-11] MEDS: Diltiazem CD (24hr) 120 MG CAPSULE PO SCH (14:41)
[2019-09-11] MEDS: GuaiFENesin Liq 200 MG/10 ML UDC PO SCH ×2 (14:42→17:18)
[2019-09-11] MEDS: Metoprolol XL (24 HR) Succ 25 MG TAB.ER.24H PO SCH (14:42)
[2019-09-11 16:20] LABS: ABG Base Excess 3 mEq/L (-2 to 3); ABG HCO3 31 mEq/L (21-27); ABG Oxygen Saturation 91 % (95-98); ABG PCO2 61 mmHg (35-45); ABG PH 7.31 pH Units (7.32-7.45); ABG PO2 68 mmHg (85-104); ABG TCO2 33 mEq/L (20-26)
[2019-09-11] MEDS ORDERED: 0.9 % Sodium Chloride 250 ML IVC ONE (17:25)
[2019-09-11] MEDS ORDERED: Azithromycin 500 MG in 0.9 % Sodium Chloride 250 ML IVPB SCH (18:00)
[2019-09-11 19:12] LABS: ABG Base Excess 1 mEq/L (-2 to 3); ABG HCO3 32 mEq/L (21-27); ABG Oxygen Saturation 98 % (95-98); ABG PCO2 82 mmHg (35-45); ABG PH 7.19 pH Units (7.32-7.45); ABG PO2 135 mmHg (85-104); ABG TCO2 34 mEq/L (20-26)
[2019-09-11] MEDS ORDERED: *HR* Midazolam HCl 2 MG/2 ML VIAL ONE (22:08)
[2019-09-11] MEDS ORDERED: *HR* Succinylcholine 200 MG/10 ML VIAL IVP ONE (22:08)
[2019-09-11] MEDS ORDERED: *HR* FentaNYL (PF) 100 MCG/2 ML VIAL ONE (22:08)
[2019-09-11] MEDS ORDERED: FentaNYL (PF) 1,000 MCG in 0.9 % Sodium Chloride 80 ML IVC SCH (22:30)
[2019-09-11] MEDS ORDERED: *HR* Etomidate 40 MG/20 ML VIAL IVP ONE (22:30)
[2019-09-11] MEDS: Dexmedetomidine HCl 400 MCG/100 ML MLS IVC SCH (23:00)
[2019-09-11] MEDS ORDERED: *HR* Midazolam HCl 2 MG/2 ML VIAL IVP ONE (23:02)
[2019-09-11] MEDS ORDERED: Dexmedetomidine HCl 400 MCG/100 ML MLS IVC ONE (23:03)
[2019-09-12] MEDS: Metoprolol XL (24 HR) Succ 25 MG TAB.ER.24H PO SCH ×2 (00:30→08:23)
[2019-09-12] MEDS: rOPINIRole 1 MG TABLET PO SCH ×2 (00:30→19:40)
[2019-09-12] MEDS: traZODone 50 MG TABLET PO SCH (00:30)
[2019-09-12] MEDS: Phenylephrine 10 MG in 0.9 % Sodium Chloride 250 ML IVC SCH ×5 (00:31→19:11)
[2019-09-12] MEDS: GuaiFENesin Liq 200 MG/10 ML UDC PO SCH ×2 (00:41→06:48)
[2019-09-12] MEDS: Dexmedetomidine HCl 400 MCG/100 ML MLS IVC SCH ×6 (02:45→23:53)
[2019-09-12] MEDS ORDERED: Acetaminophen IV 1,000 MG/100 ML INFUS..BTL IVPB ONE (03:07)
[2019-09-12 03:23] LABS: Campylobacter by PCR Not detected (Not detect)
[2019-09-12 03:24] LABS: Adenovirus F 40/41 PCR Not detected (Not detect); Astrovirus PCR Not detected (Not detect); C.difficile Toxin A/B Gene PCR DETECTED (Not detect); Cryptosporidium by PCR Not detected (Not detect); Cyclospora cayetanensis PCR Not detected (Not detect); E. coli O157 by PCR Not detected (Not detect); Entamoeba histolytica PCR Not detected (Not detect); Enteroaggregative E.coli(EAEC) Not detected (Not detect); Enteropathogenic E.coli(EPEC) Not detected (Not detect); Enterotoxigenic E.coli (ETEC) Not detected (Not detect); Giardia lamblia PCR Not detected (Not detect); Norovirus GI/GII PCR Not detected (Not detect); Plesiomonas shigelloides PCR Not detected (Not detect); Rotavirus A PCR Not detected (Not detect); Salmonella PCR Not detected (Not detect); Sapovirus PCR Not detected (Not detect); Shig/EnteroinvasiveE coli EIEC Not detected (Not detect); Shigalike tox-prod E coli STEC Not detected (Not detect); Vibrio PCR Not detected (Not detect); Vibrio cholerae PCR Not detected (Not detect); Yersinia enterocolitica PCR Not detected (Not detect)
[2019-09-12] MEDS: Levalbuterol Neb 1.25 MG/3 ML IH SCH ×4 (03:52→22:02)
[2019-09-12] MEDS: Vancomycin Oral Soln 125 MG/2.5 ML UDC PO SCH ×5 (04:06→19:39)
[2019-09-12 05:11] LABS: ABG Base Excess 1 mEq/L (-2 to 3); ABG HCO3 28 mEq/L (21-27); ABG Oxygen Saturation 96 % (95-98); ABG PCO2 55 mmHg (35-45); ABG PH 7.31 pH Units (7.32-7.45); ABG PO2 94 mmHg (85-104); ABG TCO2 29 mEq/L (20-26); Blood Gas Modality ASSIST CONTROL; Blood Gas VT 500 cc
[2019-09-12 05:14] LABS: Basophils % 0.2 %; Hematocrit 35.3 % (37.5-50.1); Hemoglobin 11.3 g/dL (12.9-16.9); Immature Granulocytes % 1.2 % (0-4); Immature Platelets 3.7 % (1.1-6.1); Lymphocytes # 0.9 K/mcL (0.6-4.6); Lymphocytes % 10.8 %; Mean Corpuscular Hemoglobin 31.8 pg (28.0-33.3); Mean Corpuscular Volume 99.4 fL (83.0-100.0); Mean Platelet Volume 10.8 fL (9.4-12.4); Monocytes # 0.7 K/mcL (0.0-1.3); Monocytes % 8.1 %; Neutrophils # 6.6 K/mcL (1.6-8.9); Platelet Count 124 K/mcL (140-400); Red Blood Count 3.55 M/mcL (4.19-5.50); Red Cell Distribution Width 14.7 % (11.5-14.5); Segmented Neutrophils % 79.7 %; White Blood Count 8.3 K/mcL (4.3-11.1)
[2019-09-12 05:17] LABS: Albumin 3.9 g/dL (3.5-5.7); Albumin/Globulin Ratio 1.2 (1.1-2.2); Bilirubin,Total 0.9 mg/dL (0.3-1.0); Globulin 3.3 g/dL (2.4-3.5); Magnesium 2.2 mg/dL (1.6-2.6); Phosphorous 7.4 mg/dL (2.7-4.5); Potassium 5.8 mEq/L (3.5-5.1); Total Protein 7.2 g/dL (6.4-8.9)
[2019-09-12] MEDS ORDERED: levoFLOXacin 500 MG/100 ML 500 MG/100 ML BAG IVPB SCH (06:00)
[2019-09-12] MEDS: Pantoprazole 40 MG VIAL IVP SCH ×2 (06:48→18:30)
[2019-09-12] MEDS ORDERED: Calcium Gluconate 1gm/50mL 1 GM/50 ML BAG IVPB ONE (06:57)
[2019-09-12] MEDS: Diltiazem CD (24hr) 120 MG CAPSULE PO SCH (07:40)
[2019-09-12] MEDS ORDERED: Piperacillin/Tazobactam 3.375 GM in 0.9 % Sodium Chloride Mini Bag 100 ML IVPB SCH (08:00)
[2019-09-12] MEDS ORDERED: 0.9 % Sodium Chloride 250 ML IVC PRN (08:22)
[2019-09-12] MEDS ORDERED: Albumin 25% 25gram/100mL 25 GM/100 ML IV.SOLN IVPB PRN (08:22)
[2019-09-12] MEDS ORDERED: Albumin 25% 25gram/100mL 25 GM/100 ML IV.SOLN IVPB ONE (08:23)
[2019-09-12] MEDS: predniSONE 20 MG TABLET PO SCH (08:23)
[2019-09-12] MEDS: Renal Vitamin 1 CAP CAPSULE PO SCH (08:43)
[2019-09-12] MEDS ORDERED: levoFLOXacin 750 MG/150 ML 750 MG/150 ML BAG IVPB SCH (09:00)
[2019-09-12] MEDS: Budesonide/Formoterol 160/4.5 1 PUFF INH IH SCH ×2 (09:11→22:02)
[2019-09-12] MEDS ORDERED: Artificial Tears SOLN 15 ML BOTTLE BOTH EYES PRN (12:58)
[2019-09-12] MEDS: *HR* Heparin 5,000 UNIT/ML VIAL SQ SCH ×2 (13:29→19:59)
[2019-09-12] MEDS: Artificial Tears SOLN 15 ML BOTTLE BOTH EYES SCH ×3 (16:14→23:56)
[2019-09-12] MEDS: Chlorhexidine Rinse 15 ML MOUTHWASH MM SCH (19:39)
[2019-09-13] MEDS: Levalbuterol Neb 1.25 MG/3 ML IH SCH ×4 (04:10→21:44)
[2019-09-13 04:14] LABS: Basophils % 0.5 %; Eosinophils # 0.2 K/mcL (0.0-0.6); Eosinophils % 3.1 %; Hematocrit 34.4 % (37.5-50.1); Hemoglobin 11.1 g/dL (12.9-16.9); Immature Granulocytes % 0.8 % (0-4); Lymphocytes # 1.4 K/mcL (0.6-4.6); Lymphocytes % 18.6 %; Mean Corpuscular HGB Conc 32.3 g/dL (31.6-35.5); Mean Corpuscular Hemoglobin 31.3 pg (28.0-33.3); Mean Corpuscular Volume 96.9 fL (83.0-100.0); Mean Platelet Volume 10.7 fL (9.4-12.4); Monocytes # 0.6 K/mcL (0.0-1.3); Neutrophils # 5.2 K/mcL (1.6-8.9); Platelet Count 129 K/mcL (140-400); Red Blood Count 3.55 M/mcL (4.19-5.50); Red Cell Distribution Width 14.4 % (11.5-14.5); White Blood Count 7.5 K/mcL (4.3-11.1)
[2019-09-13 04:40] LABS: Calcium 10.2 mg/dL (8.6-10.3); Potassium 3.9 mEq/L (3.5-5.1)
[2019-09-13] MEDS: Artificial Tears SOLN 15 ML BOTTLE BOTH EYES SCH ×5 (04:45→21:30)
[2019-09-13] MEDS: Phenylephrine 10 MG in 0.9 % Sodium Chloride 250 ML IVC SCH ×3 (05:04→18:11)
[2019-09-13 05:12] LABS: ABG Base Excess 2 mEq/L (-2 to 3); ABG HCO3 28 mEq/L (21-27); ABG Oxygen Saturation 96 % (95-98); ABG PCO2 45 mmHg (35-45); ABG PO2 80 mmHg (85-104); ABG TCO2 29 mEq/L (20-26); Blood Gas Modality ASSIST CONTROL; Blood Gas VT 500 cc
[2019-09-13] MEDS: *HR* Heparin 5,000 UNIT/ML VIAL SQ SCH ×3 (05:17→22:15)
[2019-09-13] MEDS: Pantoprazole 40 MG VIAL IVP SCH ×2 (05:17→18:10)
[2019-09-13] MEDS: Dexmedetomidine HCl 400 MCG/100 ML MLS IVC SCH ×2 (05:17→09:51)
[2019-09-13] MEDS: Renal Vitamin 1 CAP CAPSULE PO SCH (07:56)
[2019-09-13] MEDS: Chlorhexidine Rinse 15 ML MOUTHWASH MM SCH ×2 (08:12→21:31)
[2019-09-13] MEDS: Vancomycin Oral Soln 125 MG/2.5 ML UDC PO SCH ×5 (08:12→22:15)
[2019-09-13] MEDS: Budesonide/Formoterol 160/4.5 1 PUFF INH IH SCH ×2 (09:14→21:44)
[2019-09-13] MEDS: *HR* Metoprolol 5 MG/5 ML VIAL IVP SCH ×2 (11:32→15:48)
[2019-09-13] MEDS: rOPINIRole 1 MG TABLET PO SCH (21:31)
[2019-09-14] MEDS: Phenylephrine 10 MG in 0.9 % Sodium Chloride 250 ML IVC SCH (00:18)
[2019-09-14] MEDS: *HR* Metoprolol 5 MG/5 ML VIAL IVP SCH ×3 (00:19→11:17)
[2019-09-14] MEDS: Artificial Tears SOLN 15 ML BOTTLE BOTH EYES SCH ×3 (00:19→08:43)
[2019-09-14] MEDS: Dexmedetomidine HCl 400 MCG/100 ML MLS IVC SCH (02:40)
[2019-09-14] MEDS: Levalbuterol Neb 1.25 MG/3 ML IH SCH ×4 (03:13→22:18)
[2019-09-14 05:24] LABS: Basophils # 0.1 K/mcL (0.0-0.2); Basophils % 0.5 %; Eosinophils # 0.4 K/mcL (0.0-0.6); Hematocrit 32.9 % (37.5-50.1); Hemoglobin 10.8 g/dL (12.9-16.9); Immature Granulocytes % 0.7 % (0-4); Lymphocytes # 1.4 K/mcL (0.6-4.6); Lymphocytes % 15.5 %; Mean Corpuscular HGB Conc 32.8 g/dL (31.6-35.5); Mean Corpuscular Hemoglobin 31.6 pg (28.0-33.3); Mean Corpuscular Volume 96.2 fL (83.0-100.0); Mean Platelet Volume 10.4 fL (9.4-12.4); Monocytes # 0.6 K/mcL (0.0-1.3); Monocytes % 6.9 %; Neutrophils # 6.6 K/mcL (1.6-8.9); Platelet Count 132 K/mcL (140-400); Red Blood Count 3.42 M/mcL (4.19-5.50); Red Cell Distribution Width 14.5 % (11.5-14.5); Segmented Neutrophils % 72.4 %; White Blood Count 9.2 K/mcL (4.3-11.1)
[2019-09-14] MEDS: Pantoprazole 40 MG VIAL IVP SCH (05:24)
[2019-09-14] MEDS: *HR* Heparin 5,000 UNIT/ML VIAL SQ SCH ×3 (05:24→20:51)
[2019-09-14 05:43] LABS: Calcium 9.6 mg/dL (8.6-10.3); Potassium 4.4 mEq/L (3.5-5.1)
[2019-09-14] MEDS ORDERED: 0.9 % Sodium Chloride 250 ML IVC PRN (07:10)
[2019-09-14] MEDS ORDERED: Albumin 25% 25gram/100mL 25 GM/100 ML IV.SOLN IVPB PRN (07:10)
[2019-09-14] MEDS: Renal Vitamin 1 CAP CAPSULE PO SCH (08:50)
[2019-09-14] MEDS: Chlorhexidine Rinse 15 ML MOUTHWASH MM SCH (08:50)
[2019-09-14] MEDS: Vancomycin Oral Soln 125 MG/2.5 ML UDC PO SCH ×4 (08:51→20:51)
[2019-09-14] MEDS ORDERED: Diltiazem CD (24hr) 120 MG CAPSULE PO SCH (09:00)
[2019-09-14] MEDS: Budesonide/Formoterol 160/4.5 1 PUFF INH IH SCH ×2 (10:47→22:17)
[2019-09-14] MEDS: *HR* OxyCODONE Immed Rel 15 MG TABLET PO PRN ×2 (11:25→17:50)
[2019-09-14] MEDS: MetroNIDAZOLE 500 MG/100 ML 500 MG/100 ML BAG IVPB SCH (16:53)
[2019-09-14] MEDS: rOPINIRole 1 MG TABLET PO SCH (20:51)
[2019-09-15] MEDS: MetroNIDAZOLE 500 MG/100 ML 500 MG/100 ML BAG IVPB SCH ×3 (00:39→23:46)
[2019-09-15] MEDS: *HR* OxyCODONE Immed Rel 15 MG TABLET PO PRN ×2 (00:39→06:24)
[2019-09-15] MEDS: Levalbuterol Neb 1.25 MG/3 ML IH SCH ×4 (03:49→22:36)
[2019-09-15 04:44] LABS: Basophils % 0.4 %; Eosinophils # 0.3 K/mcL (0.0-0.6); Eosinophils % 4.4 %; Hematocrit 36.3 % (37.5-50.1); Hemoglobin 12.2 g/dL (12.9-16.9); Immature Granulocytes % 1.2 % (0-4); Lymphocytes # 1.2 K/mcL (0.6-4.6); Lymphocytes % 15.9 %; Mean Corpuscular HGB Conc 33.6 g/dL (31.6-35.5); Mean Corpuscular Hemoglobin 31.8 pg (28.0-33.3); Mean Corpuscular Volume 94.5 fL (83.0-100.0); Mean Platelet Volume 10.3 fL (9.4-12.4); Monocytes # 0.5 K/mcL (0.0-1.3); Neutrophils # 5.5 K/mcL (1.6-8.9); Platelet Count 137 K/mcL (140-400); Red Blood Count 3.84 M/mcL (4.19-5.50); Red Cell Distribution Width 14.2 % (11.5-14.5); Segmented Neutrophils % 71.1 %; White Blood Count 7.8 K/mcL (4.3-11.1)
[2019-09-15 05:00] LABS: Calcium 10.2 mg/dL (8.6-10.3); Potassium 3.6 mEq/L (3.5-5.1)
[2019-09-15] MEDS: *HR* Heparin 5,000 UNIT/ML VIAL SQ SCH ×3 (06:24→21:31)
[2019-09-15] MEDS ORDERED: 0.9 % Sodium Chloride 250 ML IVC PRN ×2 (07:15→08:24)
[2019-09-15] MEDS ORDERED: Acetaminophen 325 MG TABLET PO PRN (08:08)
[2019-09-15] MEDS ORDERED: Benzonatate 100 MG CAPSULE PO PRN (08:24)
[2019-09-15] MEDS ORDERED: Naloxone 0.4 MG/ML INJ IVP PRN (08:24)
[2019-09-15] MEDS ORDERED: 0.9 % Sodium Chloride 1,000 ML PRIME SCH (08:24)
[2019-09-15] MEDS ORDERED: *HR* OxyCODONE Immed Rel 15 MG TABLET PO PRN (08:24)
[2019-09-15] MEDS ORDERED: Metoprolol XL (24 HR) Succ 25 MG TAB.ER.24H PO SCH (09:00)
[2019-09-15] MEDS: Acetaminophen 325 MG TABLET PO PRN (09:24)
[2019-09-15] MEDS: Metoprolol XL (24 HR) Succ 25 MG TAB.ER.24H PO SCH ×2 (09:24→21:32)
[2019-09-15] MEDS: Renal Vitamin 1 CAP CAPSULE PO SCH (09:24)
[2019-09-15] MEDS: Diltiazem CD (24hr) 120 MG CAPSULE PO SCH (09:24)
[2019-09-15] MEDS: Vancomycin Oral Soln 125 MG/2.5 ML UDC PO SCH ×4 (09:25→21:32)
[2019-09-15] MEDS ORDERED: MetroNIDAZOLE 500 MG/100 ML 500 MG/100 ML BAG IVPB ONE (09:35)
[2019-09-15] MEDS: Budesonide/Formoterol 160/4.5 1 PUFF INH IH SCH ×2 (10:41→22:36)
[2019-09-15] MEDS: Albumin 25% 25gram/100mL 25 GM/100 ML IV.SOLN IVPB PRN (14:15)
[2019-09-15] MEDS: rOPINIRole 1 MG TABLET PO SCH (21:32)
[2019-09-15] MEDS: Ondansetron ODT 4 MG TAB.RAPDIS SL PRN (21:37)
[2019-09-16] MEDS: Levalbuterol Neb 1.25 MG/3 ML IH SCH ×4 (04:04→22:54)
[2019-09-16 05:04] LABS: Basophils # 0.1 K/mcL (0.0-0.2); Basophils % 0.9 %; Eosinophils # 0.3 K/mcL (0.0-0.6); Eosinophils % 3.4 %; Hematocrit 41.5 % (37.5-50.1); Hemoglobin 13.2 g/dL (12.9-16.9); Immature Granulocytes % 1.3 % (0-4); Lymphocytes # 1.4 K/mcL (0.6-4.6); Mean Corpuscular HGB Conc 31.8 g/dL (31.6-35.5); Mean Corpuscular Hemoglobin 31.2 pg (28.0-33.3); Mean Corpuscular Volume 98.1 fL (83.0-100.0); Mean Platelet Volume 11.1 fL (9.4-12.4); Monocytes # 0.9 K/mcL (0.0-1.3); Monocytes % 9.4 %; Neutrophils # 6.5 K/mcL (1.6-8.9); Platelet Count 168 K/mcL (140-400); Red Blood Count 4.23 M/mcL (4.19-5.50); Red Cell Distribution Width 14.1 % (11.5-14.5); White Blood Count 9.2 K/mcL (4.3-11.1)
[2019-09-16] MEDS: *HR* Heparin 5,000 UNIT/ML VIAL SQ SCH ×3 (05:05→20:59)
[2019-09-16 05:23] LABS: Calcium 10.9 mg/dL (8.6-10.3); Potassium 3.6 mEq/L (3.5-5.1)
[2019-09-16] MEDS: Ondansetron ODT 4 MG TAB.RAPDIS SL PRN ×2 (05:27→21:06)
[2019-09-16] MEDS ORDERED: 0.9 % Sodium Chloride 250 ML IVC PRN (07:26)
[2019-09-16] MEDS ORDERED: *HR* OxyCODONE Immed Rel 15 MG TABLET PO PRN (08:26)
[2019-09-16] MEDS: Renal Vitamin 1 CAP CAPSULE PO SCH (08:45)
[2019-09-16] MEDS: Vancomycin Oral Soln 125 MG/2.5 ML UDC PO SCH ×4 (08:45→20:58)
[2019-09-16] MEDS: Diltiazem CD (24hr) 120 MG CAPSULE PO SCH (08:45)
[2019-09-16] MEDS: MetroNIDAZOLE 500 MG/100 ML 500 MG/100 ML BAG IVPB SCH ×2 (08:45→15:55)
[2019-09-16] MEDS ORDERED: *HR* OxyCODONE Immed Rel 5 MG TABLET PO ONE (09:06)
[2019-09-16] MEDS: Metoprolol XL (24 HR) Succ 25 MG TAB.ER.24H PO SCH (10:08)
[2019-09-16] MEDS: Budesonide/Formoterol 160/4.5 1 PUFF INH IH SCH ×2 (10:10→22:54)
[2019-09-16] MEDS ORDERED: *HR* Digoxin 0.125 MG TABLET PO SCH (12:57)
[2019-09-16] MEDS ORDERED: 0.9 % Sodium Chloride 500 ML IVC SCH (13:15)
[2019-09-16] MEDS: 0.9 % Sodium Chloride 500 ML IVC SCH (20:58)
[2019-09-16] MEDS: rOPINIRole 1 MG TABLET PO SCH (20:58)
[2019-09-17] MEDS: MetroNIDAZOLE 500 MG/100 ML 500 MG/100 ML BAG IVPB SCH ×3 (00:15→17:11)
[2019-09-17] MEDS: 0.9 % Sodium Chloride 500 ML IVC SCH ×2 (03:21→08:20)
[2019-09-17] MEDS: Levalbuterol Neb 1.25 MG/3 ML IH SCH ×4 (03:52→22:41)
[2019-09-17] MEDS: *HR* Heparin 5,000 UNIT/ML VIAL SQ SCH ×3 (06:03→20:07)
[2019-09-17] MEDS ORDERED: 0.9 % Sodium Chloride 250 ML IVC PRN (07:01)
[2019-09-17] MEDS ORDERED: Albumin 25% 25gram/100mL 25 GM/100 ML IV.SOLN IVPB PRN (07:01)
[2019-09-17 07:53] LABS: Basophils # 0.1 K/mcL (0.0-0.2); Eosinophils # 0.3 K/mcL (0.0-0.6); Eosinophils % 3.9 %; Hematocrit 39.6 % (37.5-50.1); Hemoglobin 12.9 g/dL (12.9-16.9); Immature Granulocytes % 1.7 % (0-4); Lymphocytes # 1.3 K/mcL (0.6-4.6); Lymphocytes % 15.9 %; Mean Corpuscular HGB Conc 32.6 g/dL (31.6-35.5); Mean Corpuscular Hemoglobin 31.2 pg (28.0-33.3); Mean Corpuscular Volume 95.9 fL (83.0-100.0); Mean Platelet Volume 11.2 fL (9.4-12.4); Monocytes # 0.9 K/mcL (0.0-1.3); Monocytes % 11.1 %; Neutrophils # 5.4 K/mcL (1.6-8.9); Platelet Count 154 K/mcL (140-400); Red Blood Count 4.13 M/mcL (4.19-5.50); Red Cell Distribution Width 14.2 % (11.5-14.5); Segmented Neutrophils % 66.4 %; White Blood Count 8.2 K/mcL (4.3-11.1)
[2019-09-17] MEDS: Vancomycin Oral Soln 125 MG/2.5 ML UDC PO SCH ×4 (08:18→20:06)
[2019-09-17] MEDS: Renal Vitamin 1 CAP CAPSULE PO SCH (08:18)
[2019-09-17 08:33] LABS: Calcium 10.5 mg/dL (8.6-10.3); Potassium 4.1 mEq/L (3.5-5.1)
[2019-09-17] MEDS ORDERED: Albumin 25% 25gram/100mL 25 GM/100 ML IV.SOLN ONE (08:52)
[2019-09-17] MEDS ORDERED: Metoprolol XL (24 HR) Succ 25 MG TAB.ER.24H PO SCH (09:00)
[2019-09-17] MEDS: Albumin 25% 25gram/100mL 25 GM/100 ML IV.SOLN IVPB PRN (09:13)
[2019-09-17] MEDS ORDERED: 0.9 % Sodium Chloride 500 ML IVC PRN (09:57)
[2019-09-17] MEDS: Budesonide/Formoterol 160/4.5 1 PUFF INH IH SCH ×2 (10:05→22:41)
[2019-09-17] MEDS: Acetaminophen 325 MG TABLET PO PRN (13:17)
[2019-09-17] MEDS: Diltiazem CD (24hr) 120 MG CAPSULE PO SCH (13:17)
[2019-09-17] MEDS: Metoprolol XL (24 HR) Succ 25 MG TAB.ER.24H PO SCH (13:18)
[2019-09-17] MEDS: rOPINIRole 1 MG TABLET PO SCH (20:06)
[2019-09-18] MEDS: MetroNIDAZOLE 500 MG/100 ML 500 MG/100 ML BAG IVPB SCH ×3 (00:26→17:32)
[2019-09-18] MEDS: Ondansetron ODT 4 MG TAB.RAPDIS SL PRN (00:26)
[2019-09-18] MEDS: Levalbuterol Neb 1.25 MG/3 ML IH SCH ×5 (04:23→22:11)
[2019-09-18] MEDS: *HR* Heparin 5,000 UNIT/ML VIAL SQ SCH ×3 (05:37→22:16)
[2019-09-18] MEDS: Diltiazem CD (24hr) 120 MG CAPSULE PO SCH (08:15)
[2019-09-18] MEDS ORDERED: 0.9 % Sodium Chloride 1,000 ML IVC SCH (08:15)
[2019-09-18] MEDS: Vancomycin Oral Soln 125 MG/2.5 ML UDC PO SCH ×4 (08:15→22:16)
[2019-09-18] MEDS: Renal Vitamin 1 CAP CAPSULE PO SCH (08:15)
[2019-09-18] MEDS: Metoprolol XL (24 HR) Succ 25 MG TAB.ER.24H PO SCH (08:16)
[2019-09-18] MEDS: Budesonide/Formoterol 160/4.5 1 PUFF INH IH SCH ×3 (10:42→22:11)
[2019-09-18 11:37] LABS: Basophils # 0.1 K/mcL (0.0-0.2); Basophils % 0.7 %; Eosinophils # 0.3 K/mcL (0.0-0.6); Eosinophils % 4.2 %; Hematocrit 38.8 % (37.5-50.1); Hemoglobin 12.3 g/dL (12.9-16.9); Immature Granulocytes % 1.6 % (0-4); Lymphocytes # 0.9 K/mcL (0.6-4.6); Lymphocytes % 11.3 %; Mean Corpuscular HGB Conc 31.7 g/dL (31.6-35.5); Mean Corpuscular Hemoglobin 31.2 pg (28.0-33.3); Mean Corpuscular Volume 98.5 fL (83.0-100.0); Mean Platelet Volume 10.9 fL (9.4-12.4); Monocytes # 0.8 K/mcL (0.0-1.3); Neutrophils # 5.5 K/mcL (1.6-8.9); Platelet Count 191 K/mcL (140-400); Red Blood Count 3.94 M/mcL (4.19-5.50); Red Cell Distribution Width 14.4 % (11.5-14.5); Segmented Neutrophils % 72.2 %; White Blood Count 7.6 K/mcL (4.3-11.1)
[2019-09-18 11:44] LABS: Calcium 10.5 mg/dL (8.6-10.3); Magnesium 2.4 mg/dL (1.6-2.6); Phosphorous 6.9 mg/dL (2.7-4.5); Potassium 3.6 mEq/L (3.5-5.1)
[2019-09-18] MEDS ORDERED: Perflutren Lipid Microsphere 1.3 ML in 0.9 % Sodium Chloride 8.7 ML IVP ONE (18:05)
[2019-09-18] MEDS: rOPINIRole 1 MG TABLET PO SCH (22:17)
[2019-09-19] MEDS: MetroNIDAZOLE 500 MG/100 ML 500 MG/100 ML BAG IVPB SCH ×2 (00:35→08:25)
[2019-09-19] MEDS: *HR* Heparin 5,000 UNIT/ML VIAL SQ SCH ×2 (04:53→14:25)
[2019-09-19] MEDS: Levalbuterol Neb 1.25 MG/3 ML IH SCH ×3 (05:22→15:42)
[2019-09-19 05:29] LABS: Hematocrit 35.7 % (37.5-50.1); Hemoglobin 11.5 g/dL (12.9-16.9); Mean Corpuscular HGB Conc 32.2 g/dL (31.6-35.5); Mean Corpuscular Hemoglobin 31.3 pg (28.0-33.3); Mean Platelet Volume 10.8 fL (9.4-12.4); Platelet Count 185 K/mcL (140-400); Red Blood Count 3.68 M/mcL (4.19-5.50); Red Cell Distribution Width 14.4 % (11.5-14.5); White Blood Count 7.1 K/mcL (4.3-11.1)
[2019-09-19 05:57] LABS: Calcium 10.1 mg/dL (8.6-10.3); Potassium 3.6 mEq/L (3.5-5.1)
[2019-09-19] MEDS ORDERED: 0.9 % Sodium Chloride 250 ML IVC PRN (07:56)
[2019-09-19] MEDS ORDERED: Albumin 25% 25gram/100mL 25 GM/100 ML IV.SOLN IVPB PRN (07:56)
[2019-09-19] MEDS ORDERED: 0.9 % Sodium Chloride 1,000 ML PRIME SCH (08:00)
[2019-09-19] MEDS ORDERED: *HR* Heparin 10,000 UNIT/10 ML VIAL IV PRN (08:06)
[2019-09-19] MEDS: Renal Vitamin 1 CAP CAPSULE PO SCH (08:24)
[2019-09-19] MEDS: Vancomycin Oral Soln 125 MG/2.5 ML UDC PO SCH ×2 (08:25→14:26)
[2019-09-19] MEDS: Diltiazem CD (24hr) 120 MG CAPSULE PO SCH (08:25)
[2019-09-19] MEDS: Budesonide/Formoterol 160/4.5 1 PUFF INH IH SCH (10:36)
[2019-09-19 13:42] VITALS: BP 107/71
== END 2019-09-19 17:00 | disposition home or self-care (01) | DRG 871 ==
LOC: EMEROOARM 09:54 → 2ANU 09:54 → SUATTDRO 14:53 → 2ANU 15:27 → SUATTDRO 09-10 15:05 → ICNU 09-11 20:29 → 2ANU 09-15 11:33
PROVIDERS: ADMIT Internal Medicine; ATTEND Internal Medicine

== ENCOUNTER 2020-03-13 22:40 | Inpatient (IN) ==
[2020-03-13] MEDS ORDERED: Piperacillin/Tazobactam 3.375 GM in 0.9 % Sodium Chloride Mini Bag 100 ML IVPB ONE (22:55)
[2020-03-13] MEDS ORDERED: Ondansetron 4 MG/2 ML VIAL IVP ONE (22:55)
[2020-03-13] MEDS ORDERED: Ipratropium/Albuterol Neb 3 ML IH ONE (22:55)
[2020-03-13] MEDS ORDERED: Isovue-370 500 ML BOTTLE IVP ONE (22:56)
[2020-03-13] MEDS ORDERED: Furosemide 40 MG/4 ML VIAL IVP ONE (22:56)
[2020-03-13] MEDS ORDERED: methylPREDNISolone 125 MG/2 ML VIAL IVP ONE (22:57)
[2020-03-13] MEDS ORDERED: Morphine Sulfate 2 MG/ML SYRINGE IVP ONE (22:58)
[2020-03-13 23:29] LABS: Basophils % 0.5 %; Eosinophils # 0.2 K/mcL (0.0-0.6); Eosinophils % 2.8 %; Hematocrit 33.7 % (37.5-50.1); Hemoglobin 10.5 g/dL (12.9-16.9); Immature Granulocytes % 0.6 % (0-4); Lymphocytes # 1.1 K/mcL (0.6-4.6); Lymphocytes % 14.4 %; Mean Corpuscular HGB Conc 31.2 g/dL (31.6-35.5); Mean Corpuscular Hemoglobin 31.3 pg (28.0-33.3); Mean Corpuscular Volume 100.6 fL (83.0-100.0); Mean Platelet Volume 10.8 fL (9.4-12.4); Monocytes # 0.5 K/mcL (0.0-1.3); Monocytes % 6.3 %; Platelet Count 119 K/mcL (140-400); Red Blood Count 3.35 M/mcL (4.19-5.50); Segmented Neutrophils % 75.4 %; White Blood Count 7.9 K/mcL (4.3-11.1)
[2020-03-13 23:36] LABS: INR 1.3; Prothrombin Time 14.3 Seconds (9.4-12.1)
[2020-03-13 23:39] LABS: Activated Partial Thrombo Time 30.2 Seconds (26.0-36.0)
[2020-03-14 01:10] LABS: Albumin 3.9 g/dL (3.5-5.7); Albumin/Globulin Ratio 1.3 (1.1-2.2); Bilirubin,Direct 0.3 mg/dL (0.0-0.2); Bilirubin,Indirect 0.5 mg/dL (0.0-1.0); Bilirubin,Total 0.8 mg/dL (0.3-1.0); Calcium 8.6 mg/dL (8.6-10.3); Globulin 2.9 g/dL (2.4-3.5); Potassium 4.1 mEq/L (3.5-5.1); Total Protein 6.8 g/dL (6.4-8.9); Troponin I 0.04 ng/mL (< 0.04)
[2020-03-14] MEDS ORDERED: Aspirin 81 MG TAB.CHEW PO ONE (01:53)
[2020-03-14] MEDS ORDERED: Ondansetron 4 MG/2 ML VIAL IVP ONE (03:43)
[2020-03-14] MEDS ORDERED: *HR* FentaNYL (PF) 100 MCG/2 ML VIAL IVP ONE (03:43)
[2020-03-14] MEDS ORDERED: 0.9 % Sodium Chloride 250 ML IVC PRN (08:08)
[2020-03-14] MEDS ORDERED: 0.9 % Sodium Chloride 1,000 ML PRIME SCH (08:15)
[2020-03-14] MEDS ORDERED: Ondansetron 4 MG/2 ML VIAL IVP PRN (09:38)
[2020-03-14] MEDS ORDERED: Naloxone 0.4 MG/ML INJ IVP PRN (09:38)
[2020-03-14] MEDS ORDERED: Dextrose Gel 15 GM/37.5 ML TUBE PO PRN ×2 (09:43)
[2020-03-14] MEDS ORDERED: D5% in Water 1,000 ML IVC PRN (09:43)
[2020-03-14] MEDS ORDERED: *HR* Dextrose 50 % in Water (Syg) 50 ML SYRINGE IVP PRN (09:43)
[2020-03-14 10:18] LABS: ABG Base Excess -2 mEq/L (-2 to 3); ABG HCO3 24 mEq/L (21-27); ABG Oxygen Saturation 77 % (95-98); ABG PCO2 46 mmHg (35-45); ABG PH 7.32 pH Units (7.32-7.45); ABG PO2 46 mmHg (85-104); ABG TCO2 25 mEq/L (20-26)
[2020-03-14 10:56] LABS: Troponin I 0.04 ng/mL (< 0.04)
[2020-03-14 11:09] LABS: Hepatitis B Surface Antibody 23.71 mIU/mL
[2020-03-14 11:20] LABS: Hepatitis B Surface Antigen Nonreactive (Nonreactive)
[2020-03-14] MEDS: *HR* OxyCODONE Immed Rel 15 MG TABLET PO PRN ×2 (11:58→19:41)
[2020-03-14] MEDS: Doxycycline 100 MG CAPSULE PO SCH ×2 (11:58→19:41)
[2020-03-14] MEDS: Pantoprazole 40 MG VIAL IVP SCH (11:58)
[2020-03-14] MEDS: Insulin LISPRO 300 UNITS/3 ML VIAL SQ SCH ×2 (12:18→16:56)
[2020-03-14] MEDS ORDERED: DilTIAZem CD (24hr) 120 MG CAP.ER.24H PO SCH (12:41)
[2020-03-14] MEDS ORDERED: DilTIAZem CD (24hr) 120 MG CAP.ER.24H PO ONE (16:31)
[2020-03-14] MEDS: *HR* Heparin 5,000 UNIT/ML VIAL SQ SCH (17:40)
[2020-03-14] MEDS: rOPINIRole 1 MG TABLET PO SCH (19:41)
[2020-03-14] MEDS ORDERED: traZODone 50 MG TABLET PO SCH (21:00)
[2020-03-15] MEDS: *HR* Heparin 5,000 UNIT/ML VIAL SQ SCH ×2 (05:52→17:27)
[2020-03-15] MEDS: *HR* OxyCODONE Immed Rel 15 MG TABLET PO PRN ×3 (06:09→20:28)
[2020-03-15 06:56] LABS: Basophils % 0.1 %; Hematocrit 35.2 % (37.5-50.1); Hemoglobin 11.1 g/dL (12.9-16.9); Immature Granulocytes % 0.6 % (0-4); Lymphocytes # 0.6 K/mcL (0.6-4.6); Lymphocytes % 8.1 %; Mean Corpuscular HGB Conc 31.5 g/dL (31.6-35.5); Mean Corpuscular Hemoglobin 31.5 pg (28.0-33.3); Mean Platelet Volume 10.8 fL (9.4-12.4); Monocytes # 0.5 K/mcL (0.0-1.3); Monocytes % 6.6 %; Platelet Count 126 K/mcL (140-400); Red Blood Count 3.52 M/mcL (4.19-5.50); Red Cell Distribution Width 14.3 % (11.5-14.5); Segmented Neutrophils % 84.6 %; White Blood Count 7.1 K/mcL (4.3-11.1)
[2020-03-15 07:17] LABS: Calcium 9.5 mg/dL (8.6-10.3); Magnesium 2.3 mg/dL (1.6-2.6); Phosphorous 6.9 mg/dL (2.7-4.5); Potassium 5.1 mEq/L (3.5-5.1)
[2020-03-15] MEDS ORDERED: DilTIAZem CD (24hr) 120 MG CAP.ER.24H PO SCH (09:00)
[2020-03-15] MEDS: Pantoprazole 40 MG VIAL IVP SCH (09:47)
[2020-03-15] MEDS: DilTIAZem CD (24hr) 240 MG CAP.ER.24H PO SCH (09:47)
[2020-03-15] MEDS: Doxycycline 100 MG CAPSULE PO SCH (09:47)
[2020-03-15] MEDS: Ampicillin/Sulbactam 1,500 MG in 0.9 % Sodium Chloride Mini Bag 100 ML IVPB SCH ×2 (13:06→20:36)
[2020-03-15] MEDS: rOPINIRole 1 MG TABLET PO SCH (20:29)
[2020-03-16 01:29] LABS: Basophils % 0.3 %; Eosinophils # 0.1 K/mcL (0.0-0.6); Eosinophils % 0.9 %; Hematocrit 34.2 % (37.5-50.1); Hemoglobin 10.7 g/dL (12.9-16.9); Immature Granulocytes % 0.8 % (0-4); Lymphocytes # 1.2 K/mcL (0.6-4.6); Lymphocytes % 15.7 %; Mean Corpuscular HGB Conc 31.3 g/dL (31.6-35.5); Mean Corpuscular Hemoglobin 31.5 pg (28.0-33.3); Mean Corpuscular Volume 100.6 fL (83.0-100.0); Mean Platelet Volume 10.3 fL (9.4-12.4); Monocytes # 0.6 K/mcL (0.0-1.3); Neutrophils # 5.9 K/mcL (1.6-8.9); Platelet Count 132 K/mcL (140-400); Red Cell Distribution Width 14.5 % (11.5-14.5); Segmented Neutrophils % 75.3 %; White Blood Count 7.8 K/mcL (4.3-11.1)
[2020-03-16 01:49] LABS: Calcium 8.7 mg/dL (8.6-10.3); Potassium 5.1 mEq/L (3.5-5.1)
[2020-03-16] MEDS: *HR* Heparin 5,000 UNIT/ML VIAL SQ SCH ×2 (05:30→17:30)
[2020-03-16] MEDS ORDERED: 0.9 % Sodium Chloride 250 ML IVC PRN (06:42)
[2020-03-16] MEDS: *HR* OxyCODONE Immed Rel 15 MG TABLET PO PRN ×2 (12:41→18:54)
[2020-03-16] MEDS: DilTIAZem CD (24hr) 240 MG CAP.ER.24H PO SCH (12:42)
[2020-03-16] MEDS: Ampicillin/Sulbactam 1,500 MG in 0.9 % Sodium Chloride Mini Bag 100 ML IVPB SCH ×2 (12:42→21:47)
[2020-03-16] MEDS: Pantoprazole 40 MG VIAL IVP SCH (12:43)
[2020-03-16] MEDS: rOPINIRole 1 MG TABLET PO SCH (21:45)
[2020-03-17 01:07] LABS: Basophils # 0.1 K/mcL (0.0-0.2); Basophils % 0.8 %; Eosinophils # 0.2 K/mcL (0.0-0.6); Eosinophils % 3.7 %; Hematocrit 37.3 % (37.5-50.1); Hemoglobin 11.5 g/dL (12.9-16.9); Immature Granulocytes % 0.8 % (0-4); Lymphocytes # 1.3 K/mcL (0.6-4.6); Lymphocytes % 20.1 %; Mean Corpuscular HGB Conc 30.8 g/dL (31.6-35.5); Mean Corpuscular Hemoglobin 31.3 pg (28.0-33.3); Mean Corpuscular Volume 101.4 fL (83.0-100.0); Monocytes # 0.6 K/mcL (0.0-1.3); Monocytes % 8.9 %; Neutrophils # 4.3 K/mcL (1.6-8.9); Platelet Count 135 K/mcL (140-400); Red Blood Count 3.68 M/mcL (4.19-5.50); Red Cell Distribution Width 14.5 % (11.5-14.5); Segmented Neutrophils % 65.7 %; White Blood Count 6.5 K/mcL (4.3-11.1)
[2020-03-17 01:23] LABS: Calcium 8.8 mg/dL (8.6-10.3); Potassium 4.5 mEq/L (3.5-5.1)
[2020-03-17] MEDS: *HR* Heparin 5,000 UNIT/ML VIAL SQ SCH ×3 (05:45→17:13)
[2020-03-17] MEDS: *HR* OxyCODONE Immed Rel 15 MG TABLET PO PRN ×3 (05:49→19:03)
[2020-03-17] MEDS: Pantoprazole 40 MG VIAL IVP SCH (07:12)
[2020-03-17] MEDS: DilTIAZem CD (24hr) 240 MG CAP.ER.24H PO SCH (07:12)
[2020-03-17] MEDS: Ampicillin/Sulbactam 1,500 MG in 0.9 % Sodium Chloride Mini Bag 100 ML IVPB SCH ×2 (09:07→21:37)
[2020-03-17] MEDS: rOPINIRole 1 MG TABLET PO SCH (21:37)
[2020-03-17] MEDS ORDERED: Lidocaine -MPF 2% 2 ML VIAL ONE (22:37)
[2020-03-17] MEDS ORDERED: *HR* Rocuronium Bromide 50 MG/5 ML VIAL ONE (22:37)
[2020-03-17] MEDS ORDERED: Lidocaine HCL 4 ML Topical Solution (Laryng-O-Jet Kit Sterile Pak) TP ONE (22:37)
[2020-03-17] MEDS ORDERED: *HR* FentaNYL (PF) 100 MCG/2 ML VIAL ONE (22:38)
[2020-03-17] MEDS ORDERED: *HR* Propofol 200 MG/20 ML VIAL IVP ONE (22:38)
[2020-03-17] MEDS ORDERED: Bupivacaine/EPI 1:200k 0.5%PF 10 ML VIAL ONE (23:20)
[2020-03-18] MEDS ORDERED: Dexamethasone 4 MG/ML VIAL ONE (00:01)
[2020-03-18] MEDS ORDERED: Ondansetron 4 MG/2 ML VIAL ONE (00:01)
[2020-03-18] MEDS ORDERED: Albuterol 2.5 MG/3 ML NEBULIZER IH PRN ×2 (00:16→06:43)
[2020-03-18] MEDS ORDERED: Acetaminophen IV 1,000 MG/100 ML INFUS..BTL IVPB ONE ×2 (00:16→01:03)
[2020-03-18] MEDS ORDERED: Ondansetron 4 MG/2 ML VIAL IVP ONE ×2 (00:16→06:43)
[2020-03-18] MEDS: *HR* FentaNYL (PF) 100 MCG/2 ML VIAL IVP PRN ×2 (01:01→01:09)
[2020-03-18 03:25] LABS: Hematocrit 34.9 % (37.5-50.1); Hemoglobin 11.4 g/dL (12.9-16.9); Mean Corpuscular HGB Conc 32.7 g/dL (31.6-35.5); Mean Corpuscular Hemoglobin 32.1 pg (28.0-33.3); Mean Corpuscular Volume 98.3 fL (83.0-100.0); Mean Platelet Volume 10.7 fL (9.4-12.4); Platelet Count 114 K/mcL (140-400); Red Blood Count 3.55 M/mcL (4.19-5.50); Red Cell Distribution Width 14.4 % (11.5-14.5); White Blood Count 9.8 K/mcL (4.3-11.1)
[2020-03-18 04:26] LABS: Calcium 8.7 mg/dL (8.6-10.3); Potassium 5.5 mEq/L (3.5-5.1)
[2020-03-18] MEDS: *HR* Heparin 5,000 UNIT/ML VIAL SQ SCH ×2 (05:47→17:03)
[2020-03-18] MEDS ORDERED: 0.9 % Sodium Chloride 250 ML IVC PRN (05:53)
[2020-03-18] MEDS ORDERED: 0.9 % Sodium Chloride 1,000 ML PRIME SCH (06:43)
[2020-03-18] MEDS ORDERED: Ondansetron 4 MG/2 ML VIAL IVP PRN (06:43)
[2020-03-18] MEDS ORDERED: Dextrose Gel 15 GM/37.5 ML TUBE PO PRN ×2 (06:43)
[2020-03-18] MEDS ORDERED: D5% in Water 1,000 ML IVC PRN (06:43)
[2020-03-18] MEDS ORDERED: Naloxone 0.4 MG/ML INJ IVP PRN (06:43)
[2020-03-18] MEDS ORDERED: *HR* Dextrose 50 % in Water (Vial) 50 ML VIAL IVP PRN (06:43)
[2020-03-18] MEDS ORDERED: *HR* FentaNYL (PF) 100 MCG/2 ML VIAL IVP PRN (06:43)
[2020-03-18] MEDS: DilTIAZem CD (24hr) 240 MG CAP.ER.24H PO SCH (07:24)
[2020-03-18] MEDS ORDERED: Ampicillin/Sulbactam 1,500 MG in 0.9 % Sodium Chloride Mini Bag 100 ML IVPB SCH ×2 (09:00→14:00)
[2020-03-18] MEDS ORDERED: Pantoprazole 40 MG VIAL IVP SCH (09:00)
[2020-03-18] MEDS ORDERED: *HR* Metoprolol 5 MG/5 ML VIAL IVP ONE (10:26)
[2020-03-18] MEDS: *HR* OxyCODONE Immed Rel 15 MG TABLET PO PRN ×2 (12:08→18:36)
[2020-03-18] MEDS ORDERED: *HR* Metoprolol 5 MG/5 ML VIAL IVP PRN (15:41)
[2020-03-18] MEDS ORDERED: rOPINIRole 1 MG TABLET PO SCH (21:00)
[2020-03-19] MEDS: *HR* OxyCODONE Immed Rel 15 MG TABLET PO PRN ×2 (00:35→06:28)
[2020-03-19 02:19] LABS: Hematocrit 39.9 % (37.5-50.1); Hemoglobin 12.5 g/dL (12.9-16.9); Mean Corpuscular HGB Conc 31.3 g/dL (31.6-35.5); Mean Corpuscular Hemoglobin 31.5 pg (28.0-33.3); Mean Corpuscular Volume 100.5 fL (83.0-100.0); Mean Platelet Volume 10.2 fL (9.4-12.4); Platelet Count 160 K/mcL (140-400); Red Blood Count 3.97 M/mcL (4.19-5.50); Red Cell Distribution Width 14.6 % (11.5-14.5); White Blood Count 9.2 K/mcL (4.3-11.1)
[2020-03-19 02:38] LABS: Calcium 9.7 mg/dL (8.6-10.3); Potassium 4.6 mEq/L (3.5-5.1)
[2020-03-19] MEDS: *HR* Heparin 5,000 UNIT/ML VIAL SQ SCH (04:44)
[2020-03-19 08:24] VITALS: BP 108/83
[2020-03-19] MEDS: DilTIAZem CD (24hr) 240 MG CAP.ER.24H PO SCH (08:50)
[2020-03-19] MEDS ORDERED: Metoprolol XL (24 HR) Succ 25 MG TAB.ER.24H PO SCH (09:00)
[2020-03-20] MEDS ORDERED: Metoprolol XL (24 HR) Succ 25 MG TAB.ER.24H PO SCH (09:00)
== END 2020-03-19 09:52 | disposition home or self-care (01) | DRG 987 ==
LOC: EMEROOARM 22:40 → 3BNU 22:40 → 2NENU 03-14 06:31 → 2ANU 03-15 19:09
PROVIDERS: ADMIT Family Medicine; ATTEND Family Medicine